=== PATIENT | male | born 1960 | race Caucasian/White ===

== ENCOUNTER 2021-06-29 12:52 | Inpatient (IN) | payer MEDICARE, OTHER ==
[2021-06-29] MEDS ORDERED: MELATONIN 3 MG TABLET PO PRN (16:15)
[2021-06-29] MEDS ORDERED: NALOXONE 0.4 MG/ML 1 ML VIAL IV PRN (16:15)
[2021-06-29] MEDS ORDERED: ACETAMINOPHEN TAB 325 MG TAB PO PRN (16:15)
[2021-06-29] MEDS ORDERED: ONDANSETRON 4 MG/2 ML VIAL IVP PRN (16:15)
[2021-06-29] MEDS ORDERED: ALBUTEROL NEBULIZED 2.5 MG/3 ML INHALATION PRN ×2 (19:41)
[2021-06-29] MEDS ORDERED: BUTORPHANOL TARTRATE 10 MG/ML MISCELLANE PRN (19:41)
[2021-06-29] MEDS ORDERED: VANCOMYCIN IV PER PHARMACY 1 EACH MISC MISCELLANE PRN (19:42)
[2021-06-29] MEDS ORDERED: VANCOMYCIN 1,500 MG in SODIUM CHLORIDE 0.9% 250 ML IVPB ONE (20:00)
[2021-06-29] MEDS: LORazepam 1 MG TAB PO SCH (20:51)
[2021-06-29] MEDS: HYDROcodone/APAP 5-325MG 1 EACH TAB PO PRN (21:29)
[2021-06-29] MEDS: SYMBICORT 160-4.5 MCG INHALER INHALATION SCH (21:51)
--- NOTE | 2021-06-29 22:20 | XR ---
EXAMINATION TYPE: XR chest 1V DATE OF EXAM: 06/29/2021 COMPARISON: NONE HISTORY: Chest tube placement TECHNIQUE: Single view FINDINGS: There is large right pleural effusion. Left lung is fairly clear. There is no obvious heart failure. There is a chest tube over the left lower lung field. I see no definite pneumothorax. IMPRESSION: Left side chest tube noted. Mild pleural reaction and atelectasis left lung base. Large r ight pleural effusion.
[2021-06-29 22:44] LABS: African American GFR (CKD) >90 (>60 ml/min/1.73 sqM); Non-African American GFR(CKD) >90 (>60 ml/min/1.73 sqM)
[2021-06-29] MEDS: CEFEPIME 2 GM in SODIUM CHLORIDE 0.9% 100 ML IVPB SCH (23:05)
[2021-06-29] MEDS: [UNRECOGNIZED DRUG - OTHER] PO SCH (23:09)
[2021-06-29] MEDS: CODEINE PO SCH (23:09)
--- NOTE | 2021-06-30 00:14 | XR ---
EXAMINATION TYPE: XR chest 1V confirm line [facility] DATE OF EXAM: 06/29/2021 COMPARISON: Today HISTORY: Chest tube placement TECHNIQUE: Single view FINDINGS: There is large right pleural effusion. No significant pleural fluid on the left side. No pn eumothorax. There is a chest tube at the left lung base on the exam 2 hours ago that is not identifie d on this exam. The trachea is midline. There is no sign of a pneumothorax. There is a pigtail drainage catheter over the subcutaneous tissues on the right lateral chest wall an d is not within the chest. IMPRESSION: Large right pleural effusion and right pulmonary consolidation without change. The right side chest tube appears to be in the subcutaneous fat and malpositioned over the lower lateral right chest wall..
[2021-06-30] MEDS: CEFEPIME 2 GM in SODIUM CHLORIDE 0.9% 100 ML IVPB SCH (03:31)
[2021-06-30] MEDS: HYDROcodone/APAP 5-325MG 1 EACH TAB PO PRN ×4 (03:41→19:41)
[2021-06-30 07:33] LABS: Basophils % (A) 0 %; Eosinophils % (A) 1 %; HCT 30.6 % (39.0-53.0); HGB 9.9 gm/dL (13.0-17.5); Lymphocytes # (A) 1.1 k/uL (1.0-4.8); Lymphocytes % (A) 14 %; MCH 33.9 pg (25.0-35.0); MCHC 32.3 g/dL (31.0-37.0); MCV 104.9 fL (80.0-100.0); Macrocytosis Moderate; Mean Platelet Volume 9.3; Monocytes # (A) 0.4 k/uL (0-1.0); Monocytes % (A) 6 %; Neutrophils # (A) 6.1 k/uL (1.3-7.7); Neutrophils % (A) 78 %; Platelet Count 244 k/uL (150-450); RBC 2.92 m/uL (4.30-5.90); RDW 15.2 % (11.5-15.5); WBC 7.8 k/uL (3.8-10.6)
[2021-06-30 07:35] LABS: ALT 43 U/L (4-49); AST 49 U/L (17-59); African American GFR (CKD) >90 (>60 ml/min/1.73 sqM); Albumin 2.3 g/dL (3.5-5.0); Albumin/Globulin Ratio 0.6; Alkaline Phosphatase 88 U/L (38-126); Anion Gap 4 mmol/L; Blood Urea Nitrogen 10 mg/dL (9-20); Calcium 8.2 mg/dL (8.4-10.2); Carbon Dioxide 28 mmol/L (22-30); Chloride 99 mmol/L (98-107); Globulin 3.8 g/dL; Glucose 99 mg/dL (74-99); Magnesium 1.8 mg/dL (1.6-2.3); Non-African American GFR(CKD) >90 (>60 ml/min/1.73 sqM); Potassium 3.8 mmol/L (3.5-5.1); Sodium 131 mmol/L (137-145); Total Bilirubin 0.3 mg/dL (0.2-1.3); Total Protein 6.1 g/dL (6.3-8.2)
--- NOTE | 2021-06-30 07:59 | XR ---
EXAMINATION TYPE: XR chest 1V portable DATE OF EXAM: 06/30/2021 Comparison: 06/29/2021 Clinical History: 60-year-old male empyema Findings: Right heart margin remains obscured by adjacent pleural parenchymal opacity. Continued moderate to la rge right effusion. Some patchy density at the left base is unchanged. Hyperinflation. Impression: Continued moderate to large right pleural effusion. Continued bibasilar patchy atelectasis and/or inf iltrates.
[2021-06-30] MEDS: SYMBICORT 160-4.5 MCG INHALER INHALATION SCH ×2 (08:03→20:50)
--- NOTE | 2021-06-30 08:10 | P.HPIM ---
History of Present Illness H&P Date: 06/29/21 This is a 60-year-old male who was recently hospitalized at [facility] for pneumonia and empyema and had a chest tube placed on the right for continued drainage and ultimately sent here to [facility] for further evaluation by cardiothoracic surgery for complicated empyema that appears to be loculated. Infectious disease following over there and patient was maintained on cefepime and Vancomycin and will reorder here and consult infectious disease. Consult also placed to pulmonary along with cardiothoracic surgery. Upon arrival to the unit on 4 S. per nursing staff patient's chest tube atrium was lying flat on the patient on arrival and when hooking up to wall suction b ubbling was noted in the atrium and was replaced. Bubbling persisted and chest x-ray was done which shows large right pleural effusion and right pulmonary consolidation without change the right side chest tube appears to be in the subcutaneous fat and malposition over the lower lateral right chest wall. No sign of pneumothorax. Cardiothoracic surgery contacted and will be replaced upon their evaluation. Patient does have a past medical history of COPD, hypertension, former smoker recently quit, EtOH use and reports to quitting a month or so ago, anemia, and most recently per family patient has been falling more often with unsteady gait. Patient states he follows with Dr. Rafita Lewis out of [place]. Daughter states patient lives by himself and is concerned and would like possible placement. Review of Systems Constitutional: Reports weakness Ears, nose, mouth and throat: Denies headache, Denies sore throat Cardiovascular: Reports decreased exercise tolerance, Reports dyspnea on exertion, Reports shortness of breath Respiratory: Reports dyspnea, Reports home oxygen, Reports pain on inspiration Gastrointestinal: Denies abdominal pain, Denies diarrhea, Denies nausea, Denies vomiting Musculoskeletal: Denies myalgias Integumentary: Denies pruritus, Denies rash Neurological: Denies numbness, Denies weakness Psychiatric: Denies anxiety, Denies depression Endocrine: Denies fatigue, Denies weight change Past Medical History Past Medical History: COPD, Hypertension History of Any Multi-Drug Resistant Organisms: None Reported Past Surgical History: Hernia Repair, Orthopedic Surgery Past Anesthesia/Blood Transfusion Reactions: No Reported Reaction Past Psychological History: No Psychological Hx Reported Smoking Status: Former smoker Past Alcohol Use History: None Reported Additional Past Alcohol Use History / Comment(s): Quit drinking alcohol 7-8 weeks ago Past Drug Use History: None Reported Medications and Allergies Home Medications Medication Instructions Recorded Confirmed Type Albuterol Inhaler [Ventolin Hfa 1 puff INHALATION RT-Q4H PRN 06/29/21 06/29/21 History Inhaler] Albuterol Nebulized [Ventolin 2.5 mg INHALATION RT-QID PRN 06/29/21 06/29/21 History Nebulized] Ascomp W/Codeine 1 cap PO TID 06/29/21 06/29/21 History Butorphanol Tartrate [Stadol Nasal 1 spray NASAL DAILY PRN 06/29/21 06/29/21 History [employer]] LORazepam [Ativan] 2 mg PO HS 06/29/21 06/29/21 History Metoprolol Succinate [Toprol XL] 100 mg PO DAILY 06/29/21 06/29/21 History Mometasone/Formoterol [Dulera 200 2 puff PO RT-BID 06/29/21 06/29/21 History Mcg-5 Mcg Inhaler] Umeclidinium [place] [Incruse 1 mcg INHALATION RT-DAILY 06/29/21 06/29/21 History Ellipta] Allergies Allergy/AdvReac Type Severity Reaction Status Date / Time No Known Allergies Allergy Verified 06/29/21 17:05 Physical Exam Vitals: Intake and Output 06/29/21 06/29/21 06/29/21 06:59 14:59 22:59 Other: # Voids 1 Weight 83 kg Gen: This is a 60-year-old male awake, alert and oriented 3, thin built, appears older than stated age, no acute distress HEENT: Head is atraumatic, normocephalic. Pupils equal, round. Sclerae is anicteric. NECK: Supple. No JVD. No lymphadenopathy. No thyromegaly. LUNGS: Diminished breath sounds on the right more so than the left with some scattered rhonchi noted. Mild crackles noted at the bases. No intercostal retractions. Right chest wall pigtail catheter noted that appears stretched but no surrounding redness or swelling noted at the chest wall site, tender on palpation. HEART: Regular rate and rhythm. No murmur. ABDOMEN: Soft. Thin built. Bowel sounds are present. No masses. No tenderness. EXTREMITIES: No pedal edema. No calf tenderness. NEUROLOGICAL: Patient is awake, alert and oriented x3. Cranial nerves 2 through 12 are grossly intact. Results CBC & Chem 7: 06/30/21 06:46 06/30/21 07:12 Thrombosis Risk Factor Assmnt - DVT/VTE Prophylaxis DVT/VTE Prophylaxis: Pharmacologic Prophylaxis ordered - Choose All That Apply Any of the Below Risk Factors Present?: Yes Each Factor Represents 1 point: Abnormal pulmonary function (COPD) Each Risk Factor Represents 2 Points: Age 61-74 years Thrombosis Risk Factor Assessment Total Risk Factor Score: 3 Thrombosis Risk Factor Assessment Level: Moderate Risk Assessment and Plan Assessment: Pneumonia with Pseudomonas Chronic obstructive pulmonary disease, acute exacerbation Right pleural effusion Hypertension Remote history of alcohol abuse Remote history of nicotine dependence, recently quit Moderate protein malnutrition with BMI of 22.3 History of anemia, macrocytic Interstitial lung disease History of chronic right pleural effusion that was recently tapped at [facility] Gait dysfunction Weakness Frequent falls Full code Plan: In this pleasant 60-year-old male that was recently transferred from [facility] here to [facility] will consult cardiothoracic surgery for evaluation of pigtail catheter and possible intervention of loculated empyema. Patient was being followed by Dr. Giordano at [facility] and will consult Dr. Prabhakar pulmonary as he is rounding here today. Infectious disease consulted as well and will resume patient on IV cefepime along with IV Vanco and repeat a.m. labs. Resume appropriate home medications and have ordered nicotine patch as patient states he did quit smoking but is known to be a poor historian. Will also consult PT/OT therapy for evaluation as patient has been having more frequent falls with weakness and gait dysfunction and family is concerned for h is overall health and well-being as he lives alone. Will consult social work as well to discuss possible placement options once patient is stabilized. Will repeat chest x-ray and repeat a.m. labs. Due to multiple complex medical issues, prognosis is guarded. Further recommendations to follow based on the clinical course the patient. Continue GI and DVT prophylaxis. Time with Patient: Greater than 30
--- NOTE | 2021-06-30 08:53 | P.CNPUL ---
History of Present Illness Consult date: 06/30/21 Chief complaint: empyema History of present illness: This is a 60-year-old male patient transferred from [facility] for a right lung empyema. The patient presented there for shortness of breath and the patient was found to have a large right-sided loculated pleural effusion. The patient also was an acute COPD exacerbation. The patient underwent a pigtail catheter insertion by interventional radiology and the fluid was plus. The cultures from the pleural fluid showed numerous gram-positive cocci, gram- negative bacilli and gram-positive bacilli and the final cultures are still pending. Meanwhile, the patient was covered with a combination of Zosyn and vancomycin. The patient got transferred to our hospital for further care. I reviewed the chest x-ray upon arrival. The pigtail catheter was already out in the subcutaneous tissue and there was a large right-sided pleural effusion. Based on that, I removed the pigtail catheter the bedside and I consulted interventional radiology for another pigtail catheter insertion. I reviewed the CAT scan of the chest and it showed a large somewhat loculated right-sided pleu ral effusion which is very much M and able for percutaneous drainage. For that reason, IV consulted interventional radiology. The patient is known to have COPD. He is a chronic alcohol user and he has quit drinking approximately 7 weeks ago. He has history of alcoholism. He has history of prostate cancer treated by radiation therapy and he has also history of hypertension. He is a chronic smoker smokes one pack of cigarettes a day. He is COVID-19 negative. White cell count at [facility] was 10.6 with a hemoglobin of 9.7. No reported aspiration. There is a sputum sample that was collected at [facility] growing pseudomonas aeruginosa on 06/28/2021. Review of Systems Constitutional: Reports fatigue, Reports fever, Reports weakness Eyes: denies as per HPI, denies blurred vision, denies bulging eye, denies d ecreased vision, denies diplopia, denies discharge, denies dry eye, denies irritation, denies itching, denies pain, denies photophobia, denies loss of peripheral vision, denies loss of vision, denies tunnel vision/blind spots Ears: deny: decreased hearing, ear discharge, earache, tinnitus Ears, nose, mouth and throat: Reports as per HPI Breasts: absent: as per HPI, gynecomastia Cardiovascular: Reports decreased exercise tolerance, Reports dyspnea on exertion Respiratory: Reports cough, Reports cough with sputum, Reports dyspnea Gastrointestinal: Reports as per HPI Genitourinary: Reports as per HPI Musculoskeletal: Reports as per HPI Musculoskeletal: absent: ankle pain, ankle stiffness, ankle swelling, as per HPI, elbow pain, elbow stiffness, elbow swelling, foot pain, foot stiffness, foot swelling, hand pain, hand stiffness, hand swelling, hip pain, hip stiffness , hip swelling, knee pain, knee stiffness, knee swelling, shoulder pain, shoulder stiffness, shoulder swelling, wrist pain, wrist stiffness, wrist swelling Integumentary: Reports as per HPI Neurological: Reports as per HPI Psychiatric: Reports as per HPI Endocrine: Reports as per HPI Hematologic/Lymphatic: Reports as per HPI Allergic/Immunologic: Reports as per HPI Past Medical History Past Medical History: Cancer (Prostate cancer), COPD, Hypertension History of Any Multi-Drug Resistant Organisms: None Reported Past Surgical History: Hernia Repair, Orthopedic Surgery Past Anesthesia/Blood Transfusion Reactions: No Reported Reaction Past Psychological History: No Psychological Hx Reported Smoking Status: Former smoker Past Alcohol Use History: None Reported Additional Past Alcohol Use History / Comment(s): Quit drinking alcohol 7-8 weeks ago Past Drug Use History: None Reported Medications and Allergies Home Medications Medication Instructions Recorded Confirmed Type Albuterol Inhaler [Ventolin Hfa 1 puff INHALATION RT-Q4H PRN 06/29/21 06/29/21 History Inhaler] Albuterol Nebulized [Ventolin 2.5 mg INHALATION RT-QID PRN 06/29/21 06/29/21 History Nebulized] Ascomp W/Codeine 1 cap PO TID 06/29/21 06/29/21 History Butorphanol Tartrate [Stadol Nasal 1 spray NASAL DAILY PRN 06/29/21 06/29/21 History [place]] LORazepam [Ativan] 2 mg PO HS 06/29/21 06/29/21 History Metoprolol Succinate [Toprol XL] 100 mg PO DAILY 06/29/21 06/29/21 History Mometasone/Formoterol [Dulera 200 2 puff PO RT-BID 06/29/21 06/29/21 History Mcg-5 Mcg Inhaler] Umeclidinium [place] [Incruse 1 mcg INHALATION RT-DAILY 06/29/21 06/29/21 His tory Ellipta] Allergies Allergy/AdvReac Type Severity Reaction Status Date / Time No Known Allergies Allergy Verified 06/29/21 17:05 Physical Exam Vitals: Vital Signs Temp Pulse Resp BP Pulse Ox 06/30/21 07:28 97.5 F L 67 16 112/79 98 06/30/21 01:10 97.6 F 80 15 125/88 96 Intake and Output 06/29/21 06/30/21 06/30/21 22:59 06:59 14:59 Output Total 200 Balance -200 Output: Urine 200 Other: # Voids 1 Weight 83 kg Gen. appearance the patient is calm comfortable likely distress. No signs of any respiratory distress Head exam was generally normal. There was no scleral icterus or corneal arcus. Mucous membranes were moist. Neck was supple and without jugular venous distension, thyromegaly, or carotid bruits. Carotids were easily palpable bilaterally. There was no adenopathy. Lungs: Diminished on the right compared to left specially in the right lung base. The pigtail catheter was removed. Cardiac exam revealed the PMI to be normally situated and sized. The rhythm was regular and no extrasystoles were noted during several minutes of auscultation. The first and second heart sounds were normal and physiologic splitting of the second heart sound was noted. There were no murmurs, rubs, clicks, or gallops. Abdominal exam revealed normal bowel sounds. The abdomen was soft, non-tender, and without masses, organomegaly, or appreciable enlargement of the abdominal aorta. Examination of the extremities revealed easily palpable radial, femoral and pedal pulses. There was no cyanosis, clubbing or edema. Examination of the skin revealed no evidence of significant rashes, suspicious appearing nevi or other concerning lesions. Neurologically, the patient is awake and alert and the patient does not have any focal neurological deficit. Cranial nerves are essentially intact. Results - Laboratory Findings CBC and BMP: 06/30/21 06:46 06/30/21 07:12 Abnormal lab findings: Abnormal Labs 06/29/21 06/30/21 06/30/21 21:39 06:46 07:12 RBC 2.92 L Hgb 9.9 L Hct 30.6 L MCV 104.9 H Sodium 131 L Creatinine 0.61 L 0.59 L Calcium 8.2 L Total Protein 6.1 L Albumin 2.3 L Assessment and Plan Plan: 1 right lung empyema post percutaneous pigtail catheter insertion with subsequent dislodgment of the cath. Pleural fluid is purulent and its polymicrobial, awaiting final cultures. Currently on a combination of Zosyn and vancomycin. Awaiting another catheter insertion.. This could be a gram- negative pneumonia with secondary empyema and alcoholic patient. Patient has grown also pseudomonas aeruginosa and the sputum on 06/28/2021. Anaerobic infection cannot be completely excluded within the pleural space. 2 COPD 3 shortness of breath secondary to above 4 history of alcoholism 5 history of prostate cancer 6 history of smoking 7 chronic anemia 8 protein calorie malnutrition, moderate Plan Consult interventional radiology for another pigtail catheter insertion. The earlier catheter was dislodged and I took it out at the bedside. We'll order a catheter insertion. We'll monitor the output. We'll likely need TPA to improve or enhance the pleural fluid drainage. No need for any thoracic intervention or surgical intervention at this point in time. The pleural fluid should be drained percutaneously based on the CAT scan findings. Continue Zosyn and vancomycin Awaiting final cultures from the samples collected at [facility] Incentive spirometer Pain control with [place] and use Dilaudid for breakthrough pain DuoNeb the regimens [id number] COVID-19 testing by PCR Lovenox subcu for DVT prophylaxis Watch for any signs of delirium tremens We'll continue to follow.
[2021-06-30] MEDS: VANCOMYCIN 1,500 MG in SODIUM CHLORIDE 0.9% 250 ML IVPB SCH ×2 (09:05→23:36)
[2021-06-30] MEDS: PANTOPRAZOLE 40 MG TABLET PO SCH (09:05)
[2021-06-30] MEDS: FOLIC ACID 1 MG TAB PO SCH (09:05)
[2021-06-30] MEDS: METOPROLOL SUCCINATE (ER) 100 MG TAB.ER.24H PO SCH (09:05)
[2021-06-30] MEDS: NICOTINE 14MG/24HR PATCH TRANSDERM SCH (09:05)
[2021-06-30] MEDS: THIAMINE 100 MG TAB PO SCH (09:05)
[2021-06-30 10:12] LABS: Prothrombin Time 10.4 sec (9.0-12.0)
--- NOTE | 2021-06-30 11:04 | P.GSCN ---
History of Present Illness Consult date: 06/30/21 Reason for Consult: Loculated right empyema Requesting physician: Elyse Marquez History of present illness: This is 60-year-old gentleman who follows on an outpatient basis with Dr. Gaetano Lewis for his primary care service. He is a past medical history significant for COPD with home oxygen use 3 L nasal cannula, right pleural effusion with previous right thoracentesis at [facility] around the year ago, anemia, hypertension, prostate cancers status post 48 radiation treatments, recent fall from standing, medical debility, remote history of paroxysmal atrial fibrillation, chronic nicotine dependence and EtOH abuse which he reports he quit about 7-8 weeks ago. The patient was transferred from [facility] yesterday for evaluation for right lung empyema. The patient has had complaints of progressive shortness of breath, cough, generalized weakness, weight loss and right sided rib pain. The patient underwent a right-sided pigtail catheter placement yesterday by interventional radiology with pleural fluid Gram stain showing MRSA gram-positive cocci, few gram-negative bacilli, and few gram-positive bacilli. He also had a sputum culture on 06/26/2021 which showed moderate usual respiratory guilherme, and pseudomonas aeruginosa. Currently is on IV antibiotics and combination of vancomycin and Zosyn. The patient denies any recent fever, chills, nausea, vomiting, hemoptysis, hematemesis, headache, constipation, diarrhea or headache. A chest x-ray was also completed as well as a computed tomography scan of his chest at [facility] showing a large right-sided pleural effusion. Subsequently, he underwent a right-sided pigtail catheter placement which was completed by interventional radiology with 400 mL of pus drained. A chest x-ray completed this morning shows a continued moderate to large right-sided pleural effusion and it appears that his right-sided pigtail catheter is dislodged. Due to the findings of a large right sided pleural effusion a consult was placed to Dr. London Abrams from cardiothoracic surgery for further evaluation and treat ment recommendations. Review of Systems A 14 point review of systems was completed was negative except as mentioned in the HPI. Past Medical History Past Medical History: Atrial Fibrillation (Remote history of paroxysmal atrial fibrillation), Cancer (Prostate cancer, status post 48 radiation treatments), COPD, Hypertension, Prostate Disorder, Respiratory Disorder (COPD with home oxygen use) History of Any Multi-Drug Resistant Organisms: None Reported Past Surgical History: Appendectomy, Hernia Repair (Bilateral inguinal hernia repair), Orthopedic Surgery (Right heel), Tonsillectomy Additional Past Surgical History / Comment(s): History of esophageal dilation Past Anesthesia/Blood Transfusion Reactions: No Reported Reaction Past Psychological History: No Psychological Hx Reported Smoking Status: Former smoker (Quit smoking 7 weeks ago) Past Alcohol Use History: Daily (Quit drinking 7 weeks ago) Additional Past Alcohol Use History / Comment(s): Quit drinking alcohol 7-8 weeks ago Past Drug Use History: None Reported Medications and Allergies Home Medications Medication Instructions Recorded Confirmed Type Albuterol Inhaler [Ventolin Hfa 1 puff INHALATION RT-Q4H PRN 06/29/21 06/29/21 History Inhaler] Albuterol Nebulized [Ventolin 2.5 mg INHALATION RT-QID PRN 06/29/21 06/29/21 History Nebulized] Ascomp W/Codeine 1 cap PO TID 06/29/21 06/29/21 History Butorphanol Tartrate [Stadol Nasal 1 spray NASAL DAILY PRN 06/29/21 06/29/[address] [place]] LORazepam [Ativan] 2 mg PO HS 06/29/21 06/29/21 History Metoprolol Succinate [Toprol XL] 100 mg PO DAILY 06/29/21 06/29/21 History Mometasone/Formoterol [Dulera 200 2 puff PO RT-BID 06/29/21 06/29/21 History Mcg-5 Mcg Inhaler] Umeclidinium [place] [Incruse 1 mcg INHALATION RT-DAILY 06/29/21 06/29/21 History Ellipta] Allergies Allergy/AdvReac Type Severity Reaction Status Date / Time No Known Allergies Allergy Verified 06/29/21 17:05 Surgical - Exam Vital Signs Temp Pulse Resp BP Pulse Ox 97.6 F 80 15 125/88 96 06/30/21 01:10 06/30/21 01:10 06/30/21 01:10 06/30/21 01:10 06/30/21 01:10 CONSTITUTIONAL: Sitting up to the bedside chair on the cardiac stepdown unit, appears comfortable, cooperative, no apparent acute distress. HEENT: Neck is supple, no JVD, no lymphadenopathy. No scleral icterus. Mucous membranes are moist. No JVD. No bruit. RESPIRATORY: Lungs sounds diminished throughout, right greater than left. Respirations are symmetrical and nonlabored. Currently on 4 L nasal cannula with oxygen saturations 98%. Able to achieve 1000 mL on his incentive spirometry. Strong cough. CARDIOVASCULAR: Regular rhythm and rate. S1 and S2 present, negative for S3, gallop or murmur. Palpable peripheral pulses bilaterally, no edema present. No calf pain or tenderness noted. GASTROINTESTINAL: Abdomen soft, nontender, nondistended. Active bowel sounds present 4 quadrants. No guarding or rigidity. No organomegaly appreciated. INTEGUMENTARY: Skin is warm and dry with no evidence of clubbing or cyanosis. No rash or abnormal pigmentation. Dressing clean and dry to his right chest pigtail catheter insertion site. NEUROLOGIC: Cranial nerves II through XII intact. No focal deficits. MUSKULOSKELETAL: Able to move all extremities, strength equal bilaterally, generalized weakness. PSYCHIATRIC: Alert and oriented to person place and time, appropriate affect, intact judgment and insight. Results - Labs 06/30/21 06:46 06/30/21 07:12 Abnormal Lab Results - Last 24 Hours (Table) 06/29/21 06/30/21 06/30/21 Range/Units 21:39 06:46 07:12 RBC 2.92 L (4.30-5.90) m/uL Hgb 9.9 L (13.0-17.5) gm/dL Hct 30.6 L (39.0-53.0) % MCV 104.9 H (80.0-100.0) fL Sodium 131 L (137-145) mmol/L Creatinine 0.61 L 0.59 L (0.66-1.25) mg/dL Calcium 8.2 L (8.4-10.2) mg/dL Total Protein 6.1 L (6.3-8.2) g/dL Albumin 2.3 L (3.5-5.0) g/dL Diabetes panel 06/29/21 06/30/21 Range/Units 21:39 07:12 Sodium 131 L (137-145) mmol/L Potassium 3.8 (3.5-5.1) mmol/L Chloride 99 (98-107) mmol/L Carbon Dioxide 28 (22-30) mmol/L BUN 10 (9-20) mg/dL Creatinine 0.61 L 0.59 L (0.66-1.25) mg/dL Glucose 99 (74-99) mg/dL Calcium 8.2 L (8.4-10.2) mg/dL AST 49 (17-59) U/L ALT 43 (4-49) U/L Alkaline Phosphatase 88 (38-126) U/L Total Protein 6.1 L (6.3-8.2) g/dL Albumin 2.3 L (3.5-5.0) g/dL Calcium panel 06/30/21 Range/Units 07:12 Calcium 8.2 L (8.4-10.2) mg/dL Albumin 2.3 L (3.5-5.0) g/dL Pituitary panel 06/29/21 06/30/21 Range/Units 21:39 07:12 Sodium 131 L (137-145) mmol/L Potassium 3.8 (3.5-5.1) mmol/L Chloride 99 (98-107) mmol/L Carbon Dioxide 28 (22-30) mmol/L BUN 10 (9-20) mg/dL Creatinine 0.61 L 0.59 L (0.66-1.25) mg/dL Glucose 99 (74-99) mg/dL Calcium 8.2 L (8.4-10.2) mg/dL Adrenal panel 06/29/21 06/30/21 Range/Units 21:39 07:12 Sodium 131 L (137-145) mmol/L Potassium 3.8 (3.5-5.1) mmol/L Chloride 99 (98-107) mmol/L Carbon Dioxide 28 (22-30) mmol/L BUN 10 (9-20) mg/dL Creatinine 0.61 L 0.59 L (0.66-1.25) mg/dL Glucose 99 (74-99) mg/dL Calcium 8.2 L (8.4-10.2) mg/dL Total Bilirubin 0.3 (0.2-1.3) mg/dL AST 49 (17-59) U/L ALT 43 (4-49) U/L Alkaline Phosphatase 88 (38-126) U/L Total Protein 6.1 L (6.3-8.2) g/dL Albumin 2.3 L (3.5-5.0) g/dL - Imaging Chest x-ray: report reviewed, image reviewed Assessment and Plan Assessment: 1. Right lung empyema status post right-sided percutaneous pigtail catheter insertion by interventional radiology and subsequent dislodgment of the pigtail catheter. Sputum culture from 06/26/2021 showing pseudomonas aeruginosa 2. Shortness of breath secondary to above 3. Chronic obstructive pulmonary disease 4. History of prostate cancer status post 48 treatments of radiation 5. Hypertension 6. Medical debility 7. Chronic anemia 8. History of EtOH abuse 9. History of nicotine dependence 10. History of recent weight loss, protein calorie malnutrition Plan: The patient was seen and examined at his bedside on the fourth floor [facility] unit. His chart and diagnostics were reviewed. He was seen and examined by Dr. London Abrams from cardiothoracic surgery. Dr. Abrams discussed the findings on the patient's computed tomography scan of his chest and chest x- rays. Cardiothoracic surgery service agree with placement of a right sided pigtail catheter replaced by interventional radiology with subsequent pleural instillation of alteplase/dornase combination. Dr. Abrams did discuss with the patient, the possible need for surgery if the alteplase and dornase combination does not clear his empyema. Continue with IV antibiotics managed by infectious disease. Encourage use of his incentive spirometry 10 times every hour while awake. Risk modification including continued smoking cessation was discussed with the patient, and continue to monitor the patient for signs of delirium tremors. Medical management and other comorbidities per primary care service. Recommendations to follow based on patient's clinical course. Thank you for this consult and we look forward to working with you in the care of this patient. Time with Patient: Greater than 30
--- NOTE | 2021-06-30 11:30 | US ---
EXAMINATION TYPE: US guided chest tube insertion DATE OF EXAM: 06/30/2021 COMPARISON: Chest x-ray dated 06/30/2021 HISTORY: Right Pleural effusion, empyema. FINDINGS: Maximal barrier technique was utilized. The skin overlying a suitable pocket of fluid in t he posterior right chest was localized and the overlying skin prepped and draped. Lidocaine was used for local anesthesia. Ultrasound was used with sterile technique. A 21-gauge needle was advanced in to the pleural fluid collection using ultrasound guidance , purulent material returned in the hub of the needle. A 0.018 inch wire was advanced and the access site was upsized with a transitional dilato r, wire was upsized and the tract was dilated, 6 Finnish tube was advanced over the wire and fixed in place.. 20 cc purulent material obtained for laboratory analysis. Catheter attached to water seal. Po st procedure chest x-ray pending. There is no immediate complication. The patient discharged in stab le condition without complication. IMPRESSION: STATUS POST ULTRASOUND GUIDED PLEURAL DRAINAGE TUBE CATHETER PLACEMENT, POST PROCEDURE EST X-RAY PENDING. THIS PROCEDURE WAS PERFORMED BY THE UNDERSIGNED.
--- NOTE | 2021-06-30 11:53 | XR ---
EXAMINATION TYPE: XR chest 1V DATE OF EXAM: 06/30/2021 COMPARISON: Earlier today HISTORY: 60-year-old male post right chest tube insertion TECHNIQUE: Single frontal view of the chest is obtained. FINDINGS: Continued moderate to large right pleural effusion. Patchy bibasilar opacities persist. In terval placement of the pigtail right basilar lateral catheter. Right heart margin remains obscured b y adjacent pleural parenchymal opacity. IMPRESSION: 1. Interval placement of a pigtail right basilar pleural catheter. 2. Continued moderate to large right pleural effusion with patchy bibasilar opacities.
[2021-06-30] MEDS: [UNRECOGNIZED DRUG - OTHER] PO SCH ×2 (12:36→12:45)
[2021-06-30] MEDS: CODEINE PO SCH ×2 (12:36→12:45)
[2021-06-30] MEDS: ENOXAPARIN 40 MG/0.4 ML SYRINGE SQ SCH (12:37)
[2021-06-30] MEDS: PIPERACILLIN-TAZOBACTAM 3.375 GM in SODIUM CHLORIDE 0.9% 100 ML IVPB SCH ×3 (12:37→19:41)
--- NOTE | 2021-06-30 12:57 | P.PN ---
Subjective Progress Note Date: 06/30/21 This is a 60-year-old male who was recently hospitalized at [facility] for pneumonia and empyema and had a chest tube placed on the right for continued drainage and ultimately sent here to [facility] for further evaluation by cardiothoracic surgery for complicated empyema that appears to be loculated. Infectious disease following over there and patient was maintained on cefepime and Vancomycin and will reorder here and consult infectious disease. Consult also placed to pulmonary along with cardiothoracic surgery. Upon arrival to the unit on 4 S. per nursing staff patient's chest tube atrium was lying flat on the patient on arrival and when hooking up to wall suction bubbli ng was noted in the atrium and was replaced. Bubbling persisted and chest x-ray was done which shows large right pleural effusion and right pulmonary consolidation without change the right side chest tube appears to be in the subcutaneous fat and malposition over the lower lateral right chest wall. No sign of pneumothorax. Cardiothoracic surgery contacted and will be replaced upon their evaluation. Patient does have a past medical history of COPD, hypertension, former smoker recently quit, EtOH use and reports to quitting a month or so ago, anemia, and most recently per family patient has been falling more often with unsteady gait. Patient states he follows with Dr. Rafita Lewis out of [place]. Daughter states patient lives by himself and is concerned and would like possible placement. 06/30/2021 patient is seen and evaluated in follow-up this morning with cardiothoracic surgery along with pulmonary following closely and evaluated the patient. Pigtail catheter on the right was dislodged and removed at the bedside by pulmonary and interventional radiology consulted to replace catheter on the right with possible drainage or evacuation of the loculated area with cultures b eing sent. patient is continued on 4 L of oxygen via nasal cannula and reports no worsening shortness of breath. Patient had some pain with inspiration and during the removal of the catheter and will order pain medications. Labs: White blood count is 7.8, hemoglobin is 9.9, platelets are 244, INR is 1.0, sodium is 131 with a potassium of 3.8 and current creatinine is 0.59, magnesium is 1.8. Review of systems: Constitutional: No reports of fatigue, fever, or chills Cardiovascular: No reports of chest pain or palpitations Respiratory: No reports of shortness of breath or cough GI: No reports of nausea, vomiting, or diarrhea : No reports of dysuria or retention Neurovascular: No reports of weakness or numbness All medications have been reviewed Active Medications Acetaminophen (Acetaminophen Tab 325 Mg Tab) 650 mg PO Q6HR PRN PRN Reason: Mild Pain or Fever > 100.5 Hydrocodone Bitart/Acetaminophen (Hydrocodone/Apap 5-325mg 1 Each Tab) 1 each PO Q6HR PRN PRN Reason: Pain Last Admin: 06/30/21 09:05 Dose: 1 each Documented by: Albuterol Sulfate (Albuterol Nebulized 2.5 Mg/3 Ml) 2.5 mg INHALATION RT-Q4H PRN PRN Reason: Shortness Of Breath Last Admin: 06/30/21 12:05 Dose: 2.5 mg Documented by: Budesonide/Formoterol Fumarate (Symbicort 160-4.5 Mcg Inhaler) 2 puff INHALATION RT-BID [facility] Last Admin: 06/30/21 08:03 Dose: 2 puff Documented by: Enoxaparin Sodium (Enoxaparin 40 Mg/0.4 Ml Syringe) 40 mg SQ DAILY [facility] Last Admin: 06/30/21 12:37 Dose: 40 mg Documented by: Folic Acid (Folic Acid 1 Mg Tab) 1 mg PO DAILY [facility] Last Admin: 06/30/21 09:05 Dose: 1 mg Documented by: Hydromorphone HCl (Hydromorphone 1 Mg/Ml 1 Ml Syringe) 1 mg IVP Q3HR PRN PRN Reason: Pain Vancomycin HCl 1,500 mg/ (Sodium Chloride) 250 mls @ 125 mls/hr IVPB Q12H [facility] Last Admin: 06/30/21 09:05 Dose: 125 mls/hr Documented by: Piperacillin Sod/Tazobactam (Sod 3.375 gm/ Sodium Chloride) 100 mls @ 25 mls/hr IVPB Q8HR [facility] Last Admin: 06/30/21 12:37 Dose: 25 mls/hr Documented by: Alteplase, Recombinant 10 mg/ (Sodium Chloride) 50 mls @ 500 mls/hr IRRIGATION ONCE ONE Stop: 06/30/21 12:49 Dornase Darrion 5 mg/ Sodium (Chloride) 55 mls @ 550 mls/hr IRRIGATION ONCE ONE Stop: 06/30/21 12:49 Lorazepam (Lorazepam 1 Mg Tab) 2 mg PO HS [facility] Last Admin: 06/29/21 20:51 Dose: 2 mg Documented by: Melatonin (Melatonin 3 Mg Tablet) 3 mg PO HS PRN PRN Reason: Insomnia Metoprolol Succinate (Metoprolol Succinate (Er) 100 Mg Tab.Er.24h) 100 mg PO DAILY [facility] Last Admin: 06/30/21 09:05 Dose: 100 mg Documented by: Miscellaneous Information (Vancomycin Trough Due 1 Each Misc) 0 each MISCELLANE DIRECTED ONE Stop: 07/01/21 08:01 Naloxone HCl (Naloxone 0.4 Mg/Ml 1 Ml Vial) 0.2 mg IV Q2M PRN PRN Reason: Opioid Reversal Nicotine (Nicotine 14mg/24hr Patch) 1 patch TRANSDERM DAILY [facility] Last Admin: 06/30/21 09:05 Dose: 1 patch Documented by: Patient's Own ( Ascomp W/Codeine 1 Cap) 1 cap PO TID [facility] Last Admin: 06/30/21 12:45 Dose: Not Given Documented by: Patient's Own ( Butorphanol Tartrate [Stadol Nasal Paron ] 10 Mg/Ml Ml) 1 spray MISCELLANE DAILY PRN PRN Reason: Migraine Headache Ondansetron HCl (Ondansetron 4 Mg/2 Ml Vial) 4 mg IVP Q8HR PRN PRN Reason: Nausea And Vomiting Pantoprazole Sodium (Pantoprazole 40 Mg Tablet) 40 mg PO AC-BRKFST [facility] Last Admin: 06/30/21 09:05 Dose: 40 mg Documented by: Thiamine HCl (Thiamine 100 Mg Tab) 100 mg PO DAILY [facility] Last Admin: 06/30/21 09:05 Dose: 100 mg Documented by: Physical exam: Gen: This is a 60-year-old male awake, alert and oriented 3, thin built, appears older than stated age, no acute distress HEENT: Head is atraumatic, normocephalic. Pupils equal, round. Sclerae is anicteric. NECK: Supple. No JVD. No lymphadenopathy. No thyromegaly. LUNGS: Diminished breath sounds on the right more so than the left with some scattered rhonchi noted. Mild crackles noted at the bases. No intercostal retractions. Right chest wall pigtail catheter has been removed HEART: Regular rate and rhythm. No murmur. ABDOMEN: Soft. Thin built. Bowel sounds are present. No masses. No tenderness. EXTREMITIES: No pedal edema. No calf tenderness. NEUROLOGICAL: Patient is awake, alert and oriented x3. Cranial nerves 2 through 12 are grossly intact. Assessment: Pneumonia with Pseudomonas growing in the sputum Bacterial pneumonia with Pseudomonas Empyema with right side percutaneous pigtail catheter placement at [facility] and subsequent dislodgment of the catheter Chronic obstructive pulmonary disease, acute exacerbation Chronic hypoxic respiratory failure on 3 L via nasal cannula in the outpatient setting Right pleural effusion mild hyponatremia Hypertension Remote history of alcohol abuse Remote history of nicotine dependence, recently quit Moderate protein malnutrition with BMI of 22.3 History of anemia, macrocytic Interstitial lung disease History of chronic right pleural effusion that was recently tapped at [facility] Gait dysfunction Weakness Frequent falls Full code Plan: In this pleasant 60-year-old male that was recently transferred from [facility] here to [facility] have consulted cardiothoracic surgery for evaluation of pigtail catheter and possible intervention of loculated empyema. chest x-ray yesterday evening shows dislodgment of the pigtail catheter an IR consulted for replacement of this catheter. Patient was being followed by Dr. Giordano at [facility] and also have placed a consult for Dr. Prabhakar pulmonary. Infectious disease consulted as well and will resume patient on IV Zosyn along with IV Vanco and repeat a.m. labs. Resume appropriate home medications and have ordered nicotine patch as patient states he did quit smoking but is known to be a poor historian. Will also consult PT/OT therapy for evaluation as patient has been having more frequent falls with weakness and gait dysfunction and family is concerned for his overall health and well-being as he lives alone. Will consult social work as well to discuss possible placement options once patient is stabilized. repeat chest x-ray today after pigtail catheter placement shows interval placement of a pigtail right basilar pleural catheter with continued moderate to large right pleural effusion with patchy bibasilar opacities. cytology specimen has been obtained and will be sent for analysis and await cultures. Due to multiple complex medical issues, prognosis is guarded. Further recommendations to follow based on the clinical course the patient. Continue GI and DVT prophylaxis. Objective - Vital Signs Vital signs: Vital Signs Temp 97.5 F L 06/30/21 07:28 Pulse 67 06/30/21 07:28 Resp 16 06/30/21 07:28 BP 112/79 06/30/21 07:28 Pulse Ox 98 06/30/21 07:28 Intake & Output 06/29/21 06/30/21 06/30/21 18:59 06:59 18:59 Output Total 200 Balance -200 Weight 83 kg Output: Urine 200 Other: # Voids 1 - Labs CBC & Chem 7: 06/30/21 06:46 06/30/21 07:12 Labs: Abnormal Lab Results - Last 24 Hours (Table) 06/29/21 06/30/21 06/30/21 Range/Units 21:39 06:46 07:12 RBC 2.92 L (4.30-5.90) m/uL Hgb 9.9 L (13.0-17.5) gm/dL Hct 30.6 L (39.0-53.0) % MCV 104.9 H (80.0-100.0) fL Sodium 131 L (137-145) mmol/L Creatinine 0.61 L 0.59 L (0.66-1.25) mg/dL Calcium 8.2 L (8.4-10.2) mg/dL Total Protein 6.1 L (6.3-8.2) g/dL Albumin 2.3 L (3.5-5.0) g/dL
[2021-06-30] MEDS ORDERED: DORNASE ALFA 5 MG in SODIUM CHLORIDE 0.9% 50 ML IRRIGATION ONE (13:00)
[2021-06-30] MEDS ORDERED: ALTEPLASE 10 MG in SODIUM CHLORIDE 0.9% 50 ML IRRIGATION ONE (13:00)
[2021-06-30 13:24] VITALS: BMI 22.2
[2021-06-30 15:41] LABS: Appearance,BF Cloudy
[2021-06-30 15:42] LABS: Nucleated Cells, Body Fluid 265000 /uL; RBC, Body Fluid 7000 /uL
[2021-06-30 16:07] LABS: Total Cells Counted,Body Fluid 100
[2021-06-30] MEDS: HYDROmorphone 1 MG/ML 1 ML SYRINGE IVP PRN (22:19)
[2021-06-30 23:32] LABS: Total Protein, Body Fluid 3840 mg/dL
[2021-06-30] MEDS: LORazepam 1 MG TAB PO SCH (23:35)
[2021-06-30 23:52] LABS: Glucose, BF Source Pleural Fluid; Glucose, Body Fluid <2 mg/dL; LDH, Body Fluid Source Pleural Fluid
[2021-07-01] MEDS: HYDROmorphone 1 MG/ML 1 ML SYRINGE IVP PRN ×3 (02:29→17:10)
[2021-07-01] MEDS: [UNRECOGNIZED DRUG - OTHER] PO SCH ×3 (03:53→15:24)
[2021-07-01] MEDS: CODEINE PO SCH ×3 (03:53→15:24)
[2021-07-01] MEDS: PIPERACILLIN-TAZOBACTAM 3.375 GM in SODIUM CHLORIDE 0.9% 100 ML IVPB SCH ×3 (04:58→19:37)
--- NOTE | 2021-07-01 05:47 | CDI ---
Documentation Clarification Form Date: 06/30/2021 11:50:00 AM From: Roselyn Quintero RN< CCDS Admit Date: 06/29/2021 04:01:00 PM Patient Name: Efren Saavedra Visit Number: [id number] ATTENTION: The Clinical Documentation Specialists (CDI) and [facility] Coding Staff appreciate your assistance in clarifying documentation. Please respond to the clarification below the line at the bottom and electronically sign. The CDI & [facility] Coding staff will review the response and follow-up if needed. Please note: Queries are made part of the Legal Health Record. If you have any questions, please contact the author of this message via ITS. Dr. Prabhakar, Your patient has a medical history of being on home O2 OTC. Based on this information and the findings below, is there an additional diagnosis that is clinically appropriate for this patient? History/Risk Factors: Tobacco use: Former smoker Quit 8 weeks ago Home oxygen: 3L [place] Hx of thoracentesis at , COPD, S/P prostate CA with Radiation, Paroxysmal Atrial Fib, Chronic Nicotine and ETOH Dependence Clinical Indicators: 06/30 110 Vital signs: Temp 97.6, HR 80, RR 15, B/P 125/88, spo2 96% 4L NC 06/30 Pulmonary Lung/Breathing assessment: "Lungs: Diminished on the right compared to left especially in the right lung base. The pigtail catheter was removed." Treatment: Breathing TX: Ventolin INH Q 4 hrs. PRN SOB, Symbicort INH BID Pulse ox per unit protocol O2: 4L [place] Is there an additional diagnosis that is clinically appropriate for this patient? [x ]acute Hypoxic Respiratory Failure (pO2 <60 mm Hg or SpO2 <91% on room air) [ ] Chronic Hypercapnic Respiratory Failure (pCO2 >50 and pH <7.35) [ ] Other Diagnosis, please specify [ ] Unable to determine (Template Last Revised: November 2020) MTDD
--- NOTE | 2021-07-01 07:06 | XR ---
EXAMINATION TYPE: XR chest 1V portable DATE OF EXAM: 07/01/2021 HISTORY: Shortness of breath. COMPARISON: 06/30/2021 TECHNIQUE: Single view of the chest is submitted. FINDINGS: Demonstrated are scattered senescent parenchymal change. Stable right lower lobe infiltrate, atelectasis and effusion. Strandy atelectasis and tiny effusion l eft lung base. The heart is stable. Hilar and mediastinal structures are within normal limits. Degenerative changes are seen of the dorsal spine. IMPRESSION: 1. Stable chest
[2021-07-01] MEDS ORDERED: DORNASE ALFA 5 MG in SODIUM CHLORIDE 0.9% 50 ML IRRIGATION ONE (07:30)
[2021-07-01] MEDS ORDERED: ALTEPLASE 10 MG in SODIUM CHLORIDE 0.9% 50 ML IRRIGATION ONE (07:30)
[2021-07-01] MEDS: SYMBICORT 160-4.5 MCG INHALER INHALATION SCH ×2 (07:44→20:36)
[2021-07-01] MEDS ORDERED: VANCOMYCIN TROUGH DUE 1 EACH MISC MISCELLANE ONE (08:00)
[2021-07-01] MEDS: THIAMINE 100 MG TAB PO SCH (08:58)
[2021-07-01] MEDS: PANTOPRAZOLE 40 MG TABLET PO SCH (08:58)
[2021-07-01] MEDS: VANCOMYCIN 1,500 MG in SODIUM CHLORIDE 0.9% 250 ML IVPB SCH ×2 (08:58→23:52)
[2021-07-01] MEDS: NICOTINE 14MG/24HR PATCH TRANSDERM SCH (08:58)
[2021-07-01] MEDS: FOLIC ACID 1 MG TAB PO SCH (08:58)
[2021-07-01] MEDS: ENOXAPARIN 40 MG/0.4 ML SYRINGE SQ SCH (08:58)
[2021-07-01] MEDS: METOPROLOL SUCCINATE (ER) 100 MG TAB.ER.24H PO SCH (08:58)
--- NOTE | 2021-07-01 10:43 | P.PN ---
Subjective Progress Note Date: 07/01/21 Principal diagnosis: Loculated right empyema. Past medical history significant for COPD with home oxygen use 3 L nasal cannula, right pleural effusion with previous right thoracentesis at [facility] around the year ago, anemia, hypertension, prostate cancers status post 48 radiation treatments, recent fall from standing, medical debility, remote history of paroxysmal atrial fibrillation, chronic nicotine dependence and EtOH abuse which he reports he quit about 7-8 weeks ago. Status post day #1 placement of right chest pigtail catheter performed by interventional radiology. The patient is seen in follow-up today 07/01/2021 at his bedside on the fourth floor medical surgical unit. Currently the patient is laying in bed, is awake, alert and oriented 3 and is in no acute distress. He denies any complaints of shortness of breath although he is complaining of some pain to his right chest pigtail catheter insertion site. Oxygen saturations are 97% on 4 L nasal cannula and he is achieving 1500 mL on his incentive spirometry. Right chest pigtail catheter remains in placed and connected to low continuous wall suction -20 cm H2O. No air leak is present. Draining purulent colored drainage with 700 mL output in the last 8 hours and 1450 mL output in the last 24 hours. He had alteplase 10 mg in 50 mL of 0.9% normal saline and an Dornase 5 mg in 50 mL of 0.9% normal saline pleural insulation instilled through his pigtail catheter yesterday. He remains afebrile the last 24 hours. Preliminary pleural fluid cultures remain pending showing no growth. He remains on Zosyn and vancomycin for antibiotic coverage managed by infectious disease. Objective - Vital Signs Vital signs: Vital Signs Temp 98 F 07/01/21 07:31 Pulse 89 07/01/21 07:31 Resp 16 07/01/21 07:31 BP 108/74 07/01/21 07:31 Pulse Ox 95 07/01/21 07:31 Intake & Output 06/30/21 07/01/21 07/01/21 18:59 06:59 18:59 Intake Total 800 236 Output Total 1150 700 Balance -350 -700 236 Weight 83 kg Intake: Intake, IV Titration 350 Amount Piperacillin-Tazobactam 3 100 .375 gm In Sodium Chloride 0.9% 100 ml @ 25 mls/hr IVPB Q8HR [facility] Rx# :[id number] Vancomycin 1,500 mg In 250 Sodium Chloride 0.9% 250 ml @ 125 mls/hr IVPB Q12H [facility] Rx#:[id number] Oral 450 236 Output: Chest Tube Drainage 650 700 Chest Tube Right Right 650 700 Pleural/Mediastinal Urine 500 Other: # Voids 1 - Exam CONSTITUTIONAL: Lying in bed on the fourth floor medical surgical unit, appears comfortable, cooperative, no apparent acute distress. HEENT: Neck is supple, no JVD, no lymphadenopathy. No scleral icterus. Mucous membranes are moist. No JVD. No bruit. RESPIRATORY: Lungs sounds essentially clear throughout, diminished to his bilateral bases right greater than left. Respirations are symmetrical and nonlabored. Currently on 4 L nasal cannula with oxygen saturations 98%. Able to achieve 1500 mL on his incentive spirometry. Strong cough. Right chest pigtail catheter remains in place to water seal. No air leak is present. Draining purulent colored drainage. CARDIOVASCULAR: Regular rhythm and rate. S1 and S2 present, negative for S3, gallop or murmur. Palpable peripheral pulses bilaterally, no edema present. No calf pain or tenderness noted. GASTROINTESTINAL: Abdomen soft, nontender, nondistended. Active bowel sounds present 4 quadrants. No guarding or rigidity. No organomegaly appreciated. INTEGUMENTARY: Skin is warm and dry with no evidence of clubbing or cyanosis. No rash or abnormal pigmentation. Dressing clean and dry to his right chest pigtail catheter insertion site. NEUROLOGIC: Cranial nerves II through XII intact. No focal deficits. MUSKULOSKELETAL: Able to move all extremities, strength equal bilaterally, generalized weakness. PSYCHIATRIC: Alert and oriented to person place and time, appropriate affect, intact judgment and insight. - Allied health notes Allied health notes reviewed: nursing - Labs CBC & Chem 7: 06/30/21 06:46 06/30/21 07:12 Labs: Microbiology - Last 24 Hours (Table) 06/30/21 11:12 Anaerobic Culture - Preliminary Pleural Fluid 06/30/21 11:11 Body Fluid Culture - Preliminary Pleural Fluid 06/30/21 11:11 Acid Fast Bacilli Culture - Preliminary Pleural Fluid 06/30/21 11:11 Fungal Culture - Preliminary Pleural Fluid - Imaging and Cardiology Chest x-ray: report reviewed, image reviewed Assessment and Plan Assessment: 1. Right lung empyema status post right-sided percutaneous pigtail catheter insertion by interventional radiology and subsequent dislodgment of the pigtail catheter. Sputum culture from 06/26/2021 showing pseudomonas aeruginosa 2. Shortness of breath secondary to above 3. Chronic obstructive pulmonary disease 4. History of prostate cancer status post 48 treatments of radiation 5. Hypertension 6. Medical debility 7. Chronic anemia 8. History of EtOH abuse 9. History of nicotine dependence 10. History of recent weight loss, protein calorie malnutrition Plan: 1. Keep right chest pigtail catheter in place and connected to low continuous wall suction -20 cm H2O. Continue to record accurate I's and O's. 2. We will instill a second dose of alteplase 10 mg in 0.9% normal saline 50 mL as well as dornase 5 mg in 0.9% normal saline at 50 mL and clamped chest tube for 1 hour post pleural insulation. After 1 hour of pleural insulation we will unclamp the chest tube and place back to low continuous wall suction. 3. Continue to monitor daily chest x-rays. 4. Encourage use of incentive spirometry 10 times every hour while awake. 5. Continue antibiotics management by infectious disease. Continue to follow pleural fluid culture results. 6. Bronchodilator management per pulmonary/critical care medicine. 7. Continue GI and DVT prophylaxis. 8. Pain management per current when necessary orders. 9. Increase activity as tolerated. Out of bed for all meals. 10. More recommendations to follow based on patient's clinical course. Time with Patient: Greater than 30
--- NOTE | 2021-07-01 11:49 | P.PN ---
Subjective Progress Note Date: 07/01/21 On today's evaluation of 07/01/2021, crit patient continues to have excessive drainage from his PICC catheter was inserted today of admission. The patient is using incentive spirometer. His bowling approximately 1500 mL on his incentive spirometer and currently is on 40s about 2 by nasal cannula. The pigtail catheter is been connected to wall suction at 20 cm of suction. No evidence of any air leak. There is cloudy milky purulent material draining in the order of 700 mL over the past 8 hours and 1450s over the past 24 hours. The chest x-ray was still showing a loculated right-sided pleural effusion from this morning and based on that, we'll made recommendations to give alteplase 10 mg and 50 mL and 5 mg of dornase and 50 and mouth and this was instilled successfully. Currently the patient is still draining. The patient remains on a combination of Zosyn and vancomycin. He is afebrile for now. His cultures are still pending for now. Objective - Vital Signs Vital signs: Vital Signs Temp 98 F 07/01/21 07:31 Pulse 89 07/01/21 07:31 Resp 16 07/01/21 07:31 BP 108/74 07/01/21 07:31 Pulse Ox 95 07/01/21 07:31 Intake & Output 06/30/21 07/01/21 07/01/21 18:59 06:59 18:59 Intake Total 800 236 Output Total 1150 700 Balance -350 -700 236 Weight 83 kg Intake: Intake, IV Titration 350 Amount Piperacillin-Tazobactam 3 100 .375 gm In Sodium Chloride 0.9% 100 ml @ 25 mls/hr IVPB Q8HR [facility] Rx# :[id number] Vancomycin 1,500 mg In 250 Sodium Chloride 0.9% 250 ml @ 125 mls/hr IVPB Q12H [facility] Rx#:[id number] Oral 450 236 Output: Chest Tube Drainage 650 700 Chest Tube Right Right 650 700 Pleural/Mediastinal Urine 500 Other: # Voids 1 - Exam Gen. appearance the patient is calm comfortable likely distress. No signs of any respiratory distress Head exam was generally normal. There was no scleral icterus or corneal arcus. Mucous membranes were moist. Neck was supple and without jugular venous distension, thyromegaly, or carotid bruits. Carotids were easily palpable bilaterally. There was no adenopathy. Lungs: Diminished on the right compared to left specially in the right lung base. The pigtail catheter was removed.dictated in the right chest and there is a milky cloudy possible draining into the Pleur-evac. No evidence of any air leak. Cardiac exam revealed the PMI to be normally situated and sized. The rhythm was regular and no extrasystoles were noted during several minutes of auscultation. The first and second heart sounds were normal and physiologic splitting of the second heart sound was noted. There were no murmurs, rubs, clicks, or gallops. Abdominal exam revealed normal bowel sounds. The abdomen was soft, non-tender, and without masses, organomegaly, or appreciable enlargement of the abdominal aorta. Examination of the extremities revealed easily palpable radial, femoral and pedal pulses. There was no cyanosis, clubbing or edema. Examination of the skin revealed no evidence of significant rashes, suspicious appearing nevi or other concerning lesions. Neurologically, the patient is awake and alert and the patient does not have any focal neurological deficit. Cranial nerves are essentially intact. - Labs CBC & Chem 7: 06/30/21 06:46 06/30/21 07:12 Labs: Microbiology - Last 24 Hours (Table) 06/30/21 11:11 Gram Stain - Preliminary Pleural Fluid Body Fluid Culture - Preliminary 06/30/21 11:12 Anaerobic Culture - Preliminary Pleural Fluid 06/30/21 11:11 Acid Fast Bacilli Culture - Preliminary Pleural Fluid 06/30/21 11:11 Fungal Culture - Preliminary Pleural Fluid Assessment and Plan Plan: 1 right lung empyema post percutaneous pigtail catheter insertion with subsequent dislodgment of the cath. Pleural fluid is purulent and its polym icrobial, awaiting final cultures. Currently on a combination of Zosyn and vancomycin. Awaiting another catheter insertion.. This could be a gram- negative pneumonia with secondary empyema and alcoholic patient. Patient has grown also pseudomonas aeruginosa and the sputum on 06/28/2021. Anaerobic infection cannot be completely excluded within the pleural space.was given a pigtail catheter and has adequate drainage of purulent material in the order of 1.4 L over the past 24 hours. The patient was given alteplase and dornase infusion and the right pleural space and has drainage. Awaiting final cultures from the pleural fluid. 2 COPD 3 shortness of breath secondary to above 4 history of alcoholism 5 history of prostate cancer 6 history of smoking 7 chronic anemia 8 protein calorie malnutrition, moderate Plan continue monitoring the output for now, awaiting cultures Continue Zosyn and vancomycin Awaiting final cultures from the samples collected at [facility] spirometer Pain control with [place] and use Dilaudid for breakthrough pain DuoNeb the regimens [id number] lovenox subcu for DVT prophylaxis Watch for any signs of delirium tremens We'll continue to follow.
[2021-07-01 12:04] LABS: African American GFR (CKD) 117.2 (60.0-200.0); Albumin 2.4 g/dL (3.8-4.9); Albumin/Globulin Ratio 0.63 (1.60-3.17); Anion Gap 10.1 mmol/L (4.00-12.00); BUN/Creat Ratio 10.86 Ratio (12.00-20.00); Blood Urea Nitrogen 7.6 mg/dL (9.0-27.0); Calcium 8.3 mg/dL (8.7-10.3); Carbon Dioxide 26.9 mmol/L (21.6-31.8); Globulin 3.8 g/dL (1.6-3.3); Non-African American GFR(CKD) 101.1 (60.0-200.0); Total Bilirubin 0.4 mg/dL (0.30-1.20); Total Protein 6.2 g/dL (6.2-8.2)
[2021-07-01 12:09] LABS: HCT 34.9 % (39.6-50.0); HGB 10.7 g/dL (13.0-17.0); MCH 32.3 pg (27.0-32.0); MCHC 30.7 g/dL (32.0-37.0); MCV 105.4 fL (80.0-97.0); Mean Platelet Volume 11.5 fL (9.5-12.2); Platelet Count 284 X 10*3/uL (140-440); RBC 3.31 X 10*6/uL (4.40-5.60); RDW 14.9 % (11.5-14.5); WBC 9.69 X 10*3/uL (4.50-10.00)
[2021-07-01 13:34] LABS: Basophils # (A) 0.02 X 10*3/uL (0.00-0.10); Basophils % (A) 0.2 %; Eosinophils # (A) 0.03 X 10*3/uL (0.04-0.35); Eosinophils % (A) 0.3 %; Lymphocytes # (A) 0.74 X 10*3/uL (0.90-5.00); Lymphocytes % (A) 7.6 %; Monocytes # (A) 0.75 X 10*3/uL (0.20-1.00); Monocytes % (A) 7.7 %; Neutrophils # (A) 8.11 X 10*3/uL (1.80-7.70); Neutrophils % (A) 83.8 %
--- NOTE | 2021-07-01 16:35 | P.PN ---
Subjective Progress Note Date: 07/01/21 This is a 60-year-old male who was recently hospitalized at [facility] for pneumonia and empyema and had a chest tube placed on the right for continued drainage and ultimately sent here to [facility] for further evaluation by cardiothoracic surgery for complicated empyema that appears to be loculated. Infectious disease following over there and patient was maintained on cefepime and Vancomycin and will reorder here and consult infectious disease. Consult also placed to pulmonary along with cardiothoracic surgery. Upon arrival to the unit on 4 S. per nursing staff patient's chest tube atrium was lying flat on the patient on arrival and when hooking up to wall suction bubbli ng was noted in the atrium and was replaced. Bubbling persisted and chest x-ray was done which shows large right pleural effusion and right pulmonary consolidation without change the right side chest tube appears to be in the subcutaneous fat and malposition over the lower lateral right chest wall. No sign of pneumothorax. Cardiothoracic surgery contacted and will be replaced upon their evaluation. Patient does have a past medical history of COPD, hypertension, former smoker recently quit, EtOH use and reports to quitting a month or so ago, anemia, and most recently per family patient has been falling more often with unsteady gait. Patient states he follows with Dr. Rafita Lewis out of [place]. Daughter states patient lives by himself and is concerned and would like possible placement. 06/30/2021 patient is seen and evaluated in follow-up this morning with cardiothoracic surgery along with pulmonary following closely and evaluated the patient. Pigtail catheter on the right was dislodged and removed at the bedside by pulmonary and interventional radiology consulted to replace catheter on the right with possible drainage or evacuation of the loculated area with cultures b eing sent. patient is continued on 4 L of oxygen via nasal cannula and reports no worsening shortness of breath. Patient had some pain with inspiration and during the removal of the catheter and will order pain medications. 07/01/2021 She is seen and evaluated this morning and chest tube catheter was replaced and draining continuous amounts approval and drainage approximately 1.6 L since last night. Cardio thoracic along with pulmonary following closely along with infectious disease and patient is maintained on IV Zosyn along with vancomycin. Patient states he is having some chest wall discomfort with cough but no worsening. patient is continued on 4 L via nasal cannula. Patient is afebrile. repeat fluid analysis culture is pending. Labs: White blood count is 9.69, hemoglobin is 10.7, platelets are 244, sodium is 133 with a potassium of 4.0 and current creatinine is 0.7, Vanco trough is 18.6 Review of systems: Constitutional: No reports of fatigue, fever, or chills Cardiovascular: No reports of chest pain or palpitations Respiratory: No reports of worsening shortness of breath or cough GI: No reports of nausea, vomiting, or diarrhea : No reports of dysuria or retention Neurovascular: No reports of weakness or numbness All medications have been reviewed Active Medications Acetaminophen (Acetaminophen Tab 325 Mg Tab) 650 mg PO Q6HR PRN PRN Reason: Mild Pain or Fever > 100.5 Hydrocodone Bitart/Acetaminophen (Hydrocodone/Apap 5-325mg 1 Each Tab) 1 each PO Q6HR PRN PRN Reason: Pain Last Admin: 06/30/21 19:41 Dose: 1 each Documented by: Albuterol Sulfate (Albuterol Nebulized 2.5 Mg/3 Ml) 2.5 mg INHALATION RT-Q4H PRN PRN Reason: Shortness Of Breath Last Admin: 06/30/21 12:05 Dose: 2.5 mg Documented by: Budesonide/Formoterol Fumarate (Symbicort 160-4.5 Mcg Inhaler) 2 puff INHALATION RT-BID [facility] Last Admin: 07/01/21 07:44 Dose: 2 puff Documented by: Enoxaparin Sodium (Enoxaparin 40 Mg/0.4 Ml Syringe) 40 mg SQ DAILY [facility] Last Admin: 07/01/21 08:58 Dose: 40 mg Documented by: Folic Acid (Folic Acid 1 Mg Tab) 1 mg PO DAILY [facility] Last Admin: 07/01/21 08:58 Dose: 1 mg Documented by: Hydromorphone HCl (Hydromorphone 1 Mg/Ml 1 Ml Syringe) 1 mg IVP Q3HR PRN PRN Reason: Pain Last Admin: 07/01/21 09:12 Dose: 1 mg Documented by: Vancomycin HCl 1,500 mg/ (Sodium Chloride) 250 mls @ 125 mls/hr IVPB Q12H [facility] Last Admin: 07/01/21 08:58 Dose: 125 mls/hr Documented by: Piperacillin Sod/Tazobactam (Sod 3.375 gm/ Sodium Chloride) 100 mls @ 25 mls/hr IVPB Q8H [facility] Last Admin: 07/01/21 13:10 Dose: 25 mls/hr Documented by: Lorazepam (Lorazepam 1 Mg Tab) 2 mg PO HS [facility] Last Admin: 06/30/21 23:35 Dose: 2 mg Documented by: Melatonin (Melatonin 3 Mg Tablet) 3 mg PO HS PRN PRN Reason: Insomnia Metoprolol Succinate (Metoprolol Succinate (Er) 100 Mg Tab.Er.24h) 100 mg PO DAILY [facility] Last Admin: 07/01/21 08:58 Dose: 100 mg Documented by: Naloxone HCl (Naloxone 0.4 Mg/Ml 1 Ml Vial) 0.2 mg IV Q2M PRN PRN Reason: Opioid Reversal Nicotine (Nicotine 14mg/24hr Patch) 1 patch TRANSDERM DAILY [facility] Last Admin: 07/01/21 08:58 Dose: 1 patch Documented by: Patient's Own ( Ascomp W/Codeine 1 Cap) 1 cap PO TID [facility] Last Admin: 07/01/21 15:24 Dose: Not Given Documented by: Patient's Own ( Butorphanol Tartrate [Stadol Nasal [place] ] 10 Mg/Ml Ml) 1 spray MISCELLANE DAILY PRN PRN Reason: Migraine Headache Ondansetron HCl (Ondansetron 4 Mg/2 Ml Vial) 4 mg IVP Q8HR PRN PRN Reason: Nausea And Vomiting Pantoprazole Sodium (Pantoprazole 40 Mg Tablet) 40 mg PO AC-BRKFST [facility] Last Admin: 07/01/21 08:58 Dose: 40 mg Documented by: Thiamine HCl (Thiamine 100 Mg Tab) 100 mg PO DAILY [facility] Last Admin: 07/01/21 08:58 Dose: 100 mg Documented by: Physical exam: Gen: This is a 60-year-old male awake, alert and oriented 3, thin built, appears older than stated age, no acute distress HEENT: Head is atraumatic, normocephalic. Pupils equal, round. Sclerae is anicteric. NECK: Supple. No JVD. No lymphadenopathy. No thyromegaly. LUNGS: Diminished breath sounds on the right more so than the left with some scattered rhonchi noted. Mild crackles noted at the bases. No intercostal retractions. Right chest wall pigtail catheter was replaced with continued purulent drainage noted in the atrium HEART: Regular rate and rhythm. No murmur. ABDOMEN: Soft. Thin built. Bowel sounds are present. No masses. No tenderness. EXTREMITIES: No pedal edema. No calf tenderness. NEUROLOGICAL: Patient is awake, alert and oriented x3. Cranial nerves 2 through 12 are grossly intact. Assessment: Pneumonia with Pseudomonas growing in the sputum Bacterial pneumonia with Pseudomonas Empyema with right side percutaneous pigtail catheter placement at [facility] and subsequent dislodgment of the catheter, chest tube catheter replaced Chronic obstructive pulmonary disease, acute exacerbation Chronic hypoxic respiratory failure on 3 L via nasal cannula in the outpatient setting Right pleural effusion mild hyponatremia Hypertension Remote history of alcohol abuse Remote history of nicotine dependence, recently quit Moderate protein malnutrition with BMI of 22.3 History of anemia, macrocytic Interstitial lung disease History of chronic right pleural effusion that was recently tapped at [facility] Gait dysfunction Weakness Frequent falls Full code Plan: In this pleasant 60-year-old male that was recently transferred from [facility] here to [facility] have consulted cardiothoracic surgery for evaluation of pigtail catheter and possible intervention of loculated empyema. pulmonary and cardiothoracic surgery following closely in patient with continued drainage noted in the atrium approximately 1.6 L since yesterday purulent drainage with repeat analysis cultures pending. Infectious disease following as well and patient on IV Zosyn along with IV Vanco and rep eat a.m. labs. will have PT/OT evaluate the patient once more stable. chest x- ray today shows a stable right lower lobe infiltrate and atelectasis with effusion, stable chest. Due to multiple complex medical issues, prognosis is guarded. Further recommendations to follow based on the clinical course the patient. Continue GI and DVT prophylaxis. Objective - Vital Signs Vital signs: Vital Signs Temp 98 F 07/01/21 07:31 Pulse 89 07/01/21 07:31 Resp 16 07/01/21 07:31 BP 108/74 07/01/21 07:31 Pulse Ox 95 07/01/21 07:31 Intake & Output 06/30/21 07/01/21 07/01/21 18:59 06:59 18:59 Intake Total 800 236 Output Total 1150 700 Balance -350 -700 236 Weight 83 kg Intake: Intake, IV Titration 350 Amount Piperacillin-Tazobactam 3 100 .375 gm In Sodium Chloride 0.9% 100 ml @ 25 mls/hr IVPB Q8HR [facility] Rx# :[id number] Vancomycin 1,500 mg In 250 Sodium Chloride 0.9% 250 ml @ 125 mls/hr IVPB Q12H [facility] Rx#:[id number] Oral 450 236 Output: Chest Tube Drainage 650 700 Chest Tube Right Right 650 700 Pleural/Mediastinal Urine 500 Other: # Voids 1 - Labs CBC & Chem 7: 07/01/21 07:41 07/01/21 07:41 Labs: Microbiology - Last 24 Hours (Table) 06/30/21 11:12 Anaerobic Culture - Preliminary Pleural Fluid 06/30/21 11:11 Body Fluid Culture - Preliminary Pleural Fluid 06/30/21 11:11 Acid Fast Bacilli Culture - Preliminary Pleural Fluid 06/30/21 11:11 Fungal Culture - Preliminary Pleural Fluid
[2021-07-01] MEDS: HYDROcodone/APAP 5-325MG 1 EACH TAB PO PRN (19:36)
[2021-07-01] MEDS: LORazepam 1 MG TAB PO SCH (21:29)
--- NOTE | 2021-07-01 22:28 | PN ---
PROGRESS NOTE DATE OF SERVICE: 07/01/2021 REASON FOR FOLLOWUP: Right-sided empyema. INTERVAL HISTORY: The patient is afebrile, has been complaining of pain to the right-sided chest area. The patient denies having any worsening shortness of breath. Continues to have a cough; no worsening cough, though. No vomiting. No abdominal pain or diarrhea. PHYSICAL EXAMINATION: Blood pressure is a 110/72 with a pulse of 80, temperature 98. He is 96% on 4 L nasal cannula. General description is a middle-aged male up in the bed in no distress. RESPIRATORY SYSTEM: Unlabored breathing. Decreased intensity of breath sounds. No wheeze. HEART: S1, S2. Regular rate and rhythm. ABDOMEN: Soft. No tenderness. LABS: Hemoglobin is 10.6, white count 9.69, creatinine 0.7. DIAGNOSTIC IMPRESSION AND PLAN: Patient with right-sided empyema in this patient who is status post chest tube placement. Cultures are currently pending. Antibiotic in the form of vancomycin and cefepime while waiting for the culture to finalize and monitor his clinical course closely. MMODL / IJN: [id number] /
[2021-07-02] MEDS: CEFEPIME 2 GM in SODIUM CHLORIDE 0.9% 100 ML IVPB SCH ×3 (02:14→15:18)
[2021-07-02] MEDS: [UNRECOGNIZED DRUG - OTHER] PO SCH ×4 (03:57→20:16)
[2021-07-02] MEDS: CODEINE PO SCH ×4 (03:57→20:16)
[2021-07-02] MEDS: HYDROmorphone 1 MG/ML 1 ML SYRINGE IVP PRN ×5 (05:56→22:00)
[2021-07-02 07:04] LABS: African American GFR (CKD) >90 (>60 ml/min/1.73 sqM); Anion Gap 4 mmol/L; Blood Urea Nitrogen 8 mg/dL (9-20); Carbon Dioxide 25 mmol/L (22-30); Chloride 100 mmol/L (98-107); Glucose 92 mg/dL (74-99); Non-African American GFR(CKD) >90 (>60 ml/min/1.73 sqM); Potassium 3.6 mmol/L (3.5-5.1); Sodium 129 mmol/L (137-145)
--- NOTE | 2021-07-02 07:23 | XR ---
EXAMINATION TYPE: XR chest 1V portable DATE OF EXAM: 07/02/2021 HISTORY: Shortness of breath. COMPARISON: 07/01/2021 TECHNIQUE: Single view of the chest is submitted. FINDINGS: Demonstrated are scattered senescent parenchymal change. Improved aeration right lower lobe with persistent patchy density noted and pleural effusions seen. N o evidence for pneumothorax. Left lower lobe atelectasis or infiltrate noted as well. The heart is stable. Hilar and mediastinal structures are within normal limits. Degenerative changes are seen of the dorsal spine. IMPRESSION: 1. Improved aeration right lower lobe with persistent patchy density noted and pleural effusions see n. No evidence for pneumothorax. Left lower lobe atelectasis or infiltrate noted as well.
[2021-07-02] MEDS ORDERED: DORNASE ALFA 5 MG in SODIUM CHLORIDE 0.9% 50 ML IRRIGATION ONE (08:00)
[2021-07-02] MEDS ORDERED: ALTEPLASE 10 MG in SODIUM CHLORIDE 0.9% 50 ML IRRIGATION ONE (08:00)
[2021-07-02] MEDS: SYMBICORT 160-4.5 MCG INHALER INHALATION SCH ×2 (08:11→19:39)
[2021-07-02] MEDS: ENOXAPARIN 40 MG/0.4 ML SYRINGE SQ SCH (09:30)
[2021-07-02] MEDS: THIAMINE 100 MG TAB PO SCH (09:30)
[2021-07-02] MEDS: NICOTINE 14MG/24HR PATCH TRANSDERM SCH (09:30)
[2021-07-02] MEDS: PANTOPRAZOLE 40 MG TABLET PO SCH (09:31)
[2021-07-02] MEDS: FOLIC ACID 1 MG TAB PO SCH (09:31)
[2021-07-02] MEDS: METOPROLOL SUCCINATE (ER) 100 MG TAB.ER.24H PO SCH (09:31)
--- NOTE | 2021-07-02 09:42 | CT ---
EXAMINATION TYPE: CT chest wo con DATE OF EXAM: 07/02/2021 COMPARISON: None HISTORY: empyema CT DLP: 656.[address] of the chest was performed with lung and mediastinal window settings submitted. The la ck of contrast limits evaluation of the vascular, mediastinal and parenchymal structures including th e upper abdomen. LUNGS: There is a sliver pneumothorax right lung estimated at less than 5%. There is right lower lobe infiltrate with air bronchograms seen as well as pleural effusion. Infected collection is not exclud ed. Right basilar small left-sided pleural effusion as well as a infiltrate or atelectasis at the lef t lower lobe. The remainder of the lungs are clear. Pleural drain is noted to be in place. MEDIASTINUM/NEMESIO: Thoracic aorta is of normal caliber with limited evaluation given lack of contrast . The heart is not enlarged. No evidence for mediastinal mass. No lymph nodes greater than 1cm. UPPER ABDOMEN: No significant abnormality is seen. OTHER: No significant other abnormality. IMPRESSION: 1. Right basilar pleural catheter with small collection noted. Infected collection is not excluded. 2. Basilar infiltrates may reflect pneumonia or aspiration. 3. Sliver pneumothorax on the right.
--- NOTE | 2021-07-02 09:55 | P.PN ---
Subjective Progress Note Date: 07/02/21 Principal diagnosis: Loculated right empyema. Past medical history significant for COPD with home oxygen use 3 L nasal cannula, right pleural effusion with previous right thoracentesis at [facility] around the year ago, anemia, hypertension, prostate cancers status post 48 radiation treatments, recent fall from standing, medical debility, remote history of paroxysmal atrial fibrillation, chronic nicotine dependence and EtOH abuse which he reports he quit about 7-8 weeks ago. Status post day #2 placement of right chest pigtail catheter performed by interventional radiology. The patient is seen in follow-up today 07/02/2021 at his bedside on the fourth floor medical surgical unit. Currently the patient is laying in bed, is awake, alert and oriented 3 and is in no acute distress. He denies any complaints of shortness of breath although he is complaining of some pain to his right chest pigtail catheter insertion site. The patient does have some swelling to the right chest pigtail catheter insertion site and some erythema to his right flank area which is tender to palpation. Patient remains afebrile the last 24 hours, oxygen saturation are currently 96% on 4 L nasal cannula and he is achieving 1500 mL on his incentive spirometry. Chest x-ray from this a.m. shows improved aeration of the right lower lobe with persistent patchy density and pleural effusions. No new lab results this morning. He remains on cefepime and vancomycin for antibiotic coverage managed by infectious disease. Pleural fluid culture results remained pending. Objective - Vital Signs Vital signs: Vital Signs Temp 98 F 07/01/21 14:00 Pulse 88 07/01/21 14:00 Resp 16 07/01/21 14:00 BP 110/72 07/01/21 14:00 Pulse Ox 96 07/01/21 16:00 Intake & Output 07/01/21 07/02/21 07/02/21 18:59 06:59 18:59 Intake Total 1322 Output Total 210 450 Balance 1112 -450 Intake: Intake, IV Titration 350 Amount Piperacillin-Tazobactam 3 100 .375 gm In Sodium Chloride 0.9% 100 ml @ 25 mls/hr IVPB Q8HR [facility] Rx# :[id number] Vancomycin 1,500 mg In 250 Sodium Chloride 0.9% 250 ml @ 125 mls/hr IVPB Q12H [facility] Rx#:[id number] Oral 972 Output: Chest Tube Drainage 210 Chest Tube Right Right 210 Pleural/Mediastinal Urine 450 Other: Voiding Method Urinal # Voids 3 - Exam CONSTITUTIONAL: Lying in bed on the fourth floor medical surgical unit, appears comfortable, cooperative, no apparent acute distress. Complaining of some pain to his right chest pigtail insertion site. HEENT: Neck is supple, no JVD, no lymphadenopathy. No scleral icterus. Mucous membranes are moist. No JVD. No bruit. RESPIRATORY: Lungs sounds essentially clear throughout, diminished to his bilateral bases right greater than left. Respirations are symmetrical and nonlabored. Currently on 4 L nasal cannula with oxygen saturations 96%. Able to achieve 1500 mL on his incentive spirometry. Strong cough. Right chest pig tail catheter remains in place to water seal. No air leak is present. Draining purulent colored drainage with 450 mL output in the last 8 hours and 1.5 L output in the last 24 hours. CARDIOVASCULAR: Regular rhythm and rate. S1 and S2 present, negative for S3, gallop or murmur. Palpable peripheral pulses bilaterally, no edema present. No calf pain or tenderness noted. GASTROINTESTINAL: Abdomen soft, nontender, nondistended. Active bowel sounds present 4 quadrants. No guarding or rigidity. No organomegaly appreciated. INTEGUMENTARY: Skin is warm and dry with no evidence of clubbing or cyanosis. No rash or abnormal pigmentation. Dressing clean and dry to his right chest pigtail catheter insertion site. Swelling to his right chest pigtail insertion site with some erythema from his pigtail insertion site to his right flank area. NEUROLOGIC: Cranial nerves II through XII intact. No focal deficits. MUSKULOSKELETAL: Able to move all extremities, strength equal bilaterally, g eneralized weakness. PSYCHIATRIC: Alert and oriented to person place and time, appropriate affect, intact judgment and insight. - Allied health notes Allied health notes reviewed: nursing - Labs CBC & Chem 7: 07/01/21 07:41 07/02/21 05:49 Labs: Abnormal Lab Results - Last 24 Hours (Table) 07/01/21 07/01/21 07/02/21 Range/Units 07:41 07:41 05:49 RBC 3.31 L (4.40-5.60) X 10*6/uL Hgb 10.7 L (13.0-17.0) g/dL Hct 34.9 L (39.6-50.0) % MCV 105.4 H (80.0-97.0) fL MCH 32.3 H (27.0-32.0) pg MCHC 30.7 L (32.0-37.0) g/dL RDW 14.9 H (11.5-14.5) % Neutrophils # 8.11 H (1.80-7.70) X 10*3/uL Lymphocytes # 0.74 L (0.90-5.00) X 10*3/uL Eosinophils # 0.03 L (0.04-0.35) X 10*3/uL Sodium 133 L 129 L (135-145) mmol/L BUN 7.6 L 8 L (9.0-27.0) mg/dL Creatinine 0.64 L (0.66-1.25) mg/dL BUN/Creatinine Ratio 10.86 L (12.00-20.00) Ratio Calcium 8.3 L 8.0 L (8.7-10.3) mg/dL Albumin 2.4 L (3.8-4.9) g/dL Globulin 3.8 H (1.6-3.3) g/dL Albumin/Globulin Ratio 0.63 L (1.60-3.17) g/dL Microbiology - Last 24 Hours (Table) 06/30/21 11:11 Acid Fast Bacilli Smear - Final Pleural Fluid Acid Fast Bacilli Culture - Preliminary 06/30/21 11:11 Gram Stain - Preliminary Pleural Fluid Body Fluid Culture - Preliminary - Imaging and Cardiology Chest x-ray: report reviewed, image reviewed Assessment and Plan Assessment: 1. Right lung empyema status post right-sided percutaneous pigtail catheter insertion by interventional radiology and subsequent dislodgment of the pigtail catheter. Sputum culture from 06/26/2021 showing pseudomonas aeruginosa 2. Shortness of breath secondary to above 3. Chronic obstructive pulmonary disease 4. History of prostate cancer status post 48 treatments of radiation 5. Hypertension 6. Medical debility 7. Chronic anemia 8. History of EtOH abuse 9. History of nicotine dependence 10. History of recent weight loss, protein calorie malnutrition Plan: 1. Keep right chest pigtail catheter in place and connected to low continuous wall suction -20 cm H2O. Continue to record accurate I's and O's. 2. We will hold off on instillation of his alteplase/dornase at this time due to the increased swelling at his right chest pigtail insertion site. 3. Continue to monitor daily chest x-rays. 4. Encourage use of incentive spirometry 10 times every hour while awake. 5. Continue antibiotics management by infectious disease. Continue to follow pleural fluid culture results. 6. Bronchodilator management per pulmonary/critical care medicine. 7. Continue GI and DVT prophylaxis. 8. Pain management per current when necessary orders. 9. Increase activity as tolerated. Out of bed for all meals. 10. A computed tomography scan of his chest without contrast will be obtained due to the swelling at his right chest pigtail insertion site. 11. More recommendations to follow based on patient's clinical course. Time with Patient: Greater than 30
[2021-07-02] MEDS: VANCOMYCIN 1,500 MG in SODIUM CHLORIDE 0.9% 250 ML IVPB SCH ×2 (10:14→20:18)
--- NOTE | 2021-07-02 11:29 | P.PN ---
Subjective Progress Note Date: 07/02/212020, the patient is being seen for a follow-up. He remains on the same antibiotic coverage with cefepime and vancomycin. Pigtail catheter still in place. The patient received alteplase yesterday and subsequently developed a collection over the right posterior chest area the size of the pigtail catheter insertion. This is likely an area of hematoma. We'll concerned of an underlying infection knowing that there was some erythema along with that. A follow-up CAT scan of the chest was done and showed significant improvement in the size of the empyema. The catheter is in a good location. There is some soft tissue swelling and collection in the right posterior chest area. Meanwhile, there is also consolidation and atelectasis in the right lower lobe. The fluid culture are still pending. The fluid drainage is still excessive in order of 7 50 mL of purulent material of the past 12 hours. White cell count is at 9.8. He was attempted 0.7. The patient is sitting up on a chair getting is calm and comfortable. He is on oxygen at 4 L. Sodium is dropped probably component of SIADH due to infection/pneumonia. Objective - Vital Signs Vital signs: Vital Signs Temp 98 F 07/01/21 14:00 Pulse 100 07/02/21 07:46 Resp 17 07/02/21 07:46 BP 104/72 07/02/21 07:46 Pulse Ox 98 07/02/21 07:46 Intake & Output 07/01/21 07/02/21 07/02/21 18:59 06:59 18:59 Intake Total 1322 Output Total 210 450 Balance 1112 -450 Intake: Intake, IV Titration 350 Amount Piperacillin-Tazobactam 3 100 .375 gm In Sodium Chloride 0.9% 100 ml @ 25 mls/hr IVPB Q8HR [facility] Rx# :[id number] Vancomycin 1,500 mg In 250 Sodium Chloride 0.9% 250 ml @ 125 mls/hr IVPB Q12H [facility] Rx#:[id number] Oral 972 Output: Chest Tube Drainage 210 Chest Tube Right Right 210 Pleural/Mediastinal Urine 450 Other: Voiding Method Urinal # Voids 3 - Exam Gen. appearance the patient is calm comfortable likely distress. No signs of any respiratory distress Head exam was generally normal. There was no scleral icterus or corneal arcus. Mucous membranes were moist. Neck was supple and without jugular venous distension, thyromegaly, or carotid bruits. Carotids were easily palpable bilaterally. There was no adenopathy. Lungs: Diminished on the right compared to left specially in the right lung base. The pigtail catheter was removed.dictated in the right chest and there is a milky cloudy possible draining into the Pleur-evac. No evidence of any air leak. There is a soft tissue swelling and collection along the pigtail insertion site extending inferiorly and laterally along with some skin erythema. Cardiac exam revealed the PMI to be normally situated and sized. The rhythm was regular and no extrasystoles were noted during several minutes of auscultation. The first and second heart sounds were normal and physiologic splitting of the second heart sound was noted. There were no murmurs, rubs, clicks, or gallops. Abdominal exam revealed normal bowel sounds. The abdomen was soft, non-tender, and without masses, organomegaly, or appreciable enlargement of the abdominal aorta. Examination of the extremities revealed easily palpable radial, femoral and pedal pulses. There was no cyanosis, clubbing or edema. Examination of the skin revealed no evidence of significant rashes, suspicious appearing nevi or other concerning lesions. Neurologically, the patient is awake and alert and the patient does not have any focal neurological deficit. Cranial nerves are essentially intact. - Labs CBC & Chem 7: 07/01/21 07:41 07/02/21 05:49 Labs: Abnormal Lab Results - Last 24 Hours (Table) 07/01/21 07/01/21 07/02/21 Range/Units 07:41 07:41 05:49 RBC 3.31 L (4.40-5.60) X 10*6/uL Hgb 10.7 L (13.0-17.0) g/dL Hct 34.9 L (39.6-50.0) % MCV 105.4 H (80.0-97.0) fL MCH 32.3 H (27.0-32.0) pg MCHC 30.7 L (32.0-37.0) g/dL RDW 14.9 H (11.5-14.5) % Neutrophils # 8.11 H (1.80-7.70) X 10*3/uL Lymphocytes # 0.74 L (0.90-5.00) X 10*3/uL Eosinophils # 0.03 L (0.04-0.35) X 10*3/uL Sodium 133 L 129 L (135-145) mmol/L BUN 7.6 L 8 L (9.0-27.0) mg/dL Creatinine 0.64 L (0.66-1.25) mg/dL BUN/Creatinine Ratio 10.86 L (12.00-20.00) Ratio Calcium 8.3 L 8.0 L (8.7-10.3) mg/dL Albumin 2.4 L (3.8-4.9) g/dL Globulin 3.8 H (1.6-3.3) g/dL Albumin/Globulin Ratio 0.63 L (1.60-3.17) g/dL Microbiology - Last 24 Hours (Table) 06/30/21 11:11 Acid Fast Bacilli Smear - Final Pleural Fluid Acid Fast Bacilli Culture - Preliminary 06/30/21 11:11 Gram Stain - Preliminary Pleural Fluid Body Fluid Culture - Preliminary Assessment and Plan Plan: 1 right lung empyema post percutaneous pigtail catheter insertion with subsequent dislodgment of the cath. Pleural fluid is purulent and its polymicrobial, awaiting final cultures. Currently on a combination of Zosyn and vancomycin. Awaiting another catheter insertion.. This could be a gram- negative pneumonia with secondary empyema and alcoholic patient. Patient has grown also pseudomonas aeruginosa and the sputum on 06/28/2021. Anaerobic infection cannot be completely excluded within the pleural space.was given a pigtail catheter and has adequate drainage of purulent material in the order 76 50 mL over the past 12 hours. Fluid culture are still pending for now. The patient clinically improved. The patient's follow-up CAT scan showed improvement in the size of the empyema. There is still right lower lobe consolidation/infiltration. The patient remains on a combination of cefepime and vancomycin. Meanwhile, the patient developed a hematoma/fluid collection along the patient states insertion site. This could be a hematoma related to the use of TPA. 2 COPD 3 shortness of breath secondary to above 4 history of alcoholism 5 history of prostate cancer 6 history of smoking 7 chronic anemia 8 protein calorie malnutrition, moderate 9 right posterior chest wall hematoma 10 hyponatremia Plan Monitor the size of the hematoma No TPA administration for today Compresses to his right chest wall Monitor the output from the chest tube Review the CAT scan findings and the findings and essentially favorable and improving continue monitoring the output for now, awaiting cultures Continue cefepime and vancomycin Awaiting final cultures from the samples collected at [facility] Incentive spirometer Pain control with [place] and use Dilaudid for breakthrough pain DuoNeb the regimens [id number] Hold Lovenox for 24 hours and apply compression devices to his lower extremities Watch for any signs of delirium tremens We'll continue to follow.
--- NOTE | 2021-07-02 14:56 | P.PN ---
Subjective This is a 60-year-old male who was recently hospitalized at [facility] for pneumonia and empyema and had a chest tube placed on the right for continued drainage and ultimately sent here to [facility] for further evaluation by cardiothoracic surgery for complicated empyema that appears to be loculated. Infectious disease following over there and patient was maintained on cefepime and Vancomycin and will reorder here and consult infectious disease. Consult also placed to pulmonary along with cardiothoracic surgery. Upon arrival to the unit on 4 S. per nursing staff patient's chest tube atrium was lying flat on the patient on arrival and when hooking up to wall suction bubbling was noted in the atrium and was replaced. Bubbling persisted and chest x-ray was done which shows large right pleural effusion and right pulmonary consolidation without change the right side chest tube appears to be in the subcutaneous fat and malposition over the lower lateral right chest wall. No sign of pneumothorax. Cardiothoracic surgery contacted and will be replaced upon their evaluation. Patient does have a past medical history of COPD, hypertension, former smoker recently quit, EtOH use and reports to quitting a month or so ago, anemia, and most recently per family patient has been falling more often with unsteady gait. Patient states he follows with Dr. Rafita Lewis out of [place]. Daughter states patient lives by himself and is concerned and would like possible placement. 06/30/2021 patient is seen and evaluated in follow-up this morning with cardiothoracic surgery along with pulmonary following closely and evaluated the patient. Pigtail catheter on the right was dislodged and removed at the bedside by pulmonary and interventional radiology consulted to replace catheter on the right with possible drainage or evacuation of the loculated area with cultures being sent. patient is continued on 4 L of oxygen via nasal cannula and reports no worsening shortness of breath. Patient had some pain with inspiration and during the removal of the catheter and will order pain medications. 07/01/2021 She is seen and evaluated this morning and chest tube catheter was replaced and draining continuous amounts approval and drainage approximately 1.6 L since last night. Cardio thoracic along with pulmonary following closely along with infectious disease and patient is maintained on IV Zosyn along with vancomycin. Patient states he is having some chest wall discomfort with cough but no worsening. patient is continued on 4 L via nasal cannula. Patient is afebrile. repeat fluid analysis culture is pending. 07/02/2021 Patient is awake and alert, breathing comfortably at rest. Staying in chair or bed most of the time. Pain is controlled. Vital signs stable, he is saturating 98% on 4 L oxygen. Slightly dropped to 133 down to 129. We'll keep monitoring. Patient has pigtail tube on his right chest posteriorly with surrounding area of fluctuating swelling, possible hematoma therefore alteplase is not going to be given today. Per pulmonary team recommendation. Remains on cefepime and IV vancomycin pending final culture results with infectious disease team on the case CT of the chest showing right basilar pleural catheter with a small collection noted. Infected collection is not excluded. Basilar infiltrate may reflect pneumonia or aspiration. Hpneumothorax on the right Objective - Vital Signs Vital signs: Vital Signs Temp 98 F 07/01/21 14:00 Pulse 100 07/02/21 07:46 Resp 17 07/02/21 07:46 BP 104/72 07/02/21 07:46 Pulse Ox 98 07/02/21 07:46 Intake & Output 07/01/21 07/02/21 07/02/21 18:59 06:59 18:59 Intake Total 1322 Output Total 210 450 Balance 1112 -450 Intake: Intake, IV Titration 350 Amount Piperacillin-Tazobactam 3 100 .375 gm In Sodium Chloride 0.9% 100 ml @ 25 mls/hr IVPB Q8HR [facility] Rx# :[id number] Vancomycin 1,500 mg In 250 Sodium Chloride 0.9% 250 ml @ 125 mls/hr IVPB Q12H [facility] Rx#:[id number] Oral 972 Output: Chest Tube Drainage 210 Chest Tube Right Right 210 Pleural/Mediastinal Urine 450 Other: Voiding Method Urinal # Voids 3 - Exam GENERAL: The patient is alert and oriented x3, not in any acute distress. Well developed, well nourished. HEENT: Pupils are round and equally reacting to light. EOMI. No scleral icterus. No conjunctival pallor. Normocephalic, atraumatic. No pharyngeal erythema. No thyromegaly. CARDIOVASCULAR: S1 and S2 present. No murmurs, rubs, or gallops. -PULMONARY: Chest is clear to auscultation, no wheezing or crackles. Right pigtail on the right lung posteriorly with surrounding area of fluctuating swelling ABDOMEN: Soft, nontender, nondistended, normoactive bowel sounds. No palpable organomegaly. MUSCULOSKELETAL: No joint swelling or deformity. EXTREMITIES: No cyanosis, clubbing, or pedal edema. NEUROLOGICAL: Gross neurological examination did not reveal any focal deficits. SKIN: No rashes. no petechiae. - Labs CBC & Chem 7: 07/01/21 07:41 07/02/21 05:49 Labs: Abnormal Lab Results - Last 24 Hours (Table) 07/02/21 Range/Units 05:49 Sodium 129 L (137-145) mmol/L BUN 8 L (9-20) mg/dL Creatinine 0.64 L (0.66-1.25) mg/dL Calcium 8.0 L (8.4-10.2) mg/dL Microbiology - Last 24 Hours (Table) 06/30/21 11:11 Acid Fast Bacilli Smear - Final Pleural Fluid Acid Fast Bacilli Culture - Preliminary Assessment and Plan Assessment: Pneumonia with Pseudomonas growing in the sputum Bacterial pneumonia with Pseudomonas Empyema with right side percutaneous pigtail catheter placement at [facility] and subsequent dislodgment of the catheter, chest tube catheter r eplaced possible hematoma around pigtail catheter Chronic obstructive pulmonary disease, acute exacerbation Chronic hypoxic respiratory failure on 3 L via nasal cannula in the outpatient setting Right pleural effusion mild hyponatremia Hypertension Remote history of alcohol abuse Remote history of nicotine dependence, recently quit Moderate protein malnutrition with BMI of 22.3 History of anemia, macrocytic Interstitial lung disease History of chronic right pleural effusion that was recently tapped at [facility] Gait dysfunction Weakness Frequent falls Full code Plan: In this pleasant 60-year-old male who presents with right empyema and pneumonia with secondary to Pseudomonas recess other microorganisms. Status post pigtail. With cefepime and IV vancomycin, follow-up sputum culture Continue with the pigtail as per recommendation of pulmonary and cardiothoracic surgery. Monitor sodium. Labs and medication were reviewed.. Continue same treatment. Continue with symptomatic treatment. Resume home medication. Monitor lytes and vitals. DVT and GI prophylaxis. Further recommendationsas per clinical course of the patient DVT prophylaxis: Subcutaneous Lovenox GI Prophylaxis: PPIed
[2021-07-02] MEDS: LORazepam 1 MG TAB PO SCH (20:18)
--- NOTE | 2021-07-02 22:11 | PN ---
PROGRESS NOTE DATE OF SERVICE: 07/02/2021. REASON FOR FOLLOWUP: Right-sided empyema. INTERVAL HISTORY: The patient is afebrile. Still complaining of pain to the right side of the chest area. The patient denies having any worse shortness of breath. No nausea, no vomiting. No abdominal pain, no diarrhea. PHYSICAL EXAMINATION: Blood pressure 106/64 with a pulse of 89, temperature 98.2. He is 94% on 4 L nasal cannula. General description is a middle-aged male lying in bed in no distress. Respiratory system: Unlabored breathing, decreased breath sounds in the base. No wheeze. Heart S1, S2. Regular rate and rhythm. Abdomen soft, no tenderness. LABS: Creatinine 0.6. Lung culture currently pending. DIAGNOSTIC IMPRESSION AND PLAN: Patient with right-sided empyema status post chest tube placement. Culture ( ). The patient ( ). Continue supportive care. MMODL / IJN: [id number] /
[2021-07-03] MEDS: CEFEPIME 2 GM in SODIUM CHLORIDE 0.9% 100 ML IVPB SCH ×2 (00:34→08:17)
[2021-07-03] MEDS: HYDROmorphone 1 MG/ML 1 ML SYRINGE IVP PRN ×3 (04:11→19:55)
[2021-07-03] MEDS: HYDROcodone/APAP 5-325MG 1 EACH TAB PO PRN (06:25)
--- NOTE | 2021-07-03 07:36 | XR ---
EXAMINATION TYPE: XR chest 1V portable DATE OF EXAM: 07/03/2021 HISTORY: Shortness of breath. COMPARISON: 07/02/2021 TECHNIQUE: Single view of the chest is submitted. FINDINGS: Demonstrated are scattered senescent parenchymal change. Patchy infiltrate right medial lung base. No significant change appreciated. The heart is stable. Hilar and mediastinal structures are within normal limits. Degenerative changes are seen of the dorsal spine. IMPRESSION: 1. Patchy infiltrate right medial lung base. No significant change appreciated.
[2021-07-03] MEDS: FOLIC ACID 1 MG TAB PO SCH (08:16)
[2021-07-03] MEDS: PANTOPRAZOLE 40 MG TABLET PO SCH (08:16)
[2021-07-03] MEDS: NICOTINE 14MG/24HR PATCH TRANSDERM SCH (08:16)
[2021-07-03] MEDS: THIAMINE 100 MG TAB PO SCH (08:16)
[2021-07-03] MEDS: METOPROLOL SUCCINATE (ER) 100 MG TAB.ER.24H PO SCH (08:16)
[2021-07-03] MEDS: [UNRECOGNIZED DRUG - OTHER] PO SCH ×3 (08:17→20:53)
[2021-07-03] MEDS: CODEINE PO SCH ×3 (08:17→20:53)
[2021-07-03] MEDS: VANCOMYCIN 1,500 MG in SODIUM CHLORIDE 0.9% 250 ML IVPB SCH (08:17)
--- NOTE | 2021-07-03 09:32 | P.PN ---
Subjective Progress Note Date: 07/03/21 Principal diagnosis: Loculated right empyema. Past medical history significant for COPD with home oxygen use 3 L nasal cannula, right pleural effusion with previous right thoracentesis at [facility] around the year ago, anemia, hypertension, prostate cancers status post 48 radiation treatments, recent fall from standing, medical debility, remote history of paroxysmal atrial fibrillation, chronic nicotine dependence and EtOH abuse which he reports he quit about 7-8 weeks ago. Status post day #3 placement of right chest pigtail catheter performed by interventional radiology. The patient is seen in follow-up today 07/03/2021 at his bedside on the fourth floor medical surgical unit. Currently the patient is laying in bed, is awake, alert and oriented 3 and is in no acute distress. He denies any complaints of shortness of breath although he continues complaining of some pain to his right chest pigtail catheter insertion site. The swelling to his right chest pigtail insertion site seems slightly increased today from yesterday. The area of the erythema along his right flank seems to have subsided, although station tender to touch. A computed tomography scan of his chest without contrast was completed yesterday which demonstrated a trace right-sided pneumothorax of less than 5%, right lower lobe infiltrate with air bronchograms as well as pleural effusion and his pleural drain remains in place. Right pigtail catheter remains in place to low continuous wall suction -20 cm H2O. No air leak is present. 50 mL of output in the last 8 hours and 210 mL of blood looking drainage in the last 24 hours. The patient did ambulate up to the chair yesterday, although is unmotivated this morning to get up out of bed to the chair. Pleural fluid culture shows alpha hemolytic streptococcus and he remains on vancomycin and cefepime for antibiotic coverage which is being managed by infectious disease. Oxygen saturation are 99% on 4 L nasal cannula and he is achieving 1500 mL on his incentive spirometry with encouragement. He remains afebrile the last 24 hours. We did not instill any alteplase or dornase yesterday 07/02/2021 due to the swelling at his right chest pigtail insertion site. Objective - Vital Signs Vital signs: Vital Signs Temp 98.3 F 07/03/21 02:00 Pulse 87 07/03/21 02:00 Resp 17 07/03/21 02:00 BP 119/82 07/03/21 02:00 Pulse Ox 100 07/03/21 02:00 Intake & Output 07/02/21 07/03/21 07/03/21 18:59 06:59 18:59 Output Total 260 50 Balance -260 -50 Output: Chest Tube Drainage 260 50 Chest Tube Right Right 260 50 Pleural/Mediastinal Other: Voiding Method Urinal - Exam CONSTITUTIONAL: Laying in bed on the fourth floor medical surgical unit, appears comfortable, cooperative, no apparent acute distress. Complaining of some pain to his right chest pigtail insertion site and to his right flank with palpation. HEENT: Neck is supple, no JVD, no lymphadenopathy. No scleral icterus. Mucous membranes are moist. No JVD. No bruit. RESPIRATORY: Lungs sounds essentially clear throughout, diminished to his bilateral bases right greater than left. Respirations are symmetrical and nonlabored. Currently on 4 L nasal cannula with oxygen saturations 99%. Able to achieve 1500 mL on his incentive spirometry. Strong cough. Right chest pigtail catheter remains in place to water seal. No air leak is present. Draining purulent colored drainage with 210 mL output in the last 24 hours. CARDIOVASCULAR: Regular rhythm and rate. S1 and S2 present, negative for S3, gallop or murmur. Palpable peripheral pulses bilaterally, no edema present. No calf pain or tenderness noted. GASTROINTESTINAL: Abdomen soft, nontender, nondistended. Active bowel sounds present 4 quadrants. No guarding or rigidity. No organomegaly appreciated. INTEGUMENTARY: Skin is warm and dry with no evidence of clubbing or cyanosis. No rash or abnormal pigmentation. Dressing clean and dry to his right chest pigtail catheter insertion site. Swelling to his right chest pigtail insertion site with some erythema from his pigtail insertion site to his right flank area. NEUROLOGIC: Cranial nerves II through XII intact. No focal deficits. MUSKULOSKELETAL: Able to move all extremities, strength equal bilaterally, generalized weakness. PSYCHIATRIC: Alert and oriented to person place and time, appropriate affect, intact judgment and insight. - Allied health notes Allied health notes reviewed: nursing - Labs CBC & Chem 7: 07/01/21 07:41 07/02/21 05:49 Labs: Microbiology - Last 24 Hours (Table) 06/30/21 11:11 Gram Stain - Preliminary Pleural Fluid Body Fluid Culture - Preliminary Alpha Hemolytic Streptococcus - Imaging and Cardiology Chest x-ray: report reviewed, image reviewed CT scan - chest: report reviewed, image reviewed Assessment and Plan Assessment: 1. Right lung empyema status post right-sided percutaneous pigtail catheter insertion by interventional radiology and subsequent dislodgment of the pigtail catheter. Sputum culture from 06/26/2021 showing pseudomonas aeruginosa 2. Shortness of breath secondary to above 3. Chronic obstructive pulmonary disease 4. History of prostate cancer status post 48 treatments of radiation 5. Hypertension 6. Medical debility 7. Chronic anemia 8. History of EtOH abuse 9. History of nicotine dependence 10. History of recent weight loss, protein calorie malnutrition 11. Right posterior chest wall hematoma Plan: 1. Keep right chest pigtail catheter in place and connected to low continuous wall suction -20 cm H2O. Continue to record accurate I's and O's. 2. We will continue to hold off on instillation of his alteplase/dornase at this time due to the swelling at his right chest pigtail insertion site. 3. Continue to monitor daily chest x-rays. 4. Encourage use of incentive spirometry 10 times every hour while awake. 5. Continue antibiotics management by infectious disease. Pleural fluid culture shows alphahemolytic streptococcus. 6. Bronchodilator management per pulmonary/critical care medicine. 7. Continue GI and DVT prophylaxis. 8. Pain management per current when necessary orders. 9. Increase activity as tolerated. Out of bed for all meals. The patient needs much encouragement to ambulate. 10. Warm compresses to his right chest pigtail insertion site. 11. More recommendations to follow based on patient's clinical course. Time with Patient: Greater than 30
[2021-07-03 10:23] LABS: African American GFR (CKD) 123.2 (60.0-200.0); Anion Gap 8.7 mmol/L (4.00-12.00); BUN/Creat Ratio 12.05 Ratio (12.00-20.00); Blood Urea Nitrogen 7.5 mg/dL (9.0-27.0); Carbon Dioxide 26.3 mmol/L (21.6-31.8); Non-African American GFR(CKD) 106.3 (60.0-200.0); Potassium 3.1 mmol/L (3.5-5.5)
--- NOTE | 2021-07-03 10:45 | P.PN ---
Subjective Progress Note Date: 07/03/21 07/03/2021, the patient is being seen for a follow-up. The pleural fluid grew out her hemolytic strep. Remains on a combination of cefepime and vancomycin and then antibiotics can be simplified and this will be discussed further with infectious disease. Meanwhile, he has a pigtail catheter in his right lung. CAT scan from yesterday was noted. He was given alteplase and he developed a hematoma and a fluid collection in the posterior aspect of the right chest. The collection slightly larger compared to yesterday. No erythema. There is minimal amount of leakage around the tube. For the most part, most of the drainage goes to the Pleur-evac and the total amount of output over the past 24 hours has been in the order of 210 mL. The patient has purulent material draining. No evidence of any air leak. He is using incentive spirometer. Currently is on oxygen at 4 L per minute nasal cannula. The labs from today are still pending. He did have a component of hyponatremia sedated which improved and the sodium level is up to 132. He is afebrile. He is hemodynamically stable. Vancomycin trough is at 18.6. The follow-up chest x-ray from today was noted. The right-sided pleural effusion hasn't diminished in size. There is no evidence of any pneumothorax. I was unable to visualize the pigtail catheter. Nevertheless, there was some patchy infiltrate in the right lower and right midlung area still present on the follow-up chest x-ray. We have noted a drop in the amount of pleural fluid drainage in this patient. Objective - Vital Signs Vital signs: Vital Signs Temp 98.4 F 07/03/21 08:45 Pulse 86 07/03/21 08:45 Resp 14 07/03/21 08:45 BP 104/75 07/03/21 08:45 Pulse Ox 99 07/03/21 08:45 Intake & Output 07/02/21 07/03/21 07/03/21 18:59 06:59 18:59 Output Total 260 50 Balance -260 -50 Output: Chest Tube Drainage 260 50 Chest Tube Right Right 260 50 Pleural/Mediastinal Other: Voiding Method Urinal Urinal - Exam CONSTITUTIONAL: Laying in bed on the fourth floor medical surgical unit, appears comfortable, cooperative, no apparent acute distress. Complaining of some pain to his right chest pigtail insertion site and to his right flank with palpation. HEENT: Neck is supple, no JVD, no lymphadenopathy. No scleral icterus. Mucous membranes are moist. No JVD. No bruit. RESPIRATORY: Lungs sounds essentially clear throughout, diminished to his bilateral bases right greater than left. Respirations are symmetrical and nonlabored. Currently on 4 L nasal cannula with oxygen saturations 99%. Able to achieve 1500 mL on his incentive spirometry. Strong cough. Right chest pigtail catheter remains in place to water seal. No air leak is present. Draining purulent colored drainage with 210 mL output in the last 24 hours. CARDIOVASCULAR: Regular rhythm and rate. S1 and S2 present, negative for S3, gallop or murmur. Palpable peripheral pulses bilaterally, no edema present. No calf pain or tenderness noted. GASTROINTESTINAL: Abdomen soft, nontender, nondistended. Active bowel sounds present 4 quadrants. No guarding or rigidity. No organomegaly appreciated. INTEGUMENTARY: Skin is warm and dry with no evidence of clubbing or cyanosis. No rash or abnormal pigmentation. Dressing clean and dry to his right chest pigtail catheter insertion site. Swelling to his right chest pigtail insertion site with some erythema from his pigtail insertion site to his right flank area. NEUROLOGIC: Cranial nerves II through XII intact. No focal deficits. MUSKULOSKELETAL: Able to move all extremities, strength equal bilaterally, generalized weakness. PSYCHIATRIC: Alert and oriented to person place and time, appropriate affect, intact judgment and insight. - Labs CBC & Chem 7: 07/01/21 07:41 07/03/21 07:07 Labs: Abnormal Lab Results - Last 24 Hours (Table) 07/03/21 Range/Units 07:07 Sodium 132 L (135-145) mmol/L Potassium 3.1 L (3.5-5.5) mmol/L BUN 7.5 L (9.0-27.0) mg/dL Calcium 8.0 L (8.7-10.3) mg/dL Microbiology - Last 24 Hours (Table) 06/30/21 11:11 Gram Stain - Preliminary Pleural Fluid Body Fluid Culture - Preliminary Alpha Hemolytic Streptococcus Assessment and Plan Plan: 1 right lung empyema post percutaneous pigtail catheter insertion with subsequent dislodgment of the cath. Pleural fluid is purulent and its polymicrobial, awaiting final cultures. Currently on a combination of Zosyn and vancomycin. Awaiting another catheter insertion.. This could be a gram- negative pneumonia with secondary empyema and alcoholic patient. Patient has grown also pseudomonas aeruginosa and the sputum on 06/28/2021. Anaerobic infection cannot be completely excluded within the pleural space.was given a pigtail catheter and has adequate drainage of purulent material The patient cl inically improved. The patient's follow-up CAT scan showed improvement in the size of the empyema. There is still right lower lobe consolidation/infiltration. The patient remains on a combination of cefepime and vancomycin. Meanwhile, the patient developed a hematoma/fluid collection along the patient states insertion site. This could be a hematoma related to the use of TPA. The fluid collection along the right posterior chest area is slightly bigger. I suspect is a hematoma. The pleural fluid culture came back positive for alphahemolytic strep. The patient is on IV cefepime and vanco mycin. I think the vancomycin can be discontinued. There is further the my notion and drop in the size of the right-sided pleural effusion on today's chest x-ray. 2 COPD 3 shortness of breath secondary to above 4 history of alcoholism 5 history of prostate cancer 6 history of smoking 7 chronic anemia 8 protein calorie malnutrition, moderate 9 right posterior chest wall hematoma 10 hyponatremia Plan Monitor the size of the hematoma No TPA administration Compresses to his right chest wall Monitor the output from the chest tube Review the CAT scan findings and the findings and essentially favorable and improving Review the chest x-ray from today continue monitoring the output for now, awaiting cultures Continue cefepime and vancomycin may be discontinued The patient is growing alpha hemolytic strep in his pleural fluid Incentive spirometer Pain control with [place] and use Dilaudid for breakthrough pain DuoNeb the regimens [id number] Hold Lovenox for 24 hours and apply compression devices to his lower extremities Watch for any signs of delirium tremens We'll continue to follow.
[2021-07-03] MEDS: SYMBICORT 160-4.5 MCG INHALER INHALATION SCH ×2 (10:51→20:30)
[2021-07-03] MEDS ORDERED: Potassium Replacement Protocol 1 EACH MISC MISCELLANE PRN (10:51)
[2021-07-03] MEDS: POTASSIUM CHLORIDE ER 20 MEQ TAB.ER PO SCH ×2 (11:59→13:13)
--- NOTE | 2021-07-03 16:39 | P.PN ---
Subjective This is a 60-year-old male who was recently hospitalized at [facility] for pneumonia and empyema and had a chest tube placed on the right for continued drainage and ultimately sent here to [facility] for further evaluation by cardiothoracic surgery for complicated empyema that appears to be loculated. Infectious disease following over there and patient was maintained on cefepime and Vancomycin and will reorder here and consult infectious disease. Consult also placed to pulmonary along with cardiothoracic surgery. Upon arrival to the unit on 4 S. per nursing staff patient's chest tube atrium was lying flat on the patient on arrival and when hooking up to wall suction bubbling was noted in the atrium and was replaced. Bubbling persisted and chest x-ray was done which shows large right pleural effusion and right pulmonary consolidation without change the right side chest tube appears to be in the subcutaneous fat and malposition over the lower lateral right chest wall. No sign of pneumothorax. Cardiothoracic surgery contacted and will be replaced upon their evaluation. Patient does have a past medical history of COPD, hypertension, former smoker recently quit, EtOH use and reports to quitting a month or so ago, anemia, and most recently per family patient has been falling more often with unsteady gait. Patient states he follows with Dr. Rafita Lewis out of [place]. Daughter states patient lives by himself and is concerned and would like possible placement. 06/30/2021 patient is seen and evaluated in follow-up this morning with cardiothoracic surgery along with pulmonary following closely and evaluated the patient. Pigtail catheter on the right was dislodged and removed at the bedside by pulmonary and interventional radiology consulted to replace catheter on the right with possible drainage or evacuation of the loculated area with cultures being sent. patient is continued on 4 L of oxygen via nasal cannula and reports no worsening shortness of breath. Patient had some pain with inspiration and during the removal of the catheter and will order pain medications. 07/01/2021 She is seen and evaluated this morning and chest tube catheter was replaced and draining continuous amounts approval and drainage approximately 1.6 L since last night. Cardio thoracic along with pulmonary following closely along with infectious disease and patient is maintained on IV Zosyn along with vancomycin. Patient states he is having some chest wall discomfort with cough but no worsening. patient is continued on 4 L via nasal cannula. Patient is afebrile. repeat fluid analysis culture is pending. 07/02/2021 Patient is awake and alert, breathing comfortably at rest. Staying in chair or bed most of the time. Pain is controlled. Vital signs stable, he is saturating 98% on 4 L oxygen. Slightly dropped to 133 down to 129. We'll keep monitoring. Patient has pigtail tube on his right chest posteriorly with surrounding area of fluctuating swelling, possible hematoma therefore alteplase is not going to be given today. Per pulmonary team recommendation. Remains on cefepime and IV vancomycin pending final culture results with infectious disease team on the case CT of the chest showing right basilar pleural catheter with a small collection noted. Infected collection is not excluded. Basilar infiltrate may reflect pneumonia or aspiration. Hpneumothorax on the right 07/03/2021 Patient breathing is not worsening. He still has right-sided pigtail tube with surrounding swelling most likely hematoma which looks his stable. No more alteplase yesterday. Hemodynamically stable and he is saturating 98% on 4 L. Fluid culture, and positive for alpha hemolytic streptococcus and chest x-ray showing patchy infiltrate in the right medial base, stable. His were adjusted today to IV vancomycin and ceftriaxone instead of cefepime. Objective - Vital Signs Vital signs: Vital Signs Temp 98.5 F 07/03/21 15:00 Pulse 81 07/03/21 15:00 Resp 18 07/03/21 15:00 BP 110/75 07/03/21 15:00 Pulse Ox 99 07/03/21 15:00 Intake & Output 07/02/21 07/03/21 07/03/21 18:59 06:59 18:59 Output Total 260 50 250 Balance -260 -50 -250 Output: Chest Tube Drainage 260 50 Chest Tube Right Right 260 50 Pleural/Mediastinal Urine 250 Other: Voiding Method Urinal Urinal - Exam GENERAL: The patient is alert and oriented x3, not in any acute distress. Well developed, well nourished. HEENT: Pupils are round and equally reacting to light. EOMI. No scleral icterus. No conjunctival pallor. Normocephalic, atraumatic. No pharyngeal erythema. No thyromegaly. CARDIOVASCULAR: S1 and S2 present. No murmurs, rubs, or gallops. -PULMONARY: Chest is clear to auscultation, no wheezing or crackles. Right pigtail on the right lung posteriorly with surrounding area of fluctuating swelling ABDOMEN: Soft, nontender, nondistended, normoactive bowel sounds. No palpable organomegaly. MUSCULOSKELETAL: No joint swelling or deformity. EXTREMITIES: No cyanosis, clubbing, or pedal edema. NEUROLOGICAL: Gross neurological examination did not reveal any focal deficits. SKIN: No rashes. no petechiae. - Labs CBC & Chem 7: 07/01/21 07:41 07/03/21 07:07 Labs: Abnormal Lab Results - Last 24 Hours (Table) 07/03/21 Range/Units 07:07 Sodium 132 L (135-145) mmol/L Potassium 3.1 L (3.5-5.5) mmol/L BUN 7.5 L (9.0-27.0) mg/dL Calcium 8.0 L (8.7-10.3) mg/dL Microbiology - Last 24 Hours (Table) 06/30/21 11:11 Gram Stain - Final Pleural Fluid Body Fluid Culture - Final Alpha Hemolytic Streptococcus Assessment and Plan Assessment: Pneumonia with Pseudomonas growing in the sputum Bacterial pneumonia with Pseudomonas Empyema with right side percutaneous pigtail catheter placement at [facility] and subsequent dislodgment of the catheter, chest tube catheter r eplaced possible hematoma around pigtail catheter Chronic obstructive pulmonary disease, acute exacerbation Chronic hypoxic respiratory failure on 3 L via nasal cannula in the outpatient setting Right pleural effusion mild hyponatremia Hypertension Remote history of alcohol abuse Remote history of nicotine dependence, recently quit Moderate protein malnutrition with BMI of 22.3 History of anemia, macrocytic Interstitial lung disease History of chronic right pleural effusion that was recently tapped at [facility] Gait dysfunction Weakness Frequent falls Full code Plan: In this pleasant 60-year-old male who presents with right empyema and pneumonia with secondary to Pseudomonas recess other microorganisms. Status post pigtail. Antibiotics with ceftriaxone and IV vancomycin, as per ID team Continue with the pigtail as per recommendation of pulmonary and cardiothoracic surgery. Monitor sodium. Labs and medication were reviewed.. Continue same treatment. Continue with symptomatic treatment. Resume home medication. Monitor lytes and vitals. DVT and GI prophylaxis. Further recommendationsas per clinical course of the patient DVT prophylaxis: Subcutaneous Lovenox GI Prophylaxis: PPIed
[2021-07-03] MEDS: LORazepam 1 MG TAB PO SCH (20:53)
--- NOTE | 2021-07-03 22:20 | PN ---
PROGRESS NOTE DATE OF SERVICE: 07/03/2021 REASON FOR FOLLOWUP: Right-sided empyema. INTERVAL HISTORY: The patient is afebrile. The patient is breathing slightly comfortably. The patient denies having any nausea. No vomiting. No abdominal pain or diarrhea. PHYSICAL EXAMINATION: blood pressure is 110/75, pulse of 81, temperature 98.5. He is 99% on 4 L nasal cannula. General description is a middle-aged male up in the bed in no distress. RESPIRATORY SYSTEM: Unlabored breathing. Decreased breath sounds at the bases. No wheeze. HEART: S1, S2. Regular rate and rhythm. ABDOMEN: Soft. No tenderness. LABS: Creatinine 0.6, white count 9.69. Culture with alpha-hemolytic Streptococcus. DIAGNOSTIC IMPRESSION AND PLAN: Patient with right-sided empyema, status post chest tube placement. Culture with alpha- hemolytic Streptococcus. Antibiotic will be adjusted to Rocephin 2 grams daily. Monitor clinical course closely. Continue supportive care. MMODL / IJN: [id number] /
[2021-07-04] MEDS: HYDROcodone/APAP 5-325MG 1 EACH TAB PO PRN ×3 (04:32→19:59)
--- NOTE | 2021-07-04 07:20 | XR ---
EXAMINATION TYPE: XR chest 1V DATE OF EXAM: 07/04/2021 HISTORY: Right-sided empyema. COMPARISON: 07/03/2021 TECHNIQUE: Single view of the chest is submitted. FINDINGS: Demonstrated are scattered senescent parenchymal change. Right lower lobe infiltrate with small effusion. Mild strandy density left medial lung base. Overall the appearance is stable. The heart is stable. Hilar and mediastinal structures are within normal limits. Degenerative changes are seen of the dorsal spine. IMPRESSION: 1. Right lower lobe infiltrate with small effusion. Mild strandy density left medial lung base. Over all the appearance is stable.
[2021-07-04] MEDS: HYDROmorphone 1 MG/ML 1 ML SYRINGE IVP PRN ×4 (07:44→21:21)
[2021-07-04] MEDS: PANTOPRAZOLE 40 MG TABLET PO SCH (07:45)
[2021-07-04] MEDS: NICOTINE 14MG/24HR PATCH TRANSDERM SCH (07:45)
[2021-07-04] MEDS: THIAMINE 100 MG TAB PO SCH (07:45)
[2021-07-04] MEDS: METOPROLOL SUCCINATE (ER) 100 MG TAB.ER.24H PO SCH (07:45)
[2021-07-04] MEDS: [UNRECOGNIZED DRUG - OTHER] PO SCH ×3 (07:46→22:36)
[2021-07-04] MEDS: CODEINE PO SCH ×3 (07:46→22:36)
[2021-07-04] MEDS: FOLIC ACID 1 MG TAB PO SCH (07:46)
[2021-07-04] MEDS ORDERED: VANCOMYCIN TROUGH DUE 1 EACH MISC MISCELLANE ONE (08:00)
[2021-07-04] MEDS: SYMBICORT 160-4.5 MCG INHALER INHALATION SCH ×2 (08:09→20:28)
[2021-07-04 09:50] LABS: Basophils % (A) 0 %; Eosinophils # (A) 0.2 k/uL (0-0.7); Eosinophils % (A) 2 %; HCT 31.3 % (39.0-53.0); Hypochromasia Slight; Lymphocytes % (A) 10 %; MCH 34.1 pg (25.0-35.0); MCV 106.5 fL (80.0-100.0); Macrocytosis Moderate; Mean Platelet Volume 9.1; Monocytes # (A) 0.4 k/uL (0-1.0); Monocytes % (A) 4 %; Neutrophils # (A) 7.6 k/uL (1.3-7.7); Neutrophils % (A) 82 %; Platelet Count 303 k/uL (150-450); RBC 2.94 m/uL (4.30-5.90); RDW 13.9 % (11.5-15.5); WBC 9.3 k/uL (3.8-10.6)
[2021-07-04 10:04] LABS: African American GFR (CKD) >90 (>60 ml/min/1.73 sqM); Anion Gap 5 mmol/L; Blood Urea Nitrogen 6 mg/dL (9-20); Calcium 8.2 mg/dL (8.4-10.2); Carbon Dioxide 27 mmol/L (22-30); Chloride 99 mmol/L (98-107); Glucose 167 mg/dL (74-99); Non-African American GFR(CKD) >90 (>60 ml/min/1.73 sqM); Potassium 3.8 mmol/L (3.5-5.1); Sodium 131 mmol/L (137-145)
--- NOTE | 2021-07-04 12:09 | P.PN ---
Subjective Progress Note Date: 07/04/21 Principal diagnosis: Loculated right empyema. Past medical history significant for COPD with home oxygen use 3 L nasal cannula, right pleural effusion with previous right thoracentesis at [facility] around the year ago, anemia, hypertension, prostate cancers status post 48 radiation treatments, recent fall from standing, medical debility, remote history of paroxysmal atrial fibrillation, chronic nicotine dependence and EtOH abuse which he reports he quit about 7-8 weeks ago. Status post day #4 placement of right chest pigtail catheter performed by interventional radiology. The patient is seen in follow-up today 07/04/2021 at his bedside on the fourth floor medical surgical unit. Currently the patient is laying in bed, is awake, alert and oriented 3 and is in no acute distress. He denies any complaints of shortness of breath although he continues complaining of some pain to his right chest pigtail catheter insertion site. The swelling to his right chest pigtail insertion site seems about the same size as yesterday, with some erythema down his right flank. There is no drainage around the pigtail catheter. His right chest pigtail catheter remains in place to low continuous wall suction -20 cm H2O. No airleak is present. Continues to drain purulent colored drainage with 30 mL output last 8 hours and 150 mL output in the last 24 hours. Oxygen saturations are 99% on 4 L nasal cannula and he is achieving 2000 mL on his incentive spirometry which is improved over the last few days. He's been afebrile the last 24 hours. Laboratory results show a WBC count 9.3, hemoglobin 10.0, platelets 303, sodium 131, potassium 3.8, BUN 6, and creatinine 0.59. Pleural fluid results final culture shows alpha hemolytic streptococcus, and he is currently on Rocephin and vancomycin for antibiotic coverage. The patient has been encouraged to get up and ambulate in his room and sit in the chair for all meals, although the patient has been resistant and non-motivated to do this. Objective - Vital Signs Vital signs: Vital Signs Temp 98.9 F 07/04/21 07:11 Pulse 77 07/04/21 07:46 Resp 18 07/04/21 07:46 BP 119/85 07/04/21 07:11 Pulse Ox 98 07/04/21 07:11 Intake & Output 07/03/21 07/04/21 07/04/21 18:59 06:59 18:59 Output Total 340 830 400 Balance -340 -830 -400 Output: Chest Tube Drainage 90 30 Chest Tube Right Right 90 30 Pleural/Mediastinal Urine 250 800 400 Other: Voiding Method Urinal Urinal Urinal - Exam CONSTITUTIONAL: Laying in bed on the fourth floor medical surgical unit, appears comfortable, cooperative, no apparent acute distress. Complaining of some pain to his right chest pigtail insertion site and to his right flank with palpation. HEENT: Neck is supple, no JVD, no lymphadenopathy. No scleral icterus. Mucous membranes are moist. No JVD. No bruit. RESPIRATORY: Lungs sounds essentially clear throughout, diminished to his bilateral bases right greater than left. Respirations are symmetrical and nonlabored. Currently on 4 L nasal cannula with oxygen saturations 99%. Able to achieve 2000 mL on his incentive spirometry. Strong cough. Right chest pigtail catheter remains in place to water seal. No air leak is present. Draining purulent colored drainage with 150 mL output in the last 24 hours. CARDIOVASCULAR: Regular rhythm and rate. S1 and S2 present, negative for S3, gallop or murmur. Palpable peripheral pulses bilaterally, no edema present. No calf pain or tenderness noted. GASTROINTESTINAL: Abdomen soft, nontender, nondistended. Active bowel sounds present 4 quadrants. No guarding or rigidity. No organomegaly appreciated. INTEGUMENTARY: Skin is warm and dry with no evidence of clubbing or cyanosis. No rash or abnormal pigmentation. Dressing clean and dry to his right chest pigtail catheter insertion site. Swelling to his right chest pigtail insertion site with some erythema from his pigtail insertion site to his right flank area. NEUROLOGIC: Cranial nerves II through XII intact. No focal deficits. MUSKULOSKELETAL: Able to move all extremities, strength equal bilaterally, generalized weakness. PSYCHIATRIC: Alert and oriented to person place and time, appropriate affect, intact judgment and insight. - Allied health notes Allied health notes reviewed: nursing - Labs CBC & Chem 7: 07/04/21 09:33 07/04/21 09:33 Labs: Abnormal Lab Results - Last 24 Hours (Table) 07/04/21 07/04/21 Range/Units 09:33 09:33 RBC 2.94 L (4.30-5.90) m/uL Hgb 10.0 L (13.0-17.5) gm/dL Hct 31.3 L (39.0-53.0) % MCV 106.5 H (80.0-100.0) fL Sodium 131 L (137-145) mmol/L BUN 6 L (9-20) mg/dL Creatinine 0.59 L (0.66-1.25) mg/dL Glucose 167 H (74-99) mg/dL Calcium 8.2 L (8.4-10.2) mg/dL Microbiology - Last 24 Hours (Table) 06/30/21 11:11 Gram Stain - Final Pleural Fluid Body Fluid Culture - Final Alpha Hemolytic Streptococcus - Imaging and Cardiology Chest x-ray: report reviewed, image reviewed Assessment and Plan Assessment: 1. Right lung empyema status post right-sided percutaneous pigtail catheter insertion by interventional radiology and subsequent dislodgment of the pigtail catheter. Sputum culture from 06/26/2021 showing pseudomonas aeruginosa 2. Shortness of breath secondary to above 3. Chronic obstructive pulmonary disease 4. History of prostate cancer status post 48 treatments of radiation 5. Hypertension 6. Medical debility 7. Chronic anemia 8. History of EtOH abuse 9. History of nicotine dependence 10. History of recent weight loss, protein calorie malnutrition 11. Right posterior chest wall hematoma 12. Hyponatremia Plan: 1. Keep right chest pigtail catheter in place and connected to low continuous wall suction -20 cm H2O. Continue to record accurate I's and O's. 2. We will continue to hold off on instillation of his alteplase/dornase at this time due to the swelling at his right chest pigtail insertion site. 3. Continue to monitor daily chest x-rays. 4. Encourage use of incentive spirometry 10 times every hour while awake. 5. Continue antibiotics management by infectious disease. Pleural fluid culture shows alphahemolytic streptococcus. Currently on Rocephin and vancomycin for antibiotic coverage. 6. Bronchodilator management per pulmonary/critical care medicine. 7. Continue GI and DVT prophylaxis. 8. Pain management per current when necessary orders. 9. Increase activity as tolerated. Out of bed for all meals. The patient needs much encouragement to ambulate. 10. Warm compresses to his right chest pigtail insertion site. Abdominal binder placed. 11. More recommendations to follow based on patient's clinical course. Time with Patient: Greater than 30
--- NOTE | 2021-07-04 15:46 | P.PN ---
Subjective Progress Note Date: 07/04/21 Principal diagnosis: Right lung empyema On 07/04/2021 patient seen in follow-up on medical surgical floor. He is awake and alert, he is breathing comfortably, on 4 L of oxygen his pulse ox is 98%, his been afebrile, today's chest x-ray shows right lower lobe infiltrate with sm all effusion, right-sided pigtail chest tube catheter remains in place, and there is been approximately 170 mL of whitish colored pleural fluid drainage, empyema in the last 24 hours. Pleural fluid cultures showed alphahemolytic streptococcus, and anaerobic gram-positive cocci patient is currently on Rocephin, and vancomycin. Patient has received intermittent doses of dornase, with the last dose on 07/02/2021. His pain is fairly well controlled with oral [place] as, patient also has IV Dilaudid for breakthrough pain. No agitation, no confusion, he is pleasant and cooperative. No fever or chills, no chest pain. Pleural fluid cytology showed no cytologically malignant cells. Objective - Vital Signs Vital signs: Vital Signs Temp 98.9 F 07/04/21 07:11 Pulse 77 07/04/21 07:46 Resp 18 07/04/21 07:46 BP 119/85 07/04/21 07:11 Pulse Ox 98 07/04/21 07:11 Intake & Output 07/03/21 07/04/21 07/04/21 18:59 06:59 18:59 Output Total 340 830 400 Balance -340 -830 -400 Output: Chest Tube Drainage 90 30 Chest Tube Right Right 90 30 Pleural/Mediastinal Urine 250 800 400 Other: Voiding Method Urinal Urinal Urinal - Exam GENERAL EXAM: Alert, very pleasant, 60-year-old white male, on 4 L of oxygen, pulse ox of 98%comfortable in no apparent distress. HEAD: Normocephalic/atraumatic. EYES: Normal reaction of pupils, equal size. Conjunctiva pink, sclera white. NOSE: Clear with pink turbinates. THROAT: No erythema or exudates. NECK: No masses, no JVD, no thyroid enlargement, no adenopathy. CHEST: No chest wall deformity. Symmetrical expansion. Right-sided pigtail chest tube is in place, connected to Pleur-evac, with whitish yellowish colored pleural fluid output in the Pleur-evac LUNGS: Equal air entry with no crackles, wheeze, rhonchi or dullness. Patient has CVS: Regular rate and rhythm, normal S1 and S2, no gallops, no murmurs, no rubs ABDOMEN: Soft, nontender. No hepatosplenomegaly, normal bowel sounds, no guarding or rigidity. EXTREMITIES: No clubbing, no edema, no cyanosis, 2+ pulses and upper and lower extremities. MUSCULOSKELETAL: Muscle strength and tone normal. SPINE: No scoliosis or deformity SKIN: No rashes CENTRAL NERVOUS SYSTEM: Alert and oriented -3. No focal deficits, tone is normal in all 4 extremities. PSYCHIATRIC: Alert and oriented -3. Appropriate affect. Intact judgment and insight. - Labs CBC & Chem 7: 07/04/21 09:33 07/04/21 09:33 Labs: Abnormal Lab Results - Last 24 Hours (Table) 07/04/21 07/04/21 Range/Units 09:33 09:33 RBC 2.94 L (4.30-5.90) m/uL Hgb 10.0 L (13.0-17.5) gm/dL Hct 31.3 L (39.0-53.0) % MCV 106.5 H (80.0-100.0) fL Sodium 131 L (137-145) mmol/L BUN 6 L (9-20) mg/dL Creatinine 0.59 L (0.66-1.25) mg/dL Glucose 167 H (74-99) mg/dL Calcium 8.2 L (8.4-10.2) mg/dL Microbiology - Last 24 Hours (Table) 06/30/21 11:12 Anaerobic Culture - Preliminary Pleural Fluid Anaerobic Gram Positive Cocci 06/30/21 11:11 Gram Stain - Final Pleural Fluid Body Fluid Culture - Final Alpha Hemolytic Streptococcus Assessment and Plan Plan: Assessment: #1. Right lung empyema post percutaneous pigtail catheter insertion with subsequent dislodgment of the cath. Pleural fluid is purulent and its polymicrobial, awaiting final cultures. Currently on a combination of Zosyn and vancomycin. Awaiting another catheter insertion.. This could be a gram- negative pneumonia with secondary empyema and alcoholic patient. Patient has grown also pseudomonas aeruginosa and the sputum on 06/28/2021. Anaerobic infection cannot be completely excluded within the pleural space.was given a pigtail catheter and has adequate drainage of purulent material The patient clinically improved. The patient's follow-up CAT scan showed improvement in the size of the empyema. There is still right lower lobe consolidation/infiltration. The patient remains on a combination of cefepime and vancomycin. Meanwhile, the patient developed a hematoma/fluid collection along the patient states insertion site. This could be a hematoma related to the use of TPA. The fluid collection along the right posterior chest area is slightly bigger. I suspect is a hematoma. The pleural fluid culture came back positive for alphahemolytic strep. Current coverage is with Rocephin and vancomycin #2. COPD #3. shortness of breath secondary to above #4. history of alcoholism #5. history of prostate cancer #6. history of smoking #7. chronic anemia #8. protein calorie malnutrition, moderate #9. right posterior chest wall hematoma #10. Hyponatremia Plan: Continue current antibiotic coverage, ID service is following Clinically he is improving, Encourage deep breathing and coughing, increase activity as tolerated DT surgery is following, will defer to CT surgery to make a decision on TPA Continue to follow I performed a history & physical examination of the patient and discussed their management with my nurse practitioner, Tiffany Snyder. I reviewed the nurse practitioner's note and agree with the documented findings and plan of care. Lung sounds are positive for dim breath sounds throughout the lung thakur. The findings and the impression was discussed with the patient. I attest to the documentation by the nurse practitioner. Time with Patient: Less than 30
[2021-07-04] MEDS: LORazepam 1 MG TAB PO SCH ×2 (21:18→22:35)
[2021-07-04] MEDS: metroNIDAZOLE 500 MG TAB PO SCH (22:36)
--- NOTE | 2021-07-05 01:05 | P.PN ---
Subjective Progress Note Date: 07/04/21 This is a 60-year-old male who was recently hospitalized at [facility] for pneumonia and empyema and had a chest tube placed on the right for continued drainage and ultimately sent here to [facility] for further evaluation by cardiothoracic surgery for complicated empyema that appears to be loculated. Infectious disease following over there and patient was maintained on cefepime and Vancomycin and will reorder here and consult infectious disease. Consult also placed to pulmonary along with cardiothoracic surgery. Upon arrival to the unit on 4 S. per nursing staff patient's chest tube atrium was lying flat on the patient on arrival and when hooking up to wall suction bubbli ng was noted in the atrium and was replaced. Bubbling persisted and chest x-ray was done which shows large right pleural effusion and right pulmonary consolidation without change the right side chest tube appears to be in the subcutaneous fat and malposition over the lower lateral right chest wall. No sign of pneumothorax. Cardiothoracic surgery contacted and will be replaced upon their evaluation. Patient does have a past medical history of COPD, hypertension, former smoker recently quit, EtOH use and reports to quitting a month or so ago, anemia, and most recently per family patient has been falling more often with unsteady gait. Patient states he follows with Dr. Rafita Lewis out of [place]. Daughter states patient lives by himself and is concerned and would like possible placement. 06/30/2021 patient is seen and evaluated in follow-up this morning with cardiothoracic surgery along with pulmonary following closely and evaluated the patient. Pigtail catheter on the right was dislodged and removed at the bedside by pulmonary and interventional radiology consulted to replace catheter on the right with possible drainage or evacuation of the loculated area with cultures b eing sent. patient is continued on 4 L of oxygen via nasal cannula and reports no worsening shortness of breath. Patient had some pain with inspiration and during the removal of the catheter and will order pain medications. 07/01/2021 She is seen and evaluated this morning and chest tube catheter was replaced and draining continuous amounts approval and drainage approximately 1.6 L since last night. Cardio thoracic along with pulmonary following closely along with infectious disease and patient is maintained on IV Zosyn along with vancomycin. Patient states he is having some chest wall discomfort with cough but no worsening. patient is continued on 4 L via nasal cannula. Patient is afebrile. repeat fluid analysis culture is pending. 07/02/2021 Patient is awake and alert, breathing comfortably at rest. Staying in chair or bed most of the time. Pain is controlled. Vital signs stable, he is saturating 98% on 4 L oxygen. Slightly dropped to 133 down to 129. We'll keep monitoring. Patient has pigtail tube on his right chest posteriorly with surrounding area of fluctuating swelling, possible hematoma therefore alteplase is not going to be given today. Per pulmonary team recommendation. Remains on cefepime and IV vancomycin pending final culture results with infectious disease team on the case CT of the chest showing right basilar pleural catheter with a small collection noted. Infected collection is not excluded. Basilar infiltrate may reflect pneumonia or aspiration. Hpneumothorax on the right 07/03/2021 Patient breathing is not worsening. He still has right-sided pigtail tube with surrounding swelling most likely hematoma which looks his stable. No more alt eplase yesterday. Hemodynamically stable and he is saturating 98% on 4 L. Fluid culture, and positive for alpha hemolytic streptococcus and chest x-ray showing patchy infiltrate in the right medial base, stable. His were adjusted today to IV vancomycin and ceftriaxone instead of cefepime. 07/04/2021 Patient is seen and evaluated in follow up this morning and continues on 4L via NC. Patient with continued right chest wall pigtail catheter with approx 150cc of output over the last [address] surgery and pulmonary following closely. Abdominal binder in place and alteplace on hold as concerned for possible hematoma at the catheter site. Anticoagulant on hold as well and chest xray today shows right lower lobe infiltrate with small effusion and overall stable. Patient also being followed closely by ID and maintained on IV ceftriaxone while waiting for cultures to finalize. Patient continues to be weak and will have PT/OT evaluate the patient and consult social work for possible placement. REpeat chest xray and labs in the am. Encouraged incentive spirometer at least 10 times every hour while awake. Encouraged increased activity as tolerated. Abdominal binder noted on exam for compression of the right chest tube sight. Labs: White blood count is 9.3, hemoglobin is 10.0, platelets are 303, sodium is 131 with a potassium of 3.8 and current creatinine is 0.59 Review of systems: Constitutional: No reports of fatigue, fever, or chills Cardiovascular: No reports of chest pain or palpitations, reports continued right chest wall pain with inspiration and movement Respiratory: No reports of worsening shortness of breath or cough GI: No reports of nausea, vomiting, or diarrhea : No reports of dysuria or retention Neurovascular: reports generalized weakness All medications have been reviewed Active Medications Acetaminophen (Acetaminophen Tab 325 Mg Tab) 650 mg PO Q6HR PRN PRN Reason: Mild Pain or Fever > 100.5 Hydrocodone Bitart/Acetaminophen (Hydrocodone/Apap 5-325mg 1 Each Tab) 1 each PO Q6HR PRN PRN Reason: Pain Last Admin: 07/04/21 14:04 Dose: 1 each Documented by: Albuterol Sulfate (Albuterol Nebulized 2.5 Mg/3 Ml) 2.5 mg INHALATION RT-Q4H PRN PRN Reason: Shortness Of Breath Last Admin: 06/30/21 12:05 Dose: 2.5 mg Documented by: Budesonide/Formoterol Fumarate (Symbicort 160-4.5 Mcg Inhaler) 2 puff INHALATION RT-BID [facility] Last Admin: 07/04/21 08:09 Dose: 2 puff Documented by: Folic Acid (Folic Acid 1 Mg Tab) 1 mg PO DAILY [facility] Last Admin: 07/04/21 07:46 Dose: 1 mg Documented by: Hydromorphone HCl (Hydromorphone 1 Mg/Ml 1 Ml Syringe) 1 mg IVP Q3HR PRN PRN Reason: Pain Last Admin: 07/04/21 11:44 Dose: 1 mg Documented by: Ceftriaxone Sodium 2 gm/ (Sodium Chloride) 50 mls @ 100 mls/hr IVPB Q24H [facility] Last Admin: 07/03/21 15:51 Dose: 100 mls/hr Documented by: Lorazepam (Lorazepam 1 Mg Tab) 2 mg PO HS [facility] Last Admin: 07/03/21 20:53 Dose: 2 mg Documented by: Melatonin (Melatonin 3 Mg Tablet) 3 mg PO HS PRN PRN Reason: Insomnia Metoprolol Succinate (Metoprolol Succinate (Er) 100 Mg Tab.Er.24h) 100 mg PO DAILY [facility] Last Admin: 07/04/21 07:45 Dose: 100 mg Documented by: Miscellaneous Information (Potassium Replacement Protocol 1 Each Misc) 1 each MISCELLANE DAILY PRN; Protocol PRN Reason: Per Protocol Naloxone HCl (Naloxone 0.4 Mg/Ml 1 Ml Vial) 0.2 mg IV Q2M PRN PRN Reason: Opioid Reversal Nicotine (Nicotine 14mg/24hr Patch) 1 patch TRANSDERM DAILY [facility] Last Admin: 07/04/21 07:45 Dose: 1 patch Documented by: Patient's Own ( Ascomp W/Codeine 1 Cap) 1 cap PO TID [facility] Last Admin: 07/04/21 07:46 Dose: Not Given Documented by: Patient's Own ( Butorphanol Tartrate [Stadol Nasal [place] ] 10 Mg/Ml Ml) 1 spray MISCELLANE DAILY PRN PRN Reason: Migraine Headache Ondansetron HCl (Ondansetron 4 Mg/2 Ml Vial) 4 mg IVP Q8HR PRN PRN Reason: Nausea And Vomiting Pantoprazole Sodium (Pantoprazole 40 Mg Tablet) 40 mg PO AC-BRKFST [facility] Last Admin: 07/04/21 07:45 Dose: 40 mg Documented by: Thiamine HCl (Thiamine 100 Mg Tab) 100 mg PO DAILY [facility] Last Admin: 07/04/21 07:45 Dose: 100 mg Documented by: Physical exam: Gen: This is a 60-year-old male awake, alert and oriented 3, thin built, appears older than stated age, no acute distress HEENT: Head is atraumatic, normocephalic. Pupils equal, round. Sclerae is anicteric. NECK: Supple. No JVD. No lymphadenopathy. No thyromegaly. LUNGS: Diminished breath sounds on the right more so than the left with some scattered rhonchi noted. Mild crackles noted at the bases. No intercostal retractions. Right chest wall pigtail catheter was replaced with continued purulent drainage noted in the atrium HEART: Regular rate and rhythm. No murmur. ABDOMEN: Soft. Thin built. Bowel sounds are present. No masses. No tenderness. EXTREMITIES: No pedal edema. No calf tenderness. NEUROLOGICAL: Patient is awake, alert and oriented x3. Cranial nerves 2 through 12 are grossly intact. Assessment: Pneumonia with Pseudomonas growing in the sputum Bacterial pneumonia with Pseudomonas Empyema with right side percutaneous pigtail catheter placement at [facility] and subsequent dislodgment of the catheter, chest tube catheter replaced Chronic obstructive pulmonary disease, acute exacerbation Chronic hypoxic respiratory failure on 3 L via nasal cannula in the outpatient setting Right pleural effusion mild hyponatremia Hypertension Remote history of alcohol abuse Remote history of nicotine dependence, recently quit Moderate protein malnutrition with BMI of 22.3 History of anemia, macrocytic Interstitial lung disease History of chronic right pleural effusion that was recently tapped at [facility] Gait dysfunction Weakness Frequent falls GI prophylaxis DVT prophylaxis: anticoagulant on hold for possible hematoma development of the right side chest wall site of pigtail catheter Full code Plan: In this pleasant 60-year-old male who presents with right empyema and pneumonia with secondary to Pseudomonas. Status post pigtail replacement. Patient is maintained on IV ceftriaxone with ID following closely. CT surgery and pulmonary following as well. Sodium is 131 today and encouraged oral intake and especially protein. Currently holding anticoagulation in the form of lovenox for concern of developing hematoma at the chest wall catheter site of the right. Abdominal binder applied for compression of the right side. Encouraged incentive spirometer use at least 10 times every hour while awake. Will have PT/OT evaluate the patient with consult to social work for possible placement. Awaiting culture finalization to determine continued antibiotics. Repeat chest xray and am labs. Objective - Vital Signs Vital signs: Vital Signs Temp 98.9 F 07/04/21 07:11 Pulse 77 07/04/21 07:46 Resp 18 07/04/21 07:46 BP 119/85 07/04/21 07:11 Pulse Ox 98 07/04/21 07:11 Intake & Output 07/03/21 07/04/21 07/04/21 18:59 06:59 18:59 Output Total 340 830 Balance -340 -830 Output: Chest Tube Drainage 90 30 Chest Tube Right Right 90 30 Pleural/Mediastinal Urine 250 800 Other: Voiding Method Urinal Urinal Urinal - Labs CBC & Chem 7: 07/04/21 09:33 07/04/21 09:33 Labs: Abnormal Lab Results - Last 24 Hours (Table) 07/03/21 07/04/21 07/04/21 Range/Units 07:07 09:33 09:33 RBC 2.94 L (4.30-5.90) m/uL Hgb 10.0 L (13.0-17.5) gm/dL Hct 31.3 L (39.0-53.0) % MCV 106.5 H (80.0-100.0) fL Sodium 132 L 131 L (135-145) mmol/L Potassium 3.1 L (3.5-5.5) mmol/L BUN 7.5 L 6 L (9.0-27.0) mg/dL Creatinine 0.59 L (0.66-1.25) mg/dL Glucose 167 H (74-99) mg/dL Calcium 8.0 L 8.2 L (8.7-10.3) mg/dL Microbiology - Last 24 Hours (Table) 06/30/21 11:11 Gram Stain - Final Pleural Fluid Body Fluid Culture - Final Alpha Hemolytic Streptococcus
--- NOTE | 2021-07-05 01:06 | PN ---
PROGRESS NOTE DATE OF SERVICE: 07/04/2021 REASON FOR FOLLOWUP: Right-sided empyema. INTERVAL HISTORY: The patient is afebrile. The patient is breathing slightly comfortably. Still complaining of pain to the right side of the chest; no worsening, though. Still has output in his chest tube site. No nausea, no vomiting. No abdominal pain or diarrhea. PHYSICAL EXAMINATION: Blood pressure 110/68 with a pulse of 77, temperature 97.8. He is 96% on 4 L nasal cannula. General description is a middle-aged male lying in bed in no distress. RESPIRATORY SYSTEM: Unlabored breathing. Decreased breath sounds at the bases. No wheeze. HEART: S1, S2. Regular rate and rhythm. ABDOMEN: Soft. No tenderness. LABS: Hemoglobin is 10 with white count of 9.3, creatinine 0.59. DIAGNOSTIC IMPRESSION AND PLAN: Patient with right-sided pain in this patient who is status post chest tube placement. Culture has been positive for strep and anaerobes. Patient is covered with Rocephin. Flagyl has been added. Continue with supportive care. MMODL / IJN: [id number] /
[2021-07-05] MEDS: HYDROmorphone 1 MG/ML 1 ML SYRINGE IVP PRN ×5 (01:43→17:53)
[2021-07-05] MEDS: SYMBICORT 160-4.5 MCG INHALER INHALATION SCH ×2 (07:32→20:58)
--- NOTE | 2021-07-05 08:07 | XR ---
EXAMINATION TYPE: XR chest 1V portable DATE OF EXAM: 07/05/2021 CLINICAL HISTORY: Right-sided empyema progress study. TECHNIQUE: Single AP portable upright view of the chest is obtained. COMPARISON: Chest x-ray from one day earlier and older studies. FINDINGS: Persistent lateral right basilar pigtail pleural drainage catheter. Persistent small right greater than left pleural fluid collections. Persistent right greater than left bibasilar opacities. Upper lungs remain clear. Cardiac silhouette size stable and within normal limits. Old fracture defo rmity right proximal humerus redemonstrated. IMPRESSION: Persistent small right greater than left pleural fluid collections despite peripheral bas ilar right pigtail pleural drainage catheter. Persistent right greater than left bibasilar acute infi ltrate and/or atelectasis. No significant change from one day earlier.
[2021-07-05] MEDS: CODEINE PO SCH ×3 (08:13→23:05)
[2021-07-05] MEDS: [UNRECOGNIZED DRUG - OTHER] PO SCH ×3 (08:13→23:05)
[2021-07-05] MEDS: HYDROcodone/APAP 5-325MG 1 EACH TAB PO PRN ×3 (08:23→23:04)
[2021-07-05] MEDS: NICOTINE 14MG/24HR PATCH TRANSDERM SCH (08:23)
[2021-07-05] MEDS: THIAMINE 100 MG TAB PO SCH (08:24)
[2021-07-05] MEDS: METOPROLOL SUCCINATE (ER) 100 MG TAB.ER.24H PO SCH (08:24)
[2021-07-05] MEDS: metroNIDAZOLE 500 MG TAB PO SCH ×3 (08:24→23:04)
[2021-07-05] MEDS: PANTOPRAZOLE 40 MG TABLET PO SCH (08:24)
[2021-07-05] MEDS: FOLIC ACID 1 MG TAB PO SCH (08:24)
--- NOTE | 2021-07-05 12:54 | US ---
EXAMINATION TYPE: US mass soft tissue chest/back DATE OF EXAM: 07/05/2021 COMPARISON: Chest CT 3 days ago CLINICAL HISTORY: right chest wall possible abscess . Pt has large area of swelling/palpable mass rig ht posterior back at chest tube insertion site Difficult to scan- pt has large bandage covering chest tube insertion site Complex collection right posterior/lateral back near edematous skin line and chest tube insertion s ite= 6.5 x 1.1 x 5.5 cm/ Another possible complex collection posterior-deep= 5.2 x 0.9 x 5.4 cm IMPRESSION: Moderate subcutaneous edema in the soft tissue just below the dermal surface with 2 oval -shaped nonsimple fluid collections just below this and within the deep subcutaneous tissue. Differen tial would include hematomas versus developing abscesses. Correlate clinically. Latter is favored giv en surrounding fat stranding on the recent CT.
[2021-07-05] MEDS ORDERED: DORNASE ALFA 5 MG in SODIUM CHLORIDE 0.9% 50 ML IRRIGATION ONE (14:16)
[2021-07-05] MEDS ORDERED: ALTEPLASE 10 MG in SODIUM CHLORIDE 0.9% 50 ML IRRIGATION ONE (14:16)
--- NOTE | 2021-07-05 15:09 | P.GSCN ---
History of Present Illness Consult date: 07/05/21 History of present illness: CHIEF COMPLAINT: Empyema HISTORY OF PRESENT ILLNESS: Patient was a transfer from [facility] on 06/29/2021 for right lung empyema. Patient has undergone placement of right pigtail chest tube catheter by interventional radiology on 06/30/2021 for drainage of the empyema. Patient followed closely by cardiothoracic and pulmonary service. Patient has had increased swelling and redness at the pigtail catheter site. Surgical service consulted in regards to the fluid collection at the pigtail catheter chest tube site. Patient reports pain in that area. He had a soft tissue ultrasound completed showing moderate subcutaneous edema in the soft tissue just below the dermal service with 2 oval- shaped non-simple fluid collections just below this and within the deep subcutaneous tissue. Differential would include hematomas versus developing abscess. Patient remains on antibiotics and is followed by infectious disease. Vitals are stable. He remains afebrile. White count normal 9.3. PAST MEDICAL HISTORY: COPD and hypertension PAST SURGICAL HISTORY: Hernia repair MEDICATIONS: See list. ALLERGIES: See list. SOCIAL HISTORY: No illicit drug use. REVIEW OF SYSTEMS: CONSTITUTIONAL: Denies fever or chills. HEENT: Denies blurred vision, vision changes, or eye pain. Denies hemoptysis CARDIOVASCULAR: Denies chest pain or pressure. RESPIRATORY: No shortness of breath. GASTROINTESTINAL: No nausea or vomiting. Denies any bowel changes HEMATOLOGIC: Denies bleeding disorders. GENITOURINARY: Denies any blood in urine or increased urinary frequency. SKIN: Denies pruitis. Denies rash. PHYSICAL EXAM: VITAL SIGNS: Reviewed GENERAL: Well-developed in no acute distress. HEENT: No sclera icterus. Extraocular movements grossly intact. Moist buccal mucosa. Head is atraumatic, normocephalic. No nasal drainage. ABDOMEN: Soft. Nondistended. Nontender NEUROLOGIC: Alert and oriented. Cranial nerves II through XII grossly intact. Chest: Patient has large fluctuant fluid collection at pigtail catheter chest tube site on right posterior chest wall. Measuring about 5 x 4 cm. There is also evidence of erythema that is marked. Area is tender with palpation. LABORATORY DATA: WBC 9.3 hemoglobin 10 platelets 303 Sodium 131 potassium 3.8 BUN 6 creatinine 0.59 IMAGING: soft tissue ultrasound completed showing moderate subcutaneous edema in the soft tissue just below the dermal service with 2 oval-shaped non-simple fluid collections just below this and within the deep subcutaneous tissue. Diff erential would include hematomas versus developing abscess. ASSESSMENT: 1. Infected chest tube site with surrounding Fluid collection 2. Right lung empyema PLAN: -Dr. Medellin did discuss case with Dr. Kirby. -Recommend cardiothoracic to manage chest tube -Continue antibiotics per ID -No surgical intervention planned from general surgery standpoint Thank you for this consultation Physician Accelerator Technician note has been reviewed by physician. Signing provider agrees with the documented findings, assessment, and plan of care. Past Medical History Past Medical History: Atrial Fibrillation (Remote history of paroxysmal atrial fibrillation), Cancer (Prostate cancer, status post 48 radiation treatments), COPD, Hypertension, Prostate Disorder, Respiratory Disorder (COPD with home oxygen use) History of Any Multi-Drug Resistant Organisms: None Reported Past Surgical History: Appendectomy, Hernia Repair (Bilateral inguinal hernia repair), Orthopedic Surgery (Right heel), Tonsillectomy Additional Past Surgical History / Comment(s): History of esophageal dilation Past Anesthesia/Blood Transfusion Reactions: No Reported Reaction Past Psychological History: No Psychological Hx Reported Smoking Status: Former smoker (Quit smoking 7 weeks ago) Past Alcohol Use History: Daily (Quit drinking 7 weeks ago) Additional Past Alcohol Use History / Comment(s): Quit drinking alcohol 7-8 weeks ago Past Drug Use History: None Reported Medications and Allergies Home Medications Medication Instructions Recorded Confirmed Type Albuterol Inhaler [Ventolin Hfa 1 puff INHALATION RT-Q4H PRN 06/29/21 06/29/21 History Inhaler] Albuterol Nebulized [Ventolin 2.5 mg INHALATION RT-QID PRN 06/29/21 06/29/21 History Nebulized] Ascomp W/Codeine 1 cap PO TID 06/29/21 06/29/21 History Butorphanol Tartrate [Stadol Nasal 1 spray NASAL DAILY PRN 06/29/21 06/29/21 History [place]] LORazepam [Ativan] 2 mg PO HS 06/29/21 06/29/21 History Metoprolol Succinate [Toprol XL] 100 mg PO DAILY 06/29/21 06/29/21 History Mometasone/Formoterol [Dulera 200 2 puff PO RT-BID 06/29/21 06/29/21 History Mcg-5 Mcg Inhaler] Umeclidinium [place] [Incruse 1 mcg INHALATION RT-DAILY 06/29/21 06/29/21 History Ellipta] Allergies Allergy/AdvReac Type Severity Reaction Status Date / Time No Known Allergies Allergy Verified 06/29/21 17:05 Surgical - Exam Vital Signs Temp Pulse Resp BP Pulse Ox 97.6 F 80 15 125/88 96 06/30/21 01:10 06/30/21 01:10 06/30/21 01:10 06/30/21 01:10 06/30/21 01:10 Results - Labs 07/04/21 09:33 07/04/21 09:33 Microbiology - Last 24 Hours (Table) 06/30/21 11:12 Anaerobic Culture - Preliminary Pleural Fluid Anaerobic Gram Positive Cocci
--- NOTE | 2021-07-05 15:09 | P.PN ---
Subjective Progress Note Date: 07/05/21 Principal diagnosis: Right lung empyema On 07/04/2021 patient seen in follow-up on medical surgical floor. He is awake and alert, he is breathing comfortably, on 4 L of oxygen his pulse ox is 98%, his been afebrile, today's chest x-ray shows right lower lobe infiltrate with sm all effusion, right-sided pigtail chest tube catheter remains in place, and there is been approximately 170 mL of whitish colored pleural fluid drainage, empyema in the last 24 hours. Pleural fluid cultures showed alphahemolytic streptococcus, and anaerobic gram-positive cocci patient is currently on Rocephin, and vancomycin. Patient has received intermittent doses of dornase, with the last dose on 07/02/2021. His pain is fairly well controlled with oral Engadine as, patient also has IV Dilaudid for breakthrough pain. No agitation, no confusion, he is pleasant and cooperative. No fever or chills, no chest pain. Pleural fluid cytology showed no cytologically malignant cells. On 07/05/2021 she seen on medical surgical floor. He is awake, in no acute distress, he is currently on 4 L of oxygen pulse ox is 90%, no fever or chills, breathing is nonlabored, he still has right-sided pigtail chest tube in place connected to Pleur-evac, and there has been very minimal drainage out of it in the last 24 hours, at the same time there is swelling and possible empyema, fluid collection or abscess at the site of the old pigtail catheter on patient's back. Ultrasound of the chest has been ordered and pending, general surgery has been consulted. Soft tissue ultrasound was completed showing moderate subcutaneous edema in the soft tissue just below the dermal surface without to oval-shaped non-simple fluid collections and within the deep subcutaneous tissue. Differential would include hematomas versus developing abscesses. This morning's chest x-ray showed persistent small right greater than left pleural fluid collections despite peripheral basilar right pigtail pleural drainage cat heter. Patient remains on a combination of Rocephin and Flagyl has been added yesterday, ID service is following. Pleural fluid cultures showed alphahemolytic streptococcus and anaerobic Positive cocci. Today's labs are still pending. Objective - Vital Signs Vital signs: Vital Signs Temp 98.2 F 07/05/21 14:06 Pulse 75 07/05/21 14:06 Resp 18 07/05/21 14:06 BP 123/83 07/05/21 14:06 Pulse Ox 98 07/05/21 14:06 Intake & Output 07/04/21 07/05/21 07/05/21 18:59 06:59 18:59 Intake Total 50 Output Total 400 1085 550 Balance -350 -5641 -827 Intake: Intake, IV Titration 50 Amount cefTRIAXone 2 gm In 50 Sodium Chloride 0.9% 50 ml @ 100 mls/hr IVPB Q24H COUNT INCLUDES THE [facility] Rx#:[id number] Output: Chest Tube Drainage 10 Chest Tube Right Right 10 Pleural/Mediastinal Urine 400 1075 550 Other: Voiding Method Urinal # Voids 4 - Exam GENERAL EXAM: Alert, very pleasant, 60-year-old white male, on 4 L of oxygen, pulse ox of 98%comfortable in no apparent distress. HEAD: Normocephalic/atraumatic. EYES: Normal reaction of pupils, equal size. Conjunctiva pink, sclera white. NOSE: Clear with pink turbinates. THROAT: No erythema or exudates. NECK: No masses, no JVD, no thyroid enlargement, no adenopathy. CHEST: No chest wall deformity. Symmetrical expansion. Right-sided pigtail chest tube is in place, connected to Pleur-evac, with whitish yellowish colored pleural fluid output in the Pleur-evac. Patient has subcutaneous right posterior chest fluid collection, or possible hematoma at the site of old right pigtail chest tube insertion site LUNGS: Equal air entry with no crackles, wheeze, rhonchi or dullness. Patient has CVS: Regular rate and rhythm, normal S1 and S2, no gallops, no murmurs, no rubs ABDOMEN: Soft, nontender. No hepatosplenomegaly, normal bowel sounds, no guarding or rigidity. EXTREMITIES: No clubbing, no edema, no cyanosis, 2+ pulses and upper and lower extremities. MUSCULOSKELETAL: Muscle strength and tone normal. SPINE: No scoliosis or deformity SKIN: No rashes CENTRAL NERVOUS SYSTEM: Alert and oriented -3. No focal deficits, tone is normal in all 4 extremities. PSYCHIATRIC: Alert and oriented -3. Appropriate affect. Intact judgment and insight. - Labs CBC & Chem 7: 07/04/21 09:33 07/04/21 09:33 Labs: Microbiology - Last 24 Hours (Table) 10/21/21 11:12 Anaerobic Culture - Preliminary Pleural Fluid Anaerobic Gram Positive Cocci Assessment and Plan Plan: Assessment: #1. Right lung empyema post percutaneous pigtail catheter insertion with subsequent dislodgment of the cath. Pleural fluid is purulent and its polymicrobial, awaiting final cultures. Currently on a combination of Zosyn and vancomycin. Awaiting another catheter insertion.. This could be a gram- negative pneumonia with secondary empyema and alcoholic patient. Patient has grown also pseudomonas aeruginosa and the sputum on 06/28/2021. Anaerobic infection cannot be completely excluded within the pleural space.was given a pigtail catheter and has adequate drainage of purulent material The patient clinically improved. The patient's follow-up CAT scan showed improvement in the size of the empyema. There is still right lower lobe consolidation/infiltration. The patient remains on a combination of cefepime and vancomycin. Meanwhile, the patient developed a hematoma/fluid collection along the patient states insertion site. This could be a hematoma related to the use of TPA. The fluid collection along the right posterior chest area is slightly bigger. I suspect is a hematoma. The pleural fluid culture came back positive for alphahemolytic strep. Current coverage is with Rocephin and Flagyl. #2. COPD #3. shortness of breath secondary to above #4. history of alcoholism #5. history of prostate cancer #6. history of smoking #7. chronic anemia #8. protein calorie malnutrition, moderate #9. right posterior chest wall hematoma, or possible abscess #10. Hyponatremia Plan: Continue antibiotic coverage per ID service recommendations, currently on Rocephin and Flagyl Ultrasound of the subcu tissues in the right posterior chest reviewed, case discussed with CT surgery, we will consult general surgery for possible aspiration of the hematoma or pus collection in the subcutaneous tissue in the right posterior back Possible repeat TPA Clinical patient has remained stable, no worsening dyspnea, no fever or chills, medicines have been stable Encourage deep breathing and coughing, increase activity as tolerated Gen. surgery has been consulted We'll await their input Will await final cultures Follow-up chest x-ray tomorrow Follow-up labs Continue to follow I performed a history & physical examination of the patient and discussed their management with my nurse practitioner, Tiffany Snyder. I reviewed the nurse practitioner's note and agree with the documented findings and plan of care. Lung sounds are positive for dim breath sounds throughout the lung thakur. The findings and the impression was discussed with the patient. I attest to the documentation by the nurse practitioner. Time with Patient: Less than 30
--- NOTE | 2021-07-05 15:54 | P.PN ---
Subjective Progress Note Date: 07/05/21 This is a 60-year-old male who was recently hospitalized at [facility] for pneumonia and empyema and had a chest tube placed on the right for continued drainage and ultimately sent here to [facility] for further evaluation by cardiothoracic surgery for complicated empyema that appears to be loculated. Infectious disease following over there and patient was maintained on cefepime and Vancomycin and will reorder here and consult infectious disease. Consult also placed to pulmonary along with cardiothoracic surgery. Upon arrival to the unit on 4 S. per nursing staff patient's chest tube atrium was lying flat on the patient on arrival and when hooking up to wall suction bubbli ng was noted in the atrium and was replaced. Bubbling persisted and chest x-ray was done which shows large right pleural effusion and right pulmonary consolidation without change the right side chest tube appears to be in the subcutaneous fat and malposition over the lower lateral right chest wall. No sign of pneumothorax. Cardiothoracic surgery contacted and will be replaced upon their evaluation. Patient does have a past medical history of COPD, hypertension, former smoker recently quit, EtOH use and reports to quitting a month or so ago, anemia, and most recently per family patient has been falling more often with unsteady gait. Patient states he follows with Dr. Rafita Lewis out of [place]. Daughter states patient lives by himself and is concerned and would like possible placement. 06/30/2021 patient is seen and evaluated in follow-up this morning with cardiothoracic surgery along with pulmonary following closely and evaluated the patient. Pigtail catheter on the right was dislodged and removed at the bedside by pulmonary and interventional radiology consulted to replace catheter on the right with possible drainage or evacuation of the loculated area with cultures b eing sent. patient is continued on 4 L of oxygen via nasal cannula and reports no worsening shortness of breath. Patient had some pain with inspiration and during the removal of the catheter and will order pain medications. 07/01/2021 She is seen and evaluated this morning and chest tube catheter was replaced and draining continuous amounts approval and drainage approximately 1.6 L since last night. Cardio thoracic along with pulmonary following closely along with infectious disease and patient is maintained on IV Zosyn along with vancomycin. Patient states he is having some chest wall discomfort with cough but no worsening. patient is continued on 4 L via nasal cannula. Patient is afebrile. repeat fluid analysis culture is pending. 07/02/2021 Patient is awake and alert, breathing comfortably at rest. Staying in chair or bed most of the time. Pain is controlled. Vital signs stable, he is saturating 98% on 4 L oxygen. Slightly dropped to 133 down to 129. We'll keep monitoring. Patient has pigtail tube on his right chest posteriorly with surrounding area of fluctuating swelling, possible hematoma therefore alteplase is not going to be given today. Per pulmonary team recommendation. Remains on cefepime and IV vancomycin pending final culture results with infectious disease team on the case CT of the chest showing right basilar pleural catheter with a small collection noted. Infected collection is not excluded. Basilar infiltrate may reflect pneumonia or aspiration. Hpneumothorax on the right 07/03/2021 Patient breathing is not worsening. He still has right-sided pigtail tube with surrounding swelling most likely hematoma which looks his stable. No more alt eplase yesterday. Hemodynamically stable and he is saturating 98% on 4 L. Fluid culture, and positive for alpha hemolytic streptococcus and chest x-ray showing patchy infiltrate in the right medial base, stable. His were adjusted today to IV vancomycin and ceftriaxone instead of cefepime. 07/04/2021 Patient is seen and evaluated in follow up this morning and continues on 4L via NC. Patient with continued right chest wall pigtail catheter with approx 150cc of output over the last [address] surgery and pulmonary following closely. Abdominal binder in place and alteplace on hold as concerned for possible hematoma at the catheter site. Anticoagulant on hold as well and chest xray today shows right lower lobe infiltrate with small effusion and overall stable. Patient also being followed closely by ID and maintained on IV ceftriaxone while waiting for cultures to finalize. Patient continues to be weak and will have PT/OT evaluate the patient and consult social work for possible placement. REpeat chest xray and labs in the am. Encouraged incentive spirometer at least 10 times every hour while awake. Encouraged increased activity as tolerated. Abdominal binder noted on exam for compression of the right chest tube sight. 07/05/2021 Patient is seen in follow-up this morning being followed by pulmonary and CT surgery. Patient underwent soft tissue ultrasound as patient has continued fluid collection at the chest tube site and ultrasound shows moderate subcutaneous edema in the soft tissue just below the dermal surface with 2 oval- shaped non-simple fluid collections just below this and within the deep subcutaneous tissue possibility is of hematoma versus developing abscess. Gen. surgery consulted recommending continuing with IV antibiotic therapy and conservative management with no surgical intervention at this time. Infectious disease is following and patient is maintained on IV antibiotics in the form of ceftriaxone. Patient sodium is low at 131 and will add IV fluids and repeat labs. Patient continues to be weak and needs encouragement to increase activity as tolerated. Also encouraged incentive spirometer. Review of systems: Constitutional: No reports of fatigue, fever, or chills Cardiovascular: No reports of chest pain or palpitations, reports continued right chest wall pain with inspiration and movement Respiratory: No reports of worsening shortness of breath or cough GI: No reports of nausea, vomiting, or diarrhea : No reports of dysuria or retention Neurovascular: reports generalized weakness All medications have been reviewed Active Medications Acetaminophen (Acetaminophen Tab 325 Mg Tab) 650 mg PO Q6HR PRN PRN Reason: Mild Pain or Fever > 100.5 Hydrocodone Bitart/Acetaminophen (Hydrocodone/Apap 5-325mg 1 Each Tab) 1 each PO Q6HR PRN PRN Reason: Pain Last Admin: 07/05/21 08:23 Dose: 1 each Documented by: Albuterol Sulfate (Albuterol Nebulized 2.5 Mg/3 Ml) 2.5 mg INHALATION RT-Q4H PRN PRN Reason: Shortness Of Breath Last Admin: 06/30/21 12:05 Dose: 2.5 mg Documented by: Budesonide/Formoterol Fumarate (Symbicort 160-4.5 Mcg Inhaler) 2 puff INHALATION RT-BID [facility] Last Admin: 07/05/21 07:32 Dose: 2 puff Documented by: Folic Acid (Folic Acid 1 Mg Tab) 1 mg PO DAILY [facility] Last Admin: 07/05/21 08:24 Dose: 1 mg Documented by: Hydromorphone HCl (Hydromorphone 1 Mg/Ml 1 Ml Syringe) 1 mg IVP Q3HR PRN PRN Reason: Pain Last Admin: 07/05/21 14:18 Dose: 1 mg Documented by: Ceftriaxone Sodium 2 gm/ (Sodium Chloride) 50 mls @ 100 mls/hr IVPB Q24H [facility] Last Admin: 07/04/21 16:27 Dose: 100 mls/hr Documented by: Sodium Chloride (Saline 0.9%) 1,000 mls @ 100 mls/hr IV .Q10H [facility] Lorazepam (Lorazepam 1 Mg Tab) 2 mg PO HS [facility] Last Admin: 07/04/21 22:35 Dose: 2 mg Documented by: Melatonin (Melatonin 3 Mg Tablet) 3 mg PO HS PRN PRN Reason: Insomnia Metoprolol Succinate (Metoprolol Succinate (Er) 100 Mg Tab.Er.24h) 100 mg PO DAILY [facility] Last Admin: 07/05/21 08:24 Dose: 100 mg Documented by: Metronidazole (Metronidazole 500 Mg Tab) 500 mg PO TID [facility] Last Admin: 07/05/21 08:24 Dose: 500 mg Documented by: Miscellaneous Information (Potassium Replacement Protocol 1 Each Misc) 1 each MISCELLANE DAILY PRN; Protocol PRN Reason: Per Protocol Naloxone HCl (Naloxone 0.4 Mg/Ml 1 Ml Vial) 0.2 mg IV Q2M PRN PRN Reason: Opioid Reversal Nicotine (Nicotine 14mg/24hr Patch) 1 patch TRANSDERM DAILY [facility] Last Admin: 07/05/21 08:23 Dose: 1 patch Documented by: Patient's Own ( Ascomp W/Codeine 1 Cap) 1 cap PO TID [facility] Last Admin: 07/05/21 13:06 Dose: Not Given Documented by: Patient's Own ( Butorphanol Tartrate [Stadol Nasal [place] ] 10 Mg/Ml Ml) 1 spray MISCELLANE DAILY PRN PRN Reason: Migraine Headache Ondansetron HCl (Ondansetron 4 Mg/2 Ml Vial) 4 mg IVP Q8HR PRN PRN Reason: Nausea And Vomiting Pantoprazole Sodium (Pantoprazole 40 Mg Tablet) 40 mg PO AC-BRKFST [facility] Last Admin: 07/05/21 08:24 Dose: 40 mg Documented by: Thiamine HCl (Thiamine 100 Mg Tab) 100 mg PO DAILY [facility] Last Admin: 07/05/21 08:24 Dose: 100 mg Documented by: Physical exam: Gen: This is a 60-year-old male awake, alert and oriented 3, thin built, appears older than stated age, no acute distress HEENT: Head is atraumatic, normocephalic. Pupils equal, round. Sclerae is anicteric. NECK: Supple. No JVD. No lymphadenopathy. No thyromegaly. LUNGS: Diminished breath sounds on the right more so than the left with some scattered rhonchi noted. Mild crackles noted at the bases. No intercostal retractions. Right chest wall pigtail catheter with continued fluid collection near the chest wall site and tenderness on palpation. HEART: Regular rate and rhythm. No murmur. ABDOMEN: Soft. Thin built. Bowel sounds are present. No masses. No tenderness. EXTREMITIES: No pedal edema. No calf tenderness. NEUROLOGICAL: Patient is awake, alert and oriented x3. Cranial nerves 2 through 12 are grossly intact. Assessment: Pneumonia with Pseudomonas growing in the sputum Right chest wall hematoma or possible abscess at the site of the chest tube Bacterial pneumonia with Pseudomonas Empyema with right side percutaneous pigtail catheter placement at [facility] and subsequent dislodgment of the catheter, chest tube catheter replaced Chronic obstructive pulmonary disease, acute exacerbation Chronic hypoxic respiratory failure on 3 L via nasal cannula in the outpatient setting Right pleural effusion mild hyponatremia Hypertension Remote history of alcohol abuse Remote history of nicotine dependence, recently quit Moderate protein malnutrition with BMI of 22.3 History of anemia, macrocytic Interstitial lung disease History of chronic right pleural effusion that was recently tapped at [facility] Gait dysfunction Weakness Frequent falls GI prophylaxis DVT prophylaxis: anticoagulant on hold for possible hematoma development of the right side chest wall site of pigtail catheter Full code Plan: In this pleasant 60-year-old male who presents with right empyema and pneumonia with secondary to Pseudomonas. Status post pigtail replacement. Patient is maintained on IV ceftriaxone and Flagyl with ID following closely. CT surgery and pulmonary following as well. Sodium was 131 today and encouraged oral intake and especially protein. We'll add gentle IV hydration and repeat labs. Currently holding anticoagulation in the form of lovenox for concern of developing hematoma at the chest wall catheter site of the right. Abdominal binder applied for compression of the right side. General surgery consulted recommending no surgical intervention and continued IV antibiotic therapy for the right chest wall hematoma versus possible abscess. Encouraged incentive spirometer use at least 10 times every hour while awake. Will have PT/OT evaluate the patient with consult to social work for possible placement. Awaiting culture finalization to determine continued antibiotics. Repeat chest xray and am labs. Objective - Vital Signs Vital signs: Vital Signs Temp 98.1 F 07/05/21 07:05 Pulse 64 07/05/21 07:05 Resp 18 07/05/21 07:05 BP 145/92 07/05/21 07:05 Pulse Ox 98 07/05/21 07:32 Intake & Output 07/04/21 07/05/21 07/05/21 18:59 06:59 18:59 Intake Total 50 Output Total 400 1085 Balance -350 -1085 Intake: Intake, IV Titration 50 Amount cefTRIAXone 2 gm In 50 Sodium Chloride 0.9% 50 ml @ 100 mls/hr IVPB Q24H [facility] Rx#:[id number] Output: Chest Tube Drainage 10 Chest Tube Right Right 10 Pleural/Mediastinal Urine 400 1075 Other: Voiding Method Urinal # Voids 4 - Labs CBC & Chem 7: 07/04/21 09:33 07/04/21 09:33 Labs: Abnormal Lab Results - Last 24 Hours (Table) 07/04/21 07/04/21 Range/Units 09:33 09:33 RBC 2.94 L (4.30-5.90) m/uL Hgb 10.0 L (13.0-17.5) gm/dL Hct 31.3 L (39.0-53.0) % MCV 106.5 H (80.0-100.0) fL Sodium 131 L (137-145) mmol/L BUN 6 L (9-20) mg/dL Creatinine 0.59 L (0.66-1.25) mg/dL Glucose 167 H (74-99) mg/dL Calcium 8.2 L (8.4-10.2) mg/dL Microbiology - Last 24 Hours (Table) 06/30/21 11:12 Anaerobic Culture - Preliminary Pleural Fluid Anaerobic Gram Positive Cocci
[2021-07-05] MEDS: SODIUM CHLORIDE 0.9% 1,000 ML IV SCH ×2 (22:57→23:07)
--- NOTE | 2021-07-05 23:00 | PN ---
PROGRESS NOTE DATE OF SERVICE: 07/05/2021 REASON FOR FOLLOWUP: Right-sided empyema. INTERVAL HISTORY: The patient is afebrile. He is breathing slightly comfortably. Has been complaining of pain at the surgery site. Denies any worsening cough or sputum production. No abdominal pain or diarrhea. PHYSICAL EXAMINATION: Blood pressure is 131/88 with a pulse of 84, temperature 97.9. He is 97% on 4 L nasal cannula. General description is a middle-aged male up in the bed in no distress. RESPIRATORY SYSTEM: Unlabored breathing. Decreased breath sounds at the bases. No wheeze. HEART: S1, S2. Regular rate and rhythm. ABDOMEN: Soft. No tenderness. EXTREMITIES: No edema of the feet. LABS: Hemoglobin is 10, white count 9.3, creatinine 0.59. Pleural fluid culture with alpha- hemolytic strep and anaerobic Gram-positive cocci. DIAGNOSTIC IMPRESSION AND PLAN: Patient with right-sided empyema in this patient who is status post chest tube placement. Patient is covered with Rocephin and Flagyl; to continue. Waiting for surgical debridement. Continue supportive care. MMODL / IJN: [id number] /
[2021-07-05] MEDS: LORazepam 1 MG TAB PO SCH (23:03)
[2021-07-06] MEDS: HYDROmorphone 1 MG/ML 1 ML SYRINGE IVP PRN ×3 (04:47→15:09)
--- NOTE | 2021-07-06 06:56 | P.PN ---
Subjective Progress Note Date: 07/05/21 Principal diagnosis: Loculated right empyema. Past medical history significant for COPD with home oxygen use 3 L nasal cannula, right pleural effusion with previous right thoracentesis at [facility] around the year ago, anemia, hypertension, prostate cancers status post 48 radiation treatments, recent fall from standing, medical debility, remote history of paroxysmal atrial fibrillation, chronic nicotine dependence and EtOH abuse which he reports he quit about 7-8 weeks ago. Status post day #5 placement of right chest pigtail catheter performed by interventional radiology. The patient is seen in follow-up today 07/05/2021 at his bedside on the fourth floor medical surgical unit. Currently the patient is laying in bed, is awake, alert and oriented 3 and is in no acute distress. He denies any complaints of pain or shortness of breath at this time. He does although complaining of some tenderness to his right chest wall with palpitation. The patient does still have some swelling to his right chest pigtail insertion site, although the swelling seems to be slightly improved today from yesterday. He remains on Rocephin and Flagyl for antibiotic coverage as his pleural fluid was positive for alpha hemolytic streptococcus and his pulmonary anaerobic culture showing positive for anaerobic gram-positive cocci. The antibiotics are being managed by infectious disease. Right chest pleural pigtail catheter remains in place to low continuous wall suction -20 cm H2O with no air leak present. Whitish colored drainage with 100 mL output in the last 24 hours. He remains afebrile the last 24 hours. Oxygen saturations are 98% on 3 L nasal cannula and he is achieving 2500 mL on his incentive spirometry with encouragement. Objective - Vital Signs Vital signs: Vital Signs Temp 98.1 F 07/05/21 07:05 Pulse 64 07/05/21 08:24 Resp 18 07/05/21 08:24 BP 145/92 07/05/21 07:05 Pulse Ox 98 07/05/21 07:32 Intake & Output 07/04/21 07/05/21 07/05/21 18:59 06:59 18:59 Intake Total 50 Output Total 400 1085 Balance -350 -1085 Intake: Intake, IV Titration 50 Amount cefTRIAXone 2 gm In 50 Sodium Chloride 0.9% 50 ml @ 100 mls/hr IVPB Q24H [facility] Rx#:[id number] Output: Chest Tube Drainage 10 Chest Tube Right Right 10 Pleural/Mediastinal Urine 400 1075 Other: Voiding Method Urinal # Voids 4 - Exam CONSTITUTIONAL: Laying in bed on the fourth floor medical surgical unit, appears comfortable, cooperative, no apparent acute distress. Complaining of some pain to his right chest pigtail insertion site and to his right flank with palpation. HEENT: Neck is supple, no JVD, no lymphadenopathy. No scleral icterus. Mucous membranes are moist. No JVD. No bruit. RESPIRATORY: Lungs sounds essentially clear throughout, diminished to his bilateral bases right greater than left. Respirations are symmetrical and non labored. Currently on 3 L nasal cannula with oxygen saturations 98%. Able to achieve 2500 mL on his incentive spirometry. Strong cough. Right chest pigtail catheter remains in place to water seal. No air leak is present. Draining whitish colored drainage with 100 mL output in the last 24 hours. CARDIOVASCULAR: Regular rhythm and rate. S1 and S2 present, negative for S3, gallop or murmur. Palpable peripheral pulses bilaterally, no edema present. No calf pain or tenderness noted. GASTROINTESTINAL: Abdomen soft, nontender, nondistended. Active bowel sounds present 4 quadrants. No guarding or rigidity. No organomegaly appreciated. INTEGUMENTARY: Skin is warm and dry with no evidence of clubbing or cyanosis. No rash or abnormal pigmentation. Dressing clean and dry to his right chest pigtail catheter insertion site. Swelling to his right chest pigtail insertion site with some erythema from his pigtail insertion site to his right flank area, improving. NEUROLOGIC: Cranial nerves II through XII intact. No focal deficits. MUSKULOSKELETAL: Able to move all extremities, strength equal bilaterally, generalized weakness. PSYCHIATRIC: Alert and oriented to person place and time, appropriate affect, intact judgment and insight. - Allied health notes Allied health notes reviewed: nursing - Labs CBC & Chem 7: 07/04/21 09:33 07/04/21 09:33 Labs: Microbiology - Last 24 Hours (Table) 06/30/21 11:12 Anaerobic Culture - Preliminary Pleural Fluid Anaerobic Gram Positive Cocci - Imaging and Cardiology Chest x-ray: report reviewed, image reviewed Assessment and Plan Assessment: 1. Right lung empyema status post right-sided percutaneous pigtail catheter insertion by interventional radiology and subsequent dislodgment of the pigtail catheter. Sputum culture from 06/26/2021 showing pseudomonas aeruginosa, pleural fluid showing alphahemolytic streptococcus and anaerobic culture showing gram-positive cocci 2. Shortness of breath secondary to above 3. Chronic obstructive pulmonary disease 4. History of prostate cancer status post 48 treatments of radiation 5. Hypertension 6. Medical debility 7. Chronic anemia 8. History of EtOH abuse 9. History of nicotine dependence 10. History of recent weight loss, protein calorie malnutrition 11. Right posterior chest wall hematoma 12. Hyponatremia Plan: 1. Keep right chest pigtail catheter in place and connected to low continuous wall suction -20 cm H2O. Continue to record accurate I's and O's. 2. We will instill alteplase/dornase today which will be a third dose in total. 3. Continue to monitor daily chest x-rays. 4. Encourage use of incentive spirometry 10 times every hour while awake. 5. Continue antibiotics management by infectious disease. Pleural fluid culture shows alphahemolytic streptococcus. Currently on Rocephin and Flagyl for antibiotic coverage. 6. Bronchodilator management per pulmonary/critical care medicine. 7. Continue GI and DVT prophylaxis. 8. Pain management per current when necessary orders. 9. Increase activity as tolerated. Out of bed for all meals. The patient needs much encouragement to ambulate. 10. Warm compresses to his right chest pigtail insertion site. Abdominal binder placed. 11. More recommendations to follow based on patient's clinical course. Time with Patient: Greater than 30
--- NOTE | 2021-07-06 07:51 | XR ---
EXAMINATION TYPE: XR chest 1V portable DATE OF EXAM: 07/06/2021 COMPARISON: 07/05/2021 INDICATION: Short of breath TECHNIQUE: Single frontal view of the chest is obtained. FINDINGS: The heart size is normal. The pulmonary vasculature is normal. Right lower lobe infiltrate and small right pleural effusion. Small left pleural effusion is present. IMPRESSION: 1. Right lower lobe infiltrate. 2. Bilateral small pleural effusions larger on the right.
[2021-07-06] MEDS: METOPROLOL SUCCINATE (ER) 100 MG TAB.ER.24H PO SCH (08:16)
[2021-07-06] MEDS: PANTOPRAZOLE 40 MG TABLET PO SCH (08:16)
[2021-07-06] MEDS: THIAMINE 100 MG TAB PO SCH (08:17)
[2021-07-06] MEDS: HYDROcodone/APAP 5-325MG 1 EACH TAB PO PRN ×2 (08:17→20:02)
[2021-07-06] MEDS: NICOTINE 14MG/24HR PATCH TRANSDERM SCH (08:17)
[2021-07-06] MEDS: FOLIC ACID 1 MG TAB PO SCH (08:17)
[2021-07-06] MEDS: metroNIDAZOLE 500 MG TAB PO SCH ×3 (08:17→22:19)
[2021-07-06] MEDS: SODIUM CHLORIDE 0.9% 1,000 ML IV SCH ×2 (08:22→17:18)
[2021-07-06] MEDS: CODEINE PO SCH ×3 (08:23→22:24)
[2021-07-06] MEDS: [UNRECOGNIZED DRUG - OTHER] PO SCH ×3 (08:23→22:24)
[2021-07-06] MEDS: SYMBICORT 160-4.5 MCG INHALER INHALATION SCH ×2 (09:00→21:42)
[2021-07-06 09:23] LABS: Basophils # (A) 0.03 X 10*3/uL (0.00-0.10); Basophils % (A) 0.3 %; Eosinophils % (A) 1.7 %; HCT 28.8 % (39.6-50.0); HGB 9.1 g/dL (13.0-17.0); Lymphocytes # (A) 0.97 X 10*3/uL (0.90-5.00); Lymphocytes % (A) 8.2 %; MCH 33.2 pg (27.0-32.0); MCHC 31.6 g/dL (32.0-37.0); MCV 105.1 fL (80.0-97.0); Mean Platelet Volume 11.3 fL (9.5-12.2); Monocytes # (A) 1.05 X 10*3/uL (0.20-1.00); Monocytes % (A) 8.9 %; Neutrophils # (A) 9.45 X 10*3/uL (1.80-7.70); Neutrophils % (A) 80.2 %; Platelet Count 303 X 10*3/uL (140-440); RBC 2.74 X 10*6/uL (4.40-5.60); RDW 14.3 % (11.5-14.5); WBC 11.78 X 10*3/uL (4.50-10.00)
[2021-07-06 09:44] LABS: African American GFR (CKD) 124.9 (60.0-200.0); Anion Gap 8.1 mmol/L (4.00-12.00); BUN/Creat Ratio 8.67 Ratio (12.00-20.00); Blood Urea Nitrogen 5.2 mg/dL (9.0-27.0); Calcium 8.2 mg/dL (8.7-10.3); Carbon Dioxide 25.9 mmol/L (21.6-31.8); Non-African American GFR(CKD) 107.8 (60.0-200.0); Potassium 4.1 mmol/L (3.5-5.5)
--- NOTE | 2021-07-06 10:26 | P.PN ---
Subjective Progress Note Date: 07/06/21 Principal diagnosis: Loculated right empyema. Previous medical history of COPD with home oxygen use 3 L nasal cannula, right pleural effusion with previous right thoracentesis at [facility], anemia, hypertension, prostate cancers status post 48 radiation treatments, recent fall from standing, medical debility, remote history of paroxysmal atrial fibrillation, chronic nicotine dependence and previous EtOH abuse Status post day #6 placement of right chest pigtail catheter performed by interventional radiology. The patient was seen and examined this morning at the bedside with Dr. Abrams. He is sitting up in bed in no acute distress. Right pigtail catheter remains to continuous wall suction, approximate 500 mL pink tinge thick drainage in the last 24 hours. Remains on 4 L nasal cannula, able to achieve 2500 mL on incentive spirometry. Remains on IV antibiotics per infectious disease. Objective - Vital Signs Vital signs: Vital Signs Temp 98.2 F 07/06/21 07:06 Pulse 76 07/06/21 07:06 Resp 18 07/06/21 07:06 BP 120/83 07/06/21 07:06 Pulse Ox 98 07/06/21 07:06 Intake & Output 07/05/21 07/06/21 07/06/21 18:59 06:59 18:59 Intake Total 450 Output Total 850 Balance -400 Intake: Intake, IV Titration 450 Amount Sodium Chloride 0.9% 1, 400 000 ml @ 100 mls/hr IV . Q10H [facility]ADA Rx#:[id number] cefTRIAXone 2 gm In 50 Sodium Chloride 0.9% 50 ml @ 100 mls/hr IVPB Q24H [facility]ADA Rx#:[id number] Output: Urine 850 Other: Voiding Method Urinal # Voids 0 # Bowel Movements 0 - Exam CONSTITUTIONAL: Appears comfortable, cooperative, no acute distress RESPIRATORY: Lungs sounds diminished bilaterally. Respirations even, nonlabored. Currently on 4 L nasal cannula with oxygen saturation 99%. Able to achieve 2500 mL on incentive spirometry. Strong cough. CARDIOVASCULAR: S1, S2 present. Regular rate and rhythm, sinus rhythm on telemetry. Palpable peripheral pulses bilaterally. No edema present. No calf pain or tenderness noted. SCDs present. GASTROINTESTINAL: Abdomen soft, nontender, nondistended. Active bowel sounds present 4 quadrants. Tolerating diet. GENITOURINARY: Continues to void INTEGUMENTARY: Skin is warm and dry with evidence of good perfusion. Swelling present to right posterior chest wall at pigtail insertion site NEUROLOGIC: Cranial nerves II through XII intact MUSKULOSKELETAL: Able to move all extremities, strength equal bilaterally, gait normal PSYCHIATRIC: Alert and oriented to person place and time, appropriate affect, intact judgment and insight INVASIVE LINES AND TUBES: Right pigtail catheter present and connected to wall suction, no air leaks present, 500 mL in the last 24 hours - Allied health notes Allied health notes reviewed: nursing - Labs CBC & Chem 7: 07/06/21 06:48 07/06/21 06:48 Labs: Abnormal Lab Results - Last 24 Hours (Table) 07/06/21 07/06/21 Range/Units 06:48 06:48 WBC 11.78 H (4.50-10.00) X 10*3/uL RBC 2.74 L (4.40-5.60) X 10*6/uL Hgb 9.1 L (13.0-17.0) g/dL Hct 28.8 L (39.6-50.0) % MCV 105.1 H (80.0-97.0) fL MCH 33.2 H (27.0-32.0) pg MCHC 31.6 L (32.0-37.0) g/dL Immature Gran # 0.08 H (0.00-0.04) X 10*3/uL Neutrophils # 9.45 H (1.80-7.70) X 10*3/uL Monocytes # 1.05 H (0.20-1.00) X 10*3/uL Sodium 133 L (135-145) mmol/L BUN 5.2 L (9.0-27.0) mg/dL BUN/Creatinine Ratio 8.67 L (12.00-20.00) Ratio Calcium 8.2 L (8.7-10.3) mg/dL - Imaging and Cardiology Chest x-ray: image reviewed Assessment and Plan Assessment: 1. Right lung empyema status post right-sided percutaneous pigtail catheter insertion by interventional radiology. Sputum culture from 06/26/2021 growing pseudomonas aeruginosa, pleural fluid growing alphahemolytic streptococcus and anaerobic culture growing gram-positive cocci 2. Shortness of breath secondary to above 3. Chronic obstructive pulmonary disease 4. History of prostate cancer status post 48 treatments of radiation 5. Hypertension 6. Medical debility 7. Chronic anemia 8. History of EtOH abuse 9. History of nicotine dependence 10. History of recent weight loss, protein calorie malnutrition 11. Right posterior chest wall hematoma Plan: 1. Keep right chest pigtail catheter in place and connected to low continuous wall suction -20 cm H2O. 2. Will take placement to the operating room today for incision and drainage of right posterior chest wall swelling. Currently nothing by mouth 3. Continue to monitor daily chest x-rays. 4. Encourage use of incentive spirometry 10 times every hour while awake. 5. Continue antibiotics management by infectious disease. 6. Bronchodilator management per pulmonary/critical care medicine. 7. Continue GI and DVT prophylaxis. 8. Pain management per current when necessary orders. 9. Increase activity as tolerated. Out of bed for all meals. The patient needs much encouragement to ambulate. 10. More recommendations to follow Time with Patient: Greater than 30
--- NOTE | 2021-07-06 11:39 | P.PN ---
Subjective Progress Note Date: 07/06/21 CHIEF COMPLAINT: Empyema HISTORY OF PRESENT ILLNESS: Surgical service following in regards to patient's s welling at the pigtail catheter site. Patient is scheduled for drainage of right posterior chest abscess with Dr. Abrams today. Patient still has pain at swelling site. His abdominal binder in place. Afebrile WBC is up at 11.78 hemoglobin 10 down to 9.1 PHYSICAL EXAM: VITAL SIGNS: Reviewed. GENERAL: Well-developed in no acute distress. HEENT: No sclera icterus. Extraocular movements grossly intact. Moist buccal mucosa. Head is atraumatic, normocephalic. ABDOMEN: Soft. Nondistended. Nontender. NEUROLOGIC: Alert and oriented. Cranial nerves II through XII grossly intact. ASSESSMENT: 1. Infected chest tube site with surrounding Fluid collection 2. Right lung empyema PLAN: -Cardiothoracic team is draining right posterior chest wall fluid today in OR -Continue supportive care -Continue antibiotics per ID -No surgical intervention planned from general surgery standpoint Physician Buggy Man note has been reviewed by physician. Signing provider agrees with the documented findings, assessment, and plan of care. Objective - Vital Signs Vital signs: Vital Signs Temp 98.2 F 07/06/21 07:06 Pulse 76 07/06/21 07:06 Resp 18 07/06/21 07:06 BP 120/83 07/06/21 07:06 Pulse Ox 98 07/06/21 07:06 Intake & Output 07/05/21 07/06/21 07/06/21 18:59 06:59 18:59 Intake Total 450 Output Total 850 Balance -400 Intake: Intake, IV Titration 450 Amount Sodium Chloride 0.9% 1, 400 000 ml @ 100 mls/hr IV . Q10H [facility]ADA Rx#:[id number] cefTRIAXone 2 gm In 50 Sodium Chloride 0.9% 50 ml @ 100 mls/hr IVPB Q24H [facility]ADA Rx#:[id number] Output: Urine 850 Other: Voiding Method Urinal # Voids 0 # Bowel Movements 0 - Labs CBC & Chem 7: 07/06/21 06:48 07/06/21 06:48 Labs: Abnormal Lab Results - Last 24 Hours (Table) 07/06/21 07/06/21 Range/Units 06:48 06:48 WBC 11.78 H (4.50-10.00) X 10*3/uL RBC 2.74 L (4.40-5.60) X 10*6/uL Hgb 9.1 L (13.0-17.0) g/dL Hct 28.8 L (39.6-50.0) % MCV 105.1 H (80.0-97.0) fL MCH 33.2 H (27.0-32.0) pg MCHC 31.6 L (32.0-37.0) g/dL Immature Gran # 0.08 H (0.00-0.04) X 10*3/uL Neutrophils # 9.45 H (1.80-7.70) X 10*3/uL Monocytes # 1.05 H (0.20-1.00) X 10*3/uL Sodium 133 L (135-145) mmol/L BUN 5.2 L (9.0-27.0) mg/dL BUN/Creatinine Ratio 8.67 L (12.00-20.00) Ratio Calcium 8.2 L (8.7-10.3) mg/dL
--- NOTE | 2021-07-06 14:01 | P.PN ---
Subjective Progress Note Date: 07/06/21 Principal diagnosis: Right lung empyema On 07/04/2021 patient seen in follow-up on medical surgical floor. He is awake and alert, he is breathing comfortably, on 4 L of oxygen his pulse ox is 98%, his been afebrile, today's chest x-ray shows right lower lobe infiltrate with sm all effusion, right-sided pigtail chest tube catheter remains in place, and there is been approximately 170 mL of whitish colored pleural fluid drainage, empyema in the last 24 hours. Pleural fluid cultures showed alphahemolytic streptococcus, and anaerobic gram-positive cocci patient is currently on Rocephin, and vancomycin. Patient has received intermittent doses of dornase, with the last dose on 07/02/2021. His pain is fairly well controlled with oral [place] as, patient also has IV Dilaudid for breakthrough pain. No agitation, no confusion, he is pleasant and cooperative. No fever or chills, no chest pain. Pleural fluid cytology showed no cytologically malignant cells. On 07/05/2021 she seen on medical surgical floor. He is awake, in no acute distress, he is currently on 4 L of oxygen pulse ox is 90%, no fever or chills, breathing is nonlabored, he still has right-sided pigtail chest tube in place connected to Pleur-evac, and there has been very minimal drainage out of it in the last 24 hours, at the same time there is swelling and possible empyema, fluid collection or abscess at the site of the old pigtail catheter on patient's back. Ultrasound of the chest has been ordered and pending, general surgery has been consulted. Soft tissue ultrasound was completed showing moderate subcutaneous edema in the soft tissue just below the dermal surface without to oval-shaped non-simple fluid collections and within the deep subcutaneous tissue. Differential would include hematomas versus developing abscesses. This morning's chest x-ray showed persistent small right greater than left pleural fluid collections despite peripheral basilar right pigtail pleural drainage cat heter. Patient remains on a combination of Rocephin and Flagyl has been added yesterday, ID service is following. Pleural fluid cultures showed alphahemolytic streptococcus and anaerobic Positive cocci. Today's labs are still pending. On 07/06/2021 patient is seen in follow-up on medical surgical floor, his breathing comfortably, he is resting in bed, he is currently on 3 L of oxygen pulse ox is 98%, afebrile, hemodynamically stable, yesterday he received a dose of dornase instilled into his right-sided pigtail chest tube, and there is an additional 50 mL of cloudy pleural fluid in the Pleur-evac. Patient had a ultrasound of the chest that showed moderate subcutaneous edema in the soft tissue just below the dermal surface to oval-shaped non-simple fluid collection and within the deep subcutaneous tissue with possibility of hematoma versus developing abscess. Gen. surgery and CT surgery are on the case, general surgery recommended no surgical intervention, CT surgery has scheduled the patient for drainage of the fluid collection in the OR today. Otherwise vital signs have been stable, patient denies any acute distress. He remains on antibiotics with Rocephin and Flagyl, ID service is following Objective - Vital Signs Vital signs: Vital Signs Temp 98.2 F 07/06/21 11:55 Pulse 76 07/06/21 11:55 Resp 18 07/06/21 11:55 BP 120/83 07/06/21 11:55 Pulse Ox 98 07/06/21 11:55 Intake & Output 07/05/21 07/06/21 07/06/21 18:59 06:59 18:59 Intake Total 450 800 Output Total 850 Balance -400 800 Intake: Intake, IV Titration 450 800 Amount Sodium Chloride 0.9% 1, 400 800 000 ml @ 100 mls/hr IV . Q10H [facility] Rx#:[id number] cefTRIAXone 2 gm In 50 Sodium Chloride 0.9% 50 ml @ 100 mls/hr IVPB Q24H [facility]ADA Rx#:[id number] Output: Urine 850 Other: Voiding Method Urinal # Voids 0 # Bowel Movements 0 - Exam GENERAL EXAM: Alert, very pleasant, 60-year-old white male, on 4 L of oxygen, pulse ox of 98%comfortable in no apparent distress. HEAD: Normocephalic/atraumatic. EYES: Normal reaction of pupils, equal size. Conjunctiva pink, sclera white. NOSE: Clear with pink turbinates. THROAT: No erythema or exudates. NECK: No masses, no JVD, no thyroid enlargement, no adenopathy. CHEST: No chest wall deformity. Symmetrical expansion. Right-sided pigtail chest tube is in place, connected to Pleur-evac, with whitish yellowish colored pleural fluid output in the Pleur-evac. Patient has subcutaneous right posterior chest fluid collection, or possible hematoma at the site of old right pigtail chest tube insertion site LUNGS: Equal air entry with no crackles, wheeze, rhonchi or dullness. Patient has CVS: Regular rate and rhythm, normal S1 and S2, no gallops, no murmurs, no rubs ABDOMEN: Soft, nontender. No hepatosplenomegaly, normal bowel sounds, no guarding or rigidity. EXTREMITIES: No clubbing, no edema, no cyanosis, 2+ pulses and upper and lower extremities. MUSCULOSKELETAL: Muscle strength and tone normal. SPINE: No scoliosis or deformity SKIN: No rashes CENTRAL NERVOUS SYSTEM: Alert and oriented -3. No focal deficits, tone is normal in all 4 extremities. PSYCHIATRIC: Alert and oriented -3. Appropriate affect. Intact judgment and insight. - Labs CBC & Chem 7: 07/06/21 06:48 07/06/21 06:48 Labs: Abnormal Lab Results - Last 24 Hours (Table) 07/06/21 07/06/21 Range/Units 06:48 06:48 WBC 11.78 H (4.50-10.00) X 10*3/uL RBC 2.74 L (4.40-5.60) X 10*6/uL Hgb 9.1 L (13.0-17.0) g/dL Hct 28.8 L (39.6-50.0) % MCV 105.1 H (80.0-97.0) fL MCH 33.2 H (27.0-32.0) pg MCHC 31.6 L (32.0-37.0) g/dL Immature Gran # 0.08 H (0.00-0.04) X 10*3/uL Neutrophils # 9.45 H (1.80-7.70) X 10*3/uL Monocytes # 1.05 H (0.20-1.00) X 10*3/uL Sodium 133 L (135-145) mmol/L BUN 5.2 L (9.0-27.0) mg/dL BUN/Creatinine Ratio 8.67 L (12.00-20.00) Ratio Calcium 8.2 L (8.7-10.3) mg/dL Assessment and Plan Plan: Assessment: #1. Right lung empyema post percutaneous pigtail catheter insertion with subsequent dislodgment of the cath. Pleural fluid is purulent and its polymicrobial, awaiting final cultures. Currently on a combination of Zosyn and vancomycin. Awaiting another catheter insertion.. This could be a gram- negative pneumonia with secondary empyema and alcoholic patient. Patient has grown also pseudomonas aeruginosa and the sputum on 06/28/2021. Anaerobic infection cannot be completely excluded within the pleural space.was given a pigtail catheter and has adequate drainage of purulent material The patient clinically improved. The patient's follow-up CAT scan showed improvement in the size of the empyema. There is still right lower lobe consolidation/infiltration. The patient remains on a combination of cefepime and vancomycin. Meanwhile, the patient developed a hematoma/fluid collection along the patient states insertion site. This could be a hematoma related to the use of TPA. The fluid collection along the right posterior chest area is slightly bigger. I suspect is a hematoma. The pleural fluid culture came back positive for alphahemolytic strep. Current coverage is with Rocephin and Flagyl. #2. COPD #3. shortness of breath secondary to above #4. history of alcoholism #5. history of prostate cancer #6. history of smoking #7. chronic anemia #8. protein calorie malnutrition, moderate #9. right posterior chest wall hematoma, or possible abscess, going to OR today on 07/06/2021 for I&D #10. Hyponatremia Plan: Continue antibiotics per ID service recommendations Today's chest x-ray has been noted somewhat improved There has been no additional empyema drainage after last dose of Dornase yesterday Vital signs have been stable Weaning FiO2 Encouraged patient to sit up in the chair Patient is scheduled for drainage of the right posterior back chest wall hematoma or possible abscess by CT surgery today We'll continue to follow his clinical course I performed a history & physical examination of the patient and discussed their management with my nurse practitioner, Tiffany Snyder. I reviewed the nurse practitioner's note and agree with the documented findings and plan of care. L concepcion sounds are positive for dim breath sounds throughout the lung thakur. The findings and the impression was discussed with the patient. I attest to the documentation by the nurse practitioner. Time with Patient: Less than 30
--- NOTE | 2021-07-06 14:25 | P.PN ---
Subjective Progress Note Date: 07/06/21 This is a 60-year-old male who was recently hospitalized at [facility] for pneumonia and empyema and had a chest tube placed on the right for continued drainage and ultimately sent here to [facility] for further evaluation by cardiothoracic surgery for complicated empyema that appears to be loculated. Infectious disease following over there and patient was maintained on cefepime and Vancomycin and will reorder here and consult infectious disease. Consult also placed to pulmonary along with cardiothoracic surgery. Upon arrival to the unit on 4 S. per nursing staff patient's chest tube atrium was lying flat on the patient on arrival and when hooking up to wall suction bubbli ng was noted in the atrium and was replaced. Bubbling persisted and chest x-ray was done which shows large right pleural effusion and right pulmonary consolidation without change the right side chest tube appears to be in the subcutaneous fat and malposition over the lower lateral right chest wall. No sign of pneumothorax. Cardiothoracic surgery contacted and will be replaced upon their evaluation. Patient does have a past medical history of COPD, hypertension, former smoker recently quit, EtOH use and reports to quitting a month or so ago, anemia, and most recently per family patient has been falling more often with unsteady gait. Patient states he follows with Dr. Rafita Lewis out of [place]. Daughter states patient lives by himself and is concerned and would like possible placement. 06/30/2021 patient is seen and evaluated in follow-up this morning with cardiothoracic surgery along with pulmonary following closely and evaluated the patient. Pigtail catheter on the right was dislodged and removed at the bedside by pulmonary and interventional radiology consulted to replace catheter on the right with possible drainage or evacuation of the loculated area with cultures b eing sent. patient is continued on 4 L of oxygen via nasal cannula and reports no worsening shortness of breath. Patient had some pain with inspiration and during the removal of the catheter and will order pain medications. 07/01/2021 She is seen and evaluated this morning and chest tube catheter was replaced and draining continuous amounts approval and drainage approximately 1.6 L since last night. Cardio thoracic along with pulmonary following closely along with infectious disease and patient is maintained on IV Zosyn along with vancomycin. Patient states he is having some chest wall discomfort with cough but no worsening. patient is continued on 4 L via nasal cannula. Patient is afebrile. repeat fluid analysis culture is pending. 07/02/2021 Patient is awake and alert, breathing comfortably at rest. Staying in chair or bed most of the time. Pain is controlled. Vital signs stable, he is saturating 98% on 4 L oxygen. Slightly dropped to 133 down to 129. We'll keep monitoring. Patient has pigtail tube on his right chest posteriorly with surrounding area of fluctuating swelling, possible hematoma therefore alteplase is not going to be given today. Per pulmonary team recommendation. Remains on cefepime and IV vancomycin pending final culture results with infectious disease team on the case CT of the chest showing right basilar pleural catheter with a small collection noted. Infected collection is not excluded. Basilar infiltrate may reflect pneumonia or aspiration. Hpneumothorax on the right 07/03/2021 Patient breathing is not worsening. He still has right-sided pigtail tube with surrounding swelling most likely hematoma which looks his stable. No more alt eplase yesterday. Hemodynamically stable and he is saturating 98% on 4 L. Fluid culture, and positive for alpha hemolytic streptococcus and chest x-ray showing patchy infiltrate in the right medial base, stable. His were adjusted today to IV vancomycin and ceftriaxone instead of cefepime. 07/04/2021 Patient is seen and evaluated in follow up this morning and continues on 4L via NC. Patient with continued right chest wall pigtail catheter with approx 150cc of output over the last [address] surgery and pulmonary following closely. Abdominal binder in place and alteplace on hold as concerned for possible hematoma at the catheter site. Anticoagulant on hold as well and chest xray today shows right lower lobe infiltrate with small effusion and overall stable. Patient also being followed closely by ID and maintained on IV ceftriaxone while waiting for cultures to finalize. Patient continues to be weak and will have PT/OT evaluate the patient and consult social work for possible placement. REpeat chest xray and labs in the am. Encouraged incentive spirometer at least 10 times every hour while awake. Encouraged increased activity as tolerated. Abdominal binder noted on exam for compression of the right chest tube sight. 07/05/2021 Patient is seen in follow-up this morning being followed by pulmonary and CT surgery. Patient underwent soft tissue ultrasound as patient has continued fluid collection at the chest tube site and ultrasound shows moderate subcutaneous edema in the soft tissue just below the dermal surface with 2 oval- shaped non-simple fluid collections just below this and within the deep subcutaneous tissue possibility is of hematoma versus developing abscess. Gen. surgery consulted recommending continuing with IV antibiotic therapy and conservative management with no surgical intervention at this time. Infectious disease is following and patient is maintained on IV antibiotics in the form of ceftriaxone. Patient sodium is low at 131 and will add IV fluids and repeat labs. Patient continues to be weak and needs encouragement to increase activity as tolerated. Also encouraged incentive spirometer. 07/06/2021 Patient is seen and evaluated in follow-up this morning and appears agitated. Patient states he is tired and also tired of multiple people coming in and out of his room. Patient has cardiothoracic surgery along with pulmonary following closely. Infectious disease following as well and patient is maintained on IV ceftriaxone along with Flagyl and will continue. Chest x-ray today shows a right lower lobe infiltrate and bilateral small pleural effusions larger on the right. Cardiothoracic surgery plans to take the patient to the OR for incision and drainage of the right posterior chest wall hematoma versus abscess this afternoon. Will await surgical report. Patient is on gentle IV hydration of normal saline and will continue his sodium is improved at 133. Patient is currently nothing by mouth for the procedure this afternoon. Review of systems: Constitutional: No reports of fatigue, fever, or chills Cardiovascular: No reports of chest pain or palpitations, reports continued right chest wall pain with inspiration and movement Respiratory: No reports of worsening shortness of breath or cough GI: No reports of nausea, vomiting, or diarrhea : No reports of dysuria or retention Neurovascular: reports generalized weakness All medications have been reviewed Active Medications Acetaminophen (Acetaminophen Tab 325 Mg Tab) 650 mg PO Q6HR PRN PRN Reason: Mild Pain or Fever > 100.5 Hydrocodone Bitart/Acetaminophen (Hydrocodone/Apap 5-325mg 1 Each Tab) 1 each PO Q6HR PRN PRN Reason: Pain Last Admin: 07/06/21 08:17 Dose: 1 each Documented by: Albuterol Sulfate (Albuterol Nebulized 2.5 Mg/3 Ml) 2.5 mg INHALATION RT-Q4H PRN PRN Reason: Shortness Of Breath Last Admin: 06/30/21 12:05 Dose: 2.5 mg Documented by: Budesonide/Formoterol Fumarate (Symbicort 160-4.5 Mcg Inhaler) 2 puff INHALATION RT-BID [facility] Last Admin: 07/06/21 09:00 Dose: 2 puff Documented by: Folic Acid (Folic Acid 1 Mg Tab) 1 mg PO DAILY [facility] Last Admin: 07/06/21 08:17 Dose: 1 mg Documented by: Hydromorphone HCl (Hydromorphone 1 Mg/Ml 1 Ml Syringe) 1 mg IVP Q3HR PRN PRN Reason: Pain Last Admin: 07/06/21 12:09 Dose: 1 mg Documented by: Ceftriaxone Sodium 2 gm/ (Sodium Chloride) 50 mls @ 100 mls/hr IVPB Q24H [facility] Last Admin: 07/05/21 15:49 Dose: 100 mls/hr Documented by: Sodium Chloride (Saline 0.9%) 1,000 mls @ 100 mls/hr IV .Q10H [facility] Last Admin: 07/06/21 08:22 Dose: 100 mls/hr Documented by: Lorazepam (Lorazepam 1 Mg Tab) 2 mg PO HS [facility] Last Admin: 07/05/21 23:03 Dose: 2 mg Documented by: Melatonin (Melatonin 3 Mg Tablet) 3 mg PO HS PRN PRN Reason: Insomnia Metoprolol Succinate (Metoprolol Succinate (Er) 100 Mg Tab.Er.24h) 100 mg PO DAILY [facility] Last Admin: 07/06/21 08:16 Dose: 100 mg Documented by: Metronidazole (Metronidazole 500 Mg Tab) 500 mg PO TID [facility] Last Admin: 07/06/21 08:17 Dose: 500 mg Documented by: Miscellaneous Information (Potassium Replacement Protocol 1 Each Misc) 1 each MISCELLANE DAILY PRN; Protocol PRN Reason: Per Protocol Naloxone HCl (Naloxone 0.4 Mg/Ml 1 Ml Vial) 0.2 mg IV Q2M PRN PRN Reason: Opioid Reversal Nicotine (Nicotine 14mg/24hr Patch) 1 patch TRANSDERM DAILY [facility] Last Admin: 07/06/21 08:17 Dose: 1 patch Documented by: Patient's Own ( Ascomp W/Codeine 1 Cap) 1 cap PO TID [facility] Last Admin: 07/06/21 13:10 Dose: Not Given Documented by: Patient's Own ( Butorphanol Tartrate [Stadol Nasal Etta ] 10 Mg/Ml Ml) 1 spray MISCELLANE DAILY PRN PRN Reason: Migraine Headache Ondansetron HCl (Ondansetron 4 Mg/2 Ml Vial) 4 mg IVP Q8HR PRN PRN Reason: Nausea And Vomiting Pantoprazole Sodium (Pantoprazole 40 Mg Tablet) 40 mg PO AC-BRKFST [facility] Last Admin: 07/06/21 08:16 Dose: 40 mg Documented by: Thiamine HCl (Thiamine 100 Mg Tab) 100 mg PO DAILY [facility] Last Admin: 07/06/21 08:17 Dose: 100 mg Documented by: Physical exam: Gen: This is a 60-year-old male awake, alert and oriented 3, thin built, appears older than stated age, agitated today HEENT: Head is atraumatic, normocephalic. Pupils equal, round. Sclerae is anicteric. NECK: Supple. No JVD. No lymphadenopathy. No thyromegaly. LUNGS: Diminished breath sounds on the right more so than the left with some scattered rhonchi noted. No intercostal retractions. Right chest wall pigtail catheter with continued fluid collection near the chest wall site and tenderness on palpation. HEART: Regular rate and rhythm. No murmur. ABDOMEN: Soft. Thin built. Bowel sounds are present. No masses. No tenderness. EXTREMITIES: No pedal edema. No calf tenderness. NEUROLOGICAL: Patient is awake, alert and oriented x3. Cranial nerves 2 through 12 are grossly intact. Diffusely weak Assessment: Pneumonia with Pseudomonas growing in the sputum Right chest wall hematoma or possible abscess at the site of the chest tube Bacterial pneumonia with Pseudomonas Empyema with right side percutaneous pigtail catheter placement at [facility] and subsequent dislodgment of the catheter, chest tube catheter replaced Chronic obstructive pulmonary disease, acute exacerbation Chronic hypoxic respiratory failure on 3 L via nasal cannula in the outpatient setting Right pleural effusion mild hyponatremia Hypertension Remote history of alcohol abuse Remote history of nicotine dependence, recently quit Moderate protein malnutrition with BMI of 22.3 History of anemia, macrocytic Interstitial lung disease History of chronic right pleural effusion that was recently tapped at [facility] Gait dysfunction Weakness Frequent falls GI prophylaxis DVT prophylaxis: anticoagulant on hold for possible hematoma development of the right side chest wall site of pigtail catheter Full code Plan: Recommend to continue with current medications and management. Multiple medical consultations following including cardiothoracic surgery, pulmonary, and infectious disease. Plan is for the patient to go to the OR today with cardiothoracic surgery for I&D of the possible hematoma versus abscess near the right chest tube site. Patient is currently nothing by mouth and will resume diet once back from the OR. Recommend continue with gentle IV hydration sodium is improved at 133 and will repeat labs and monitor closely. Patient is continued on IV ceftriaxone along with Flagyl and infectious disease following. Will have physical therapy evaluate the patient for possible ECF as patient continues to be weak and needs encouragement with activity. Recommend and encourage the patient to continue using incentive spirometer at least 10 times every hour while awake. Will continue with chest x-rays. Objective - Vital Signs Vital signs: Vital Signs Temp 98.2 F 07/06/21 07:06 Pulse 76 07/06/21 07:06 Resp 18 07/06/21 07:06 BP 120/83 07/06/21 07:06 Pulse Ox 98 07/06/21 07:06 Intake & Output 07/05/21 07/06/21 07/06/21 18:59 06:59 18:59 Intake Total 450 Output Total 850 Balance -400 Intake: Intake, IV Titration 450 Amount Sodium Chloride 0.9% 1, 400 000 ml @ 100 mls/hr IV . Q10H [facility] Rx#:[id number] cefTRIAXone 2 gm In 50 Sodium Chloride 0.9% 50 ml @ 100 mls/hr IVPB Q24H [facility] Rx#:[id number] Output: Urine 850 Other: Voiding Method Urinal # Voids 0 # Bowel Movements 0 - Labs CBC & Chem 7: 07/06/21 06:48 07/06/21 06:48
[2021-07-06] MEDS ORDERED: SODIUM CHLORIDE 0.9% 300 ML IV ONE (15:23)
[2021-07-06] MEDS ORDERED: DEXAMETHASONE SOD PHOSPHATE 4 MG/ML 1 ML VIAL IVP ONE (15:32)
[2021-07-06] MEDS ORDERED: ONDANSETRON 4 MG/2 ML VIAL IVP ONE (15:32)
[2021-07-06] MEDS ORDERED: PHENYLEPHRINE-0.9% NACL SYG 1,000 MCG/10 ML SYRINGE ONE (15:38)
[2021-07-06] MEDS ORDERED: PROPOFOL 10 MG/ML 20 ML VIAL IV ONE (15:38)
[2021-07-06] MEDS ORDERED: LIDOCAINE 1% INJ 10MG/ML (20 ML MDV) ONE (15:38)
[2021-07-06] MEDS ORDERED: MIDAZOLAM 2 MG/2 ML VIAL ONE (15:38)
[2021-07-06] MEDS ORDERED: fentaNYL (PF) 50 MCG/ML 2 ML AMP ONE (15:38)
[2021-07-06] MEDS ORDERED: KETAMINE 10 MG/ML 20 ML VIAL ONE (15:38)
[2021-07-06] MEDS ORDERED: LIDOCAINE 1% INJ 10MG/ML (20 ML MDV) SQ ONE (16:04)
--- NOTE | 2021-07-06 16:17 | P.OP ---
Date of Procedure: 07/06/21 Preoperative Diagnosis: Abscess right chest wall Postoperative Diagnosis: Same Procedure(s) Performed: I&D abscess right chest wall Anesthesia: MAC Surgeon: London Abrams Estimated Blood Loss (ml): 10 IV fluids (ml): 200 Urine output (ml): 0 Pathology: other (C&S) Condition: stable Disposition: PACU Indications for Procedure: 60-year-old male who presented with right-sided empyema. He underwent placement of a drain at [facility]. Drainage decreased markedly. The patient was transferred to [facility] where was recognized that the drain was in the subcutaneous tissues. The drain was discontinued and a new drain was placed. This is draining successfully and being treated with lytic therapy. Patient developed swelling at the site of the old drain. Computed tomography scan revealed a collection in the subcutaneous tissues. It was not clear whether this was purulence or blood. We held the lytic therapy for 48 hours. The site continued to enlarge and became indurated and it became obvious that it probably was purulence. Operative Findings: Creamy pus was found in a relatively limited collection in the subcutaneous tissues. There did not appear to be any collection deep to the muscle. There was no evidence of communication into the chest cavity. Description of Procedure: Patient was brought to the operating room and IV sedation was given. His right shoulder was turned somewhat to the left and a bump was placed behind his back just to the right of his spine. This gave us good exposure of the area in question. The dressing around the percutaneous drain was removed and this was secured with some tape. Anteriorly to this was where the pointing abscess was. This was prepped with Betadine. 1% lidocaine anesthesia was used. A one-inch incision was made over the abscess and dissection carried down into the abscess using electrocautery. Once we reach the abscess cultures were obtained. The tract was enlarged with a hemostat. We explored carefully and opened up any pockets. We then irrigated it copiously with hydrogen peroxide. It was packed with a Susan gauze. A new dressing was applied at the site of the percutaneous drain after securing it with a 2-0 silk suture ligature. 1% lidocaine was used for this. We then placed a bulky dressing over the site of the abscess packed. Was transferred to recovery in stable condition.
--- NOTE | 2021-07-06 17:14 | XR ---
EXAMINATION TYPE: XR chest 1V portable DATE OF EXAM: 07/06/2021 COMPARISON: Today HISTORY: Chest pain. Effusion. TECHNIQUE: FINDINGS: There is some infiltrate and atelectasis right lung base. There is bilateral blunting of th e costophrenic angles. There is no heart failure. There are chest leads. Mediastinum is normal. IMPRESSION: There is some consolidation at the right lung base without change. This could be bronchop neumonia. No heart failure seen. Small pleural effusions without change.
--- NOTE | 2021-07-06 19:26 | PN ---
PROGRESS NOTE DATE OF SERVICE: 07/06/2021 REASON FOR FOLLOWUP: Right-sided empyema. INTERVAL HISTORY: The patient is afebrile. The patient is breathing comfortably. The patient is scheduled for I and D of the right chest wall abscess. The patient denies any nausea. No vomiting, no abdominal pain, no diarrhea. PHYSICAL EXAMINATION: Blood pressure 119/81, pulse 85, temperature is 97.7. He is 98% on 3 L nasal cannula. General description is a middle-aged male lying in bed in no distress. Respiratory system: Unlabored breathing, decreased breath sounds at the base. Heart S1, S2. Regular rate and rhythm. Abdomen soft, no tenderness. LABS: Hemoglobin 9.1, white count 11.78, creatinine 0.6. DIAGNOSTIC IMPRESSION AND PLAN: Patient with right-sided empyema, now with chest wall abscess status post I and D. Cultures will be followed. Initial cultures did shows anaerobes ( ) Streptococcus for which the patient is covered with Rocephin and Flagyl that will be continued, adjusting it further based on cultures. Continue supportive care. MMODL / IJN: [id number] /
[2021-07-06] MEDS: LORazepam 1 MG TAB PO SCH (22:19)
[2021-07-07] MEDS: HYDROcodone/APAP 5-325MG 1 EACH TAB PO PRN ×3 (02:08→20:26)
[2021-07-07] MEDS: SODIUM CHLORIDE 0.9% 1,000 ML IV SCH ×3 (02:09→20:26)
--- NOTE | 2021-07-07 07:26 | XR ---
EXAMINATION TYPE: XR chest 1V portable DATE OF EXAM: 07/07/2021 HISTORY: Shortness of breath. COMPARISON: 07/06/2021 TECHNIQUE: Single view of the chest is submitted. FINDINGS: Demonstrated are scattered senescent parenchymal change. Patchy right lower lobe infiltrate and right-sided pleural effusion thickening and/or effusion persis t unchanged. The heart is stable. Hilar and mediastinal structures are within normal limits. Degenerative changes are seen of the dorsal spine. IMPRESSION: 1. Patchy right lower lobe infiltrate and right-sided pleural effusion thickening and/or effusion pe rsist unchanged.
[2021-07-07] MEDS: HYDROmorphone 1 MG/ML 1 ML SYRINGE IVP PRN ×5 (08:27→23:45)
[2021-07-07] MEDS: PANTOPRAZOLE 40 MG TABLET PO SCH (08:27)
[2021-07-07] MEDS: metroNIDAZOLE 500 MG TAB PO SCH ×3 (08:27→21:30)
[2021-07-07] MEDS: THIAMINE 100 MG TAB PO SCH (08:27)
[2021-07-07] MEDS: FOLIC ACID 1 MG TAB PO SCH (08:27)
[2021-07-07] MEDS: NICOTINE 14MG/24HR PATCH TRANSDERM SCH (08:27)
[2021-07-07] MEDS: SYMBICORT 160-4.5 MCG INHALER INHALATION SCH ×2 (08:40→21:29)
[2021-07-07] MEDS: [UNRECOGNIZED DRUG - OTHER] PO SCH ×3 (09:38→21:34)
[2021-07-07] MEDS: CODEINE PO SCH ×3 (09:38→21:34)
--- NOTE | 2021-07-07 09:42 | P.PN ---
Subjective Progress Note Date: 07/07/21 Principal diagnosis: Loculated right empyema. Previous medical history of COPD with home oxygen use 3 L nasal cannula, right pleural effusion with previous right thoracentesis at [facility], anemia, hypertension, prostate cancers status post 48 radiation treatments, recent fall from standing, medical debility, remote history of paroxysmal atrial fibrillation, chronic nicotine dependence and previous EtOH abuse Status post day #7 placement of right chest pigtail catheter performed by interventional radiology POD #1 I&D abscess right chest wall The patient was seen and examined this morning at the bedside. He is sitting up in bed in no acute distress. Right pigtail catheter remains to continuous wall suction, approximate 130 mL pink tinge thick drainage in the last 24 hours. Remains on 3 L nasal cannula, able to achieve 2500 mL on incentive spirometry. Remains on IV antibiotics per infectious disease. Objective - Vital Signs Vital signs: Vital Signs Temp 98.2 F 07/07/21 08:02 Pulse 73 07/07/21 08:02 Resp 17 07/07/21 08:02 BP 134/90 07/07/21 08:02 Pulse Ox 95 07/07/21 08:02 Intake & Output 07/06/21 07/07/21 07/07/21 18:59 06:59 18:59 Intake Total 1050 Output Total 40 95 Balance 1010 -95 Intake: IV 250 Intake, IV Titration 800 Amount Sodium Chloride 0.9% 1, 800 000 ml @ 100 mls/hr IV . Q10H [facility] Rx#:[id number] Output: Chest Tube Drainage 35 95 Chest Tube Right Right 35 95 Pleural/Mediastinal Estimated Blood Loss 5 Other: Voiding Method Urinal - Exam CONSTITUTIONAL: Appears comfortable, cooperative, no acute distress RESPIRATORY: Lungs sounds diminished bilaterally. Respirations even, nonlabored. Currently on 3 L nasal cannula with oxygen saturation 95%. Able to achieve 2500 mL on incentive spirometry. Strong cough. CARDIOVASCULAR: S1, S2 present. Regular rate and rhythm, sinus rhythm on telemetry. Palpable peripheral pulses bilaterally. No edema present. No calf pain or tenderness noted. SCDs present. GASTROINTESTINAL: Abdomen soft, nontender, nondistended. Active bowel sounds present 4 quadrants. Tolerating diet. GENITOURINARY: Continues to void INTEGUMENTARY: Skin is warm and dry with evidence of good perfusion. Swelling present to right posterior chest wall at pigtail insertion site, covered with dressing NEUROLOGIC: Cranial nerves II through XII intact MUSKULOSKELETAL: Able to move all extremities, strength equal bilaterally, gait normal PSYCHIATRIC: Alert and oriented to person place and time, appropriate affect, intact judgment and insight INVASIVE LINES AND TUBES: Right pigtail catheter present and connected to wall suction, no air leaks present, 130 mL in the last 24 hours - Allied health notes Allied health notes reviewed: nursing - Labs CBC & Chem 7: 07/06/21 06:48 07/06/21 06:48 Labs: Abnormal Lab Results - Last 24 Hours (Table) 07/06/21 Range/Units 06:48 Sodium 133 L (135-145) mmol/L BUN 5.2 L (9.0-27.0) mg/dL BUN/Creatinine Ratio 8.67 L (12.00-20.00) Ratio Calcium 8.2 L (8.7-10.3) mg/dL Microbiology - Last 24 Hours (Table) 07/06/21 15:58 Anaerobic Culture - Preliminary Chest 07/06/21 02:25 Anaerobic Culture - Preliminary Chest 07/06/21 15:58 Wound Culture - Preliminary Chest 07/06/21 02:25 Wound Culture - Preliminary Chest 06/30/21 11:12 Anaerobic Culture - Final Pleural Fluid Anaerobic Gram Positive Cocci Anaerobic Gm Negative Bacilli - Imaging and Cardiology Chest x-ray: report reviewed, image reviewed Assessment and Plan Assessment: 1. Right lung empyema status post right-sided percutaneous pigtail catheter insertion by interventional radiology. Sputum culture from 06/26/2021 growing pseudomonas aeruginosa, pleural fluid growing alphahemolytic streptococcus and anaerobic culture growing gram-positive cocci 2. Shortness of breath secondary to above 3. Chronic obstructive pulmonary disease 4. History of prostate cancer status post 48 treatments of radiation 5. Hypertension 6. Medical debility 7. Chronic anemia 8. History of EtOH abuse 9. History of nicotine dependence 10. History of recent weight loss, protein calorie malnutrition 11. Right posterior chest wall hematoma, status post I&D Plan: 1. Keep right chest pigtail catheter in place and connected to low continuous wall suction -20 cm H2O. Will instill multiply/dornase again today for fourth dose 2. Will change dressing on right posterior chest wall incision site, to be changed daily by cardiothoracic surgery 3. Continue to monitor daily chest x-rays. 4. Encourage use of incentive spirometry 10 times every hour while awake. 5. Continue antibiotics management by infectious disease. 6. Bronchodilator management per pulmonary/critical care medicine. 7. Continue GI and DVT prophylaxis. 8. Pain management per current when necessary orders. 9. Increase activity as tolerated. Out of bed for all meals. The patient needs much encouragement to ambulate. 10. More recommendations to follow Time with Patient: Greater than 30
[2021-07-07] MEDS: METOPROLOL SUCCINATE (ER) 100 MG TAB.ER.24H PO SCH (10:06)
[2021-07-07 10:46] LABS: Basophils % (A) 0 %; Eosinophils % (A) 0 %; HCT 31.6 % (39.0-53.0); HGB 9.8 gm/dL (13.0-17.5); Hypochromasia Moderate; Lymphocytes # (A) 0.8 k/uL (1.0-4.8); Lymphocytes % (A) 10 %; MCH 33.2 pg (25.0-35.0); MCV 107.4 fL (80.0-100.0); Macrocytosis Moderate; Mean Platelet Volume 8.8; Monocytes # (A) 0.3 k/uL (0-1.0); Monocytes % (A) 4 %; Neutrophils # (A) 7.3 k/uL (1.3-7.7); Neutrophils % (A) 85 %; Platelet Count 311 k/uL (150-450); RBC 2.95 m/uL (4.30-5.90); RDW 14.1 % (11.5-15.5); WBC 8.6 k/uL (3.8-10.6)
[2021-07-07 10:58] LABS: African American GFR (CKD) >90 (>60 ml/min/1.73 sqM); Anion Gap 6 mmol/L; Blood Urea Nitrogen 7 mg/dL (9-20); Calcium 8.2 mg/dL (8.4-10.2); Carbon Dioxide 24 mmol/L (22-30); Chloride 103 mmol/L (98-107); Glucose 148 mg/dL (74-99); Non-African American GFR(CKD) >90 (>60 ml/min/1.73 sqM); Potassium 4.2 mmol/L (3.5-5.1); Sodium 133 mmol/L (137-145)
[2021-07-07] MEDS ORDERED: DORNASE ALFA 5 MG in SODIUM CHLORIDE 0.9% 50 ML IRRIGATION ONE (11:00)
[2021-07-07] MEDS ORDERED: ALTEPLASE 10 MG in SODIUM CHLORIDE 0.9% 50 ML IRRIGATION ONE (11:00)
--- NOTE | 2021-07-07 12:32 | P.PN ---
Subjective Progress Note Date: 07/07/21 CHIEF COMPLAINT: Empyema HISTORY OF PRESENT ILLNESS: Surgical service following in regards to patient's s welling at the pigtail catheter site. Patient is status post I&D of abscess of right chest wall by Dr. Abrams. Patient sitting up in bed comfortably. He did report pain when they changed the packing of the wound. Patient denies any nausea or vomiting. Afebrile. WBC 8.6 PHYSICAL EXAM: VITAL SIGNS: Reviewed. GENERAL: Well-developed in no acute distress. HEENT: No sclera icterus. Extraocular movements grossly intact. Moist buccal mucosa. Head is atraumatic, normocephalic. ABDOMEN: Soft. Nondistended. Nontender. NEUROLOGIC: Alert and oriented. Cranial nerves II through XII grossly intact. ASSESSMENT: 1. Right chest wall abscess status post I&D by Dr. Abrams 2. Right lung empyema PLAN: -Continue supportive care -Continue antibiotics per ID -No surgical intervention planned from general surgery standpoint Physician Energy Risk Management Analyst note has been reviewed by physician. Signing provider agrees with the documented findings, assessment, and plan of care. Objective - Vital Signs Vital signs: Vital Signs Temp 98.2 F 07/07/21 08:02 Pulse 73 07/07/21 08:02 Resp 17 07/07/21 08:02 BP 134/90 07/07/21 08:02 Pulse Ox 95 07/07/21 08:02 Intake & Output 07/06/21 07/07/21 07/07/21 18:59 06:59 18:59 Intake Total 1050 Output Total 40 95 Balance 1010 -95 Intake: IV 250 Intake, IV Titration 800 Amount Sodium Chloride 0.9% 1, 800 000 ml @ 100 mls/hr IV . Q10H [facility] Rx#:[id number] Output: Chest Tube Drainage 35 95 Chest Tube Right Right 35 95 Pleural/Mediastinal Estimated Blood Loss 5 Other: Voiding Method Urinal - Labs CBC & Chem 7: 07/07/21 09:18 07/07/21 09:18 Labs: Abnormal Lab Results - Last 24 Hours (Table) 07/07/21 07/07/21 Range/Units 09:18 09:18 RBC 2.95 L (4.30-5.90) m/uL Hgb 9.8 L (13.0-17.5) gm/dL Hct 31.6 L (39.0-53.0) % MCV 107.4 H (80.0-100.0) fL Lymphocytes # 0.8 L (1.0-4.8) k/uL Sodium 133 L (137-145) mmol/L BUN 7 L (9-20) mg/dL Creatinine 0.52 L (0.66-1.25) mg/dL Glucose 148 H (74-99) mg/dL Calcium 8.2 L (8.4-10.2) mg/dL Microbiology - Last 24 Hours (Table) 07/06/21 15:58 Anaerobic Culture - Preliminary Chest 07/06/21 02:25 Anaerobic Culture - Preliminary Chest 07/06/21 15:58 Wound Culture - Preliminary Chest 07/06/21 02:25 Wound Culture - Preliminary Chest 06/30/21 11:12 Anaerobic Culture - Final Pleural Fluid Anaerobic Gram Positive Cocci Anaerobic Gm Negative Bacilli
--- NOTE | 2021-07-07 13:52 | P.PN ---
Subjective Progress Note Date: 07/07/21 Principal diagnosis: Right lung empyema On 07/04/2021 patient seen in follow-up on medical surgical floor. He is awake and alert, he is breathing comfortably, on 4 L of oxygen his pulse ox is 98%, his been afebrile, today's chest x-ray shows right lower lobe infiltrate with sm all effusion, right-sided pigtail chest tube catheter remains in place, and there is been approximately 170 mL of whitish colored pleural fluid drainage, empyema in the last 24 hours. Pleural fluid cultures showed alphahemolytic streptococcus, and anaerobic gram-positive cocci patient is currently on Rocephin, and vancomycin. Patient has received intermittent doses of dornase, with the last dose on 07/02/2021. His pain is fairly well controlled with oral [place] as, patient also has IV Dilaudid for breakthrough pain. No agitation, no confusion, he is pleasant and cooperative. No fever or chills, no chest pain. Pleural fluid cytology showed no cytologically malignant cells. On 07/05/2021 she seen on medical surgical floor. He is awake, in no acute distress, he is currently on 4 L of oxygen pulse ox is 90%, no fever or chills, breathing is nonlabored, he still has right-sided pigtail chest tube in place connected to Pleur-evac, and there has been very minimal drainage out of it in the last 24 hours, at the same time there is swelling and possible empyema, fluid collection or abscess at the site of the old pigtail catheter on patient's back. Ultrasound of the chest has been ordered and pending, general surgery has been consulted. Soft tissue ultrasound was completed showing moderate subcutaneous edema in the soft tissue just below the dermal surface without to oval-shaped non-simple fluid collections and within the deep subcutaneous tissue. Differential would include hematomas versus developing abscesses. This morning's chest x-ray showed persistent small right greater than left pleural fluid collections despite peripheral basilar right pigtail pleural drainage cat heter. Patient remains on a combination of Rocephin and Flagyl has been added yesterday, ID service is following. Pleural fluid cultures showed alphahemolytic streptococcus and anaerobic Positive cocci. Today's labs are still pending. On 07/06/2021 patient is seen in follow-up on medical surgical floor, his breathing comfortably, he is resting in bed, he is currently on 3 L of oxygen pulse ox is 98%, afebrile, hemodynamically stable, yesterday he received a dose of dornase instilled into his right-sided pigtail chest tube, and there is an additional 50 mL of cloudy pleural fluid in the Pleur-evac. Patient had a ultrasound of the chest that showed moderate subcutaneous edema in the soft tissue just below the dermal surface to oval-shaped non-simple fluid collection and within the deep subcutaneous tissue with possibility of hematoma versus developing abscess. Gen. surgery and CT surgery are on the case, general surgery recommended no surgical intervention, CT surgery has scheduled the patient for drainage of the fluid collection in the OR today. Otherwise vital signs have been stable, patient denies any acute distress. He remains on antibiotics with Rocephin and Flagyl, ID service is following On 07/07/2021 patient seen in follow-up on medical surgical floor, he is awake and alert, in no acute distress, he is currently on 3 L of oxygen pulse ox is 95%, afebrile, hemodynamically stable, right-sided pigtail chest tube catheter remains in place, draining small amount of cloudy pleural fluid. The patient received a dose of dornase per CT surgery today. Patient underwent incision and drainage of the abscess of the right chest wall yesterday with evacuation of the abscess. Today's chest x-ray showed patchy right lower lobe infiltrate and right-sided pleural effusion. Today's labs have been reviewed, white blood cell count is improving and is down to 8.6, hemoglobin is 9.8, sodium is 133, the rest of electrolytes are within normal limits, BUN is 7 creatinine 0.52. Objective - Vital Signs Vital signs: Vital Signs Temp 98.2 F 07/07/21 08:02 Pulse 73 07/07/21 08:02 Resp 17 07/07/21 08:02 BP 134/90 07/07/21 08:02 Pulse Ox 95 07/07/21 08:02 Intake & Output 07/06/21 07/07/21 07/07/21 18:59 06:59 18:59 Intake Total 1050 Output Total 40 95 Balance 1010 -95 Intake: IV 250 Intake, IV Titration 800 Amount Sodium Chloride 0.9% 1, 800 000 ml @ 100 mls/hr IV . Q10H [facility] Rx#:[id number] Output: Chest Tube Drainage 35 95 Chest Tube Right Right 35 95 Pleural/Mediastinal Estimated Blood Loss 5 Other: Voiding Method Urinal - Exam GENERAL EXAM: Alert, very pleasant, 60-year-old white male, on 3 L of oxygen, pulse ox of 98%comfortable in no apparent distress. HEAD: Normocephalic/atraumatic. EYES: Normal reaction of pupils, equal size. Conjunctiva pink, sclera white. NOSE: Clear with pink turbinates. THROAT: No erythema or exudates. NECK: No masses, no JVD, no thyroid enlargement, no adenopathy. CHEST: No chest wall deformity. Symmetrical expansion. Right-sided pigtail chest tube is in place, connected to Pleur-evac, with whitish yellowish colored pleural fluid output in the Pleur-evac. Patient has subcutaneous right poste rior chest fluid collection, or possible hematoma at the site of old right pigtail chest tube insertion site. The swelling has improved since I&D on 07/06/2021 LUNGS: Equal air entry with no crackles, wheeze, rhonchi or dullness. Patient has CVS: Regular rate and rhythm, normal S1 and S2, no gallops, no murmurs, no rubs ABDOMEN: Soft, nontender. No hepatosplenomegaly, normal bowel sounds, no gu arding or rigidity. EXTREMITIES: No clubbing, no edema, no cyanosis, 2+ pulses and upper and lower e xtremities. MUSCULOSKELETAL: Muscle strength and tone normal. SPINE: No scoliosis or deformity SKIN: No rashes CENTRAL NERVOUS SYSTEM: Alert and oriented -3. No focal deficits, tone is normal in all 4 extremities. PSYCHIATRIC: Alert and oriented -3. Appropriate affect. Intact judgment and insight. - Labs CBC & Chem 7: 07/07/21 09:18 07/07/21 09:18 Labs: Abnormal Lab Results - Last 24 Hours (Table) 07/07/21 07/07/21 Range/Units 09:18 09:18 RBC 2.95 L (4.30-5.90) m/uL Hgb 9.8 L (13.0-17.5) gm/dL Hct 31.6 L (39.0-53.0) % MCV 107.4 H (80.0-100.0) fL Lymphocytes # 0.8 L (1.0-4.8) k/uL Sodium 133 L (137-145) mmol/L BUN 7 L (9-20) mg/dL Creatinine 0.52 L (0.66-1.25) mg/dL Glucose 148 H (74-99) mg/dL Calcium 8.2 L (8.4-10.2) mg/dL Microbiology - Last 24 Hours (Table) 07/06/21 15:58 Anaerobic Culture - Preliminary Chest 07/06/21 02:25 Anaerobic Culture - Preliminary Chest 07/06/21 15:58 Wound Culture - Preliminary Chest 07/06/21 02:25 Wound Culture - Preliminary Chest 06/30/21 11:12 Anaerobic Culture - Final Pleural Fluid Anaerobic Gram Positive Cocci Anaerobic Gm Negative Bacilli Assessment and Plan Plan: Assessment: #1. Right lung empyema post percutaneous pigtail catheter insertion with subsequent dislodgment of the cath. Pleural fluid is purulent and its polymicrobial, awaiting final cultures. Currently on a combination of Zosyn and vancomycin. Awaiting another catheter insertion.. This could be a gram- negative pneumonia with secondary empyema and alcoholic patient. Patient has grown also pseudomonas aeruginosa and the sputum on 06/28/2021. Anaerobic infection cannot be completely excluded within the pleural space.was given a pigtail catheter and has adequate drainage of purulent material The patient clinically improved. The patient's follow-up CAT scan showed improvement in the size of the empyema. There is still right lower lobe consolidation/infiltration. The patient remains on a combination of cefepime and vancomycin. Meanwhile, the patient developed a hematoma/fluid collection along the patient states insertion site. This could be a hematoma related to the use of TPA. The fluid collection along the right posterior chest area is slightly bigger. I suspect is a hematoma. The pleural fluid culture came back positive for alphahemolytic strep. Current coverage is with Rocephin and Flagyl. #2. COPD #3. shortness of breath secondary to above #4. history of alcoholism #5. history of prostate cancer #6. history of smoking #7. chronic anemia #8. protein calorie malnutrition, moderate #9. right posterior chest wall hematoma, or possible abscess, status post incision and drainage on 07/06/2021, wound cultures are pending #10. Hyponatremia, improved Plan: Encourage deep breathing and coughing Encourage the patient to sit up in the chair Today's chest x-ray has been noted, showing relatively stable findings with patchy right lower lobe infiltrate and the right-sided pleural effusion Additional dose of DOrnase per CT surgery Continue current antibiotics Vital signs are stable Increase activity as tolerated We'll continue to follow I performed a history & physical examination of the patient and discussed their management with my nurse practitioner, Tiffany Snyder. I reviewed the nurse practitioner's note and agree with the documented findings and plan of care. Lung sounds are positive for dim breath sounds throughout the lung thakur. The findings and the impression was discussed with the patient. I attest to the documentation by the nurse practitioner. Time with Patient: Less than 30
--- NOTE | 2021-07-07 13:58 | P.PN ---
Subjective Progress Note Date: 07/07/21 This is a 60-year-old male who was recently hospitalized at [facility] for pneumonia and empyema and had a chest tube placed on the right for continued drainage and ultimately sent here to [facility] for further evaluation by cardiothoracic surgery for complicated empyema that appears to be loculated. Infectious disease following over there and patient was maintained on cefepime and Vancomycin and will reorder here and consult infectious disease. Consult also placed to pulmonary along with cardiothoracic surgery. Upon arrival to the unit on 4 S. per nursing staff patient's chest tube atrium was lying flat on the patient on arrival and when hooking up to wall suction bubbli ng was noted in the atrium and was replaced. Bubbling persisted and chest x-ray was done which shows large right pleural effusion and right pulmonary consolidation without change the right side chest tube appears to be in the subcutaneous fat and malposition over the lower lateral right chest wall. No sign of pneumothorax. Cardiothoracic surgery contacted and will be replaced upon their evaluation. Patient does have a past medical history of COPD, hypertension, former smoker recently quit, EtOH use and reports to quitting a month or so ago, anemia, and most recently per family patient has been falling more often with unsteady gait. Patient states he follows with Dr. Rafiat Lewis out of [place]. Daughter states patient lives by himself and is concerned and would like possible placement. 06/30/2021 patient is seen and evaluated in follow-up this morning with cardiothoracic surgery along with pulmonary following closely and evaluated the patient. Pigtail catheter on the right was dislodged and removed at the bedside by pulmonary and interventional radiology consulted to replace catheter on the right with possible drainage or evacuation of the loculated area with cultures b eing sent. patient is continued on 4 L of oxygen via nasal cannula and reports no worsening shortness of breath. Patient had some pain with inspiration and during the removal of the catheter and will order pain medications. 07/01/2021 She is seen and evaluated this morning and chest tube catheter was replaced and draining continuous amounts approval and drainage approximately 1.6 L since last night. Cardio thoracic along with pulmonary following closely along with infectious disease and patient is maintained on IV Zosyn along with vancomycin. Patient states he is having some chest wall discomfort with cough but no worsening. patient is continued on 4 L via nasal cannula. Patient is afebrile. repeat fluid analysis culture is pending. 07/02/2021 Patient is awake and alert, breathing comfortably at rest. Staying in chair or bed most of the time. Pain is controlled. Vital signs stable, he is saturating 98% on 4 L oxygen. Slightly dropped to 133 down to 129. We'll keep monitoring. Patient has pigtail tube on his right chest posteriorly with surrounding area of fluctuating swelling, possible hematoma therefore alteplase is not going to be given today. Per pulmonary team recommendation. Remains on cefepime and IV vancomycin pending final culture results with infectious disease team on the case CT of the chest showing right basilar pleural catheter with a small collection noted. Infected collection is not excluded. Basilar infiltrate may reflect pneumonia or aspiration. Hpneumothorax on the right 07/03/2021 Patient breathing is not worsening. He still has right-sided pigtail tube with surrounding swelling most likely hematoma which looks his stable. No more alt eplase yesterday. Hemodynamically stable and he is saturating 98% on 4 L. Fluid culture, and positive for alpha hemolytic streptococcus and chest x-ray showing patchy infiltrate in the right medial base, stable. His were adjusted today to IV vancomycin and ceftriaxone instead of cefepime. 07/04/2021 Patient is seen and evaluated in follow up this morning and continues on 4L via NC. Patient with continued right chest wall pigtail catheter with approx 150cc of output over the last [address] surgery and pulmonary following closely. Abdominal binder in place and alteplace on hold as concerned for possible hematoma at the catheter site. Anticoagulant on hold as well and chest xray today shows right lower lobe infiltrate with small effusion and overall stable. Patient also being followed closely by ID and maintained on IV ceftriaxone while waiting for cultures to finalize. Patient continues to be weak and will have PT/OT evaluate the patient and consult social work for possible placement. REpeat chest xray and labs in the am. Encouraged incentive spirometer at least 10 times every hour while awake. Encouraged increased activity as tolerated. Abdominal binder noted on exam for compression of the right chest tube sight. 07/05/2021 Patient is seen in follow-up this morning being followed by pulmonary and CT surgery. Patient underwent soft tissue ultrasound as patient has continued fluid collection at the chest tube site and ultrasound shows moderate subcutaneous edema in the soft tissue just below the dermal surface with 2 oval- shaped non-simple fluid collections just below this and within the deep subcutaneous tissue possibility is of hematoma versus developing abscess. Gen. surgery consulted recommending continuing with IV antibiotic therapy and conservative management with no surgical intervention at this time. Infectious disease is following and patient is maintained on IV antibiotics in the form of ceftriaxone. Patient sodium is low at 131 and will add IV fluids and repeat labs. Patient continues to be weak and needs encouragement to increase activity as tolerated. Also encouraged incentive spirometer. 07/06/2021 Patient is seen and evaluated in follow-up this morning and appears agitated. Patient states he is tired and also tired of multiple people coming in and out of his room. Patient has cardiothoracic surgery along with pulmonary following closely. Infectious disease following as well and patient is maintained on IV ceftriaxone along with Flagyl and will continue. Chest x-ray today shows a right lower lobe infiltrate and bilateral small pleural effusions larger on the right. Cardiothoracic surgery plans to take the patient to the OR for incision and drainage of the right posterior chest wall hematoma versus abscess this afternoon. Will await surgical report. Patient is on gentle IV hydration of normal saline and will continue his sodium is improved at 133. Patient is currently nothing by mouth for the procedure this afternoon. 07/07/2021 Patient is seen and evaluated in follow-up this morning status post incision and drainage of the fluid collection within the subcutaneous tissue underneath the chest tube along with drainage of the abscess and deep cultures were obtained. Patient is being followed closely by cardiothoracic surgery along with pulmonary and infectious disease. Patient continues on IV ceftriaxone and Flagyl until cultures are finalized. Patient is having some right chest wall tenderness and pain although states no worsening and continues on 3 L of oxygen via nasal cannula. Chest x-ray today shows a patchy right lower lobe infiltrate and right-sided pleural effusion thickening and/or effusion persists and are unchanged. Labs: White blood count is 8.6, hemoglobin is 9.8, platelets are 311, sodium is 133 with a potassium of 4.2 and current creatinine is 0.52. Review of systems: Constitutional: No reports of fatigue, fever, or chills Cardiovascular: No reports of chest pain or palpitations, reports continued right chest wall pain with inspiration and movement Respiratory: No reports of worsening shortness of breath or cough GI: No reports of nausea, vomiting, or diarrhea : No reports of dysuria or retention Neurovascular: reports generalized weakness All medications have been reviewed Active Medications Acetaminophen (Acetaminophen Tab 325 Mg Tab) 650 mg PO Q6HR PRN PRN Reason: Mild Pain or Fever > 100.5 Hydrocodone Bitart/Acetaminophen (Hydrocodone/Apap 5-325mg 1 Each Tab) 1 each PO Q6HR PRN PRN Reason: Pain Last Admin: 07/07/21 02:08 Dose: 1 each Documented by: Albuterol Sulfate (Albuterol Nebulized 2.5 Mg/3 Ml) 2.5 mg INHALATION RT-Q4H PRN PRN Reason: Shortness Of Breath Last Admin: 06/30/21 12:05 Dose: 2.5 mg Documented by: Budesonide/Formoterol Fumarate (Symbicort 160-4.5 Mcg Inhaler) 2 puff INHALATION RT-BID [facility] Last Admin: 07/07/21 08:40 Dose: 2 puff Documented by: Folic Acid (Folic Acid 1 Mg Tab) 1 mg PO DAILY [facility] Last Admin: 07/07/21 08:27 Dose: 1 mg Documented by: Hydromorphone HCl (Hydromorphone 1 Mg/Ml 1 Ml Syringe) 1 mg IVP Q3HR PRN PRN Reason: Pain Last Admin: 07/07/21 11:45 Dose: 1 mg Documented by: Ceftriaxone Sodium 2 gm/ (Sodium Chloride) 50 mls @ 100 mls/hr IVPB Q24H [facility] Last Admin: 07/06/21 15:08 Dose: 100 mls/hr Documented by: Sodium Chloride (Saline 0.9%) 1,000 mls @ 100 mls/hr IV .Q10H [facility] Last Admin: 07/07/21 02:09 Dose: 100 mls/hr Documented by: Lorazepam (Lorazepam 1 Mg Tab) 2 mg PO HS [facility] Last Admin: 07/06/21 22:19 Dose: 2 mg Documented by: Melatonin (Melatonin 3 Mg Tablet) 3 mg PO HS PRN PRN Reason: Insomnia Metoprolol Succinate (Metoprolol Succinate (Er) 100 Mg Tab.Er.24h) 100 mg PO DAILY [facility] Last Admin: 07/07/21 10:06 Dose: 100 mg Documented by: Metronidazole (Metronidazole 500 Mg Tab) 500 mg PO TID [facility] Last Admin: 07/07/21 08:27 Dose: 500 mg Documented by: Miscellaneous Information (Potassium Replacement Protocol 1 Each Misc) 1 each MISCELLANE DAILY PRN; Protocol PRN Reason: Per Protocol Naloxone HCl (Naloxone 0.4 Mg/Ml 1 Ml Vial) 0.2 mg IV Q2M PRN PRN Reason: Opioid Reversal Nicotine (Nicotine 14mg/24hr Patch) 1 patch TRANSDERM DAILY [facility] Last Admin: 07/07/21 08:27 Dose: 1 patch Documented by: Patient's Own ( Ascomp W/Codeine 1 Cap) 1 cap PO TID [facility] Last Admin: 07/07/21 09:38 Dose: Not Given Documented by: Patient's Own ( Butorphanol Tartrate [Stadol Nasal [place] ] 10 Mg/Ml Ml) 1 spray MISCELLANE DAILY PRN PRN Reason: Migraine Headache Ondansetron HCl (Ondansetron 4 Mg/2 Ml Vial) 4 mg IVP Q8HR PRN PRN Reason: Nausea And Vomiting Pantoprazole Sodium (Pantoprazole 40 Mg Tablet) 40 mg PO AC-BRKFST [facility] Last Admin: 07/07/21 08:27 Dose: 40 mg Documented by: Thiamine HCl (Thiamine 100 Mg Tab) 100 mg PO DAILY [facility] Last Admin: 07/07/21 08:27 Dose: 100 mg Documented by: Physical exam: Gen: This is a 60-year-old male awake, alert and oriented 3, thin built, appears older than stated age HEENT: Head is atraumatic, normocephalic. Pupils equal, round. Sclerae is anicteric. NECK: Supple. No JVD. No lymphadenopathy. No thyromegaly. LUNGS: Diminished breath sounds bilaterally and on the right more so than the left with some scattered rhonchi noted. No intercostal retractions. Right chest wall pigtail catheter and drain status post incision and drainage of the fluid collection and abscess located underneath the chest tube HEART: Regular rate and rhythm. No murmur. ABDOMEN: Soft. Thin built. Bowel sounds are present. No masses. No tenderness. EXTREMITIES: No pedal edema. No calf tenderness. NEUROLOGICAL: Patient is awake, alert and oriented x3. Cranial nerves 2 through 12 are grossly intact. Diffusely weak Assessment: Pneumonia with Pseudomonas growing in the sputum Right chest wall abscess and fluid collection at the site of the chest tube status post incision and drainage with cardiothoracic surgery Bacterial pneumonia with Pseudomonas Empyema with right side percutaneous pigtail catheter placement at [facility] and subsequent dislodgment of the catheter, chest tube catheter replaced Chronic obstructive pulmonary disease, acute exacerbation Chronic hypoxic respiratory failure on 3 L via nasal cannula in the outpatient setting Right pleural effusion mild hyponatremia Hypertension Remote history of alcohol abuse Remote history of nicotine dependence, recently quit Moderate protein malnutrition with BMI of 22.3 History of anemia, macrocytic Interstitial lung disease History of chronic right pleural effusion that was recently tapped at [facility] Gait dysfunction Weakness Frequent falls GI prophylaxis DVT prophylaxis: anticoagulant on hold for possible hematoma development of the right side chest wall site of pigtail catheter Full code Plan: Recommend to continue with current medications and management. Multiple medical consultations following including cardiothoracic surgery, pulmonary, and infectious disease. Patient underwent incision and drainage of the abscess and fluid collection noted underneath the chest tube with cardiothoracic surgery and cultures were sent and currently pending at this time. Patient to continue on IV ceftriaxone and Flagyl with infectious disease following closely while awaiting for the cultures to finalize. Recommend continue with gentle IV hydration sodium is improved at 133 and will repeat labs and monitor closely. Recommend and encourage the patient to continue using incentive spirometer at least 10 times every hour while awake. Encouraged increased activity as tolerated. Objective - Vital Signs Vital signs: Vital Signs Temp 98.2 F 07/07/21 08:02 Pulse 73 07/07/21 08:02 Resp 17 07/07/21 08:02 BP 134/90 07/07/21 08:02 Pulse Ox 95 07/07/21 08:02 Intake & Output 07/06/21 07/07/21 07/07/21 18:59 06:59 18:59 Intake Total 1050 Output Total 40 95 Balance 1010 -95 Intake: IV 250 Intake, IV Titration 800 Amount Sodium Chloride 0.9% 1, 800 000 ml @ 100 mls/hr IV . Q10H [facility] Rx#:[id number] Output: Chest Tube Drainage 35 95 Chest Tube Right Right 35 95 Pleural/Mediastinal Estimated Blood Loss 5 Other: Voiding Method Urinal - Labs CBC & Chem 7: 07/07/21 09:18 07/07/21 09:18 Labs: Abnormal Lab Results - Last 24 Hours (Table) 07/06/21 07/06/21 Range/Units 06:48 06:48 WBC 11.78 H (4.50-10.00) X 10*3/uL RBC 2.74 L (4.40-5.60) X 10*6/uL Hgb 9.1 L (13.0-17.0) g/dL Hct 28.8 L (39.6-50.0) % MCV 105.1 H (80.0-97.0) fL MCH 33.2 H (27.0-32.0) pg MCHC 31.6 L (32.0-37.0) g/dL Immature Gran # 0.08 H (0.00-0.04) X 10*3/uL Neutrophils # 9.45 H (1.80-7.70) X 10*3/uL Monocytes # 1.05 H (0.20-1.00) X 10*3/uL Sodium 133 L (135-145) mmol/L BUN 5.2 L (9.0-27.0) mg/dL BUN/Creatinine Ratio 8.67 L (12.00-20.00) Ratio Calcium 8.2 L (8.7-10.3) mg/dL Microbiology - Last 24 Hours (Table) 07/06/21 15:58 Anaerobic Culture - Preliminary Chest 07/06/21 02:25 Anaerobic Culture - Preliminary Chest 07/06/21 15:58 Wound Culture - Preliminary Chest 07/06/21 02:25 Wound Culture - Preliminary Chest 06/30/21 11:12 Anaerobic Culture - Final Pleural Fluid Anaerobic Gram Positive Cocci Anaerobic Gm Negative Bacilli
--- NOTE | 2021-07-07 19:43 | PN ---
PROGRESS NOTE DATE OF SERVICE: 07/07/2021 REASON FOR FOLLOWUP: Right-sided empyema. INTERVAL HISTORY: The patient is afebrile. The patient is currently breathing comfortably. The patient denies having any worsening chest pain. No nausea or vomiting. No abdominal pain, no diarrhea. PHYSICAL EXAMINATION: Blood pressure 141/92 with a pulse of 82, temperature 98.4. He is 98% on 2 L nasal cannula. General description is a middle-aged male up in the bed in no distress. Respiratory system: Unlabored breathing. Decreased breath sounds at bases, no wheeze. Heart S1, S2. Regular rate and rhythm. Abdomen soft, no tenderness. LABS: Hemoglobin 9.1, white count 8.6, creatinine 0.52. DIAGNOSTIC IMPRESSION AND PLAN: Patient with right-sided empyema status post ( ). Initial culture with strep and anaerobes. Repeat cultures are currently pending. The patient is covered with Rocephin and Flagyl to continue while monitoring clinical course closely. Continue supportive care. MMODL / IJN: [id number] /
[2021-07-07] MEDS: LORazepam 1 MG TAB PO SCH (21:31)
[2021-07-08] MEDS: HYDROcodone/APAP 5-325MG 1 EACH TAB PO PRN (04:33)
[2021-07-08] MEDS: SODIUM CHLORIDE 0.9% 1,000 ML IV SCH ×2 (06:00→23:15)
--- NOTE | 2021-07-08 07:10 | XR ---
EXAMINATION TYPE: XR chest 1V portable DATE OF EXAM: 07/08/2021 COMPARISON: 07/07/2021, 07/05/2021 INDICATION: Empyema TECHNIQUE: Single frontal view of the chest is obtained. FINDINGS: The heart size is normal. The pulmonary vasculature is normal. Mild infiltrates at the right base. Some fluid may be at the right base. There appears to be a locula aggie pneumothorax at the right costophrenic angle present previously and stable. Some mild sutures at the left lung base. There is a small catheter at the right costophrenic angle. IMPRESSION: 1. Small bilateral pleural effusions. 2. Mild infiltrate right lung base. 3. Suspected loculated right pneumothorax, stable. 4. Drainage catheter remains present at the right. A Red level critical message alert has been initiated for Nickie Pearson via the [employer] Results System on 07/08/2021 7:07 AM. This message alert has been sent to Nickie Pearson via the pref erences provided by the clinician for the receipt of Radiology Critical Findings. Message ID [id number].
[2021-07-08] MEDS: HYDROmorphone 1 MG/ML 1 ML SYRINGE IVP PRN ×4 (07:37→22:52)
[2021-07-08] MEDS: PANTOPRAZOLE 40 MG TABLET PO SCH (07:38)
[2021-07-08] MEDS: METOPROLOL SUCCINATE (ER) 100 MG TAB.ER.24H PO SCH (07:38)
[2021-07-08] MEDS: NICOTINE 14MG/24HR PATCH TRANSDERM SCH (07:38)
[2021-07-08] MEDS: THIAMINE 100 MG TAB PO SCH (07:38)
[2021-07-08] MEDS: FOLIC ACID 1 MG TAB PO SCH (07:38)
[2021-07-08] MEDS: metroNIDAZOLE 500 MG TAB PO SCH ×3 (07:38→21:42)
[2021-07-08] MEDS: CODEINE PO SCH ×3 (07:39→22:23)
[2021-07-08] MEDS: [UNRECOGNIZED DRUG - OTHER] PO SCH ×3 (07:39→22:23)
[2021-07-08] MEDS: SYMBICORT 160-4.5 MCG INHALER INHALATION SCH ×2 (07:49→20:33)
--- NOTE | 2021-07-08 10:10 | P.PN ---
Subjective Progress Note Date: 07/08/21 Principal diagnosis: Loculated right empyema. Previous medical history of COPD with home oxygen use 3 L nasal cannula, right pleural effusion with previous right thoracentesis at [facility], anemia, hypertension, prostate cancers status post 48 radiation treatments, recent fall from standing, medical debility, remote history of paroxysmal atrial fibrillation, chronic nicotine dependence and previous EtOH abuse Status post day #8 placement of right chest pigtail catheter performed by interventional radiology POD #2 I&D abscess right chest wall The patient was seen and examined this morning at the bedside. He is sitting up in bed in no acute distress. Does complain pain which he states is not completely controlled on current medication regimen. Right pigtail catheter remains to continuous wall suction, 450 mL pink tinged thick drainage in the last 24 hours. Dressing changed to right posterior chest wall fluid pocket, minimal serous drainage present, Gram stain from cultures drawn during I&D are preliminarily negative at this point. Remains on 3 L nasal cannula with oxygen saturation 100%, able to achieve 1500 mL on incentive spirometry. Remains on IV antibiotics per infectious disease. Objective - Vital Signs Vital signs: Vital Signs Temp 98.4 F 07/08/21 01:07 Pulse 72 07/08/21 01:07 Resp 15 07/08/21 01:07 BP 125/82 07/08/21 01:07 Pulse Ox 100 07/08/21 01:07 Intake & Output 07/07/21 07/08/21 07/08/21 18:59 06:59 18:59 Intake Total 800 444 Output Total 50 1300 220 Balance 750 -856 -220 Intake: Intake, IV Titration 800 Amount Sodium Chloride 0.9% 1, 800 000 ml @ 100 mls/hr IV . Q10H [facility] Rx#:[id number] Oral 444 Output: Chest Tube Drainage 50 220 Chest Tube Right Right 50 220 Pleural/Mediastinal Urine 1300 Other: Voiding Method Urinal - Exam CONSTITUTIONAL: Appears comfortable, cooperative, no acute distress RESPIRATORY: Lungs sounds diminished bilaterally. Respirations even, nonlabored. Currently on 3 L nasal cannula with oxygen saturation 95%. Able to achieve 2500 mL on incentive spirometry. Strong cough. CARDIOVASCULAR: S1, S2 present. Regular rate and rhythm, sinus rhythm on te lemetry. Palpable peripheral pulses bilaterally. No edema present. No calf pain or tenderness noted. SCDs present. GASTROINTESTINAL: Abdomen soft, nontender, nondistended. Active bowel sounds present 4 quadrants. Tolerating diet. GENITOURINARY: Continues to void INTEGUMENTARY: Skin is warm and dry with evidence of good perfusion. Swelling present to right posterior chest wall although decreasing, dressing changed, minimal serous drainage NEUROLOGIC: Cranial nerves II through XII intact MUSKULOSKELETAL: Able to move all extremities, strength equal bilaterally, gait normal PSYCHIATRIC: Alert and oriented to person place and time, appropriate affect, intact judgment and insight INVASIVE LINES AND TUBES: Right pigtail catheter present and connected to wall suction, no air leaks present, 450 mL in the last 24 hours - Allied health notes Allied health notes reviewed: nursing - Labs CBC & Chem 7: 07/07/21 09:18 07/07/21 09:18 Labs: Abnormal Lab Results - Last 24 Hours (Table) 07/07/21 07/07/21 Range/Units 09:18 09:18 RBC 2.95 L (4.30-5.90) m/uL Hgb 9.8 L (13.0-17.5) gm/dL Hct 31.6 L (39.0-53.0) % MCV 107.4 H (80.0-100.0) fL Lymphocytes # 0.8 L (1.0-4.8) k/uL Sodium 133 L (137-145) mmol/L BUN 7 L (9-20) mg/dL Creatinine 0.52 L (0.66-1.25) mg/dL Glucose 148 H (74-99) mg/dL Calcium 8.2 L (8.4-10.2) mg/dL Microbiology - Last 24 Hours (Table) 07/06/21 02:25 Gram Stain - Preliminary Chest Wound Culture - Preliminary 07/06/21 15:58 Gram Stain - Preliminary Chest Wound Culture - Preliminary - Imaging and Cardiology Chest x-ray: report reviewed, image reviewed Assessment and Plan Assessment: 1. Right lung empyema status post right-sided percutaneous pigtail catheter insertion by interventional radiology. Sputum culture from 06/26/2021 growing pseudomonas aeruginosa, pleural fluid growing alphahemolytic streptococcus and anaerobic culture growing gram-positive cocci and gram-negative bacilli. Chest wall I&D preliminary Gram stain with no growth to date 2. Shortness of breath, pain secondary to above 3. Chronic obstructive pulmonary disease 4. History of prostate cancer status post 48 treatments of radiation 5. Hypertension 6. Medical debility 7. Chronic anemia 8. History of EtOH abuse 9. History of nicotine dependence 10. History of recent weight loss, protein calorie malnutrition 11. Right posterior chest wall hematoma, status post I&D Plan: 1. Keep right chest pigtail catheter in place and connected to low continuous wall suction -20 cm H2O. Will instill alteplase/dornase today 2. Dressing on right posterior chest wall incision site changed this morning, to be changed daily by cardiothoracic surgery 3. Continue to monitor daily chest x-rays. 4. Encourage use of incentive spirometry 10 times every hour while awake. 5. Continue antibiotics management by infectious disease. 6. Bronchodilator management per pulmonary/critical care medicine. 7. Continue GI and DVT prophylaxis. 8. Pain management per primary care service 9. Increase activity as tolerated. Out of bed for all meals. The patient needs much encouragement to ambulate. 10. More recommendations to follow Time with Patient: Greater than 30
[2021-07-08] MEDS ORDERED: DORNASE ALFA 5 MG in SODIUM CHLORIDE 0.9% 50 ML IRRIGATION ONE (11:00)
[2021-07-08] MEDS ORDERED: ALTEPLASE 10 MG in SODIUM CHLORIDE 0.9% 50 ML IRRIGATION ONE (11:00)
[2021-07-08] MEDS ORDERED: HYDROcodone/APAP 5-325MG 1 EACH TAB PO PRN (11:13)
--- NOTE | 2021-07-08 13:42 | P.PN ---
Subjective Progress Note Date: 07/08/21 This is a 60-year-old male who was recently hospitalized at [facility] for pneumonia and empyema and had a chest tube placed on the right for continued drainage and ultimately sent here to [facility] for further evaluation by cardiothoracic surgery for complicated empyema that appears to be loculated. Infectious disease following over there and patient was maintained on cefepime and Vancomycin and will reorder here and consult infectious disease. Consult also placed to pulmonary along with cardiothoracic surgery. Upon arrival to the unit on 4 S. per nursing staff patient's chest tube atrium was lying flat on the patient on arrival and when hooking up to wall suction bubbli ng was noted in the atrium and was replaced. Bubbling persisted and chest x-ray was done which shows large right pleural effusion and right pulmonary consolidation without change the right side chest tube appears to be in the subcutaneous fat and malposition over the lower lateral right chest wall. No sign of pneumothorax. Cardiothoracic surgery contacted and will be replaced upon their evaluation. Patient does have a past medical history of COPD, hypertension, former smoker recently quit, EtOH use and reports to quitting a month or so ago, anemia, and most recently per family patient has been falling more often with unsteady gait. Patient states he follows with Dr. Rafita Lewis out of [place]. Daughter states patient lives by himself and is concerned and would like possible placement. 06/30/2021 patient is seen and evaluated in follow-up this morning with cardiothoracic surgery along with pulmonary following closely and evaluated the patient. Pigtail catheter on the right was dislodged and removed at the bedside by pulmonary and interventional radiology consulted to replace catheter on the right with possible drainage or evacuation of the loculated area with cultures b eing sent. patient is continued on 4 L of oxygen via nasal cannula and reports no worsening shortness of breath. Patient had some pain with inspiration and during the removal of the catheter and will order pain medications. 07/01/2021 She is seen and evaluated this morning and chest tube catheter was replaced and draining continuous amounts approval and drainage approximately 1.6 L since last night. Cardio thoracic along with pulmonary following closely along with infectious disease and patient is maintained on IV Zosyn along with vancomycin. Patient states he is having some chest wall discomfort with cough but no worsening. patient is continued on 4 L via nasal cannula. Patient is afebrile. repeat fluid analysis culture is pending. 07/02/2021 Patient is awake and alert, breathing comfortably at rest. Staying in chair or bed most of the time. Pain is controlled. Vital signs stable, he is saturating 98% on 4 L oxygen. Slightly dropped to 133 down to 129. We'll keep monitoring. Patient has pigtail tube on his right chest posteriorly with surrounding area of fluctuating swelling, possible hematoma therefore alteplase is not going to be given today. Per pulmonary team recommendation. Remains on cefepime and IV vancomycin pending final culture results with infectious disease team on the case CT of the chest showing right basilar pleural catheter with a small collection noted. Infected collection is not excluded. Basilar infiltrate may reflect pneumonia or aspiration. Hpneumothorax on the right 07/03/2021 Patient breathing is not worsening. He still has right-sided pigtail tube with surrounding swelling most likely hematoma which looks his stable. No more alt eplase yesterday. Hemodynamically stable and he is saturating 98% on 4 L. Fluid culture, and positive for alpha hemolytic streptococcus and chest x-ray showing patchy infiltrate in the right medial base, stable. His were adjusted today to IV vancomycin and ceftriaxone instead of cefepime. 07/04/2021 Patient is seen and evaluated in follow up this morning and continues on 4L via NC. Patient with continued right chest wall pigtail catheter with approx 150cc of output over the last [address] surgery and pulmonary following closely. Abdominal binder in place and alteplace on hold as concerned for possible hematoma at the catheter site. Anticoagulant on hold as well and chest xray today shows right lower lobe infiltrate with small effusion and overall stable. Patient also being followed closely by ID and maintained on IV ceftriaxone while waiting for cultures to finalize. Patient continues to be weak and will have PT/OT evaluate the patient and consult social work for possible placement. REpeat chest xray and labs in the am. Encouraged incentive spirometer at least 10 times every hour while awake. Encouraged increased activity as tolerated. Abdominal binder noted on exam for compression of the right chest tube sight. 07/05/2021 Patient is seen in follow-up this morning being followed by pulmonary and CT surgery. Patient underwent soft tissue ultrasound as patient has continued fluid collection at the chest tube site and ultrasound shows moderate subcutaneous edema in the soft tissue just below the dermal surface with 2 oval- shaped non-simple fluid collections just below this and within the deep subcutaneous tissue possibility is of hematoma versus developing abscess. Gen. surgery consulted recommending continuing with IV antibiotic therapy and conservative management with no surgical intervention at this time. Infectious disease is following and patient is maintained on IV antibiotics in the form of ceftriaxone. Patient sodium is low at 131 and will add IV fluids and repeat labs. Patient continues to be weak and needs encouragement to increase activity as tolerated. Also encouraged incentive spirometer. 07/06/2021 Patient is seen and evaluated in follow-up this morning and appears agitated. Patient states he is tired and also tired of multiple people coming in and out of his room. Patient has cardiothoracic surgery along with pulmonary following closely. Infectious disease following as well and patient is maintained on IV ceftriaxone along with Flagyl and will continue. Chest x-ray today shows a right lower lobe infiltrate and bilateral small pleural effusions larger on the right. Cardiothoracic surgery plans to take the patient to the OR for incision and drainage of the right posterior chest wall hematoma versus abscess this afternoon. Will await surgical report. Patient is on gentle IV hydration of normal saline and will continue his sodium is improved at 133. Patient is currently nothing by mouth for the procedure this afternoon. 07/07/2021 Patient is seen and evaluated in follow-up this morning status post incision and drainage of the fluid collection within the subcutaneous tissue underneath the chest tube along with drainage of the abscess and deep cultures were obtained. Patient is being followed closely by cardiothoracic surgery along with pulmonary and infectious disease. Patient continues on IV ceftriaxone and Flagyl until cultures are finalized. Patient is having some right chest wall tenderness and pain although states no worsening and continues on 3 L of oxygen via nasal cannula. Chest x-ray today shows a patchy right lower lobe infiltrate and right-sided pleural effusion thickening and/or effusion persists and are unchanged. 07/08/2021 Patient is seen this morning and follow-up sleeping but arousable continues to have pain of the right side and had been receiving IV pain medications and will add oral [place]. Encouraged activity as patient continues to need encouragement to get out of bed. CT surgery and pulmonary following along with infectious disease and patient is maintained on IV ceftriaxone along with oral Flagyl and will continue while awaiting for cultures to finalize. Patient did have repeat cultures during I&D on the . Patient has been working with physical therapy and will evaluate closer to discharge to consider possible home care versus subacute rehab. Review of systems: Constitutional: No reports of fatigue, fever, or chills Cardiovascular: No reports of chest pain or palpitations, reports continued right chest wall pain with inspiration and movement, requesting increase in pain medications Respiratory: No reports of worsening shortness of breath or cough GI: No reports of nausea, vomiting, or diarrhea : No reports of dysuria or retention Neurovascular: reports generalized weakness All medications have been reviewed Active Medications Acetaminophen (Acetaminophen Tab 325 Mg Tab) 650 mg PO Q6HR PRN PRN Reason: Mild Pain or Fever > 100.5 Hydrocodone Bitart/Acetaminophen (Hydrocodone/Apap 5-325mg 1 Each Tab) 1 each PO Q6HR PRN PRN Reason: Pain Last Admin: 07/08/21 04:33 Dose: 1 each Documented by: Hydrocodone Bitart/Acetaminophen (Hydrocodone/Apap 5-325mg 1 Each Tab) 1 each PO Q6HR PRN PRN Reason: Pain Albuterol Sulfate (Albuterol Nebulized 2.5 Mg/3 Ml) 2.5 mg INHALATION RT-Q4H PRN PRN Reason: Shortness Of Breath Last Admin: 06/30/21 12:05 Dose: 2.5 mg Documented by: Budesonide/Formoterol Fumarate (Symbicort 160-4.5 Mcg Inhaler) 2 puff INHALATION RT-BID [facility] Last Admin: 07/08/21 07:49 Dose: 2 puff Documented by: Folic Acid (Folic Acid 1 Mg Tab) 1 mg PO DAILY [facility] Last Admin: 07/08/21 07:38 Dose: 1 mg Documented by: Hydromorphone HCl (Hydromorphone 1 Mg/Ml 1 Ml Syringe) 1 mg IVP Q3HR PRN PRN Reason: Pain Last Admin: 07/08/21 11:18 Dose: 1 mg Documented by: Ceftriaxone Sodium 2 gm/ (Sodium Chloride) 50 mls @ 100 mls/hr IVPB Q24H [facility] Last Admin: 07/07/21 15:39 Dose: 100 mls/hr Documented by: Sodium Chloride (Saline 0.9%) 1,000 mls @ 100 mls/hr IV .Q10H [facility] Last Admin: 07/08/21 06:00 Dose: 100 mls/hr Documented by: Lorazepam (Lorazepam 1 Mg Tab) 2 mg PO HS [facility] Last Admin: 07/07/21 21:31 Dose: 2 mg Documented by: Melatonin (Melatonin 3 Mg Tablet) 3 mg PO HS PRN PRN Reason: Insomnia Metoprolol Succinate (Metoprolol Succinate (Er) 100 Mg Tab.Er.24h) 100 mg PO DAILY [facility] Last Admin: 07/08/21 07:38 Dose: 100 mg Documented by: Metronidazole (Metronidazole 500 Mg Tab) 500 mg PO TID [facility] Last Admin: 07/08/21 07:38 Dose: 500 mg Documented by: Miscellaneous Information (Potassium Replacement Protocol 1 Each Misc) 1 each MISCELLANE DAILY PRN; Protocol PRN Reason: Per Protocol Naloxone HCl (Naloxone 0.4 Mg/Ml 1 Ml Vial) 0.2 mg IV Q2M PRN PRN Reason: Opioid Reversal Nicotine (Nicotine 14mg/24hr Patch) 1 patch TRANSDERM DAILY [facility] Last Admin: 07/08/21 07:38 Dose: 1 patch Documented by: Patient's Own ( Ascomp W/Codeine 1 Cap) 1 cap PO TID [facility] Last Admin: 07/08/21 07:39 Dose: Not Given Documented by: Patient's Own ( Butorphanol Tartrate [Stadol Nasal [place] ] 10 Mg/Ml Ml) 1 spray MISCELLANE DAILY PRN PRN Reason: Migraine Headache Ondansetron HCl (Ondansetron 4 Mg/2 Ml Vial) 4 mg IVP Q8HR PRN PRN Reason: Nausea And Vomiting Pantoprazole Sodium (Pantoprazole 40 Mg Tablet) 40 mg PO AC-BRKFST [facility] Last Admin: 07/08/21 07:38 Dose: 40 mg Documented by: Thiamine HCl (Thiamine 100 Mg Tab) 100 mg PO DAILY [facility] Last Admin: 07/08/21 07:38 Dose: 100 mg Documented by: Physical exam: Gen: This is a 60-year-old male asleep but arousable, alert and oriented 3, thin built, appears older than stated age HEENT: Head is atraumatic, normocephalic. Pupils equal, round. Sclerae is anicteric. NECK: Supple. No JVD. No lymphadenopathy. No thyromegaly. LUNGS: Diminished breath sounds bilaterally and on the right more so than the left with some scattered rhonchi noted. No intercostal retractions. Right chest wall pigtail catheter and drain status post incision and drainage of the fluid collection and abscess located underneath the chest tube HEART: Regular rate and rhythm. No murmur. ABDOMEN: Soft. Thin built. Bowel sounds are present. No masses. No tenderness. EXTREMITIES: No pedal edema. No calf tenderness. NEUROLOGICAL: Patient is awake, alert and oriented x3. No focal deficits noted. Diffusely weak Assessment: Pneumonia with Pseudomonas growing in the sputum Right chest wall abscess and fluid collection at the site of the chest tube status post incision and drainage with cardiothoracic surgery Bacterial pneumonia with Pseudomonas Empyema with right side percutaneous pigtail catheter placement at [facility] and subsequent dislodgment of the catheter, chest tube catheter replaced Chronic obstructive pulmonary disease, acute exacerbation Chronic hypoxic respiratory failure on 3 L via nasal cannula in the outpatient setting Right pleural effusion mild hyponatremia, improving Hypertension Remote history of alcohol abuse Remote history of nicotine dependence, recently quit Moderate protein malnutrition with BMI of 22.3 History of anemia, macrocytic Interstitial lung disease History of chronic right pleural effusion that was recently tapped at [facility] Gait dysfunction Weakness Frequent falls GI prophylaxis DVT prophylaxis: anticoagulant on hold for possible hematoma development of the right side chest wall site of pigtail catheter Full code Plan: Recommend to continue with current medications and management. Multiple medical consultations following including cardiothoracic surgery, pulmonary, and infectious disease. Patient underwent incision and drainage of the abscess and fluid collection noted underneath the chest tube with cardiothoracic surgery and cultures were sent and currently pending at this time. Patient to continue on IV ceftriaxone and Flagyl with infectious disease following closely while awaiting for the cultures to finalize. Recommend continue with gentle IV hydration and will repeat labs and continue to monitor closely. Recommend and encourage the patient to continue using incentive spirometer at least 10 times every hour while awake. Encouraged increased activity as tolerated. PT/OT to follow and will discuss about possible ECF placement or home care when stabilized and discharged. Objective - Vital Signs Vital signs: Vital Signs Temp 98.4 F 07/08/21 01:07 Pulse 72 07/08/21 01:07 Resp 15 07/08/21 01:07 BP 125/82 07/08/21 01:07 Pulse Ox 100 07/08/21 01:07 Intake & Output 07/07/21 07/08/21 07/08/21 18:59 06:59 18:59 Intake Total 800 444 Output Total 50 1300 220 Balance 750 -856 -220 Intake: Intake, IV Titration 800 Amount Sodium Chloride 0.9% 1, 800 000 ml @ 100 mls/hr IV . Q10H [facility] Rx#:[id number] Oral 444 Output: Chest Tube Drainage 50 220 Chest Tube Right Right 50 220 Pleural/Mediastinal Urine 1300 Other: Voiding Method Urinal - Labs CBC & Chem 7: 07/07/21 09:18 07/07/21 09:18 Labs: Abnormal Lab Results - Last 24 Hours (Table) 07/07/21 07/07/21 Range/Units 09:18 09:18 RBC 2.95 L (4.30-5.90) m/uL Hgb 9.8 L (13.0-17.5) gm/dL Hct 31.6 L (39.0-53.0) % MCV 107.4 H (80.0-100.0) fL Lymphocytes # 0.8 L (1.0-4.8) k/uL Sodium 133 L (137-145) mmol/L BUN 7 L (9-20) mg/dL Creatinine 0.52 L (0.66-1.25) mg/dL Glucose 148 H (74-99) mg/dL Calcium 8.2 L (8.4-10.2) mg/dL Microbiology - Last 24 Hours (Table) 07/06/21 02:25 Gram Stain - Preliminary Chest Wound Culture - Preliminary 07/06/21 15:58 Gram Stain - Preliminary Chest Wound Culture - Preliminary
--- NOTE | 2021-07-08 13:44 | P.PN ---
Subjective Progress Note Date: 07/08/21 Principal diagnosis: Loculated right-sided empyema The patient is seen today 07/08/2021 in follow-up on the regular medical floor. He is currently sitting up in bed. Awake and alert in no acute distress. Maintaining O2 saturations in the 90s on 3 L/m per nasal cannula. He's been afebrile. Hemodynamically stable. Right-sided pigtail chest tube catheter remains in place to wall suction with a small amount of cloudy pleural fluid returning. He was to receive alteplase today per CT services. Dressing is dry and intact and change daily per CT services. Chest x-ray reveals suspected loculated right pneumothorax, stable. Small bilateral effusions. Mild infiltrate of the right lung base. Catheter remains in place. Chest wound cultures pending. Pleural fluid cultures revealed upper hemolytic streptococcus, anaerobic gram-positive cocci, anaerobic gram-negative bacilli. He remains on ceftriaxone and Flagyl. Continue on Symbicort and albuterol. Objective - Vital Signs Vital signs: Vital Signs Temp 98.5 F 07/08/21 10:00 Pulse 71 07/08/21 10:00 Resp 15 07/08/21 10:00 BP 134/84 07/08/21 10:00 Pulse Ox 99 07/08/21 10:00 Intake & Output 07/07/21 07/08/21 07/08/21 18:59 06:59 18:59 Intake Total 800 444 Output Total 50 1300 220 Balance 750 -856 -220 Intake: Intake, IV Titration 800 Amount Sodium Chloride 0.9% 1, 800 000 ml @ 100 mls/hr IV . Q10H [facility] Rx#:[id number] Oral 444 Output: Chest Tube Drainage 50 220 Chest Tube Right Right 50 220 Pleural/Mediastinal Urine 1300 Other: Voiding Method Urinal Urinal - Exam GENERAL EXAM: Alert, 60-year-old male patient, on 3 L of oxygen, pulse ox of 99% comfortable in no apparent distress. HEAD: Normocephalic/atraumatic. EYES: Normal reaction of pupils, equal size. Conjunctiva pink, sclera white. NOSE: Clear with pink turbinates. THROAT: No erythema or exudates. NECK: No masses, no JVD, no thyroid enlargement, no adenopathy. CHEST: No chest wall deformity. Symmetrical expansion. Right-sided pigtail chest tube replaced 06/30/2021, connected to Pleur-evac, with whitish yellowish colored pleural fluid output in the Pleur-evac. Patient had subcutaneous right posterior chest fluid collection, at the site of old right pigtail chest tube insertion site. The swelling has improved since I&D on 07/06/2021 LUNGS: Equal air entry with few scattered rhonchi, crackles in the right base CVS: Regular rate and rhythm, normal S1 and S2, no gallops, no murmurs, no rubs ABDOMEN: Soft, nontender. No hepatosplenomegaly, normal bowel sounds, no guarding or rigidity. EXTREMITIES: No clubbing, no edema, no cyanosis, 2+ pulses and upper and lower extremities. MUSCULOSKELETAL: Muscle strength and tone normal. SPINE: No scoliosis or deformity SKIN: No rashes CENTRAL NERVOUS SYSTEM: No focal deficits, tone is normal in all 4 extremities. PSYCHIATRIC: Alert and oriented -3. Appropriate affect. Intact judgment and insight. - Labs CBC & Chem 7: 07/07/21 09:18 07/07/21 09:18 Labs: Microbiology - Last 24 Hours (Table) 07/06/21 02:25 Gram Stain - Preliminary Chest Wound Culture - Preliminary 07/06/21 15:58 Gram Stain - Preliminary Chest Wound Culture - Preliminary Assessment and Plan Assessment: 1 Right lung empyema post percutaneous pigtail catheter insertion with subsequent dislodgment of the cath and subsequent replacement here on 06/30/2021. Patient has grown pseudomonas aeruginosa and the sputum on 06/28/2021. Anaerobic infection cannot be completely excluded within the pleural space. The patient clinically improved. The patient's follow-up CAT scan showed improvement in the size of the empyema. There is still right lower lobe consolidation/infiltration. Meanwhile, the patient developed a hematoma/fluid collection along the patient states insertion site status post I&D on 07/06/2021. The pleural fluid culture came back positive for alpha hemolytic strep. Current coverage is with Rocephin and Flagyl. 2 COPD 3 Shortness of breath secondary to above 4 History of alcoholism 5 History of prostate cancer 6 History of smoking 7 Chronic anemia 8 Protein calorie malnutrition, moderate 9 Right posterior chest wall hematoma, or possible abscess, status post incision and drainage on 07/06/2021, wound cultures are pending 10 Hyponatremia, improved Plan: The patient was seen and evaluated by Dr. Rae Chest tube remains to wall suction Chest x-ray and cultures reviewed Titrate down the FiO2 as tolerated Currently on Rocephin and Flagyl Received alteplase today per CT services We'll continue to follow I, the cosigning physician, performed a history & physical examination of the patient. Lungs sounds scattered rhonchi crackles in the right base. Maintaining good O2 saturations in the 90s on 3 L/m per nasal cannula. I discussed the assessment and plan of care with my nurse practitioner, Carolynn Schaffer. I attest to the above note as dictated by her.
--- NOTE | 2021-07-08 17:14 | PN ---
PROGRESS NOTE DATE OF SERVICE: 07/08/2021 REASON FOR FOLLOWUP: Right-sided empyema. INTERVAL HISTORY: The patient is afebrile. Still complaining of pain to the dorsal side of the chest. He wanted the pain medication to be adjusted up. Also, have a cough and bringing up some purulent sputum. No hemoptysis. No vomiting. No abdominal pain and no diarrhea. PHYSICAL EXAMINATION: Blood pressure 133/87, pulse of 75, temperature 98.2. He is 100% on 3 L nasal cannula. General description is a middle-aged male up in the bed in no distress. Respiratory system: Unlabored breathing, decreased breath intensity of the breath sounds, no wheeze. Heart S1, S2. Regular rate and rhythm. Abdomen soft, no tenderness. LABS: Hemoglobin is 9.8, white count 8.6, creatinine 0.52. Repeat cultures currently pending. DIAGNOSTIC IMPRESSION AND PLAN: Patient with right-sided empyema with initial chest tube placement, those culture positive for strep and anaerobes status post developing an abscess at the chest wall, has been drained. Those cultures pending. Patient to continue with Rocephin and Flagyl while waiting for the culture to finalize and monitor clinical course closely. MMODL / IJN: [id number] /
[2021-07-08] MEDS: HYDROcodone/APAP 10-325MG 1 EACH TAB PO PRN (17:43)
[2021-07-08] MEDS: LORazepam 1 MG TAB PO SCH (21:42)
[2021-07-09] MEDS: HYDROcodone/APAP 10-325MG 1 EACH TAB PO PRN ×4 (00:38→22:38)
[2021-07-09] MEDS: HYDROmorphone 1 MG/ML 1 ML SYRINGE IVP PRN ×6 (02:59→23:51)
[2021-07-09] MEDS: SODIUM CHLORIDE 0.9% 1,000 ML IV SCH ×3 (04:49→23:52)
[2021-07-09] MEDS: PANTOPRAZOLE 40 MG TABLET PO SCH (07:59)
[2021-07-09] MEDS: NICOTINE 14MG/24HR PATCH TRANSDERM SCH (07:59)
[2021-07-09] MEDS: metroNIDAZOLE 500 MG TAB PO SCH ×3 (07:59→22:38)
[2021-07-09] MEDS: METOPROLOL SUCCINATE (ER) 100 MG TAB.ER.24H PO SCH (07:59)
[2021-07-09] MEDS: THIAMINE 100 MG TAB PO SCH (07:59)
[2021-07-09] MEDS: FOLIC ACID 1 MG TAB PO SCH (07:59)
--- NOTE | 2021-07-09 08:08 | XR ---
EXAMINATION TYPE: XR chest 1V portable DATE OF EXAM: 07/09/2021 COMPARISON: Chest x-ray 07/08/2021 HISTORY: Right effusion TECHNIQUE: Single frontal view of the chest is obtained. FINDINGS: The right-sided pigtail catheter at the posterior lung base is again seen, there is blunti ng the right costophrenic angle. The right hemidiaphragm is obscured. No evident pneumothorax. Patchy basilar density again noted on the left. Cardiac mediastinal silhouette is stable. IMPRESSION: Basilar effusions, atelectasis versus pneumonia
--- NOTE | 2021-07-09 08:26 | P.PN ---
Subjective Progress Note Date: 07/09/21 Principal diagnosis: Loculated right empyema. Previous medical history of COPD with home oxygen use 3 L nasal cannula, right pleural effusion with previous right thoracentesis at [facility], anemia, hypertension, prostate cancers status post 48 radiation treatments, recent fall from standing, medical debility, remote history of paroxysmal atrial fibrillation, chronic nicotine dependence and previous EtOH abuse Status post day #9 placement of right chest pigtail catheter performed by interventional radiology POD #3 I&D abscess right chest wall The patient was seen and examined this morning at the bedside. He is sitting up in bed in no acute distress. Does complain pain which he states is better controlled. Right pigtail catheter remains to continuous wall suction, alteplase/dornase instilled for a 6th dose yesterday, 300 mL pink tinged thick drainage in the last 24 hours. Dressing changed to right posterior chest wall fluid pocket, minimal serous drainage present, cultures drawn during I&D are finalized as no growth. Remains on 3 L nasal cannula with oxygen saturation 97%, able to achieve 2500 mL on incentive spirometry. Remains on IV ceftriaxone and flagyl per infectious disease. Objective - Vital Signs Vital signs: Vital Signs Temp 97.9 F 07/09/21 02:00 Pulse 77 07/09/21 02:00 Resp 17 07/09/21 02:00 BP 135/93 07/09/21 02:00 Pulse Ox 97 07/09/21 02:00 Intake & Output 07/08/21 07/09/21 07/09/21 18:59 06:59 18:59 Output Total 1420 520 Balance -1420 -520 Output: Chest Tube Drainage 220 120 Chest Tube Right Right 220 120 Pleural/Mediastinal Urine 1200 400 Other: Voiding Method Urinal Urinal # Voids 4 # Bowel Movements 1 - Exam CONSTITUTIONAL: Appears comfortable, cooperative, no acute distress RESPIRATORY: Lungs sounds diminished bilaterally. Respirations even, nonlabored. Currently on 3 L nasal cannula with oxygen saturation 97%. Able to achieve 2500 mL on incentive spirometry. Strong cough. CARDIOVASCULAR: S1, S2 present. Regular rate and rhythm. Palpable peripheral pulses bilaterally. No edema present. No calf pain or tenderness noted. SCDs present. GASTROINTESTINAL: Abdomen soft, nontender, nondistended. Active bowel sounds present 4 quadrants. Tolerating diet. Positive bowel movement GENITOURINARY: Continues to void INTEGUMENTARY: Skin is warm and dry with evidence of good perfusion. Swelling to right posterior chest wall decreasing NEUROLOGIC: Cranial nerves II through XII intact MUSKULOSKELETAL: Able to move all extremities, strength equal bilaterally, gait normal PSYCHIATRIC: Alert and oriented to person place and time, appropriate affect, intact judgment and insight INVASIVE LINES AND TUBES: Right pigtail catheter present and connected to wall suction, no air leaks present, 300 mL in the last 24 hours - Allied health notes Allied health notes reviewed: nursing - Labs CBC & Chem 7: 07/07/21 09:18 07/07/21 09:18 Labs: Microbiology - Last 24 Hours (Table) 07/06/21 15:58 Anaerobic Culture - Preliminary Chest 07/06/21 02:25 Anaerobic Culture - Preliminary Chest 07/06/21 02:25 Gram Stain - Final Chest Wound Culture - Final 07/06/21 15:58 Gram Stain - Final Chest Wound Culture - Final 06/30/21 11:11 Fungal Culture - Preliminary Pleural Fluid - Imaging and Cardiology Chest x-ray: report reviewed, image reviewed Assessment and Plan Assessment: 1. Right lung empyema status post right-sided percutaneous pigtail catheter insertion by interventional radiology. Sputum culture from 06/26/2021 growing pseudomonas aeruginosa, pleural fluid growing alphahemolytic streptococcus and anaerobic culture growing gram-positive cocci and gram-negative bacilli. Chest wall I&D cultures with no growth 2. Shortness of breath, pain secondary to above 3. Chronic obstructive pulmonary disease 4. History of prostate cancer status post 48 treatments of radiation 5. Hypertension 6. Medical debility 7. Chronic anemia 8. History of EtOH abuse 9. History of nicotine dependence 10. History of recent weight loss, protein calorie malnutrition 11. Right posterior chest wall hematoma, status post I&D Plan: 1. Keep right chest pigtail catheter in place and connected to low continuous wall suction -20 cm H2O. Will instill 7th dose alteplase/dornase as patient continues to drain well from instillation 2. Dressing on right posterior chest wall incision site changed this morning, to be changed daily by cardiothoracic surgery 3. Continue to monitor daily chest x-rays. 4. Encourage use of incentive spirometry 10 times every hour while awake. 5. Continue antibiotics management by infectious disease. 6. Bronchodilator management per pulmonary/critical care medicine. 7. Continue GI and DVT prophylaxis. 8. Pain management per primary care service 9. Increase activity as tolerated. Out of bed for all meals. The patient needs much encouragement to ambulate. 10. More recommendations to follow Time with Patient: Greater than 30
[2021-07-09] MEDS ORDERED: ALTEPLASE 10 MG in SODIUM CHLORIDE 0.9% 50 ML IRRIGATION ONE (08:40)
[2021-07-09] MEDS ORDERED: DORNASE ALFA 5 MG in SODIUM CHLORIDE 0.9% 50 ML IRRIGATION ONE (08:40)
[2021-07-09] MEDS: SYMBICORT 160-4.5 MCG INHALER INHALATION SCH ×2 (08:59→21:01)
--- NOTE | 2021-07-09 12:28 | P.PN ---
Subjective This is a 60-year-old male who was recently hospitalized at [facility] for pneumonia and empyema and had a chest tube placed on the right for continued drainage and ultimately sent here to [facility] for further evaluation by cardiothoracic surgery for complicated empyema that appears to be loculated. Infectious disease following over there and patient was maintained on cefepime and Vancomycin and will reorder here and consult infectious disease. Consult also placed to pulmonary along with cardiothoracic surgery. Upon arrival to the unit on 4 S. per nursing staff patient's chest tube atrium was lying flat on the patient on arrival and when hooking up to wall suction bubbling was noted in the atrium and was replaced. Bubbling persisted and chest x-ray was done which shows large right pleural effusion and right pulmonary consolidation without change the right side chest tube appears to be in the subcutaneous fat and malposition over the lower lateral right chest wall. No sign of pneumothorax. Cardiothoracic surgery contacted and will be replaced upon their evaluation. Patient does have a past medical history of COPD, hypertension, former smoker recently quit, EtOH use and reports to quitting a month or so ago, anemia, and most recently per family patient has been falling more often with unsteady gait. Patient states he follows with Dr. Rafita Lewis out of [place]. Daughter states patient lives by himself and is concerned and would like possible placement. 06/30/2021 patient is seen and evaluated in follow-up this morning with cardiothoracic surgery along with pulmonary following closely and evaluated the patient. Pigtail catheter on the right was dislodged and removed at the bedside by pulmonary and interventional radiology consulted to replace catheter on the right with possible drainage or evacuation of the loculated area with cultures being sent. patient is continued on 4 L of oxygen via nasal cannula and reports no worsening shortness of breath. Patient had some pain with inspiration and during the removal of the catheter and will order pain medications. 07/01/2021 She is seen and evaluated this morning and chest tube catheter was replaced and draining continuous amounts approval and drainage approximately 1.6 L since last night. Cardio thoracic along with pulmonary following closely along with infectious disease and patient is maintained on IV Zosyn along with vancomycin. Patient states he is having some chest wall discomfort with cough but no worsening. patient is continued on 4 L via nasal cannula. Patient is afebrile. repeat fluid analysis culture is pending. 07/02/2021 Patient is awake and alert, breathing comfortably at rest. Staying in chair or bed most of the time. Pain is controlled. Vital signs stable, he is saturating 98% on 4 L oxygen. Slightly dropped to 133 down to 129. We'll keep monitoring. Patient has pigtail tube on his right chest posteriorly with surrounding area of fluctuating swelling, possible hematoma therefore alteplase is not going to be given today. Per pulmonary team recommendation. Remains on cefepime and IV vancomycin pending final culture results with infectious disease team on the case CT of the chest showing right basilar pleural catheter with a small collection noted. Infected collection is not excluded. Basilar infiltrate may reflect pneumonia or aspiration. Hpneumothorax on the right 07/03/2021 Patient breathing is not worsening. He still has right-sided pigtail tube with surrounding swelling most likely hematoma which looks his stable. No more alteplase yesterday. Hemodynamically stable and he is saturating 98% on 4 L. Fluid culture, and positive for alpha hemolytic streptococcus and chest x-ray showing patchy infiltrate in the right medial base, stable. His were adjusted today to IV vancomycin and ceftriaxone instead of cefepime. 07/04/2021 Patient is seen and evaluated in follow up this morning and continues on 4L via NC. Patient with continued right chest wall pigtail catheter with approx 150cc of output over the last [address] surgery and pulmonary following closely. Ab dominal binder in place and alteplace on hold as concerned for possible hematoma at the catheter site. Anticoagulant on hold as well and chest xray today shows right lower lobe infiltrate with small effusion and overall stable. Patient also being followed closely by ID and maintained on IV ceftriaxone while waiting for cultures to finalize. Patient continues to be weak and will have PT/OT evaluate the patient and consult social work for possible placement. REpeat chest xray and labs in the am. Encouraged incentive spirometer at least 10 times every hour while awake. Encouraged increased activity as tolerated. Abdominal binder noted on exam for compression of the right chest tube sight. 07/05/2021 Patient is seen in follow-up this morning being followed by pulmonary and CT surgery. Patient underwent soft tissue ultrasound as patient has continued fluid collection at the chest tube site and ultrasound shows moderate subcutaneous edema in the soft tissue just below the dermal surface with 2 oval- shaped non-simple fluid collections just below this and within the deep subcutaneous tissue possibility is of hematoma versus developing abscess. Gen. surgery consulted recommending continuing with IV antibiotic therapy and conservative management with no surgical intervention at this time. Infectious disease is following and patient is maintained on IV antibiotics in the form of ceftriaxone. Patient sodium is low at 131 and will add IV fluids and repeat labs. Patient continues to be weak and needs encouragement to increase activity as tolerated. Also encouraged incentive spirometer. 07/06/2021 Patient is seen and evaluated in follow-up this morning and appears agitated. Patient states he is tired and also tired of multiple people coming in and out of his room. Patient has cardiothoracic surgery along with pulmonary following closely. Infectious disease following as well and patient is maintained on IV ceftriaxone along with Flagyl and will continue. Chest x-ray today shows a right lower lobe infiltrate and bilateral small pleural effusions larger on the right. Cardiothoracic surgery plans to take the patient to the OR for incision and drainage of the right posterior chest wall hematoma versus abscess this afternoon. Will await surgical report. Patient is on gentle IV hydration of normal saline and will continue his sodium is improved at 133. Patient is currently nothing by mouth for the procedure this afternoon. 07/07/2021 Patient is seen and evaluated in follow-up this morning status post incision and drainage of the fluid collection within the subcutaneous tissue underneath the chest tube along with drainage of the abscess and deep cultures were obtained. Patient is being followed closely by cardiothoracic surgery along with pulmonary and infectious disease. Patient continues on IV ceftriaxone and Flagyl until cultures are finalized. Patient is having some right chest wall tenderness and pain although states no worsening and continues on 3 L of oxygen via nasal cannula. Chest x-ray today shows a patchy right lower lobe infiltrate and right-sided pleural effusion thickening and/or effusion persists and are unchanged. 07/08/2021 Patient is seen this morning and follow-up sleeping but arousable continues to have pain of the right side and had been receiving IV pain medications and will add oral Manvel. Encouraged activity as patient continues to need encouragement to get out of bed. CT surgery and pulmonary following along with infectious disease and patient is maintained on IV ceftriaxone along with oral Flagyl and will continue while awaiting for cultures to finalize. Patient did have repeat cultures during I&D on the . Patient has been working with physical therapy and will evaluate closer to discharge to consider possible home care versus subacute rehab. Review of systems: Constitutional: No reports of fatigue, fever, or chills Cardiovascular: No reports of chest pain or palpitations, reports continued right chest wall pain with inspiration and movement, requesting increase in pain medications Respiratory: No reports of worsening shortness of breath or cough GI: No reports of nausea, vomiting, or diarrhea : No reports of dysuria or retention Neurovascular: reports generalized weakness All medications have been reviewed Physical exam: Gen: This is a 60-year-old male asleep but arousable, alert and oriented 3, thin built, appears older than stated age HEENT: Head is atraumatic, normocephalic. Pupils equal, round. Sclerae is anicteric. NECK: Supple. No JVD. No lymphadenopathy. No thyromegaly. LUNGS: Diminished breath sounds bilaterally and on the right more so than the left with some scattered rhonchi noted. No intercostal retractions. Right chest wall pigtail catheter and drain status post incision and drainage of the fluid collection and abscess located underneath the chest tube HEART: Regular rate and rhythm. No murmur. ABDOMEN: Soft. Thin built. Bowel sounds are present. No masses. No tenderness. EXTREMITIES: No pedal edema. No calf tenderness. NEUROLOGICAL: Patient is awake, alert and oriented x3. No focal deficits noted. Diffusely weak pneumonia and empyema secondary to alpha hemolytic streptococci and possible anaerobic bacteria, patient is on Rocephin and metronidazole which will be continued Right chest wall abscess and fluid collection at the site of the chest tube status post incision and drainage with cardiothoracic surgery Bacterial pneumonia with the streptococci positive cultures with Pseudomonas is a colonization Empyema with right side percutaneous pigtail catheter placement at [facility] and subsequent dislodgment of the catheter, chest tube catheter replaced Chronic obstructive pulmonary disease, acute exacerbation Chronic hypoxic respiratory failure on 3 L via nasal cannula in the outpatient setting Hypertension History of anemia, macrocytic generalized weakness GI prophylaxis DVT prophylaxis: anticoagulant on hold for possible hematoma development of the right side chest wall site of pigtail catheter Full code Objective - Vital Signs Vital signs: Vital Signs Temp 97.8 F 07/09/21 08:00 Pulse 77 07/09/21 08:00 Resp 16 07/09/21 08:00 BP 119/87 07/09/21 08:00 Pulse Ox 90 L 07/09/21 08:00 Intake & Output 07/08/21 07/09/21 07/09/21 18:59 06:59 18:59 Output Total 1420 520 Balance -1420 -520 Output: Chest Tube Drainage 220 120 Chest Tube Right Right 220 120 Pleural/Mediastinal Urine 1200 400 Other: Voiding Method Urinal Urinal # Voids 4 # Bowel Movements 1 - Labs CBC & Chem 7: 07/07/21 09:18 07/07/21 09:18 Labs: Microbiology - Last 24 Hours (Table) 07/06/21 15:58 Anaerobic Culture - Preliminary Chest 07/06/21 02:25 Anaerobic Culture - Preliminary Chest 07/06/21 02:25 Gram Stain - Final Chest Wound Culture - Final 07/06/21 15:58 Gram Stain - Final Chest Wound Culture - Final 06/30/21 11:11 Fungal Culture - Preliminary Pleural Fluid
[2021-07-09] MEDS: [UNRECOGNIZED DRUG - OTHER] PO SCH ×3 (12:52→22:18)
[2021-07-09] MEDS: CODEINE PO SCH ×3 (12:52→22:18)
--- NOTE | 2021-07-09 15:35 | P.PN ---
Subjective Progress Note Date: 07/09/21 Principal diagnosis: Loculated right-sided empyema The patient is seen today 07/08/2021 in follow-up on the regular medical floor. He is currently sitting up in bed. Awake and alert in no acute distress. Maintaining O2 saturations in the 90s on 3 L/m per nasal cannula. He's been afebrile. Hemodynamically stable. Right-sided pigtail chest tube catheter remains in place to wall suction with a small amount of cloudy pleural fluid returning. He was to receive alteplase today per CT services. Dressing is dry and intact and change daily per CT services. Chest x-ray reveals suspected loculated right pneumothorax, stable. Small bilateral effusions. Mild infiltrate of the right lung base. Catheter remains in place. Chest wound cultures pending. Pleural fluid cultures revealed upper hemolytic streptococcus, anaerobic gram-positive cocci, anaerobic gram-negative bacilli. He remains on ceftriaxone and Flagyl. Continue on Symbicort and albuterol. The patient is seen today 07/09/2021 in follow-up on the regular medical floor. He is currently sitting up in bed. Awake and alert in no acute distress. Maya a bit stronger today compared to yesterday. Less short of breath. He is maintaining good O2 saturations in the mid 90s on 3 L/m per nasal cannula. He's been afebrile. Hemodynamically stable. His x-ray continues to reveal a right- sided pigtail catheter in place. No evidence of pneumothorax. Patchy basilar density seen again on the left as well. Basilar effusions. Atelectasis. Pleural fluid cultures positive for gram-positive cocci, gram-negative bacilli, alphahemolytic streptococcus. Chest wound cultures revealing no growth thus far. No new labs today. He is continued on ceftriaxone, Flagyl. 0.9 normal saline at 100 ML's per hour. He did receive his seventh dose of alteplase into the chest tube today. Objective - Vital Signs Vital signs: Vital Signs Temp 98.3 F 07/09/21 14:00 Pulse 77 07/09/21 14:00 Resp 16 07/09/21 14:00 BP 119/81 07/09/21 14:00 Pulse Ox 96 07/09/21 14:00 Intake & Output 07/08/21 07/09/21 07/09/21 18:59 06:59 18:59 Output Total 1750 951 2038 Balance -1420 -520 -1000 Output: Chest Tube Drainage 220 120 Chest Tube Right Right 220 120 Pleural/Mediastinal Urine 7561 092 8037 Other: Voiding Method Urinal Urinal Urinal # Voids 4 # Bowel Movements 1 - Exam GENERAL EXAM: Alert, 60-year-old male patient, on 3 L of oxygen, pulse ox of 96% comfortable in no apparent distress. HEAD: Normocephalic/atraumatic. EYES: Normal reaction of pupils, equal size. Conjunctiva pink, sclera white. NOSE: Clear with pink turbinates. THROAT: No erythema or exudates. NECK: No masses, no JVD, no thyroid enlargement, no adenopathy. CHEST: No chest wall deformity. Symmetrical expansion. Right-sided pigtail chest tube replaced 06/30/2021, to wall suction, with whitish yellowish colored pleural fluid output in the Pleur-evac. Patient had subcutaneous right posterior chest fluid collection, at the site of old right pigtail chest tube insertion site. The swelling has improved since I&D on 07/06/2021 LUNGS: Equal air entry with few scattered rhonchi, crackles in the right base CVS: Regular rate and rhythm, normal S1 and S2, no gallops, no murmurs, no rubs ABDOMEN: Soft, nontender. No hepatosplenomegaly, normal bowel sounds, no guarding or rigidity. EXTREMITIES: No clubbing, no edema, no cyanosis, 2+ pulses and upper and lower extremities. MUSCULOSKELETAL: Muscle strength and tone normal. SPINE: No scoliosis or deformity SKIN: No rashes CENTRAL NERVOUS SYSTEM: No focal deficits, tone is normal in all 4 extremities. PSYCHIATRIC: Alert and oriented -3. Appropriate affect. Intact judgment and insight. - Labs CBC & Chem 7: 07/07/21 09:18 07/07/21 09:18 Labs: Microbiology - Last 24 Hours (Table) 07/06/21 15:58 Anaerobic Culture - Preliminary Chest 07/06/21 02:25 Anaerobic Culture - Preliminary Chest 07/06/21 02:25 Gram Stain - Final Chest Wound Culture - Final 07/06/21 15:58 Gram Stain - Final Chest Wound Culture - Final 06/30/21 11:11 Fungal Culture - Preliminary Pleural Fluid Assessment and Plan Assessment: 1 Right lung empyema post percutaneous pigtail catheter insertion with subsequent dislodgment of the cath and subsequent replacement here on 06/30/2021. Patient has grown pseudomonas aeruginosa and the sputum on 06/28/2021. Anaerobic infection cannot be completely excluded within the pleural space. The patient clinically improved. The patient's follow-up CAT scan showed improvement in the size of the empyema. There is still right lower lobe consolidation/infiltration. Meanwhile, the patient developed a hematoma/fluid collection along the patient states insertion site status post I&D on 07/06/2021. Current coverage is with Rocephin and Flagyl. 2 COPD 3 Shortness of breath secondary to above 4 History of alcoholism 5 History of prostate cancer 6 History of smoking 7 Chronic anemia 8 Protein calorie malnutrition, moderate 9 Right posterior chest wall hematoma, or possible abscess, status post incision and drainage on 07/06/2021, wound cultures revealing no growth thus far 10 Hyponatremia, improved Plan: The patient was seen and evaluated by Dr. Rae Chest tube remains to wall suction Chest x-ray and cultures reviewed Titrate down the FiO2 as tolerated Currently on Rocephin and Flagyl Received #7 of alteplase today per CT services Plan is for possible subacute rehab post discharge We'll continue to follow I, the cosigning physician, performed a history & physical examination of the patient. Lungs sounds scattered rhonchi crackles in the right base. Maintaining good O2 saturations in the 90s on 3 L/m per nasal cannula. I discussed the assessment and plan of care with my nurse practitioner, Carolynn Schaffer. I attest to the above note as dictated by her.
--- NOTE | 2021-07-09 18:07 | PN ---
PROGRESS NOTE DATE OF SERVICE: 07/09/2021 REASON FOR FOLLOWUP: Right-sided empyema. INTERVAL HISTORY: The patient is afebrile. The patient is currently breathing comfortably. The patient's right-sided chest pain has decreased in intensity. No nausea, no vomiting. No abdominal pain, no diarrhea. PHYSICAL EXAMINATION: Blood pressure 119/81, pulse of 77, temperature 98.2. He is 96% on 3 L nasal cannula. General description is a middle-aged male lying in bed in no distress. Respiratory system: Unlabored breathing with decreased breath sounds at the base. No wheeze. Heart S1, S2. Regular rate and rhythm. Abdomen soft, no tenderness. LABS: Hemoglobin 11.8, white count 8.6, BUN of 7, creatinine 0.52. DIAGNOSTIC IMPRESSION AND PLAN: Patient with right-sided empyema status post chest tube placement, subsequently abscess and drainage of the abscess. Repeat culture pending. Patient is covered with Rocephin and Flagyl, to continue while monitoring his clinical course closely. Continue supportive care. MMODL / IJN: [id number] /
[2021-07-09] MEDS: LORazepam 1 MG TAB PO SCH (20:42)
[2021-07-10] MEDS: HYDROcodone/APAP 10-325MG 1 EACH TAB PO PRN ×3 (03:41→14:52)
[2021-07-10] MEDS: HYDROmorphone 1 MG/ML 1 ML SYRINGE IVP PRN ×6 (05:43→22:45)
[2021-07-10] MEDS: SYMBICORT 160-4.5 MCG INHALER INHALATION SCH ×2 (07:44→19:50)
[2021-07-10] MEDS: [UNRECOGNIZED DRUG - OTHER] PO SCH ×3 (08:07→22:45)
[2021-07-10] MEDS: CODEINE PO SCH ×3 (08:07→22:45)
[2021-07-10] MEDS: METOPROLOL SUCCINATE (ER) 100 MG TAB.ER.24H PO SCH (08:11)
[2021-07-10] MEDS: metroNIDAZOLE 500 MG TAB PO SCH ×3 (08:11→22:45)
[2021-07-10] MEDS: FOLIC ACID 1 MG TAB PO SCH (08:11)
[2021-07-10] MEDS: THIAMINE 100 MG TAB PO SCH (08:11)
[2021-07-10] MEDS: NICOTINE 14MG/24HR PATCH TRANSDERM SCH (08:11)
[2021-07-10] MEDS: PANTOPRAZOLE 40 MG TABLET PO SCH (08:13)
--- NOTE | 2021-07-10 08:25 | XR ---
EXAMINATION TYPE: XR chest 1V portable DATE OF EXAM: 07/10/2021 COMPARISON: Chest x-ray 07/09/2021 HISTORY: Effusion TECHNIQUE: Single frontal view of the chest is obtained. FINDINGS: Right-sided pleural drainage catheters are in place. There may be some local trapped lung, basilar density persists. No evident pneumothorax. Cardiac mediastinal silhouette is stable. IMPRESSION: Findings consistent with patient's history of empyema, drain catheter as described. Issac elate for pneumonia, possible basilar effusions versus atelectasis.
--- NOTE | 2021-07-10 08:51 | P.PN ---
Subjective Progress Note Date: 07/10/21 Principal diagnosis: Loculated right empyema. Previous medical history of COPD with home oxygen use 3 L nasal cannula, right pleural effusion with previous right thoracentesis at [facility], anemia, hypertension, prostate cancers status post 48 radiation treatments, recent fall from standing, medical debility, remote history of paroxysmal atrial fibrillation, chronic nicotine dependence and previous EtOH abuse Status post day #10 placement of right chest pigtail catheter performed by interventional radiology POD #4 I&D abscess right chest wall The patient was seen and examined this morning at the bedside. He is sitting up in bed in no acute distress. Still complains of pain anytime anyone is in the room. Right pigtail catheter remains to continuous wall suction, alteplase/dornase instilled for a 7th dose yesterday, 350 mL pink tinged thick drainage in the last 24 hours. Dressing changed daily to right posterior chest wall fluid pocket, minimal serous drainage present, cultures drawn during I&D are finalized as no growth. Currently with oxygen saturation 99%, able to achieve 2000 mL on incentive spirometry. Remains on IV ceftriaxone and flagyl per infectious disease. Objective - Vital Signs Vital signs: Vital Signs Temp 98.4 F 07/10/21 06:14 Pulse 89 07/10/21 06:14 Resp 16 07/09/21 20:00 BP 145/98 07/10/21 06:14 Pulse Ox 99 07/10/21 06:14 Intake & Output 07/09/21 07/10/21 07/10/21 18:59 06:59 18:59 Intake Total 1250 Output Total 1150 3875 600 Balance 100 -3875 -600 Intake: Intake, IV Titration 1250 Amount Sodium Chloride 0.9% 1, 1200 000 ml @ 100 mls/hr IV . Q10H [facility] Rx#:[id number] cefTRIAXone 2 gm In 50 Sodium Chloride 0.9% 50 ml @ 100 mls/hr IVPB Q24H [facility]ADA Rx#:[id number] Output: Chest Tube Drainage 240 Chest Tube Right Right 240 Pleural/Mediastinal Urine 1150 3635 600 Other: Voiding Method Urinal Urinal # Bowel Movements 0 - Exam CONSTITUTIONAL: Appears comfortable, cooperative, no acute distress RESPIRATORY: Lungs sounds diminished bilaterally. Respirations even, nonlabored. Currently on room air with oxygen saturation 99%. Able to achieve 2000 mL on incentive spirometry. Strong cough. CARDIOVASCULAR: S1, S2 present. Regular rate and rhythm. Palpable peripheral pulses bilaterally. No edema present. No calf pain or tenderness noted. SCDs present. GASTROINTESTINAL: Abdomen soft, nontender, nondistended. Active bowel sounds present 4 quadrants. Tolerating diet. Positive bowel movement GENITOURINARY: Continues to void INTEGUMENTARY: Skin is warm and dry with evidence of good perfusion. Swelling to right posterior chest wall decreasing NEUROLOGIC: Cranial nerves II through XII intact MUSKULOSKELETAL: Able to move all extremities, strength equal bilaterally, gait normal PSYCHIATRIC: Alert and oriented to person place and time, appropriate affect, intact judgment and insight INVASIVE LINES AND TUBES: Right pigtail catheter present and connected to wall suction, no air leaks present, 350 mL in the last 24 hours - Allied health notes Allied health notes reviewed: nursing - Labs CBC & Chem 7: 07/07/21 09:18 07/07/21 09:18 - Imaging and Cardiology Chest x-ray: report reviewed, image reviewed Assessment and Plan Assessment: 1. Right lung empyema status post right-sided percutaneous pigtail catheter insertion by interventional radiology. Sputum culture from 06/26/2021 growing pseudomonas aeruginosa, pleural fluid growing alphahemolytic streptococcus and anaerobic culture growing gram-positive cocci and gram-negative bacilli. Chest wall I&D cultures with no growth 2. Shortness of breath, pain secondary to above 3. Chronic obstructive pulmonary disease 4. History of prostate cancer status post 48 treatments of radiation 5. Hypertension 6. Medical debility 7. Chronic anemia 8. History of EtOH abuse 9. History of nicotine dependence 10. History of recent weight loss, protein calorie malnutrition 11. Right posterior chest wall hematoma, status post I&D Plan: 1. Keep right chest pigtail catheter in place and connected to low continuous wall suction -20 cm H2O. Will instill 8th dose alteplase/dornase as patient continues to drain well from instillation 2. Dressing on right posterior chest wall incision site to be changed daily by cardiothoracic surgery 3. Continue to monitor daily chest x-rays. Will obtain CT of chest tomorrow to eval empyema 4. Encourage use of incentive spirometry 10 times every hour while awake. 5. Continue antibiotics management by infectious disease. 6. Bronchodilator management per pulmonary/critical care medicine. 7. Continue GI and DVT prophylaxis. 8. Pain management per primary care service 9. Increase activity as tolerated. Out of bed for all meals. The patient needs much encouragement to ambulate. 10. More recommendations to follow Time with Patient: Greater than 30
--- NOTE | 2021-07-10 09:04 | P.PN ---
Subjective This is a 60-year-old male who was recently hospitalized at [facility] for pneumonia and empyema and had a chest tube placed on the right for continued drainage and ultimately sent here to [facility] for further evaluation by cardiothoracic surgery for complicated empyema that appears to be loculated. Infectious disease following over there and patient was maintained on cefepime and Vancomycin and will reorder here and consult infectious disease. Consult also placed to pulmonary along with cardiothoracic surgery. Upon arrival to the unit on 4 S. per nursing staff patient's chest tube atrium was lying flat on the patient on arrival and when hooking up to wall suction bubbling was noted in the atrium and was replaced. Bubbling persisted and chest x-ray was done which shows large right pleural effusion and right pulmonary consolidation without change the right side chest tube appears to be in the subcutaneous fat and malposition over the lower lateral right chest wall. No sign of pneumothorax. Cardiothoracic surgery contacted and will be replaced upon their evaluation. Patient does have a past medical history of COPD, hypertension, former smoker recently quit, EtOH use and reports to quitting a month or so ago, anemia, and most recently per family patient has been falling more often with unsteady gait. Patient states he follows with Dr. Rafita Lewis out of [place]. Daughter states patient lives by himself and is concerned and would like possible placement. 06/30/2021 patient is seen and evaluated in follow-up this morning with cardiothoracic surgery along with pulmonary following closely and evaluated the patient. Pigtail catheter on the right was dislodged and removed at the bedside by pulmonary and interventional radiology consulted to replace catheter on the right with possible drainage or evacuation of the loculated area with cultures being sent. patient is continued on 4 L of oxygen via nasal cannula and reports no worsening shortness of breath. Patient had some pain with inspiration and during the removal of the catheter and will order pain medications. 07/01/2021 She is seen and evaluated this morning and chest tube catheter was replaced and draining continuous amounts approval and drainage approximately 1.6 L since last night. Cardio thoracic along with pulmonary following closely along with infectious disease and patient is maintained on IV Zosyn along with vancomycin. Patient states he is having some chest wall discomfort with cough but no worsening. patient is continued on 4 L via nasal cannula. Patient is afebrile. repeat fluid analysis culture is pending. 07/02/2021 Patient is awake and alert, breathing comfortably at rest. Staying in chair or bed most of the time. Pain is controlled. Vital signs stable, he is saturating 98% on 4 L oxygen. Slightly dropped to 133 down to 129. We'll keep monitoring. Patient has pigtail tube on his right chest posteriorly with surrounding area of fluctuating swelling, possible hematoma therefore alteplase is not going to be given today. Per pulmonary team recommendation. Remains on cefepime and IV vancomycin pending final culture results with infectious disease team on the case CT of the chest showing right basilar pleural catheter with a small collection noted. Infected collection is not excluded. Basilar infiltrate may reflect pneumonia or aspiration. Hpneumothorax on the right 07/03/2021 Patient breathing is not worsening. He still has right-sided pigtail tube with surrounding swelling most likely hematoma which looks his stable. No more alteplase yesterday. Hemodynamically stable and he is saturating 98% on 4 L. Fluid culture, and positive for alpha hemolytic streptococcus and chest x-ray showing patchy infiltrate in the right medial base, stable. His were adjusted today to IV vancomycin and ceftriaxone instead of cefepime. 07/04/2021 Patient is seen and evaluated in follow up this morning and continues on 4L via NC. Patient with continued right chest wall pigtail catheter with approx 150cc of output over the last [address] surgery and pulmonary following closely. Ab dominal binder in place and alteplace on hold as concerned for possible hematoma at the catheter site. Anticoagulant on hold as well and chest xray today shows right lower lobe infiltrate with small effusion and overall stable. Patient also being followed closely by ID and maintained on IV ceftriaxone while waiting for cultures to finalize. Patient continues to be weak and will have PT/OT evaluate the patient and consult social work for possible placement. REpeat chest xray and labs in the am. Encouraged incentive spirometer at least 10 times every hour while awake. Encouraged increased activity as tolerated. Abdominal binder noted on exam for compression of the right chest tube sight. 07/05/2021 Patient is seen in follow-up this morning being followed by pulmonary and CT surgery. Patient underwent soft tissue ultrasound as patient has continued fluid collection at the chest tube site and ultrasound shows moderate subcutaneous edema in the soft tissue just below the dermal surface with 2 oval- shaped non-simple fluid collections just below this and within the deep subcutaneous tissue possibility is of hematoma versus developing abscess. Gen. surgery consulted recommending continuing with IV antibiotic therapy and conservative management with no surgical intervention at this time. Infectious disease is following and patient is maintained on IV antibiotics in the form of ceftriaxone. Patient sodium is low at 131 and will add IV fluids and repeat labs. Patient continues to be weak and needs encouragement to increase activity as tolerated. Also encouraged incentive spirometer. 07/06/2021 Patient is seen and evaluated in follow-up this morning and appears agitated. Patient states he is tired and also tired of multiple people coming in and out of his room. Patient has cardiothoracic surgery along with pulmonary following closely. Infectious disease following as well and patient is maintained on IV ceftriaxone along with Flagyl and will continue. Chest x-ray today shows a right lower lobe infiltrate and bilateral small pleural effusions larger on the right. Cardiothoracic surgery plans to take the patient to the OR for incision and drainage of the right posterior chest wall hematoma versus abscess this afternoon. Will await surgical report. Patient is on gentle IV hydration of normal saline and will continue his sodium is improved at 133. Patient is currently nothing by mouth for the procedure this afternoon. 07/07/2021 Patient is seen and evaluated in follow-up this morning status post incision and drainage of the fluid collection within the subcutaneous tissue underneath the chest tube along with drainage of the abscess and deep cultures were obtained. Patient is being followed closely by cardiothoracic surgery along with pulmonary and infectious disease. Patient continues on IV ceftriaxone and Flagyl until cultures are finalized. Patient is having some right chest wall tenderness and pain although states no worsening and continues on 3 L of oxygen via nasal cannula. Chest x-ray today shows a patchy right lower lobe infiltrate and right-sided pleural effusion thickening and/or effusion persists and are unchanged. 07/08/2021 Patient is seen this morning and follow-up sleeping but arousable continues to have pain of the right side and had been receiving IV pain medications and will add oral [place]. Encouraged activity as patient continues to need encouragement to get out of bed. CT surgery and pulmonary following along with infectious disease and patient is maintained on IV ceftriaxone along with oral Flagyl and will continue while awaiting for cultures to finalize. Patient did have repeat cultures during I&D on the . Patient has been working with physical therapy and will evaluate closer to discharge to consider possible home care versus subacute rehab. 07/10/2021 Patient is still has significant drainage from the chest to medically after alteplase infusion Review of systems: Constitutional: No reports of fatigue, fever, or chills Cardiovascular: No reports of chest pain or palpitations, reports continued right chest wall pain with inspiration and movement, requesting increase in pain medications Respiratory: No reports of worsening shortness of breath or cough GI: No reports of nausea, vomiting, or diarrhea : No reports of dysuria or retention Neurovascular: reports generalized weakness All medications have been reviewed Physical exam: Gen: This is a 60-year-old male asleep but arousable, alert and oriented 3, thin built, appears older than stated age HEENT: Head is atraumatic, normocephalic. Pupils equal, round. Sclerae is anicteric. NECK: Supple. No JVD. No lymphadenopathy. No thyromegaly. LUNGS: Diminished breath sounds bilaterally and on the right more so than the left with some scattered rhonchi noted. No intercostal retractions. Right chest wall pigtail catheter and drain status post incision and drainage of the fluid collection and abscess located underneath the chest tube HEART: Regular rate and rhythm. No murmur. ABDOMEN: Soft. Thin built. Bowel sounds are present. No masses. No tenderness. EXTREMITIES: No pedal edema. No calf tenderness. NEUROLOGICAL: Patient is awake, alert and oriented x3. No focal deficits noted. Diffusely weak pneumonia and empyema secondary to alpha hemolytic streptococci and possible anaerobic bacteria, patient is on Rocephin and metronidazole which will be continued Right chest wall abscess and fluid collection at the site of the chest tube status post incision and drainage with cardiothoracic surgery Bacterial pneumonia with the streptococci positive cultures with Pseudomonas is a colonization Empyema with right side percutaneous pigtail catheter placement at [facility] and subsequent dislodgment of the catheter, chest tube catheter replaced Chronic obstructive pulmonary disease, acute exacerbation Chronic hypoxic respiratory failure on 3 L via nasal cannula in the outpatient setting Hypertension History of anemia, macrocytic generalized weakness GI prophylaxis DVT prophylaxis: anticoagulant on hold for possible hematoma development of the right side chest wall site of pigtail catheter Full code Objective - Vital Signs Vital signs: Vital Signs Temp 98.4 F 07/10/21 06:14 Pulse 89 07/10/21 08:13 Resp 16 07/10/21 08:13 BP 145/98 10/31/21 06:14 Pulse Ox 99 07/10/21 06:14 Intake & Output 07/09/21 07/10/21 07/10/21 18:59 06:59 18:59 Intake Total 1250 Output Total 1150 3875 600 Balance 100 -3875 -600 Intake: Intake, IV Titration 1250 Amount Sodium Chloride 0.9% 1, 1200 000 ml @ 100 mls/hr IV . Q10H [facility] Rx#:[id number] cefTRIAXone 2 gm In 50 Sodium Chloride 0.9% 50 ml @ 100 mls/hr IVPB Q24H [facility] Rx#:[id number] Output: Chest Tube Drainage 240 Chest Tube Right Right 240 Pleural/Mediastinal Urine 1150 3635 600 Other: Voiding Method Urinal Urinal Urinal # Bowel Movements 0 - Labs CBC & Chem 7: 07/07/21 09:18 07/07/21 09:18
[2021-07-10] MEDS ORDERED: ALTEPLASE 10 MG in SODIUM CHLORIDE 0.9% 50 ML IRRIGATION ONE (09:47)
[2021-07-10] MEDS ORDERED: DORNASE ALFA 5 MG in SODIUM CHLORIDE 0.9% 50 ML IRRIGATION ONE (09:47)
--- NOTE | 2021-07-10 16:01 | P.PN ---
Subjective Progress Note Date: 07/10/21 Principal diagnosis: Loculated right-sided empyema The patient is seen today 07/08/2021 in follow-up on the regular medical floor. He is currently sitting up in bed. Awake and alert in no acute distress. Maintaining O2 saturations in the 90s on 3 L/m per nasal cannula. He's been afebrile. Hemodynamically stable. Right-sided pigtail chest tube catheter remains in place to wall suction with a small amount of cloudy pleural fluid returning. He was to receive alteplase today per CT services. Dressing is dry and intact and change daily per CT services. Chest x-ray reveals suspected loculated right pneumothorax, stable. Small bilateral effusions. Mild infiltrate of the right lung base. Catheter remains in place. Chest wound cultures pending. Pleural fluid cultures revealed upper hemolytic streptococcus, anaerobic gram-positive cocci, anaerobic gram-negative bacilli. He remains on ceftriaxone and Flagyl. Continue on Symbicort and albuterol. The patient is seen today 07/09/2021 in follow-up on the regular medical floor. He is currently sitting up in bed. Awake and alert in no acute distress. Maya a bit stronger today compared to yesterday. Less short of breath. He is maintaining good O2 saturations in the mid 90s on 3 L/m per nasal cannula. He's been afebrile. Hemodynamically stable. His x-ray continues to reveal a right- sided pigtail catheter in place. No evidence of pneumothorax. Patchy basilar density seen again on the left as well. Basilar effusions. Atelectasis. Pleural fluid cultures positive for gram-positive cocci, gram-negative bacilli, alphahemolytic streptococcus. Chest wound cultures revealing no growth thus far. No new labs today. He is continued on ceftriaxone, Flagyl. 0.9 normal saline at 100 ML's per hour. He did receive his seventh dose of alteplase into the chest tube today. The patient is seen today 07/10/2021 in follow-up on the regular medical medical floor. Currently sitting up in bed. Awake and alert in no acute distress. X- ray continues to show right-sided catheter in place with some local trapped lung, basilar densities persist. He received an 8th dose of alteplase today. Pigtail catheter connected to low continuous wall suction. Remains on ceftriaxone and Flagyl. Objective - Vital Signs Vital signs: Vital Signs Temp 98.2 F 07/10/21 14:00 Pulse 81 07/10/21 14:00 Resp 18 07/10/21 14:00 BP 129/92 07/10/21 14:00 Pulse Ox 100 07/10/21 14:00 Intake & Output 07/09/21 07/10/21 07/10/21 18:59 06:59 18:59 Intake Total 1250 Output Total 1150 3875 1000 Balance 100 -3875 -1000 Intake: Intake, IV Titration 1250 Amount Sodium Chloride 0.9% 1, 1200 000 ml @ 100 mls/hr IV . Q10H [facility] Rx#:[id number] cefTRIAXone 2 gm In 50 Sodium Chloride 0.9% 50 ml @ 100 mls/hr IVPB Q24H [facility] Rx#:[id number] Output: Chest Tube Drainage 240 Chest Tube Right Right 240 Pleural/Mediastinal Urine 1150 3635 1000 Other: Voiding Method Urinal Urinal Urinal # Bowel Movements 0 - Exam GENERAL EXAM: Alert, 60-year-old male patient, on room air, comfortable in no apparent distress. HEAD: Normocephalic/atraumatic. EYES: Normal reaction of pupils, equal size. Conjunctiva pink, sclera white. NOSE: Clear with pink turbinates. THROAT: No erythema or exudates. NECK: No masses, no JVD, no thyroid enlargement, no adenopathy. CHEST: No chest wall deformity. Symmetrical expansion. Right-sided pigtail chest tube replaced 06/30/2021, to wall suction, with whitish yellowish colored pleural fluid output in the Pleur-evac. Patient had subcutaneous right po sterior chest fluid collection, at the site of old right pigtail chest tube insertion site. The swelling has improved since I&D on 07/06/2021 LUNGS: Equal air entry with few scattered rhonchi, crackles in the right base CVS: Regular rate and rhythm, normal S1 and S2, no gallops, no murmurs, no rubs ABDOMEN: Soft, nontender. No hepatosplenomegaly, normal bowel sounds, no guarding or rigidity. EXTREMITIES: No clubbing, no edema, no cyanosis, 2+ pulses and upper and lower extremities. MUSCULOSKELETAL: Muscle strength and tone normal. SPINE: No scoliosis or deformity SKIN: No rashes CENTRAL NERVOUS SYSTEM: No focal deficits, tone is normal in all 4 extremities. PSYCHIATRIC: Alert and oriented -3. Appropriate affect. Intact judgment and insight. - Labs CBC & Chem 7: 07/07/21 09:18 07/07/21 09:18 Assessment and Plan Assessment: 1 Right lung empyema post percutaneous pigtail catheter insertion with subse quent dislodgment of the cath and subsequent replacement here on 06/30/2021. Patient has grown pseudomonas aeruginosa and the sputum on 06/28/2021. Anaerobic infection cannot be completely excluded within the pleural space. The patient clinically improved. The patient's follow-up CAT scan showed improvement in the size of the empyema. There is still right lower lobe consolidation/infiltration. Meanwhile, the patient developed a hematoma/fluid collection along the patient states insertion site status post I&D on 07/06/2021. Current coverage is with Rocephin and Flagyl. 2 COPD 3 Shortness of breath secondary to above 4 History of alcoholism 5 History of prostate cancer 6 History of smoking 7 Chronic anemia 8 Protein calorie malnutrition, moderate 9 Right posterior chest wall hematoma, or possible abscess, status post incision and drainage on 07/06/2021, wound cultures revealing no growth thus far 10 Hyponatremia, improved Plan: The patient was seen and evaluated by Dr. Rae Chest tube remains to wall suction Chest x-ray and cultures reviewed Stable and on room air Currently on Rocephin and Flagyl Received #8 of alteplase today per CT services We'll continue to follow I, the cosigning physician, performed a history & physical examination of the p atient. Lungs sounds scattered rhonchi crackles in the right base. Maintaining good O2 saturations in the 90s on room air. I discussed the assessment and plan of care with my nurse practitioner, Carolynn Schaffer. I attest to the above note as dictated by her.
[2021-07-10] MEDS: SODIUM CHLORIDE 0.9% 1,000 ML IV SCH ×2 (18:05→19:49)
[2021-07-10] MEDS: LORazepam 1 MG TAB PO SCH (19:47)
--- NOTE | 2021-07-11 00:55 | PN ---
PROGRESS NOTE DATE OF SERVICE: 07/10/2021 REASON FOR FOLLOWUP: Empyema. INTERVAL HISTORY: The patient is afebrile. The patient is breathing comfortably. The patient's chest pain on the right side has slightly decreased in intensity. No nausea, no vomiting. No abdominal pain. No diarrhea. PHYSICAL EXAMINATION: Blood pressure 116/70 with a pulse of 84, temperature 98.4. He is 97% on 3 L nasal cannula. General description is a middle-aged male lying in bed in no distress. RESPIRATORY SYSTEM: Unlabored breathing. Decreased breath sounds at the bases. No wheeze. HEART: S1, S2. Regular rate and rhythm. ABDOMEN: Soft. No tenderness. LABS: Hemoglobin is 11.9, white count 8.6, creatinine 0.52. DIAGNOSTIC IMPRESSION AND PLAN: Patient with right-sided empyema, status post chest tube placement and subsequent drainage of an abscess and a chest tube. Patient's repeat cultures have been negative so far. Initial culture with strep and covered with Rocephin 2 grams daily and Flagyl. Plan is for at least 2 more weeks of antibiotic and close outpatient followup. MMODL / IJN: [id number] /
[2021-07-11] MEDS: HYDROcodone/APAP 10-325MG 1 EACH TAB PO PRN ×3 (02:49→17:45)
[2021-07-11] MEDS: HYDROmorphone 1 MG/ML 1 ML SYRINGE IVP PRN ×4 (05:56→20:04)
--- NOTE | 2021-07-11 07:14 | XR ---
EXAMINATION TYPE: XR chest 1V portable DATE OF EXAM: 07/11/2021 COMPARISON: Chest x-ray 07/10/2021 HISTORY: Empyema TECHNIQUE: Single frontal view of the chest is obtained. FINDINGS: Posterior pleural drainage catheter remains in place, small area of trapped lung may be pr esent at the right lung base. Bibasilar increased attenuation persists. There is no evident pneumotho rax. Cardiac mediastinal silhouette is stable. IMPRESSION: Findings are similar to prior exam.
[2021-07-11] MEDS: [UNRECOGNIZED DRUG - OTHER] PO SCH ×3 (07:37→19:45)
[2021-07-11] MEDS: CODEINE PO SCH ×3 (07:37→19:45)
[2021-07-11] MEDS: metroNIDAZOLE 500 MG TAB PO SCH ×3 (08:13→20:04)
[2021-07-11] MEDS: THIAMINE 100 MG TAB PO SCH (08:13)
[2021-07-11] MEDS: FOLIC ACID 1 MG TAB PO SCH (08:13)
[2021-07-11] MEDS: PANTOPRAZOLE 40 MG TABLET PO SCH (08:13)
[2021-07-11] MEDS: METOPROLOL SUCCINATE (ER) 100 MG TAB.ER.24H PO SCH (08:14)
[2021-07-11] MEDS: NICOTINE 14MG/24HR PATCH TRANSDERM SCH (08:14)
[2021-07-11] MEDS: SYMBICORT 160-4.5 MCG INHALER INHALATION SCH ×2 (09:06→21:02)
--- NOTE | 2021-07-11 11:05 | CT ---
EXAMINATION TYPE: CT chest wo con DATE OF EXAM: 07/11/2021 COMPARISON: 07/02/2021 HISTORY: 60-year-old male Evaluate empyema TECHNIQUE: Contiguous axial scanning of the chest without IV contrast. Coronal and sagittal reconstru ctions performed. CT DLP: 417 mGycm Automated exposure control for dose reduction was used. FINDINGS: This appears to be some type of soft tissue wound just anterior to the patient's pleural catheter ins ertion site at the right base. The catheter appears looped within the lateral margin of the small bas ilar air and fluid collection, overall gland size but with the air being new. Pleural based thickenin g similar to slightly increased. Small right-sided pneumothorax slightly increased measuring 9 mm thick versus 4 mm, previously. Trace left pleural effusion with basilar left lower lobe consolidation is similar. Right perihilar an d right lower lobe consolidation is similar. Heart normal size. Continued trace pericardial effusion. Mild LAD and RCA coronary artery calcificati ons. Mild aneurysm aortic root at 4.2 cm and descending aorta at 4.3 cm. Bovine configuration to the aorti c arch. Scattered prominent mediastinal lymph nodes are unchanged measuring up the 9 mm. Subcarinal lymph nod e 1.3 cm. Large caliber to the main right and left pulmonary arteries measuring up to 3.2 cm suggesting underly ing pulmonary hypertension. There is moderate centrilobular emphysema. Bones: DISH throughout the thoracic spine. Superior endplate Schmorl's node L1 is unchanged. IMPRESSION: 1. RIGHT BASILAR PLEURAL CATHETER LOCATED WITHIN THE LATERAL MARGIN OF THE RIGHT BASILAR EMPYEMA. THE SMALL PLEURAL FLUID COLLECTION/EMPYEMA IS OVERALL SIMILAR IN SIZE BUT THE ASSOCIATED SMALL PNEUMOTHO RAX COMPONENT IS SLIGHTLY LARGER (9 MM VERSUS 4 MM, PREVIOUSLY). AN AIR-FLUID LEVEL IS ALSO PRESENT W ITHIN THE EMPYEMA NOW. 2. THERE APPEARS TO BE SOME TYPE OF SOFT TISSUE WOUND JUST ANTERIOR TO THE RIGHT BASILAR CATHETER ENT RY SITE. CLINICALLY CORRELATE. 3. TRACE LEFT PLEURAL EFFUSION PERSISTS. PROMINENT RIGHT PERIHILAR AND BILATERAL LOWER LOBE CONSOLIDA TION PERSISTS WITHOUT SIGNIFICANT CHANGE 4. COPD WITH MODERATE EMPHYSEMA. PULMONARY ARTERIAL HYPERTENSION.
--- NOTE | 2021-07-11 12:42 | P.PN ---
Subjective Progress Note Date: 07/11/21 Principal diagnosis: Loculated right empyema. Previous medical history of COPD with home oxygen use 3 L nasal cannula, right pleural effusion with previous right thoracentesis at [facility], anemia, hypertension, prostate cancers status post 48 radiation treatments, recent fall from standing, medical debility, remote history of paroxysmal atrial fibrillation, chronic nicotine dependence and previous EtOH abuse Status post day #11 placement of right chest pigtail catheter performed by interventional radiology POD #5 I&D abscess right chest wall The patient was seen and examined this morning at the bedside. He is sitting up in bed in no acute distress. Still complains of pain anytime anyone is in the room. Right pigtail catheter remains to continuous wall suction, alteplase/dornase instilled for an 8th dose yesterday, 320 mL pink tinged thick drainage in the last 24 hours. Dressing changed daily to right posterior chest wall fluid pocket, minimal serous drainage present, cultures drawn during I&D are finalized as no growth. Currently on 3 LPM NC with oxygen saturation 98%, able to achieve 2000 mL on incentive spirometry. Remains on IV ceftriaxone and flagyl per infectious disease. Objective - Vital Signs Vital signs: Vital Signs Temp 99 F 07/11/21 07:00 Pulse 90 07/11/21 07:00 Resp 16 07/11/21 07:00 BP 114/85 07/11/21 07:00 Pulse Ox 98 07/11/21 07:00 Intake & Output 07/10/21 07/11/21 07/11/21 18:59 06:59 18:59 Intake Total 236 Output Total 2675 170 Balance -2675 -170 236 Intake: Oral 236 Output: Chest Tube Drainage 50 170 Chest Tube Right Right 50 170 Pleural/Mediastinal Urine 2625 Other: Voiding Method Urinal # Voids 5 - Exam CONSTITUTIONAL: Appears comfortable, cooperative, no acute distress RESPIRATORY: Lungs sounds diminished bilaterally. Respirations even, nonlabored. Currently on 3 L nasal cannula with oxygen saturation 98%. Able to achieve 2000 mL on incentive spirometry. Strong cough. CARDIOVASCULAR: S1, S2 present. Regular rate and rhythm. Palpable peripheral pulses bilaterally. No edema present. No calf pain or tenderness noted. SCDs present. GASTROINTESTINAL: Abdomen soft, nontender, nondistended. Active bowel sounds present 4 quadrants. Tolerating diet. Positive bowel movement GENITOURINARY: Continues to void INTEGUMENTARY: Skin is warm and dry with evidence of good perfusion. Swelling to right posterior chest wall decreasing NEUROLOGIC: Cranial nerves II through XII intact MUSKULOSKELETAL: Able to move all extremities, strength equal bilaterally, gait normal PSYCHIATRIC: Alert and oriented to person place and time, appropriate affect, intact judgment and insight INVASIVE LINES AND TUBES: Right pigtail catheter present and connected to wall suction, no air leaks present, 320 mL in the last 24 hours - Allied health notes Allied health notes reviewed: nursing - Labs CBC & Chem 7: 07/07/21 09:18 07/07/21 09:18 Labs: Microbiology - Last 24 Hours (Table) 07/06/21 15:58 Anaerobic Culture - Final Chest 07/06/21 02:25 Anaerobic Culture - Final Chest - Imaging and Cardiology Chest x-ray: report reviewed, image reviewed Assessment and Plan Assessment: 1. Right lung empyema status post right-sided percutaneous pigtail catheter insertion by interventional radiology. Sputum culture from 06/26/2021 growing pseudomonas aeruginosa, pleural fluid growing alphahemolytic streptococcus and anaerobic culture growing gram-positive cocci and gram-negative bacilli. Chest wall I&D cultures with no growth 2. Shortness of breath, pain secondary to above 3. Chronic obstructive pulmonary disease 4. History of prostate cancer status post 48 treatments of radiation 5. Hypertension 6. Medical debility 7. Chronic anemia 8. History of EtOH abuse 9. History of nicotine dependence 10. History of recent weight loss, protein calorie malnutrition 11. Right posterior chest wall hematoma, status post I&D Plan: 1. Keep right chest pigtail catheter in place and connected to low continuous wall suction -20 cm H2O. Will instill 9th dose alteplase/dornase as patient continues to drain well from instillation 2. Dressing on right posterior chest wall incision site to be changed daily by cardiothoracic surgery 3. Continue to monitor daily chest x-rays. Will obtain CT of chest tomorrow to eval empyema 4. Encourage use of incentive spirometry 10 times every hour while awake. 5. Continue antibiotics management by infectious disease. 6. Bronchodilator management per pulmonary/critical care medicine. 7. Continue GI and DVT prophylaxis. 8. Pain management per primary care service 9. Increase activity as tolerated. Out of bed for all meals. The patient needs much encouragement to ambulate. 10. More recommendations to follow Time with Patient: Greater than 30
[2021-07-11] MEDS ORDERED: ALTEPLASE 10 MG in SODIUM CHLORIDE 0.9% 50 ML IRRIGATION ONE (12:45)
[2021-07-11] MEDS ORDERED: DORNASE ALFA 5 MG in SODIUM CHLORIDE 0.9% 50 ML IRRIGATION ONE (12:45)
--- NOTE | 2021-07-11 15:56 | P.PN ---
Subjective Progress Note Date: 07/11/21 Principal diagnosis: Empyema, right chest. Loculated right-sided empyema The patient is seen today 07/08/2021 in follow-up on the regular medical floor. He is currently sitting up in bed. Awake and alert in no acute distress. Maintaining O2 saturations in the 90s on 3 L/m per nasal cannula. He's been afebrile. Hemodynamically stable. Right-sided pigtail chest tube catheter remains in place to wall suction with a small amount of cloudy pleural fluid returning. He was to receive alteplase today per CT services. Dressing is dry and intact and change daily per CT services. Chest x-ray reveals suspected loculated right pneumothorax, stable. Small bilateral effusions. Mild infiltrate of the right lung base. Catheter remains in place. Chest wound cultures pending. Pleural fluid cultures revealed upper hemolytic streptococcus, anaerobic gram-positive cocci, anaerobic gram-negative bacilli. He remains on ceftriaxone and Flagyl. Continue on Symbicort and albuterol. The patient is seen today 07/09/2021 in follow-up on the regular medical floor. He is currently sitting up in bed. Awake and alert in no acute distress. Maya a bit stronger today compared to yesterday. Less short of breath. He is maintaining good O2 saturations in the mid 90s on 3 L/m per nasal cannula. He's been afebrile. Hemodynamically stable. His x-ray continues to reveal a right- sided pigtail catheter in place. No evidence of pneumothorax. Patchy basilar density seen again on the left as well. Basilar effusions. Atelectasis. Pleural fluid cultures positive for gram-positive cocci, gram-negative bacilli, alphahemolytic streptococcus. Chest wound cultures revealing no growth thus far. No new labs today. He is continued on ceftriaxone, Flagyl. 0.9 normal saline at 100 ML's per hour. He did receive his seventh dose of alteplase into the chest tube today. The patient is seen today 07/10/2021 in follow-up on the regular medical medical floor. Currently sitting up in bed. Awake and alert in no acute distress. X- ray continues to show right-sided catheter in place with some local trapped lung, basilar densities persist. He received an 8th dose of alteplase today. Pigtail catheter connected to low continuous wall suction. Remains on ceftriaxone and Flagyl. Progress note dated 07/11/2021. The patient is again seen today in room 473. Patient is going to receive another round of TPA, and output are, to his right-sided chest catheter. He still having quite a bit of drainage from the right side, in excess of 300 mL every 24 hours. No new labs on this patient today. Chest x-ray and CT of the chest are reviewed. We did speak to cardiothoracic surgery on this patient. The patient remains on Rocephin and Flagyl. Objective - Vital Signs Vital signs: Vital Signs Temp 98.6 F 07/11/21 13:50 Pulse 91 07/11/21 13:50 Resp 16 07/11/21 13:50 BP 124/86 07/11/21 13:50 Pulse Ox 98 07/11/21 13:50 Intake & Output 07/10/21 07/11/21 07/11/21 18:59 06:59 18:59 Intake Total 458 Output Total 2675 170 430 Balance -2675 -170 28 Intake: Oral 458 Output: Chest Tube Drainage 50 170 30 Chest Tube Right Right 50 170 30 Pleural/Mediastinal Urine 2625 400 Other: Voiding Method Urinal # Voids 5 - Exam No acute distress, oriented 3. HEENT examination is grossly unremarkable. Neck supple. Full range of motion. No adenopathy thyromegaly or neck vein distention. Cardiovascular examination reveals regular rhythm rate. S1-S2 normal. No S3 or S4. No discernible murmur noted. Heart rate 91 bpm. Lungs reveal diminished breath sounds on the right side. Left lung sounds are normal. No wheezes. Scattered rhonchi are noted saturations are 98% on 3 L. Abdomen soft bowel sounds are heard. No masses or tenderness. Extremities are intact. No cyanosis clubbing or edema. Skin is without rash or lesion. Neurologic examination is brief but nonfocal. - Labs CBC & Chem 7: 07/07/21 09:18 07/07/21 09:18 Labs: Microbiology - Last 24 Hours (Table) 06/30/21 11:11 Acid Fast Bacilli Smear - Final Pleural Fluid Acid Fast Bacilli Culture - Preliminary 07/06/21 15:58 Anaerobic Culture - Final Chest 07/06/21 02:25 Anaerobic Culture - Final Chest Assessment and Plan Assessment: Empyema, right lung, status post pigtail catheter insertion, with subsequent placement of TPA, and alpha dornase. History of COPD. History of chronic alcohol abuse. History of prostate cancer. History of tobacco use. History of chronic anemia. Protein/calorie malnutrition. Right posterior chest wall hematoma. Hyponatremic, improved. Plan: Plan dated 07/11/2021. Because of the ongoing drainage, of greater than 300 mL per 24 hours, we did recommend additional installation of TPA/dornase alpha. The patient's CAT scan was reviewed. There appears to be a loculated right-sided pneumothorax, and an air-fluid level on the right side. The patient remains on Rocephin and Flagyl. Additional recommendations and suggestions are forthcoming. Prognosis is guarded. We will continue to follow and make recommendations where appropriate. Time with Patient: Less than 30
[2021-07-11] MEDS: SODIUM CHLORIDE 0.9% 1,000 ML IV SCH ×3 (19:36→20:05)
[2021-07-11] MEDS: LORazepam 1 MG TAB PO SCH (20:04)
--- NOTE | 2021-07-11 22:06 | PN ---
PROGRESS NOTE DATE OF SERVICE: 07/11/2021 REASON FOR FOLLOWUP: Right-sided pneumonia and empyema. INTERVAL HISTORY: The patient is afebrile. The patient is breathing more comfortably. The patient denies having any worsening chest pain, shortness of breath or cough. No vomiting. No abdominal pain or diarrhea. PHYSICAL EXAMINATION: Blood pressure 124/86, pulse of 91, temperature 98.6. He is 98% on 3 L nasal cannula. General description is a middle-aged male up in the bed in no distress. RESPIRATORY SYSTEM: Unlabored breathing. Decreased intensity of breath sounds. No wheeze. HEART: S1, S2. Regular rate and rhythm. ABDOMEN: Soft. No tenderness. LABS: No new labs have been obtained today. DIAGNOSTIC IMPRESSION AND PLAN: Patient with right-sided pneumonia and empyema, status post chest tube placement. Initial culture with strep and anaerobes. Did have an abscess that was drained. Placement of a chest tube. Those cultures are pending. Patient is covered with Rocephin and Flagyl; to continue while monitoring her clinical course closely. Continue supportive care. MMODL / IJN: [id number] /
--- NOTE | 2021-07-11 23:27 | P.PN ---
Subjective Progress Note Date: 07/11/21 This is a 60-year-old male who was recently hospitalized at [facility] for pneumonia and empyema and had a chest tube placed on the right for continued drainage and ultimately sent here to [facility] for further evaluation by cardiothoracic surgery for complicated empyema that appears to be loculated. Infectious disease following over there and patient was maintained on cefepime and Vancomycin and will reorder here and consult infectious disease. Consult also placed to pulmonary along with cardiothoracic surgery. Upon arrival to the unit on 4 S. per nursing staff patient's chest tube atrium was lying flat on the patient on arrival and when hooking up to wall suction bubbli ng was noted in the atrium and was replaced. Bubbling persisted and chest x-ray was done which shows large right pleural effusion and right pulmonary consolidation without change the right side chest tube appears to be in the subcutaneous fat and malposition over the lower lateral right chest wall. No sign of pneumothorax. Cardiothoracic surgery contacted and will be replaced upon their evaluation. Patient does have a past medical history of COPD, hypertension, former smoker recently quit, EtOH use and reports to quitting a month or so ago, anemia, and most recently per family patient has been falling more often with unsteady gait. Patient states he follows with Dr. Rafita Lewis out of [place]. Daughter states patient lives by himself and is concerned and would like possible placement. 06/30/2021 patient is seen and evaluated in follow-up this morning with cardiothoracic surgery along with pulmonary following closely and evaluated the patient. Pigtail catheter on the right was dislodged and removed at the bedside by pulmonary and interventional radiology consulted to replace catheter on the right with possible drainage or evacuation of the loculated area with cultures b eing sent. patient is continued on 4 L of oxygen via nasal cannula and reports no worsening shortness of breath. Patient had some pain with inspiration and during the removal of the catheter and will order pain medications. 07/01/2021 She is seen and evaluated this morning and chest tube catheter was replaced and draining continuous amounts approval and drainage approximately 1.6 L since last night. Cardio thoracic along with pulmonary following closely along with infectious disease and patient is maintained on IV Zosyn along with vancomycin. Patient states he is having some chest wall discomfort with cough but no worsening. patient is continued on 4 L via nasal cannula. Patient is afebrile. repeat fluid analysis culture is pending. 07/02/2021 Patient is awake and alert, breathing comfortably at rest. Staying in chair or bed most of the time. Pain is controlled. Vital signs stable, he is saturating 98% on 4 L oxygen. Slightly dropped to 133 down to 129. We'll keep monitoring. Patient has pigtail tube on his right chest posteriorly with surrounding area of fluctuating swelling, possible hematoma therefore alteplase is not going to be given today. Per pulmonary team recommendation. Remains on cefepime and IV vancomycin pending final culture results with infectious disease team on the case CT of the chest showing right basilar pleural catheter with a small collection noted. Infected collection is not excluded. Basilar infiltrate may reflect pneumonia or aspiration. Hpneumothorax on the right 07/03/2021 Patient breathing is not worsening. He still has right-sided pigtail tube with surrounding swelling most likely hematoma which looks his stable. No more alt eplase yesterday. Hemodynamically stable and he is saturating 98% on 4 L. Fluid culture, and positive for alpha hemolytic streptococcus and chest x-ray showing patchy infiltrate in the right medial base, stable. His were adjusted today to IV vancomycin and ceftriaxone instead of cefepime. 07/04/2021 Patient is seen and evaluated in follow up this morning and continues on 4L via NC. Patient with continued right chest wall pigtail catheter with approx 150cc of output over the last [address] surgery and pulmonary following closely. Abdominal binder in place and alteplace on hold as concerned for possible hematoma at the catheter site. Anticoagulant on hold as well and chest xray today shows right lower lobe infiltrate with small effusion and overall stable. Patient also being followed closely by ID and maintained on IV ceftriaxone while waiting for cultures to finalize. Patient continues to be weak and will have PT/OT evaluate the patient and consult social work for possible placement. REpeat chest xray and labs in the am. Encouraged incentive spirometer at least 10 times every hour while awake. Encouraged increased activity as tolerated. Abdominal binder noted on exam for compression of the right chest tube sight. 07/05/2021 Patient is seen in follow-up this morning being followed by pulmonary and CT surgery. Patient underwent soft tissue ultrasound as patient has continued fluid collection at the chest tube site and ultrasound shows moderate subcutaneous edema in the soft tissue just below the dermal surface with 2 oval- shaped non-simple fluid collections just below this and within the deep subcutaneous tissue possibility is of hematoma versus developing abscess. Gen. surgery consulted recommending continuing with IV antibiotic therapy and conservative management with no surgical intervention at this time. Infectious disease is following and patient is maintained on IV antibiotics in the form of ceftriaxone. Patient sodium is low at 131 and will add IV fluids and repeat labs. Patient continues to be weak and needs encouragement to increase activity as tolerated. Also encouraged incentive spirometer. 07/06/2021 Patient is seen and evaluated in follow-up this morning and appears agitated. Patient states he is tired and also tired of multiple people coming in and out of his room. Patient has cardiothoracic surgery along with pulmonary following closely. Infectious disease following as well and patient is maintained on IV ceftriaxone along with Flagyl and will continue. Chest x-ray today shows a right lower lobe infiltrate and bilateral small pleural effusions larger on the right. Cardiothoracic surgery plans to take the patient to the OR for incision and drainage of the right posterior chest wall hematoma versus abscess this afternoon. Will await surgical report. Patient is on gentle IV hydration of normal saline and will continue his sodium is improved at 133. Patient is currently nothing by mouth for the procedure this afternoon. 07/07/2021 Patient is seen and evaluated in follow-up this morning status post incision and drainage of the fluid collection within the subcutaneous tissue underneath the chest tube along with drainage of the abscess and deep cultures were obtained. Patient is being followed closely by cardiothoracic surgery along with pulmonary and infectious disease. Patient continues on IV ceftriaxone and Flagyl until cultures are finalized. Patient is having some right chest wall tenderness and pain although states no worsening and continues on 3 L of oxygen via nasal cannula. Chest x-ray today shows a patchy right lower lobe infiltrate and right-sided pleural effusion thickening and/or effusion persists and are unchanged. 07/08/2021 Patient is seen this morning and follow-up sleeping but arousable continues to have pain of the right side and had been receiving IV pain medications and will add oral Celina. Encouraged activity as patient continues to need encouragement to get out of bed. CT surgery and pulmonary following along with infectious disease and patient is maintained on IV ceftriaxone along with oral Flagyl and will continue while awaiting for cultures to finalize. Patient did have repeat cultures during I&D on the . Patient has been working with physical therapy and will evaluate closer to discharge to consider possible home care versus subacute rehab. 07/10/2021 Patient is still has significant drainage from the chest to medically after alteplase infusion 07/11/2021 Patient is seen and evaluated this morning status post CTA of the chest and continues with a test tube on the right. Patient is being followed by CT surgery, pulmonary, and infectious disease. Patient continues on ceftriaxone and Flagyl. Patient continues with large amount of drainage From the chest tube. Review of systems: Constitutional: No reports of fatigue, fever, or chills Cardiovascular: No reports of chest pain or palpitations, reports continued right chest wall pain with inspiration and movement Respiratory: No reports of worsening shortness of breath or cough GI: No reports of nausea, vomiting, or diarrhea : No reports of dysuria or retention Neurovascular: reports generalized weakness All medications have been reviewed Active Medications Acetaminophen (Acetaminophen Tab 325 Mg Tab) 650 mg PO Q6HR PRN PRN Reason: Mild Pain or Fever > 100.5 Hydrocodone Bitart/Acetaminophen (Hydrocodone/Apap 10-325mg 1 Each Tab) 1 each PO Q6HR PRN PRN Reason: Pain Last Admin: 07/11/21 08:16 Dose: 1 each Documented by: Albuterol Sulfate (Albuterol Nebulized 2.5 Mg/3 Ml) 2.5 mg INHALATION RT-Q4H PRN PRN Reason: Shortness Of Breath Last Admin: 06/30/21 12:05 Dose: 2.5 mg Documented by: Budesonide/Formoterol Fumarate (Symbicort 160-4.5 Mcg Inhaler) 2 puff INHALATION RT-BID [facility] Last Admin: 07/11/21 09:06 Dose: 2 puff Documented by: Folic Acid (Folic Acid 1 Mg Tab) 1 mg PO DAILY [facility] Last Admin: 07/11/21 08:13 Dose: 1 mg Documented by: Hydromorphone HCl (Hydromorphone 1 Mg/Ml 1 Ml Syringe) 1 mg IVP Q3HR PRN PRN Reason: Pain Last Admin: 07/11/21 13:22 Dose: 1 mg Documented by: Ceftriaxone Sodium 2 gm/ (Sodium Chloride) 50 mls @ 100 mls/hr IVPB Q24H [facility] Last Admin: 07/09/21 16:16 Dose: 100 mls/hr Documented by: Sodium Chloride (Saline 0.9%) 1,000 mls @ 100 mls/hr IV .Q10H [facility] Last Admin: 07/10/21 19:49 Dose: 100 mls/hr Documented by: Lorazepam (Lorazepam 1 Mg Tab) 2 mg PO HS [facility] Last Admin: 07/10/21 19:47 Dose: 2 mg Documented by: Melatonin (Melatonin 3 Mg Tablet) 3 mg PO HS PRN PRN Reason: Insomnia Metoprolol Succinate (Metoprolol Succinate (Er) 100 Mg Tab.Er.24h) 100 mg PO DAILY [facility] Last Admin: 07/11/21 08:14 Dose: 100 mg Documented by: Metronidazole (Metronidazole 500 Mg Tab) 500 mg PO TID [facility] Last Admin: 07/11/21 08:13 Dose: 500 mg Documented by: Miscellaneous Information (Potassium Replacement Protocol 1 Each Misc) 1 each MISCELLANE DAILY PRN; Protocol PRN Reason: Per Protocol Naloxone HCl (Naloxone 0.4 Mg/Ml 1 Ml Vial) 0.2 mg IV Q2M PRN PRN Reason: Opioid Reversal Nicotine (Nicotine 14mg/24hr Patch) 1 patch TRANSDERM DAILY [facility] Last Admin: 07/11/21 08:14 Dose: 1 patch Documented by: Patient's Own ( Ascomp W/Codeine 1 Cap) 1 cap PO TID [facility] Last Admin: 07/11/21 07:37 Dose: Not Given Documented by: Patient's Own ( Butorphanol Tartrate [Stadol Nasal [place] ] 10 Mg/Ml Ml) 1 spray MISCELLANE DAILY PRN PRN Reason: Migraine Headache Ondansetron HCl (Ondansetron 4 Mg/2 Ml Vial) 4 mg IVP Q8HR PRN PRN Reason: Nausea And Vomiting Pantoprazole Sodium (Pantoprazole 40 Mg Tablet) 40 mg PO AC-BRKFST [facility] Last Admin: 07/11/21 08:13 Dose: 40 mg Documented by: Thiamine HCl (Thiamine 100 Mg Tab) 100 mg PO DAILY [facility] Last Admin: 07/11/21 08:13 Dose: 100 mg Documented by: Physical exam: Gen: This is a 60-year-old male is awake, alert and oriented 3, thin built, appears older than stated age, currently getting back into bed from having a rep eat CT of the chest HEENT: Head is atraumatic, normocephalic. Pupils equal, round. Sclerae is anicte tr. NECK: Supple. No JVD. No lymphadenopathy. No thyromegaly. LUNGS: Diminished breath sounds bilaterally with some scattered rhonchi noted. No intercostal retractions. Right chest wall pigtail catheter and drain HEART: Regular rate and rhythm. No murmur. ABDOMEN: Soft. Thin built. Bowel sounds are present. No masses. No tenderness. EXTREMITIES: No pedal edema. No calf tenderness. NEUROLOGICAL: Patient is awake, alert and oriented x3. No focal deficits noted. Diffusely weak Assessment: pneumonia and empyema secondary to alpha hemolytic streptococci and possible anaerobic bacteria, patient is on Rocephin and metronidazole which will be continued, infectious disease following Right chest wall abscess and fluid collection at the site of the chest tube status post incision and drainage with cardiothoracic surgery Bacterial pneumonia with the streptococci positive cultures with Pseudomonas is a colonization Empyema with right side percutaneous pigtail catheter placement at [facility] and subsequent dislodgment of the catheter, chest tube catheter replaced Chronic obstructive pulmonary disease, acute exacerbation Chronic hypoxic respiratory failure on 3 L via nasal cannula in the outpatient setting Hypertension History of anemia, macrocytic generalized weakness GI prophylaxis DVT prophylaxis: anticoagulant on hold for possible hematoma development of the right side chest wall site of pigtail catheter Full code Plan: Recommend to continue with current medications and management. Multiple medical consultations following including cardiothoracic surgery, pulmonary, and infectious disease. Patient underwent chest ct today showing continued empyema and similar in size with 9mm pneumothorax which is new in size compared to previous at 4mm, with some air in the empyema, soft tissue wound just anterior to the chest tube, trace left pleural effusion, COPD with moderate emphysema, and pulmonary arterial hypertension. Patient to continue on IV ceftriaxone and Flagyl with infectious disease following closely. Recommend continue with gentle IV hydration and will repeat labs and continue to monitor closely. Recommend and encourage the patient to continue using incentive spirometer at least 10 times every hour while awake. Encouraged increased activity as tolerated. PT/OT to follow and will discuss about possible ECF placement or home care when stabilized and discharged. Objective - Vital Signs Vital signs: Vital Signs Temp 99 F 07/11/21 07:00 Pulse 90 07/11/21 07:00 Resp 16 07/11/21 07:00 BP 114/85 07/11/21 07:00 Pulse Ox 98 07/11/21 07:00 Intake & Output 07/10/21 07/11/21 07/11/21 18:59 06:59 18:59 Intake Total 236 Output Total 2675 170 Balance -2675 -170 236 Intake: Oral 236 Output: Chest Tube Drainage 50 170 Chest Tube Right Right 50 170 Pleural/Mediastinal Urine 2625 Other: Voiding Method Urinal # Voids 5 - Labs CBC & Chem 7: 07/07/21 09:18 07/07/21 09:18 Labs: Microbiology - Last 24 Hours (Table) 07/06/21 15:58 Anaerobic Culture - Final Chest 07/06/21 02:25 Anaerobic Culture - Final Chest
[2021-07-12] MEDS: HYDROmorphone 1 MG/ML 1 ML SYRINGE IVP PRN ×2 (03:04→08:13)
[2021-07-12] MEDS: HYDROcodone/APAP 10-325MG 1 EACH TAB PO PRN ×3 (05:53→19:41)
--- NOTE | 2021-07-12 08:04 | P.PN ---
Subjective Progress Note Date: 07/12/21 Principal diagnosis: Loculated right empyema. Previous medical history of COPD with home oxygen use 3 L nasal cannula, right pleural effusion with previous right thoracentesis at [facility], anemia, hypertension, prostate cancers status post 48 radiation treatments, recent fall from standing, medical debility, remote history of paroxysmal atrial fibrillation, chronic nicotine dependence and previous EtOH abuse Status post day #12 placement of right chest pigtail catheter performed by interventional radiology POD #6 I&D abscess right chest wall The patient was seen and examined this morning at the bedside. He is sitting up in bed in no acute distress about to eat breakfast. Still complains of pain anytime anyone is in the room. Right pigtail catheter remains to continuous wall suction, alteplase/dornase instilled for an 9th dose yesterday, only 80 mL pink tinged thick drainage in the last 24 hours. Dressing changed daily to right posterior chest wall fluid pocket, looks better every day, minimal serous drainage present, cultures drawn during I&D are finalized as no growth. Currently on 3 LPM NC with oxygen saturation 96%, able to achieve 2000 mL on incentive spirometry. Remains on IV ceftriaxone per infectious disease. Objective - Vital Signs Vital signs: Vital Signs Temp 100.3 F H 07/12/21 02:40 Pulse 68 07/12/21 02:40 Resp 18 07/12/21 02:40 BP 124/83 07/12/21 02:40 Pulse Ox 96 07/12/21 02:40 Intake & Output 07/11/21 07/12/21 07/12/21 18:59 06:59 18:59 Intake Total 458 Output Total 750 20 Balance -292 -20 Intake: Oral 458 Output: Chest Tube Drainage 50 20 Chest Tube Right Right 50 20 Pleural/Mediastinal Urine 700 Other: # Voids 5 - Exam CONSTITUTIONAL: Appears comfortable, cooperative, no acute distress RESPIRATORY: Lungs sounds diminished bilaterally. Respirations even, nonlabored. Currently on 3 L nasal cannula with oxygen saturation 96%. Able to achieve 2000 mL on incentive spirometry. Strong cough. CARDIOVASCULAR: S1, S2 present. Regular rate and rhythm. Palpable peripheral pulses bilaterally. No edema present. No calf pain or tenderness noted. SCDs present. GASTROINTESTINAL: Abdomen soft, nontender, nondistended. Active bowel sounds present 4 quadrants. Tolerating diet. Positive bowel movement GENITOURINARY: Continues to void INTEGUMENTARY: Skin is warm and dry with evidence of good perfusion. Swelling to right posterior chest wall decreasing NEUROLOGIC: Cranial nerves II through XII intact MUSKULOSKELETAL: Able to move all extremities, strength equal bilaterally, gait normal PSYCHIATRIC: Alert and oriented to person place and time, appropriate affect, intact judgment and insight INVASIVE LINES AND TUBES: Right pigtail catheter present and connected to wall suction, no air leaks present, 80 mL in the last 24 hours - Allied health notes Allied health notes reviewed: nursing - Labs CBC & Chem 7: 07/07/21 09:18 07/12/21 07:11 Labs: Microbiology - Last 24 Hours (Table) 06/30/21 11:11 Acid Fast Bacilli Smear - Final Pleural Fluid Acid Fast Bacilli Culture - Preliminary - Imaging and Cardiology Chest x-ray: image reviewed Assessment and Plan Assessment: 1. Right lung empyema status post right-sided percutaneous pigtail catheter insertion by interventional radiology. Sputum culture from 06/26/2021 growing pseudomonas aeruginosa, pleural fluid growing alphahemolytic streptococcus and anaerobic culture growing gram-positive cocci and gram-negative bacilli. Chest wall I&D cultures with no growth 2. Shortness of breath, pain secondary to above 3. Chronic obstructive pulmonary disease 4. History of prostate cancer status post 48 treatments of radiation 5. Hypertension 6. Medical debility 7. Chronic anemia 8. History of EtOH abuse 9. History of nicotine dependence 10. History of recent weight loss, protein calorie malnutrition 11. Right posterior chest wall hematoma, status post I&D Plan: 1. Will discontinue pigtail catheter today as patient had little drainage in the last 24 hours, upon instillation yesterday quite a bit of it leaked out as it was being instilled 2. Dressing on right posterior chest wall incision site to be changed daily by cardiothoracic surgery 3. Continue to monitor daily chest x-rays. Will obtain CT of chest tomorrow to eval empyema 4. Encourage use of incentive spirometry 10 times every hour while awake. 5. Continue antibiotics management by infectious disease. 6. Bronchodilator management per pulmonary/critical care medicine. 7. Continue GI and DVT prophylaxis. 8. Pain management per primary care service 9. Increase activity as tolerated. Out of bed for all meals. The patient needs much encouragement to ambulate. 10. More recommendations to follow Time with Patient: Greater than 30
[2021-07-12] MEDS: SYMBICORT 160-4.5 MCG INHALER INHALATION SCH ×2 (08:09→20:11)
[2021-07-12] MEDS: NICOTINE 14MG/24HR PATCH TRANSDERM SCH (08:13)
[2021-07-12] MEDS: PANTOPRAZOLE 40 MG TABLET PO SCH (08:14)
[2021-07-12] MEDS: METOPROLOL SUCCINATE (ER) 100 MG TAB.ER.24H PO SCH (08:14)
[2021-07-12] MEDS: THIAMINE 100 MG TAB PO SCH (08:14)
[2021-07-12] MEDS: FOLIC ACID 1 MG TAB PO SCH (08:14)
--- NOTE | 2021-07-12 08:17 | XR ---
EXAMINATION TYPE: XR chest 1V portable DATE OF EXAM: 07/12/2021 COMPARISON: 07/11/2021 INDICATION: Empyema right chest drainage catheter TECHNIQUE: Single frontal view of the chest is obtained. FINDINGS: The heart size is normal. The pulmonary vasculature is normal. There is a small to moderate right pleural effusion, stable from comparison. Right sided pigtail cath eter remains present. Some mild platelike atelectasis may be at the left base. A minimal left pleural fluid collection is n ot excluded IMPRESSION: 1. Stable appearance right small to moderate pleural fluid with adjacent infiltrate. 2. Small left pleural fluid with mild atelectasis, stable
[2021-07-12 08:20] LABS: Basophils % (A) 0 %; Eosinophils % (A) 0 %; HCT 26.6 % (39.0-53.0); HGB 8.6 gm/dL (13.0-17.5); Lymphocytes # (A) 0.6 k/uL (1.0-4.8); Lymphocytes % (A) 13 %; MCHC 32.6 g/dL (31.0-37.0); MCV 104.5 fL (80.0-100.0); Macrocytosis Moderate; Mean Platelet Volume 8.5; Monocytes # (A) 0.3 k/uL (0-1.0); Monocytes % (A) 8 %; Neutrophils # (A) 3.1 k/uL (1.3-7.7); Neutrophils % (A) 76 %; Platelet Count 208 k/uL (150-450); RBC 2.54 m/uL (4.30-5.90); RDW 14.5 % (11.5-15.5); WBC 4.1 k/uL (3.8-10.6)
[2021-07-12 08:37] LABS: African American GFR (CKD) >90 (>60 ml/min/1.73 sqM); Anion Gap 6 mmol/L; Blood Urea Nitrogen 5 mg/dL (9-20); Calcium 7.7 mg/dL (8.4-10.2); Carbon Dioxide 27 mmol/L (22-30); Chloride 96 mmol/L (98-107); Glucose 84 mg/dL (74-99); Non-African American GFR(CKD) >90 (>60 ml/min/1.73 sqM); Potassium 3.8 mmol/L (3.5-5.1); Sodium 129 mmol/L (137-145)
[2021-07-12] MEDS: [UNRECOGNIZED DRUG - OTHER] PO SCH (09:37)
[2021-07-12] MEDS: CODEINE PO SCH (09:37)
--- NOTE | 2021-07-12 11:49 | P.PN ---
Subjective Progress Note Date: 07/12/21 Principal diagnosis: Loculated right-sided empyema The patient is seen today 07/08/2021 in follow-up on the regular medical floor. He is currently sitting up in bed. Awake and alert in no acute distress. Maintaining O2 saturations in the 90s on 3 L/m per nasal cannula. He's been afebrile. Hemodynamically stable. Right-sided pigtail chest tube catheter remains in place to wall suction with a small amount of cloudy pleural fluid returning. He was to receive alteplase today per CT services. Dressing is dry and intact and change daily per CT services. Chest x-ray reveals suspected loculated right pneumothorax, stable. Small bilateral effusions. Mild infiltrate of the right lung base. Catheter remains in place. Chest wound cultures pending. Pleural fluid cultures revealed upper hemolytic streptococcus, anaerobic gram-positive cocci, anaerobic gram-negative bacilli. He remains on ceftriaxone and Flagyl. Continue on Symbicort and albuterol. The patient is seen today 07/09/2021 in follow-up on the regular medical floor. He is currently sitting up in bed. Awake and alert in no acute distress. Maya a bit stronger today compared to yesterday. Less short of breath. He is maintaining good O2 saturations in the mid 90s on 3 L/m per nasal cannula. He's been afebrile. Hemodynamically stable. His x-ray continues to reveal a right- sided pigtail catheter in place. No evidence of pneumothorax. Patchy basilar density seen again on the left as well. Basilar effusions. Atelectasis. Pleural fluid cultures positive for gram-positive cocci, gram-negative bacilli, alphahemolytic streptococcus. Chest wound cultures revealing no growth thus far. No new labs today. He is continued on ceftriaxone, Flagyl. 0.9 normal saline at 100 ML's per hour. He did receive his seventh dose of alteplase into the chest tube today. The patient is seen today 07/10/2021 in follow-up on the regular medical medical floor. Currently sitting up in bed. Awake and alert in no acute distress. X- ray continues to show right-sided catheter in place with some local trapped lung, basilar densities persist. He received an 8th dose of alteplase today. Pigtail catheter connected to low continuous wall suction. Remains on ceftriaxone and Flagyl. The patient is seen today 07/12/2021 in follow-up on the regular medical floor. He is currently sitting up in bed. Awake and alert in no acute distress. Maintaining O2 saturations in the upper 90s on 3 L/m per nasal cannula. He is afebrile. White count 4.1. Hemoglobin 8.6. Sodium 129. Potassium 3.8. Cr eatinine 0.52. He is continued on Symbicort, albuterol, antibiotics in the form of ceftriaxone. NicoDerm patch in place. Chest x-ray shows stable appearance of the right small to moderate pleural effusion with adjacent infiltrate. Small left plural effusion with mild atelectasis. Pigtail catheter remains in place. Continues working well with the incentive spirometer. Objective - Vital Signs Vital signs: Vital Signs Temp 98.5 F 07/12/21 08:00 Pulse 85 07/12/21 08:00 Resp 18 07/12/21 08:00 BP 119/80 07/12/21 08:00 Pulse Ox 98 07/12/21 08:00 Intake & Output 07/11/21 07/12/21 07/12/21 18:59 06:59 18:59 Intake Total 458 Output Total 750 20 Balance -292 -20 Intake: Oral 458 Output: Chest Tube Drainage 50 20 Chest Tube Right Right 50 20 Pleural/Mediastinal Urine 700 Other: Voiding Method Urinal # Voids 5 - Exam GENERAL EXAM: Alert, 60-year-old male patient, on 3 L nasal cannula with O2 saturation 98%, comfortable in no apparent distress. HEAD: Normocephalic/atraumatic. EYES: Normal reaction of pupils, equal size. Conjunctiva pink, sclera white. NOSE: Clear with pink turbinates. THROAT: No erythema or exudates. NECK: No masses, no JVD, no thyroid enlargement, no adenopathy. CHEST: No chest wall deformity. Symmetrical expansion. Right-sided pigtail chest tube replaced 06/30/2021, to wall suction, with whitish yellowish colored pleural fluid output in the Pleur-evac. Patient had subcutaneous right posterior chest fluid collection, at the site of old right pigtail chest tube insertion site. The swelling has improved since I&D on 07/06/2021 LUNGS: Equal air entry with few scattered rhonchi, crackles in the right base CVS: Regular rate and rhythm, normal S1 and S2, no gallops, no murmurs, no rubs ABDOMEN: Soft, nontender. No hepatosplenomegaly, normal bowel sounds, no guarding or rigidity. EXTREMITIES: No clubbing, no edema, no cyanosis, 2+ pulses and upper and lower extremities. MUSCULOSKELETAL: Muscle strength and tone normal. SPINE: No scoliosis or deformity SKIN: No rashes CENTRAL NERVOUS SYSTEM: No focal deficits, tone is normal in all 4 extremities. PSYCHIATRIC: Alert and oriented -3. Appropriate affect. Intact judgment and insight. - Labs CBC & Chem 7: 07/12/21 07:11 07/12/21 07:11 Labs: Abnormal Lab Results - Last 24 Hours (Table) 07/12/21 07/12/21 Range/Units 07:11 07:11 RBC 2.54 L (4.30-5.90) m/uL Hgb 8.6 L (13.0-17.5) gm/dL Hct 26.6 L (39.0-53.0) % MCV 104.5 H (80.0-100.0) fL Sodium 129 L (137-145) mmol/L Chloride 96 L (98-107) mmol/L BUN 5 L (9-20) mg/dL Creatinine 0.52 L (0.66-1.25) mg/dL Calcium 7.7 L (8.4-10.2) mg/dL Microbiology - Last 24 Hours (Table) 06/30/21 11:11 Acid Fast Bacilli Smear - Final Pleural Fluid Acid Fast Bacilli Culture - Preliminary Assessment and Plan Assessment: 1 Right lung empyema post percutaneous pigtail catheter insertion with subsequent dislodgment of the cath and subsequent replacement here on 06/30/2021. Patient has grown pseudomonas aeruginosa and the sputum on 06/28/2021. Anaerobic infection cannot be completely excluded within the pleural space. The patient clinically improved. The patient's follow-up CAT scan showed improvement in the size of the empyema. There is still right lower lobe consolidation/infiltration. Meanwhile, the patient developed a hematoma/fluid collection along the patient states insertion site status post I&D on 07/06/2021. Current coverage is with ceftriaxone. 2 COPD 3 Shortness of breath secondary to above 4 History of alcoholism 5 History of prostate cancer 6 History of smoking 7 Chronic anemia 8 Protein calorie malnutrition, moderate 9 Right posterior chest wall hematoma, or possible abscess, status post incision and drainage on 07/06/2021, wound cultures revealing no growth thus far 10 Hyponatremia, improved Plan: The patient was seen and evaluated by Dr. Giordano Chest x-ray and cultures reviewed CT services may remove pigtail catheter today Currently on Rocephin We'll continue to follow I, the cosigning physician, performed a history & physical examination of the patient. Lungs sounds scattered rhonchi crackles in the right base. Maintaining good O2 saturations in the 90s on 3 L/m per nasal cannula. I discussed the assessment and plan of care with my nurse practitioner, Carolynn Schaffer. I attest to the above note as dictated by her.
[2021-07-12] MEDS ORDERED: HYDROmorphone 1 MG/ML 1 ML SYRINGE IVP PRN (11:53)
[2021-07-12 12:40] LABS: Poikilocytosis (M) Present
--- NOTE | 2021-07-12 14:44 | P.PN ---
Subjective Progress Note Date: 07/12/21 This is a 60-year-old male who was recently hospitalized at [facility] for pneumonia and empyema and had a chest tube placed on the right for continued drainage and ultimately sent here to [facility] for further evaluation by cardiothoracic surgery for complicated empyema that appears to be loculated. Infectious disease following over there and patient was maintained on cefepime and Vancomycin and will reorder here and consult infectious disease. Consult also placed to pulmonary along with cardiothoracic surgery. Upon arrival to the unit on 4 S. per nursing staff patient's chest tube atrium was lying flat on the patient on arrival and when hooking up to wall suction bubbli ng was noted in the atrium and was replaced. Bubbling persisted and chest x-ray was done which shows large right pleural effusion and right pulmonary consolidation without change the right side chest tube appears to be in the subcutaneous fat and malposition over the lower lateral right chest wall. No sign of pneumothorax. Cardiothoracic surgery contacted and will be replaced upon their evaluation. Patient does have a past medical history of COPD, hypertension, former smoker recently quit, EtOH use and reports to quitting a month or so ago, anemia, and most recently per family patient has been falling more often with unsteady gait. Patient states he follows with Dr. Rafita Lewis out of [place]. Daughter states patient lives by himself and is concerned and would like possible placement. 06/30/2021 patient is seen and evaluated in follow-up this morning with cardiothoracic surgery along with pulmonary following closely and evaluated the patient. Pigtail catheter on the right was dislodged and removed at the bedside by pulmonary and interventional radiology consulted to replace catheter on the right with possible drainage or evacuation of the loculated area with cultures b eing sent. patient is continued on 4 L of oxygen via nasal cannula and reports no worsening shortness of breath. Patient had some pain with inspiration and during the removal of the catheter and will order pain medications. 07/01/2021 She is seen and evaluated this morning and chest tube catheter was replaced and draining continuous amounts approval and drainage approximately 1.6 L since last night. Cardio thoracic along with pulmonary following closely along with infectious disease and patient is maintained on IV Zosyn along with vancomycin. Patient states he is having some chest wall discomfort with cough but no worsening. patient is continued on 4 L via nasal cannula. Patient is afebrile. repeat fluid analysis culture is pending. 07/02/2021 Patient is awake and alert, breathing comfortably at rest. Staying in chair or bed most of the time. Pain is controlled. Vital signs stable, he is saturating 98% on 4 L oxygen. Slightly dropped to 133 down to 129. We'll keep monitoring. Patient has pigtail tube on his right chest posteriorly with surrounding area of fluctuating swelling, possible hematoma therefore alteplase is not going to be given today. Per pulmonary team recommendation. Remains on cefepime and IV vancomycin pending final culture results with infectious disease team on the case CT of the chest showing right basilar pleural catheter with a small collection noted. Infected collection is not excluded. Basilar infiltrate may reflect pneumonia or aspiration. Hpneumothorax on the right 07/03/2021 Patient breathing is not worsening. He still has right-sided pigtail tube with surrounding swelling most likely hematoma which looks his stable. No more alt eplase yesterday. Hemodynamically stable and he is saturating 98% on 4 L. Fluid culture, and positive for alpha hemolytic streptococcus and chest x-ray showing patchy infiltrate in the right medial base, stable. His were adjusted today to IV vancomycin and ceftriaxone instead of cefepime. 07/04/2021 Patient is seen and evaluated in follow up this morning and continues on 4L via NC. Patient with continued right chest wall pigtail catheter with approx 150cc of output over the last [address] surgery and pulmonary following closely. Abdominal binder in place and alteplace on hold as concerned for possible hematoma at the catheter site. Anticoagulant on hold as well and chest xray today shows right lower lobe infiltrate with small effusion and overall stable. Patient also being followed closely by ID and maintained on IV ceftriaxone while waiting for cultures to finalize. Patient continues to be weak and will have PT/OT evaluate the patient and consult social work for possible placement. REpeat chest xray and labs in the am. Encouraged incentive spirometer at least 10 times every hour while awake. Encouraged increased activity as tolerated. Abdominal binder noted on exam for compression of the right chest tube sight. 07/05/2021 Patient is seen in follow-up this morning being followed by pulmonary and CT surgery. Patient underwent soft tissue ultrasound as patient has continued fluid collection at the chest tube site and ultrasound shows moderate subcutaneous edema in the soft tissue just below the dermal surface with 2 oval- shaped non-simple fluid collections just below this and within the deep subcutaneous tissue possibility is of hematoma versus developing abscess. Gen. surgery consulted recommending continuing with IV antibiotic therapy and conservative management with no surgical intervention at this time. Infectious disease is following and patient is maintained on IV antibiotics in the form of ceftriaxone. Patient sodium is low at 131 and will add IV fluids and repeat labs. Patient continues to be weak and needs encouragement to increase activity as tolerated. Also encouraged incentive spirometer. 07/06/2021 Patient is seen and evaluated in follow-up this morning and appears agitated. Patient states he is tired and also tired of multiple people coming in and out of his room. Patient has cardiothoracic surgery along with pulmonary following closely. Infectious disease following as well and patient is maintained on IV ceftriaxone along with Flagyl and will continue. Chest x-ray today shows a right lower lobe infiltrate and bilateral small pleural effusions larger on the right. Cardiothoracic surgery plans to take the patient to the OR for incision and drainage of the right posterior chest wall hematoma versus abscess this afternoon. Will await surgical report. Patient is on gentle IV hydration of normal saline and will continue his sodium is improved at 133. Patient is currently nothing by mouth for the procedure this afternoon. 07/07/2021 Patient is seen and evaluated in follow-up this morning status post incision and drainage of the fluid collection within the subcutaneous tissue underneath the chest tube along with drainage of the abscess and deep cultures were obtained. Patient is being followed closely by cardiothoracic surgery along with pulmonary and infectious disease. Patient continues on IV ceftriaxone and Flagyl until cultures are finalized. Patient is having some right chest wall tenderness and pain although states no worsening and continues on 3 L of oxygen via nasal cannula. Chest x-ray today shows a patchy right lower lobe infiltrate and right-sided pleural effusion thickening and/or effusion persists and are unchanged. 07/08/2021 Patient is seen this morning and follow-up sleeping but arousable continues to have pain of the right side and had been receiving IV pain medications and will add oral Farrell. Encouraged activity as patient continues to need encouragement to get out of bed. CT surgery and pulmonary following along with infectious disease and patient is maintained on IV ceftriaxone along with oral Flagyl and will continue while awaiting for cultures to finalize. Patient did have repeat cultures during I&D on the . Patient has been working with physical therapy and will evaluate closer to discharge to consider possible home care versus subacute rehab. 07/10/2021 Patient is still has significant drainage from the chest to medically after alteplase infusion 07/11/2021 Patient is seen and evaluated this morning status post CTA of the chest and continues with a test tube on the right. Patient is being followed by CT surgery, pulmonary, and infectious disease. Patient continues on ceftriaxone and Flagyl. Patient continues with large amount of drainage From the chest tube. 07/12/2021 Patient is seen in follow-up this morning and being closely followed by CT surgery along with pulmonary and infectious disease. Discussion is being had about possibly removing pigtail catheter day. Patient continues on IV ceftriaxone and will continue in the outpatient setting. Patient continues with extensive pain of the right side and will adjust the medications. Encouraged incentive spirometer use along with oral intake and activity as tolerated. Will discuss further with infectious disease along with pulmonary and cardiothoracic surgery about discharge planning. Patient states he plans on going to [facility] once stabilized and discharged. Labs: White blood count is 4.1, hemoglobin is 8.6, platelets are 208, sodium is 129, potassium is 3.8, current creatinine is 0.52 Review of systems: Constitutional: No reports of fatigue, fever, or chills Cardiovascular: No reports of chest pain or palpitations, reports continued right chest wall pain with inspiration and movement Respiratory: No reports of worsening shortness of breath or cough GI: No reports of nausea, vomiting, or diarrhea : No reports of dysuria or retention Neurovascular: reports generalized weakness All medications have been reviewed Active Medications Acetaminophen (Acetaminophen Tab 325 Mg Tab) 650 mg PO Q6HR PRN PRN Reason: Mild Pain or Fever > 100.5 Last Admin: 07/12/21 03:05 Dose: 650 mg Documented by: Hydrocodone Bitart/Acetaminophen (Hydrocodone/Apap 10-325mg 1 Each Tab) 2 each PO Q6HR PRN PRN Reason: Moderate Pain Last Admin: 07/12/21 12:45 Dose: 2 each Documented by: Albuterol Sulfate (Albuterol Nebulized 2.5 Mg/3 Ml) 2.5 mg INHALATION RT-Q4H PRN PRN Reason: Shortness Of Breath Last Admin: 06/30/21 12:05 Dose: 2.5 mg Documented by: Budesonide/Formoterol Fumarate (Symbicort 160-4.5 Mcg Inhaler) 2 puff INHALATION RT-BID [facility] Last Admin: 07/12/21 08:09 Dose: 2 puff Documented by: Folic Acid (Folic Acid 1 Mg Tab) 1 mg PO DAILY [facility] Last Admin: 07/12/21 08:14 Dose: 1 mg Documented by: Hydromorphone HCl (Hydromorphone 1 Mg/Ml 1 Ml Syringe) 1 mg IVP Q4H PRN PRN Reason: Severe Pain Ceftriaxone Sodium 2 gm/ (Sodium Chloride) 50 mls @ 100 mls/hr IVPB Q24H [facility] Last Admin: 07/11/21 17:46 Dose: 100 mls/hr Documented by: Lidocaine (Lidocaine 5% Patch) 1 patch TOPICAL DAILY [facility]; Protocol Lorazepam (Lorazepam 1 Mg Tab) 2 mg PO HS [facility] Last Admin: 07/11/21 20:04 Dose: 2 mg Documented by: Melatonin (Melatonin 3 Mg Tablet) 3 mg PO HS PRN PRN Reason: Insomnia Metoprolol Succinate (Metoprolol Succinate (Er) 100 Mg Tab.Er.24h) 100 mg PO DAILY [facility] Last Admin: 07/12/21 08:14 Dose: 100 mg Documented by: Miscellaneous Information (Potassium Replacement Protocol 1 Each Misc) 1 each MISCELLANE DAILY PRN; Protocol PRN Reason: Per Protocol Naloxone HCl (Naloxone 0.4 Mg/Ml 1 Ml Vial) 0.2 mg IV Q2M PRN PRN Reason: Opioid Reversal Nicotine (Nicotine 14mg/24hr Patch) 1 patch TRANSDERM DAILY [facility] Last Admin: 07/12/21 08:13 Dose: 1 patch Documented by: Patient's Own ( Butorphanol Tartrate [Stadol Nasal [place] ] 10 Mg/Ml Ml) 1 spray MISCELLANE DAILY PRN PRN Reason: Migraine Headache Ondansetron HCl (Ondansetron 4 Mg/2 Ml Vial) 4 mg IVP Q8HR PRN PRN Reason: Nausea And Vomiting Pantoprazole Sodium (Pantoprazole 40 Mg Tablet) 40 mg PO AC-BRKFST [facility] Last Admin: 07/12/21 08:14 Dose: 40 mg Documented by: Thiamine HCl (Thiamine 100 Mg Tab) 100 mg PO DAILY [facility] Last Admin: 07/12/21 08:14 Dose: 100 mg Documented by: Physical exam: Gen: This is a 60-year-old male is awake, alert and oriented 3, thin built, appears older than stated age HEENT: Head is atraumatic, normocephalic. Pupils equal, round. Sclerae is anicteric. NECK: Supple. No JVD. No lymphadenopathy. No thyromegaly. LUNGS: Diminished breath sounds bilaterally with some scattered rhonchi noted. No intercostal retractions. Right chest wall pigtail catheter and drain HEART: Regular rate and rhythm. No murmur. ABDOMEN: Soft. Thin built. Bowel sounds are present. No masses. No tenderness. EXTREMITIES: No pedal edema. No calf tenderness. NEUROLOGICAL: Patient is awake, alert and oriented x3. No focal deficits noted. Diffusely weak Assessment: pneumonia and empyema secondary to alpha hemolytic streptococci and possible anaerobic bacteria, patient is on Rocephin which will be continued, infectious disease following and discussion is being had about IV antibiotic therapy upon discharge Right chest wall abscess and fluid collection at the site of the chest tube status post incision and drainage with cardiothoracic surgery, possible removal of pigtail catheter Bacterial pneumonia with the streptococci positive cultures with Pseudomonas is a colonization Hyponatremia, possibly secondary to hypovolemic or possible component of SIADH, will discontinue IV fluids and repeat sodium levels, sodium today is 129 Empyema with right side percutaneous pigtail catheter placement at [facility] and subsequent dislodgment of the catheter, chest tube catheter replaced Chronic obstructive pulmonary disease, acute exacerbation Chronic hypoxic respiratory failure on 3 L via nasal cannula in the outpatient setting Hypertension History of anemia, macrocytic generalized weakness GI prophylaxis DVT prophylaxis: anticoagulant on hold for possible hematoma development of the right side chest wall site of pigtail catheter Full code Plan: Recommend to continue with current medications and management. Multiple medical consultations following including cardiothoracic surgery, pulmonary, and i nfectious disease. Discussion is being had about possible removal of pigtail catheter with cardiothoracic surgery. Pulmonary following along with infectious disease and discussion is also being had about continuing IV antibiotic therapy in the outpatient setting. Patient continues to be weak and will likely need subacute rehab and patient's preference is [facility] and social work following. R sodium on the lower side at 129 today and will discontinue IV fluids and repeat labs. Recommend and encourage the patient to continue using incentive spirometer at least 10 times every hour while awake. Encouraged increased activity as tolerated. PT/OT to follow and will discuss about possible ECF placement or home care when stabilized and discharged. Objective - Vital Signs Vital signs: Vital Signs Temp 98.5 F 07/12/21 08:00 Pulse 85 07/12/21 08:00 Resp 18 07/12/21 08:00 BP 119/80 07/12/21 08:00 Pulse Ox 98 07/12/21 08:00 Intake & Output 07/11/21 07/12/21 07/12/21 18:59 06:59 18:59 Intake Total 458 Output Total 750 20 Balance -292 -20 Intake: Oral 458 Output: Chest Tube Drainage 50 20 Chest Tube Right Right 50 20 Pleural/Mediastinal Urine 700 Other: Voiding Method Urinal # Voids 5 - Labs CBC & Chem 7: 07/12/21 07:11 07/12/21 07:11 Labs: Abnormal Lab Results - Last 24 Hours (Table) 07/12/21 07/12/21 Range/Units 07:11 07:11 RBC 2.54 L (4.30-5.90) m/uL Hgb 8.6 L (13.0-17.5) gm/dL Hct 26.6 L (39.0-53.0) % MCV 104.5 H (80.0-100.0) fL Sodium 129 L (137-145) mmol/L Chloride 96 L (98-107) mmol/L BUN 5 L (9-20) mg/dL Creatinine 0.52 L (0.66-1.25) mg/dL Calcium 7.7 L (8.4-10.2) mg/dL Microbiology - Last 24 Hours (Table) 06/30/21 11:11 Acid Fast Bacilli Smear - Final Pleural Fluid Acid Fast Bacilli Culture - Preliminary
[2021-07-12] MEDS: LIDOCAINE 5% PATCH TOPICAL SCH (15:06)
[2021-07-12] MEDS: LORazepam 1 MG TAB PO SCH (19:41)
--- NOTE | 2021-07-12 22:07 | PN ---
PROGRESS NOTE DATE OF SERVICE: 07/12/2021 REASON FOR FOLLOWUP: Empyema. INTERVAL HISTORY: The patient is afebrile. The patient is breathing comfortably. The patient's chest pain is currently controlled. No nausea, no vomiting. No abdominal pain or diarrhea. PHYSICAL EXAMINATION: Blood pressure 120/88 with a pulse of 75, temperature of 99. He is 93% on 3 L nasal cannula. General description is a middle-aged male up in the bed in no distress. RESPIRATORY SYSTEM: Unlabored breathing. Decreased intensity of breath sounds. No wheeze. HEART: S1, S2. Regular rate and rhythm. ABDOMEN: Soft. No tenderness. LABS: Hemoglobin 8.6, white count 4.1, creatinine 0.52. DIAGNOSTIC IMPRESSION AND PLAN: Patient with right-sided pneumonia and empyema, status post chest tube placement and he has had surgical drainage of the abscess. The patient is covered with Rocephin and Flagyl; that will be continued for now while monitoring his clinical course closely. Continue supportive care. MMODL / IJN: [id number] /
[2021-07-12] MEDS: metroNIDAZOLE 500 MG TAB PO SCH (22:24)
[2021-07-13] MEDS: HYDROcodone/APAP 10-325MG 1 EACH TAB PO PRN ×4 (01:42→20:16)
[2021-07-13 07:23] LABS: African American GFR (CKD) >90 (>60 ml/min/1.73 sqM); Anion Gap 4 mmol/L; Blood Urea Nitrogen 4 mg/dL (9-20); Calcium 7.9 mg/dL (8.4-10.2); Carbon Dioxide 29 mmol/L (22-30); Chloride 97 mmol/L (98-107); Glucose 95 mg/dL (74-99); Non-African American GFR(CKD) >90 (>60 ml/min/1.73 sqM); Potassium 3.9 mmol/L (3.5-5.1); Sodium 130 mmol/L (137-145)
[2021-07-13] MEDS: SYMBICORT 160-4.5 MCG INHALER INHALATION SCH ×2 (07:31→20:27)
--- NOTE | 2021-07-13 07:35 | XR ---
EXAMINATION TYPE: XR chest 1V portable DATE OF EXAM: 07/13/2021 Comparison: 07/12/2021 Clinical History: 60-year-old male effusion Findings: Heart borderline enlarged. Moderate right and trace left pleural effusions with bibasilar opacities, right greater than left relatively unchanged. Impression: Continued moderate right and trace left pleural effusions with adjacent atelectasis and/or consolidat ion.
[2021-07-13] MEDS: THIAMINE 100 MG TAB PO SCH (08:15)
[2021-07-13] MEDS: PANTOPRAZOLE 40 MG TABLET PO SCH (08:15)
[2021-07-13] MEDS: FOLIC ACID 1 MG TAB PO SCH (08:15)
[2021-07-13] MEDS: LIDOCAINE 5% PATCH TOPICAL SCH (08:16)
[2021-07-13] MEDS: METOPROLOL SUCCINATE (ER) 100 MG TAB.ER.24H PO SCH (08:16)
[2021-07-13] MEDS: NICOTINE 14MG/24HR PATCH TRANSDERM SCH (08:16)
[2021-07-13] MEDS: metroNIDAZOLE 500 MG TAB PO SCH ×3 (08:16→21:28)
--- NOTE | 2021-07-13 12:20 | P.PN ---
Subjective Progress Note Date: 07/13/21 Principal diagnosis: Loculated right empyema. Past medical history significant for COPD with home oxygen use 3 L nasal cannula, right pleural effusion with previous right thoracentesis at [facility] around the year ago, anemia, hypertension, prostate cancers status post 48 radiation treatments, recent fall from standing, medical debility, remote history of paroxysmal atrial fibrillation, chronic nicotine dependence and EtOH abuse which he reports he quit about 3 months ago. Status post day #13 placement of right chest pigtail catheter performed by interventional radiology, the pigtail catheter was removed yesterday 07/12/2021. POD #7 I and D abscess right chest wall. The patient is seen in follow-up today 07/13/2021 at his bedside on the fourth floor medical surgical unit. Currently the patient is laying in bed, is awake, alert and oriented 3 and is in no acute distress. He denies any complaints of pain or shortness of breath at this time. His right chest pigtail catheter was removed yesterday without incident. Right chest wall wound with scant s erosanguineous drainage. Dressing changed this morning by Dr. Prasanth Alcazar. He remains to have some erythema to his right flank area, nontender to palpate. He remains on 3 L nasal cannula with oxygen saturation 94% and he is achieving 1500 mL on his incentive spirometry with much encouragement. He is currently on Rocephin and Flagyl for antibiotic coverage managed by infectious disease. Objective - Vital Signs Vital signs: Vital Signs Temp 98.2 F 07/13/21 07:48 Pulse 90 07/13/21 07:48 Resp 19 07/13/21 07:48 BP 112/86 07/13/21 07:48 Pulse Ox 94 L 07/13/21 07:48 Intake & Output 07/12/21 07/13/21 07/13/21 18:59 06:59 18:59 Intake Total 1050 450 Output Total 1650 Balance 1050 -1650 450 Intake: Intake, IV Titration 600 Amount Sodium Chloride 0.9% 1, 550 000 ml @ 100 mls/hr IV . Q10H [facility]ADA Rx#:[id number] cefTRIAXone 2 gm In 50 Sodium Chloride 0.9% 50 ml @ 100 mls/hr IVPB Q24H [facility]ADA Rx#:[id number] Oral 450 450 Output: Urine 1650 Other: Voiding Method Urinal # Voids 4 - Exam CONSTITUTIONAL: Laying in bed on the fourth floor medical surgical unit, appears comfortable, cooperative, no apparent acute distress. HEENT: Neck is supple, no JVD, no lymphadenopathy. No scleral icterus. Mucous membranes are moist. No JVD. No bruit. RESPIRATORY: Lungs sounds essentially clear throughout, diminished to his bilateral bases. Respirations are symmetrical and nonlabored. Currently on 3 L nasal cannula with oxygen saturations 94%. Able to achieve 1500 mL on his incentive spirometry. Strong cough with green tenacious sputum. CARDIOVASCULAR: Regular rhythm and rate. S1 and S2 present, negative for S3, gallop or murmur. Palpable peripheral pulses bilaterally, no edema present. No calf pain or tenderness noted. GASTROINTESTINAL: Abdomen soft, nontender, nondistended. Active bowel sounds present 4 quadrants. No guarding or rigidity. No organomegaly appreciated. INTEGUMENTARY: Skin is warm and dry with no evidence of clubbing or cyanosis. No rash or abnormal pigmentation. Swelling and erythema to his right chest wall. Soft and nontender to palpate. Dressing is clean, dry and intact to his right chest wall wound. NEUROLOGIC: Cranial nerves II through XII intact. No focal deficits. MUSKULOSKELETAL: Able to move all extremities, strength equal bilaterally, generalized weakness. PSYCHIATRIC: Alert and oriented to person place and time, appropriate affect, intact judgment and insight. - Allied health notes Allied health notes reviewed: nursing - Labs CBC & Chem 7: 07/12/21 07:11 07/13/21 06:37 Labs: Abnormal Lab Results - Last 24 Hours (Table) 07/12/21 07/13/21 Range/Units 07:11 06:37 Lymphocytes # 0.6 L (1.0-4.8) k/uL Sodium 130 L (137-145) mmol/L Chloride 97 L (98-107) mmol/L BUN 4 L (9-20) mg/dL Creatinine 0.59 L (0.66-1.25) mg/dL Calcium 7.9 L (8.4-10.2) mg/dL - Imaging and Cardiology Chest x-ray: report reviewed, image reviewed Assessment and Plan Assessment: 1. Right lung empyema status post right-sided percutaneous pigtail catheter insertion by interventional radiology and subsequent dislodgment of the pigtail catheter. Sputum culture from 06/26/2021 showing pseudomonas aeruginosa, pleural fluid showing alphahemolytic streptococcus and anaerobic culture showing gram-positive cocci 2. Shortness of breath secondary to above 3. Chronic obstructive pulmonary disease 4. History of prostate cancer status post 48 treatments of radiation 5. Hypertension 6. Medical debility 7. Chronic anemia 8. History of EtOH abuse 9. History of nicotine dependence 10. History of recent weight loss, protein calorie malnutrition 11. Right posterior chest wall hematoma, status post right chest I&D Plan: 1. Nursing to change dressing daily to his right chest wall. Wet to dry dressing, cover with 4 x 4 gauze and secured with tape. 2. Encourage use of his incentive spirometry 10 times every hour while awake. 3. Continue to monitor daily chest x-rays. 4. Continue antibiotics managed by infectious disease. 5. Bronchodilator management per pulmonary/critical care medicine. 6. Continue GI and DVT prophylaxis. 7. Pain management per current when necessary orders. 8. Increase activity as tolerated. Out of bed for all meals. The patient needs much encouragement to ambulate. 9. More recommendations to follow based on patient's clinical course. Time with Patient: Greater than 30
--- NOTE | 2021-07-13 12:36 | P.PN ---
Subjective Progress Note Date: 07/13/21 Principal diagnosis: Loculated right-sided empyema The patient is seen today 07/08/2021 in follow-up on the regular medical floor. He is currently sitting up in bed. Awake and alert in no acute distress. Maintaining O2 saturations in the 90s on 3 L/m per nasal cannula. He's been afebrile. Hemodynamically stable. Right-sided pigtail chest tube catheter remains in place to wall suction with a small amount of cloudy pleural fluid returning. He was to receive alteplase today per CT services. Dressing is dry and intact and change daily per CT services. Chest x-ray reveals suspected loculated right pneumothorax, stable. Small bilateral effusions. Mild infiltrate of the right lung base. Catheter remains in place. Chest wound cultures pending. Pleural fluid cultures revealed upper hemolytic streptococcus, anaerobic gram-positive cocci, anaerobic gram-negative bacilli. He remains on ceftriaxone and Flagyl. Continue on Symbicort and albuterol. The patient is seen today 07/09/2021 in follow-up on the regular medical floor. He is currently sitting up in bed. Awake and alert in no acute distress. Maya a bit stronger today compared to yesterday. Less short of breath. He is maintaining good O2 saturations in the mid 90s on 3 L/m per nasal cannula. He's been afebrile. Hemodynamically stable. His x-ray continues to reveal a right- sided pigtail catheter in place. No evidence of pneumothorax. Patchy basilar density seen again on the left as well. Basilar effusions. Atelectasis. Pleural fluid cultures positive for gram-positive cocci, gram-negative bacilli, alphahemolytic streptococcus. Chest wound cultures revealing no growth thus far. No new labs today. He is continued on ceftriaxone, Flagyl. 0.9 normal saline at 100 ML's per hour. He did receive his seventh dose of alteplase into the chest tube today. The patient is seen today 07/10/2021 in follow-up on the regular medical medical floor. Currently sitting up in bed. Awake and alert in no acute distress. X- ray continues to show right-sided catheter in place with some local trapped lung, basilar densities persist. He received an 8th dose of alteplase today. Pigtail catheter connected to low continuous wall suction. Remains on ceftriaxone and Flagyl. The patient is seen today 07/12/2021 in follow-up on the regular medical floor. He is currently sitting up in bed. Awake and alert in no acute distress. Maintaining O2 saturations in the upper 90s on 3 L/m per nasal cannula. He is afebrile. White count 4.1. Hemoglobin 8.6. Sodium 129. Potassium 3.8. Cr eatinine 0.52. He is continued on Symbicort, albuterol, antibiotics in the form of ceftriaxone. NicoDerm patch in place. Chest x-ray shows stable appearance of the right small to moderate pleural effusion with adjacent infiltrate. Small left plural effusion with mild atelectasis. Pigtail catheter remains in place. Continues working well with the incentive spirometer. The patient is seen today 07/13/2021 in follow-up on the regular medical floor. Sitting up in bed. Awake and alert in no acute distress. 18 O2 saturations up to 99% on 3 L/m per nasal cannula. He is afebrile. Hemodynamically stable. His x-ray continues to show moderate right and trace left pleural effusions with adjacent atelectasis. No change compared to previous. Chest tube has been removed yesterday. Dressing remains dry and intact. Pulling up to 1500 ML's on the incentive spirometer. Today's need increased encouragement to IS and to be up and about in his room. Objective - Vital Signs Vital signs: Vital Signs Temp 98.2 F 07/13/21 07:48 Pulse 90 07/13/21 07:48 Resp 19 07/13/21 07:48 BP 112/86 07/13/21 07:48 Pulse Ox 94 L 07/13/21 07:48 Intake & Output 07/12/21 07/13/21 07/13/21 18:59 06:59 18:59 Intake Total 1050 450 Output Total 1650 Balance 1050 -1650 450 Intake: Intake, IV Titration 600 Amount Sodium Chloride 0.9% 1, 550 000 ml @ 100 mls/hr IV . Q10H [facility]ADA Rx#:[id number] cefTRIAXone 2 gm In 50 Sodium Chloride 0.9% 50 ml @ 100 mls/hr IVPB Q24H [facility]ADA Rx#:[id number] Oral 450 450 Output: Urine 1650 Other: Voiding Method Urinal # Voids 4 - Exam GENERAL EXAM: Alert, 60-year-old male patient, on 3 L nasal cannula with O2 saturation 94%, comfortable in no apparent distress. HEAD: Normocephalic/atraumatic. EYES: Normal reaction of pupils, equal size. Conjunctiva pink, sclera white. NOSE: Clear with pink turbinates. THROAT: No erythema or exudates. NECK: No masses, no JVD, no thyroid enlargement, no adenopathy. CHEST: No chest wall deformity. Symmetrical expansion. Right-sided pigtail chest tube removed yesterday. Dressing dry and intact LUNGS: Equal air entry with few scattered rhonchi, crackles in the right base CVS: Regular rate and rhythm, normal S1 and S2, no gallops, no murmurs, no rubs ABDOMEN: Soft, nontender. No hepatosplenomegaly, normal bowel sounds, no guarding or rigidity. EXTREMITIES: No clubbing, no edema, no cyanosis, 2+ pulses and upper and lower extremities. MUSCULOSKELETAL: Muscle strength and tone normal. SPINE: No scoliosis or deformity SKIN: No rashes CENTRAL NERVOUS SYSTEM: No focal deficits, tone is normal in all 4 extremities. PSYCHIATRIC: Alert and oriented -3. Appropriate affect. Intact judgment and i nsight. - Labs CBC & Chem 7: 07/12/21 07:11 07/13/21 06:37 Labs: Abnormal Lab Results - Last 24 Hours (Table) 07/12/21 07/13/21 Range/Units 07:11 06:37 Lymphocytes # 0.6 L (1.0-4.8) k/uL Sodium 130 L (137-145) mmol/L Chloride 97 L (98-107) mmol/L BUN 4 L (9-20) mg/dL Creatinine 0.59 L (0.66-1.25) mg/dL Calcium 7.9 L (8.4-10.2) mg/dL Assessment and Plan Assessment: 1 Right lung empyema post percutaneous pigtail catheter insertion with [place] bsequent dislodgment of the cath and subsequent replacement here on 06/30/2021. Patient has grown pseudomonas aeruginosa and the sputum on 06/28/2021. Anaerobic infection cannot be completely excluded within the pleural space. The patient clinically improved. The patient's follow-up CAT scan showed improvement in the size of the empyema. There is still right lower lobe consolidation/infiltration. Meanwhile, the patient developed a hematoma/fluid collection along the patient states insertion site status post I&D on 07/06/2021. Current coverage is with ceftriaxone and Flagyl. Pigtail catheter removed 07/12/2021 without incident. Dressing dry and intact. 2 COPD 3 Shortness of breath secondary to above 4 History of alcoholism 5 History of prostate cancer 6 History of smoking 7 Chronic anemia 8 Protein calorie malnutrition, moderate 9 Right posterior chest wall hematoma, or possible abscess, status post incision and drainage on 07/06/2021, wound cultures revealing no growth thus far 10 Hyponatremia, improved Plan: The patient was seen and evaluated by Dr. Giordano Chest x-ray and cultures reviewed Titrate down the FiO2 as tolerated Pigtail catheter removed yesterday 07/12/2021 Currently on Rocephin and Flagyl. ID is on the case Plan is for subacute rehab post discharge We will see the patient on an as-needed basis I, the cosigning physician, performed a history & physical examination of the patient. Lungs sounds scattered rhonchi crackles in the right base. Maintaining good O2 saturations in the 90s on 3 L/m per nasal cannula. I discussed the assessment and plan of care with my nurse practitioner, Carolynn Schaffer. I attest to the above note as dictated by her.
--- NOTE | 2021-07-13 15:09 | P.PN ---
Subjective Progress Note Date: 07/13/21 This is a 60-year-old male who was recently hospitalized at [facility] for pneumonia and empyema and had a chest tube placed on the right for continued drainage and ultimately sent here to [facility] for further evaluation by cardiothoracic surgery for complicated empyema that appears to be loculated. Infectious disease following over there and patient was maintained on cefepime and Vancomycin and will reorder here and consult infectious disease. Consult also placed to pulmonary along with cardiothoracic surgery. Upon arrival to the unit on 4 S. per nursing staff patient's chest tube atrium was lying flat on the patient on arrival and when hooking up to wall suction bubbli ng was noted in the atrium and was replaced. Bubbling persisted and chest x-ray was done which shows large right pleural effusion and right pulmonary consolidation without change the right side chest tube appears to be in the subcutaneous fat and malposition over the lower lateral right chest wall. No sign of pneumothorax. Cardiothoracic surgery contacted and will be replaced upon their evaluation. Patient does have a past medical history of COPD, hypertension, former smoker recently quit, EtOH use and reports to quitting a month or so ago, anemia, and most recently per family patient has been falling more often with unsteady gait. Patient states he follows with Dr. Rafita Lewis out of [place]. Daughter states patient lives by himself and is concerned and would like possible placement. 06/30/2021 patient is seen and evaluated in follow-up this morning with cardiothoracic surgery along with pulmonary following closely and evaluated the patient. Pigtail catheter on the right was dislodged and removed at the bedside by pulmonary and interventional radiology consulted to replace catheter on the right with possible drainage or evacuation of the loculated area with cultures b eing sent. patient is continued on 4 L of oxygen via nasal cannula and reports no worsening shortness of breath. Patient had some pain with inspiration and during the removal of the catheter and will order pain medications. 07/01/2021 She is seen and evaluated this morning and chest tube catheter was replaced and draining continuous amounts approval and drainage approximately 1.6 L since last night. Cardio thoracic along with pulmonary following closely along with infectious disease and patient is maintained on IV Zosyn along with vancomycin. Patient states he is having some chest wall discomfort with cough but no worsening. patient is continued on 4 L via nasal cannula. Patient is afebrile. repeat fluid analysis culture is pending. 07/02/2021 Patient is awake and alert, breathing comfortably at rest. Staying in chair or bed most of the time. Pain is controlled. Vital signs stable, he is saturating 98% on 4 L oxygen. Slightly dropped to 133 down to 129. We'll keep monitoring. Patient has pigtail tube on his right chest posteriorly with surrounding area of fluctuating swelling, possible hematoma therefore alteplase is not going to be given today. Per pulmonary team recommendation. Remains on cefepime and IV vancomycin pending final culture results with infectious disease team on the case CT of the chest showing right basilar pleural catheter with a small collection noted. Infected collection is not excluded. Basilar infiltrate may reflect pneumonia or aspiration. Hpneumothorax on the right 07/03/2021 Patient breathing is not worsening. He still has right-sided pigtail tube with surrounding swelling most likely hematoma which looks his stable. No more alt eplase yesterday. Hemodynamically stable and he is saturating 98% on 4 L. Fluid culture, and positive for alpha hemolytic streptococcus and chest x-ray showing patchy infiltrate in the right medial base, stable. His were adjusted today to IV vancomycin and ceftriaxone instead of cefepime. 07/04/2021 Patient is seen and evaluated in follow up this morning and continues on 4L via NC. Patient with continued right chest wall pigtail catheter with approx 150cc of output over the last [address] surgery and pulmonary following closely. Abdominal binder in place and alteplace on hold as concerned for possible hematoma at the catheter site. Anticoagulant on hold as well and chest xray today shows right lower lobe infiltrate with small effusion and overall stable. Patient also being followed closely by ID and maintained on IV ceftriaxone while waiting for cultures to finalize. Patient continues to be weak and will have PT/OT evaluate the patient and consult social work for possible placement. REpeat chest xray and labs in the am. Encouraged incentive spirometer at least 10 times every hour while awake. Encouraged increased activity as tolerated. Abdominal binder noted on exam for compression of the right chest tube sight. 07/05/2021 Patient is seen in follow-up this morning being followed by pulmonary and CT surgery. Patient underwent soft tissue ultrasound as patient has continued fluid collection at the chest tube site and ultrasound shows moderate subcutaneous edema in the soft tissue just below the dermal surface with 2 oval- shaped non-simple fluid collections just below this and within the deep subcutaneous tissue possibility is of hematoma versus developing abscess. Gen. surgery consulted recommending continuing with IV antibiotic therapy and conservative management with no surgical intervention at this time. Infectious disease is following and patient is maintained on IV antibiotics in the form of ceftriaxone. Patient sodium is low at 131 and will add IV fluids and repeat labs. Patient continues to be weak and needs encouragement to increase activity as tolerated. Also encouraged incentive spirometer. 07/06/2021 Patient is seen and evaluated in follow-up this morning and appears agitated. Patient states he is tired and also tired of multiple people coming in and out of his room. Patient has cardiothoracic surgery along with pulmonary following closely. Infectious disease following as well and patient is maintained on IV ceftriaxone along with Flagyl and will continue. Chest x-ray today shows a right lower lobe infiltrate and bilateral small pleural effusions larger on the right. Cardiothoracic surgery plans to take the patient to the OR for incision and drainage of the right posterior chest wall hematoma versus abscess this afternoon. Will await surgical report. Patient is on gentle IV hydration of normal saline and will continue his sodium is improved at 133. Patient is currently nothing by mouth for the procedure this afternoon. 07/07/2021 Patient is seen and evaluated in follow-up this morning status post incision and drainage of the fluid collection within the subcutaneous tissue underneath the chest tube along with drainage of the abscess and deep cultures were obtained. Patient is being followed closely by cardiothoracic surgery along with pulmonary and infectious disease. Patient continues on IV ceftriaxone and Flagyl until cultures are finalized. Patient is having some right chest wall tenderness and pain although states no worsening and continues on 3 L of oxygen via nasal cannula. Chest x-ray today shows a patchy right lower lobe infiltrate and right-sided pleural effusion thickening and/or effusion persists and are unchanged. 07/08/2021 Patient is seen this morning and follow-up sleeping but arousable continues to have pain of the right side and had been receiving IV pain medications and will add oral [place]. Encouraged activity as patient continues to need encouragement to get out of bed. CT surgery and pulmonary following along with infectious disease and patient is maintained on IV ceftriaxone along with oral Flagyl and will continue while awaiting for cultures to finalize. Patient did have repeat cultures during I&D on the . Patient has been working with physical therapy and will evaluate closer to discharge to consider possible home care versus subacute rehab. 07/10/2021 Patient is still has significant drainage from the chest to medically after alteplase infusion 07/11/2021 Patient is seen and evaluated this morning status post CTA of the chest and continues with a test tube on the right. Patient is being followed by CT surgery, pulmonary, and infectious disease. Patient continues on ceftriaxone and Flagyl. Patient continues with large amount of drainage From the chest tube. 07/12/2021 Patient is seen in follow-up this morning and being closely followed by CT surgery along with pulmonary and infectious disease. Discussion is being had about possibly removing pigtail catheter day. Patient continues on IV ceftriaxone and will continue in the outpatient setting. Patient continues with extensive pain of the right side and will adjust the medications. Encouraged incentive spirometer use along with oral intake and activity as tolerated. Will discuss further with infectious disease along with pulmonary and cardiothoracic surgery about discharge planning. Patient states he plans on going to [facility] once stabilized and discharged. 07/13/2021 Patient seen and evaluated in follow-up status post pigtail catheter removal with cardiothoracic surgery and pulmonary following. Patient is continued on IV antibiotics with infectious disease following closely and will likely require IV antibiotic therapy in the outpatient setting. Will discuss further with infectious disease about discharge planning and IV antibiotics in the outpatient setting. Patient plans to go to [facility] once stabilized and discharged. Possible discharge planning in 24 hours. Encouraged increase activity as tolerated and continued incentive spirometer use. Chest x-ray today shows continued moderate right and trace left pleural effusion with adjacent atelectasis and/or consolidation noted relatively unchanged from previous. Will discontinue IV fluids and fluid restrict of 1500 mL's per day as sodium remains low at 130. Repeat labs. Labs: Sodium is 1:30, potassium is 3.9, BUN is 4, creatinine is 0.59 Review of systems: Constitutional: No reports of fatigue, fever, or chills Cardiovascular: No reports of chest pain or palpitations, reports continued righ t chest wall pain Respiratory: No reports of worsening shortness of breath or cough GI: No reports of nausea, vomiting, or diarrhea : No reports of dysuria or retention Neurovascular: reports generalized weakness All medications have been reviewed Active Medications Acetaminophen (Acetaminophen Tab 325 Mg Tab) 650 mg PO Q6HR PRN PRN Reason: Mild Pain or Fever > 100.5 Last Admin: 07/12/21 03:05 Dose: 650 mg Documented by: Hydrocodone Bitart/Acetaminophen (Hydrocodone/Apap 10-325mg 1 Each Tab) 2 each PO Q6HR PRN PRN Reason: Moderate Pain Last Admin: 07/13/21 14:18 Dose: 2 each Documented by: Albuterol Sulfate (Albuterol Nebulized 2.5 Mg/3 Ml) 2.5 mg INHALATION RT-Q4H PRN PRN Reason: Shortness Of Breath Last Admin: 06/30/21 12:05 Dose: 2.5 mg Documented by: Budesonide/Formoterol Fumarate (Symbicort 160-4.5 Mcg Inhaler) 2 puff INHALATION RT-BID [facility] Last Admin: 07/13/21 07:31 Dose: 2 puff Documented by: Folic Acid (Folic Acid 1 Mg Tab) 1 mg PO DAILY [facility] Last Admin: 07/13/21 08:15 Dose: 1 mg Documented by: Hydromorphone HCl (Hydromorphone 1 Mg/Ml 1 Ml Syringe) 1 mg IVP Q4H PRN PRN Reason: Severe Pain Ceftriaxone Sodium 2 gm/ (Sodium Chloride) 50 mls @ 100 mls/hr IVPB Q24H [facility] Last Admin: 07/12/21 17:04 Dose: 100 mls/hr Documented by: Lidocaine (Lidocaine 5% Patch) 1 patch TOPICAL DAILY [facility]; Protocol Last Admin: 07/13/21 08:16 Dose: Not Given Documented by: Lorazepam (Lorazepam 1 Mg Tab) 2 mg PO HS [facility] Last Admin: 07/12/21 19:41 Dose: 2 mg Documented by: Melatonin (Melatonin 3 Mg Tablet) 3 mg PO HS PRN PRN Reason: Insomnia Metoprolol Succinate (Metoprolol Succinate (Er) 100 Mg Tab.Er.24h) 100 mg PO D AILY [facility] Last Admin: 07/13/21 08:16 Dose: 100 mg Documented by: Metronidazole (Metronidazole 500 Mg Tab) 500 mg PO TID [facility] Last Admin: 07/13/21 08:16 Dose: 500 mg Documented by: Miscellaneous Information (Potassium Replacement Protocol 1 Each Misc) 1 each MISCELLANE DAILY PRN; Protocol PRN Reason: Per Protocol Naloxone HCl (Naloxone 0.4 Mg/Ml 1 Ml Vial) 0.2 mg IV Q2M PRN PRN Reason: Opioid Reversal Nicotine (Nicotine 14mg/24hr Patch) 1 patch TRANSDERM DAILY [facility] Last Admin: 07/13/21 08:16 Dose: 1 patch Documented by: Patient's Own ( Butorphanol Tartrate [Stadol Nasal [place] ] 10 Mg/Ml Ml) 1 spray MISCELLANE DAILY PRN PRN Reason: Migraine Headache Ondansetron HCl (Ondansetron 4 Mg/2 Ml Vial) 4 mg IVP Q8HR PRN PRN Reason: Nausea And Vomiting Pantoprazole Sodium (Pantoprazole 40 Mg Tablet) 40 mg PO AC-BRKFST [facility] Last Admin: 07/13/21 08:15 Dose: 40 mg Documented by: Thiamine HCl (Thiamine 100 Mg Tab) 100 mg PO DAILY [facility] Last Admin: 07/13/21 08:15 Dose: 100 mg Documented by: Physical exam: Gen: This is a 60-year-old male is awake, alert and oriented 3, thin built, appears older than stated age HEENT: Head is atraumatic, normocephalic. Pupils equal, round. Sclerae is anicteric. NECK: Supple. No JVD. No lymphadenopathy. No thyromegaly. LUNGS: Diminished breath sounds bilaterally with some scattered rhonchi noted. No intercostal retractions. HEART: Regular rate and rhythm. No murmur. ABDOMEN: Soft. Thin built. Bowel sounds are present. No masses. No tenderness. EXTREMITIES: No pedal edema. No calf tenderness. NEUROLOGICAL: Patient is awake, alert and oriented x3. No focal deficits noted. Diffusely weak Assessment: pneumonia and empyema secondary to alpha hemolytic streptococci and possible anaerobic bacteria, patient is on Rocephin which will be continued, infectious disease following and discussion is being had about IV antibiotic therapy upon discharge Right chest wall abscess and fluid collection at the site of the chest tube status post incision and drainage with cardiothoracic surgery, pigtail catheter removed Bacterial pneumonia with the streptococci positive cultures with Pseudomonas is a colonization Hyponatremia, possibly secondary to hypovolemic or possible component of SIADH, repeat sodium levels today is 130, will fluid restrict to 1500 mL daily and repeat labs in the morning Empyema with right side percutaneous pigtail catheter placement at [facility] and subsequent dislodgment of the catheter, chest tube catheter replaced and pigtail catheter was removed yesterday Chronic obstructive pulmonary disease, acute exacerbation Chronic hypoxic respiratory failure on 3 L via nasal cannula in the outpatient setting Hypertension History of anemia, macrocytic generalized weakness GI prophylaxis DVT prophylaxis: scds Full code Plan: Recommend to continue with current medications and management. Multiple medical consultations following including cardiothoracic surgery, pulmonary, and infectious disease. Pig tail catheter was removed from the right chest wall with continued dressing changes and discharge planning in process for possible [place] on the fatima for continued PT/OT therapy. Social work following for discharge planning needs. Will discuss with infectious disease about IV antibiotic therapy in the outpatient setting and if midline or PICC line is required. Pulmonary also following as needed and cardiothoracic's continue to follow. Patient will need close outpatient follow-up for repeat testing and close monitoring. Sodium 130 today and will fluid restrict to 1500 mL's and repeat labs in the morning. Recommend and encourage the patient to continue using incentive spirometer at least 10 times every hour while awake. Encouraged increased activity as tolerated. Possible discharge in 24-48 hours. Objective - Vital Signs Vital signs: Vital Signs Temp 98.2 F 07/13/21 07:48 Pulse 90 07/13/21 07:48 Resp 19 07/13/21 07:48 BP 112/86 07/13/21 07:48 Pulse Ox 94 L 07/13/21 07:48 Intake & Output 07/12/21 07/13/21 07/13/21 18:59 06:59 18:59 Intake Total 1050 Output Total 1650 Balance 1050 -1650 Intake: Intake, IV Titration 600 Amount Sodium Chloride 0.9% 1, 550 000 ml @ 100 mls/hr IV . Q10H [facility] Rx#:[id number] cefTRIAXone 2 gm In 50 Sodium Chloride 0.9% 50 ml @ 100 mls/hr IVPB Q24H [facility] Rx#:[id number] Oral 450 Output: Urine 1650 Other: Voiding Method Urinal # Voids 4 - Labs CBC & Chem 7: 07/12/21 07:11 07/13/21 06:37 Labs: Abnormal Lab Results - Last 24 Hours (Table) 07/12/21 07/13/21 Range/Units 07:11 06:37 Lymphocytes # 0.6 L (1.0-4.8) k/uL Sodium 130 L (137-145) mmol/L Chloride 97 L (98-107) mmol/L BUN 4 L (9-20) mg/dL Creatinine 0.59 L (0.66-1.25) mg/dL Calcium 7.9 L (8.4-10.2) mg/dL
[2021-07-13] MEDS: LORazepam 1 MG TAB PO SCH (20:16)
--- NOTE | 2021-07-13 23:45 | PN ---
PROGRESS NOTE DATE OF SERVICE: 07/13/2021 REASON FOR FOLLOWUP: Right-sided empyema. INTERVAL HISTORY: Patient is afebrile. The patient has been breathing comfortably. Chest tube was discontinued yesterday. Denies any worsening shortness of breath. Did have significant cough and sputum production. No vomiting. No abdominal pain. No diarrhea. PHYSICAL EXAMINATION: Blood pressure 127/87, pulse of 77, temperature 98.1. He is 92% on 3 L nasal cannula. General description is a middle-aged male lying in bed in no distress. Respiratory system: Unlabored breathing, decreased intensity of breath sounds. No wheeze. Heart S1, S2. Regular rate and rhythm. Abdomen soft, no tenderness. LABS: Hemoglobin is 8.3, white count 4.1, creatinine 0.59. DIAGNOSTIC IMPRESSION AND PLAN: Patient with right-sided empyema in this patient status post chest tube and did have a drainage of the abscess. Culture has been positive for Strep anaerobes. Patient is covered with Rocephin and Flagyl to continue for another 2 weeks. PICC line will be placed and close outpatient followup. MMODL / IJN: [id number] /
[2021-07-14] MEDS: SYMBICORT 160-4.5 MCG INHALER INHALATION SCH ×2 (07:27→20:41)
--- NOTE | 2021-07-14 07:46 | XR ---
EXAMINATION TYPE: XR chest 1V portable DATE OF EXAM: 07/14/2021 Comparison: 07/13/2021 Clinical History: 60-year-old male right empyema Findings: Heart upper limits of normal in size. Small to moderate right and trace left pleural effusions persis t with patchy bibasilar opacities, right greater than left. Mild hyperinflation. Upper lungs are rela tively clear. Impression: Continued small to moderate right and trace left pleural effusions with prominent bibasilar atelectas is and/or consolidation.
[2021-07-14] MEDS: LIDOCAINE 5% PATCH TOPICAL SCH (08:36)
[2021-07-14] MEDS: PANTOPRAZOLE 40 MG TABLET PO SCH (08:43)
[2021-07-14] MEDS: metroNIDAZOLE 500 MG TAB PO SCH ×3 (08:43→21:16)
[2021-07-14] MEDS: FOLIC ACID 1 MG TAB PO SCH (08:43)
[2021-07-14] MEDS: THIAMINE 100 MG TAB PO SCH (08:43)
[2021-07-14] MEDS: METOPROLOL SUCCINATE (ER) 100 MG TAB.ER.24H PO SCH (08:44)
[2021-07-14] MEDS: NICOTINE 14MG/24HR PATCH TRANSDERM SCH (08:44)
[2021-07-14] MEDS: HYDROcodone/APAP 10-325MG 1 EACH TAB PO PRN ×2 (09:08→16:38)
--- NOTE | 2021-07-14 10:41 | P.PN ---
Subjective Progress Note Date: 07/14/21 Principal diagnosis: Loculated right empyema. Previous medical history of COPD with home oxygen use 3 L nasal cannula, right pleural effusion with previous right thoracentesis at [facility], anemia, hypertension, prostate cancers status post 48 radiation treatments, recent fall from standing, medical debility, remote history of paroxysmal atrial fibrillation, chronic nicotine dependence and previous EtOH abuse Status post day #14 placement of right chest pigtail catheter performed by interventional radiology POD #8 I&D abscess right chest wall The patient was seen and examined this morning at the bedside. He is sitting up in bed in no acute distress. No complaints of worsening pain. Dressing changed daily to right posterior chest wall fluid pocket. Currently on 3 LPM NC with oxygen saturation 98%. Remains on IV ceftriaxone, oral Flagyl per infectious disease. Objective - Vital Signs Vital signs: Vital Signs Temp 98.7 F 07/14/21 08:35 Pulse 79 07/14/21 08:35 Resp 22 07/14/21 08:35 BP 124/84 07/14/21 08:35 Pulse Ox 95 07/14/21 08:35 Intake & Output 07/13/21 07/14/21 07/14/21 18:59 06:59 18:59 Intake Total 1136 Output Total 600 Balance 1136 -600 Weight 83 kg Intake: Oral 1136 Output: Urine 600 - Exam CONSTITUTIONAL: Appears comfortable, cooperative, no acute distress RESPIRATORY: Lungs sounds diminished bilaterally. Respirations even, nonlabored. Currently on 3 L nasal cannula with oxygen saturation 98% CARDIOVASCULAR: S1, S2 present. Regular rate and rhythm. Palpable peripheral pulses bilaterally. No edema present. No calf pain or tenderness noted GASTROINTESTINAL: Abdomen soft, nontender, nondistended. Active bowel sounds present 4 quadrants. Tolerating diet. Positive bowel movement GENITOURINARY: Continues to void INTEGUMENTARY: Skin is warm and dry with evidence of good perfusion. Swelling to right posterior chest wall decreasing NEUROLOGIC: Cranial nerves II through XII intact MUSKULOSKELETAL: Able to move all extremities, strength equal bilaterally PSYCHIATRIC: Alert and oriented to person place and time, appropriate affect, intact judgment and insight - Allied health notes Allied health notes reviewed: nursing - Labs CBC & Chem 7: 07/12/21 07:11 07/13/21 06:37 - Imaging and Cardiology Chest x-ray: report reviewed, image reviewed Assessment and Plan Assessment: 1. Right lung empyema status post right-sided percutaneous pigtail catheter insertion by interventional radiology. Sputum culture from 06/26/2021 growing pseudomonas aeruginosa, pleural fluid growing alphahemolytic streptococcus and anaerobic culture growing gram-positive cocci and gram-negative bacilli. Chest wall I&D cultures with no growth 2. Shortness of breath, pain secondary to above 3. Chronic obstructive pulmonary disease 4. History of prostate cancer status post 48 treatments of radiation 5. Hypertension 6. Medical debility 7. Chronic anemia 8. History of EtOH abuse 9. History of nicotine dependence 10. History of recent weight loss, protein calorie malnutrition 11. Right posterior chest wall hematoma, status post I&D Plan: 1. Nursing to change dressing daily to his right chest wall. Wet to dry dressing, cover with 4 x 4 gauze and secured with tape. 2. Encourage use of incentive spirometry 10 times every hour while awake. 3. Continue antibiotics management by infectious disease. 4. Bronchodilator management per pulmonary/critical care medicine. 5. Continue GI and DVT prophylaxis. 6. Pain management per primary care service 7. Increase activity as tolerated. Out of bed for all meals. The patient needs much encouragement to ambulate. 8. Okay to be discharged to SNF from our standpoint, dressing change recommendations placed on discharge plan. Will sign off the case, please call us with any questions Time with Patient: Greater than 30
[2021-07-14 12:49] LABS: African American GFR (CKD) >90 (>60 ml/min/1.73 sqM); Anion Gap 6 mmol/L; Blood Urea Nitrogen 5 mg/dL (9-20); Carbon Dioxide 26 mmol/L (22-30); Chloride 94 mmol/L (98-107); Glucose 118 mg/dL (74-99); Non-African American GFR(CKD) >90 (>60 ml/min/1.73 sqM); Potassium 3.8 mmol/L (3.5-5.1); Sodium 126 mmol/L (137-145)
--- NOTE | 2021-07-14 14:15 | P.PN ---
Subjective Progress Note Date: 07/14/21 This is a 60-year-old male who was recently hospitalized at [facility] for pneumonia and empyema and had a chest tube placed on the right for continued drainage and ultimately sent here to [facility] for further evaluation by cardiothoracic surgery for complicated empyema that appears to be loculated. Infectious disease following over there and patient was maintained on cefepime and Vancomycin and will reorder here and consult infectious disease. Consult also placed to pulmonary along with cardiothoracic surgery. Upon arrival to the unit on 4 S. per nursing staff patient's chest tube atrium was lying flat on the patient on arrival and when hooking up to wall suction bubbli ng was noted in the atrium and was replaced. Bubbling persisted and chest x-ray was done which shows large right pleural effusion and right pulmonary consolidation without change the right side chest tube appears to be in the subcutaneous fat and malposition over the lower lateral right chest wall. No sign of pneumothorax. Cardiothoracic surgery contacted and will be replaced upon their evaluation. Patient does have a past medical history of COPD, hypertension, former smoker recently quit, EtOH use and reports to quitting a month or so ago, anemia, and most recently per family patient has been falling more often with unsteady gait. Patient states he follows with Dr. Rafita Lewis out of [place]. Daughter states patient lives by himself and is concerned and would like possible placement. 06/30/2021 patient is seen and evaluated in follow-up this morning with cardiothoracic surgery along with pulmonary following closely and evaluated the patient. Pigtail catheter on the right was dislodged and removed at the bedside by pulmonary and interventional radiology consulted to replace catheter on the right with possible drainage or evacuation of the loculated area with cultures b eing sent. patient is continued on 4 L of oxygen via nasal cannula and reports no worsening shortness of breath. Patient had some pain with inspiration and during the removal of the catheter and will order pain medications. 07/01/2021 She is seen and evaluated this morning and chest tube catheter was replaced and draining continuous amounts approval and drainage approximately 1.6 L since last night. Cardio thoracic along with pulmonary following closely along with infectious disease and patient is maintained on IV Zosyn along with vancomycin. Patient states he is having some chest wall discomfort with cough but no worsening. patient is continued on 4 L via nasal cannula. Patient is afebrile. repeat fluid analysis culture is pending. 07/02/2021 Patient is awake and alert, breathing comfortably at rest. Staying in chair or bed most of the time. Pain is controlled. Vital signs stable, he is saturating 98% on 4 L oxygen. Slightly dropped to 133 down to 129. We'll keep monitoring. Patient has pigtail tube on his right chest posteriorly with surrounding area of fluctuating swelling, possible hematoma therefore alteplase is not going to be given today. Per pulmonary team recommendation. Remains on cefepime and IV vancomycin pending final culture results with infectious disease team on the case CT of the chest showing right basilar pleural catheter with a small collection noted. Infected collection is not excluded. Basilar infiltrate may reflect pneumonia or aspiration. Hpneumothorax on the right 07/03/2021 Patient breathing is not worsening. He still has right-sided pigtail tube with surrounding swelling most likely hematoma which looks his stable. No more alt eplase yesterday. Hemodynamically stable and he is saturating 98% on 4 L. Fluid culture, and positive for alpha hemolytic streptococcus and chest x-ray showing patchy infiltrate in the right medial base, stable. His were adjusted today to IV vancomycin and ceftriaxone instead of cefepime. 07/04/2021 Patient is seen and evaluated in follow up this morning and continues on 4L via NC. Patient with continued right chest wall pigtail catheter with approx 150cc of output over the last [address] surgery and pulmonary following closely. Abdominal binder in place and alteplace on hold as concerned for possible hematoma at the catheter site. Anticoagulant on hold as well and chest xray today shows right lower lobe infiltrate with small effusion and overall stable. Patient also being followed closely by ID and maintained on IV ceftriaxone while waiting for cultures to finalize. Patient continues to be weak and will have PT/OT evaluate the patient and consult social work for possible placement. REpeat chest xray and labs in the am. Encouraged incentive spirometer at least 10 times every hour while awake. Encouraged increased activity as tolerated. Abdominal binder noted on exam for compression of the right chest tube sight. 07/05/2021 Patient is seen in follow-up this morning being followed by pulmonary and CT surgery. Patient underwent soft tissue ultrasound as patient has continued fluid collection at the chest tube site and ultrasound shows moderate subcutaneous edema in the soft tissue just below the dermal surface with 2 oval- shaped non-simple fluid collections just below this and within the deep subcutaneous tissue possibility is of hematoma versus developing abscess. Gen. surgery consulted recommending continuing with IV antibiotic therapy and conservative management with no surgical intervention at this time. Infectious disease is following and patient is maintained on IV antibiotics in the form of ceftriaxone. Patient sodium is low at 131 and will add IV fluids and repeat labs. Patient continues to be weak and needs encouragement to increase activity as tolerated. Also encouraged incentive spirometer. 07/06/2021 Patient is seen and evaluated in follow-up this morning and appears agitated. Patient states he is tired and also tired of multiple people coming in and out of his room. Patient has cardiothoracic surgery along with pulmonary following closely. Infectious disease following as well and patient is maintained on IV ceftriaxone along with Flagyl and will continue. Chest x-ray today shows a right lower lobe infiltrate and bilateral small pleural effusions larger on the right. Cardiothoracic surgery plans to take the patient to the OR for incision and drainage of the right posterior chest wall hematoma versus abscess this afternoon. Will await surgical report. Patient is on gentle IV hydration of normal saline and will continue his sodium is improved at 133. Patient is currently nothing by mouth for the procedure this afternoon. 07/07/2021 Patient is seen and evaluated in follow-up this morning status post incision and drainage of the fluid collection within the subcutaneous tissue underneath the chest tube along with drainage of the abscess and deep cultures were obtained. Patient is being followed closely by cardiothoracic surgery along with pulmonary and infectious disease. Patient continues on IV ceftriaxone and Flagyl until cultures are finalized. Patient is having some right chest wall tenderness and pain although states no worsening and continues on 3 L of oxygen via nasal cannula. Chest x-ray today shows a patchy right lower lobe infiltrate and right-sided pleural effusion thickening and/or effusion persists and are unchanged. 07/08/2021 Patient is seen this morning and follow-up sleeping but arousable continues to have pain of the right side and had been receiving IV pain medications and will add oral Ottertail. Encouraged activity as patient continues to need encouragement to get out of bed. CT surgery and pulmonary following along with infectious disease and patient is maintained on IV ceftriaxone along with oral Flagyl and will continue while awaiting for cultures to finalize. Patient did have repeat cultures during I&D on the . Patient has been working with physical therapy and will evaluate closer to discharge to consider possible home care versus subacute rehab. 07/10/2021 Patient is still has significant drainage from the chest to medically after alteplase infusion 07/11/2021 Patient is seen and evaluated this morning status post CTA of the chest and continues with a test tube on the right. Patient is being followed by CT surgery, pulmonary, and infectious disease. Patient continues on ceftriaxone and Flagyl. Patient continues with large amount of drainage From the chest tube. 07/12/2021 Patient is seen in follow-up this morning and being closely followed by CT surgery along with pulmonary and infectious disease. Discussion is being had about possibly removing pigtail catheter day. Patient continues on IV ceftriaxone and will continue in the outpatient setting. Patient continues with extensive pain of the right side and will adjust the medications. Encouraged incentive spirometer use along with oral intake and activity as tolerated. Will discuss further with infectious disease along with pulmonary and cardiothoracic surgery about discharge planning. Patient states he plans on going to [facility] once stabilized and discharged. 07/13/2021 Patient seen and evaluated in follow-up status post pigtail catheter removal with cardiothoracic surgery and pulmonary following. Patient is continued on IV antibiotics with infectious disease following closely and will likely require IV antibiotic therapy in the outpatient setting. Will discuss further with infectious disease about discharge planning and IV antibiotics in the outpatient setting. Patient plans to go to [facility] once stabilized and discharged. Possible discharge planning in 24 hours. Encouraged increase activity as tolerated and continued incentive spirometer use. Chest x-ray today shows continued moderate right and trace left pleural effusion with adjacent atelectasis and/or consolidation noted relatively unchanged from previous. Will discontinue IV fluids and fluid restrict of 1500 mL's per day as sodium remains low at 130. Repeat labs. 07/14/2021 Patient is seen and evaluated in follow-up currently sitting up in the chair requesting to return back to bed and states he is awaiting his bandages to be replaced by nursing staff. Patient continues to be weak requiring assistance and has an unsteady gait with some dizziness upon getting up. Repeat labs done today shows a sodium of 126 and will add sodium chloride tabs and repeat labs. Patient is also scheduled to receive a PICC line today as he will require outpatient IV antibiotic therapy. Infectious disease is following. Labs: Sodium is 126, potassium is 3.8, BUN is 5, creatinine is 0.74 Review of systems: Constitutional: No reports of fatigue, fever, or chills Cardiovascular: No reports of chest pain or palpitations, reports continued right chest wall pain Respiratory: No reports of worsening shortness of breath or cough GI: No reports of nausea, vomiting, or diarrhea : No reports of dysuria or retention Neurovascular: reports generalized weakness, reports of dizziness when getting up and continued right-sided pain All medications have been reviewed Active Medications Acetaminophen (Acetaminophen Tab 325 Mg Tab) 650 mg PO Q6HR PRN PRN Reason: Mild Pain or Fever > 100.5 Last Admin: 07/12/21 03:05 Dose: 650 mg Documented by: Hydrocodone Bitart/Acetaminophen (Hydrocodone/Apap 10-325mg 1 Each Tab) 2 each PO Q6HR PRN PRN Reason: Moderate Pain Last Admin: 07/14/21 09:08 Dose: 2 each Documented by: Albuterol Sulfate (Albuterol Nebulized 2.5 Mg/3 Ml) 2.5 mg INHALATION RT-Q4H PRN PRN Reason: Shortness Of Breath Last Admin: 06/30/21 12:05 Dose: 2.5 mg Documented by: Budesonide/Formoterol Fumarate (Symbicort 160-4.5 Mcg Inhaler) 2 puff INHALATION RT-BID [facility] Last Admin: 07/14/21 07:27 Dose: 2 puff Documented by: Folic Acid (Folic Acid 1 Mg Tab) 1 mg PO DAILY [facility] Last Admin: 07/14/21 08:43 Dose: 1 mg Documented by: Hydromorphone HCl (Hydromorphone 1 Mg/Ml 1 Ml Syringe) 1 mg IVP Q4H PRN PRN Reason: Severe Pain Ceftriaxone Sodium 2 gm/ (Sodium Chloride) 50 mls @ 100 mls/hr IVPB Q24H [facility] Last Admin: 07/13/21 16:03 Dose: 100 mls/hr Documented by: Lidocaine (Lidocaine 5% Patch) 1 patch TOPICAL DAILY [facility]; Protocol Last Admin: 07/14/21 08:36 Dose: 1 patch Documented by: Lorazepam (Lorazepam 1 Mg Tab) 2 mg PO HS [facility] Last Admin: 07/13/21 20:16 Dose: 2 mg Documented by: Melatonin (Melatonin 3 Mg Tablet) 3 mg PO HS PRN PRN Reason: Insomnia Metoprolol Succinate (Metoprolol Succinate (Er) 100 Mg Tab.Er.24h) 100 mg PO DAILY [facility] Last Admin: 07/14/21 08:44 Dose: 100 mg Documented by: Metronidazole (Metronidazole 500 Mg Tab) 500 mg PO TID [facility] Last Admin: 07/14/21 08:43 Dose: 500 mg Documented by: Miscellaneous Information (Potassium Replacement Protocol 1 Each Misc) 1 each MISCELLANE DAILY PRN; Protocol PRN Reason: Per Protocol Naloxone HCl (Naloxone 0.4 Mg/Ml 1 Ml Vial) 0.2 mg IV Q2M PRN PRN Reason: Opioid Reversal Nicotine (Nicotine 14mg/24hr Patch) 1 patch TRANSDERM DAILY [facility] Last Admin: 07/14/21 08:44 Dose: 1 patch Documented by: Patient's Own ( Butorphanol Tartrate [Stadol Nasal Ethel ] 10 Mg/Ml Ml) 1 spray MISCELLANE DAILY PRN PRN Reason: Migraine Headache Ondansetron HCl (Ondansetron 4 Mg/2 Ml Vial) 4 mg IVP Q8HR PRN PRN Reason: Nausea And Vomiting Pantoprazole Sodium (Pantoprazole 40 Mg Tablet) 40 mg PO AC-BRKFST [facility] Last Admin: 07/14/21 08:43 Dose: 40 mg Documented by: Sodium Chloride (Sodium Chloride Tab 1 Gm Tab) 1 gm PO BID [facility] Thiamine HCl (Thiamine 100 Mg Tab) 100 mg PO DAILY [facility] Last Admin: 07/14/21 08:43 Dose: 100 mg Documented by: Physical exam: Gen: This is a 60-year-old male is awake, alert and oriented 3, thin built, appears older than stated age HEENT: Head is atraumatic, normocephalic. Pupils equal, round. Sclerae is anicteric. NECK: Supple. No JVD. No lymphadenopathy. No thyromegaly. LUNGS: Diminished breath sounds bilaterally with some scattered rhonchi noted. No intercostal retractions. HEART: Regular rate and rhythm. No murmur. ABDOMEN: Soft. Thin built. Bowel sounds are present. No masses. No tenderness. EXTREMITIES: No pedal edema. No calf tenderness. NEUROLOGICAL: Patient is awake, alert and oriented x3. No focal deficits noted. Diffusely weak Assessment: pneumonia and empyema secondary to alpha hemolytic streptococci and possible anaerobic bacteria, patient is on Rocephin which will be continued, infectious disease following and patient is to receive a PICC line today Right chest wall abscess and fluid collection at the site of the chest tube status post incision and drainage, pigtail catheter removed Bacterial pneumonia with the streptococci positive cultures with Pseudomonas is a colonization Hyponatremia, possibly secondary to hypovolemic or possible component of SIADH, repeat sodium levels today is 126 tab sodium chloride tab and repeat labs Chronic obstructive pulmonary disease, acute exacerbation Chronic hypoxic respiratory failure on 3 L via nasal cannula in the outpatient s etting Hypertension History of anemia, macrocytic generalized weakness GI prophylaxis DVT prophylaxis: scds Full code Plan: Recommend to continue with current medications and management. Multiple medical consultations following including cardiothoracic surgery, pulmonary, and infectious disease. Pig tail catheter was removed from the right chest wall with continued daily dressing changes and discharge planning in process for possible [facility] on the fatima for continued PT/OT therapy. Social work following for discharge planning needs. Patient will receive a PICC line and continue on IV antibiotic therapy with close outpatient monitoring with infectious disease following closely. Sodium is low at 126 today and will add sodium chloride tabs and repeat labs. Recommend and encourage the patient to continue using incentive spirometer at least 10 times every hour while awake. Encouraged increased activity as tolerated. Possible discharge in 24-48 hours. Objective - Vital Signs Vital signs: Vital Signs Temp 98.7 F 07/14/21 08:35 Pulse 79 07/14/21 08:35 Resp 22 07/14/21 08:35 BP 124/84 07/14/21 08:35 Pulse Ox 95 07/14/21 08:35 Intake & Output 07/13/21 07/14/21 07/14/21 18:59 06:59 18:59 Intake Total 1136 Output Total 600 Balance 1136 -600 Weight 83 kg Intake: Oral 1136 Output: Urine 600 - Labs CBC & Chem 7: 07/12/21 07:11 07/14/21 12:13 Labs: Abnormal Lab Results - Last 24 Hours (Table) 07/14/21 Range/Units 12:13 Sodium 126 L (137-145) mmol/L Chloride 94 L (98-107) mmol/L BUN 5 L (9-20) mg/dL Glucose 118 H (74-99) mg/dL Calcium 8.0 L (8.4-10.2) mg/dL
[2021-07-14] MEDS ORDERED: LIDOCAINE 1% INJ 10MG/ML (20 ML MDV) SQ ONE (14:20)
--- NOTE | 2021-07-14 15:03 | IR ---
PICC LINE PLACEMENT: HISTORY: Infection requiring long-term antibiotic therapy PROCEDURE: Ultrasound and fluoroscopic guidance of PICC line placement. COMPLICATIONS: None ANESTHESIA: 1. 1% Lidocaine locally. FINDINGS/TECHNIQUE: The procedure was explained to the patient. The risks, complications, benefits and alternatives were discussed and any questions were answered. Informed consent was obtained. The patient was placed supine on the fluoroscopic table and prepped and draped in the usual sterile fash ion. Utilizing a 21 gauge needle and sonographic and fluoroscopic guidance, access in the left basi lic vein was achieved and there is placement of a 0.018 guidewire. The vein is patent. A 4-F sheath was placed over the guidewire. The guidewire and dilator were removed and a 4-F. PICC line was plac ed through the sheath with the tip at the level of the SVC. The sheath was removed, the catheter was flushed and sutured into position. The patient was stable throughout the procedure and remained sta ble upon discharge from the Department of Radiology. The vein puncture was patent under ultrasound. A darby scale image was obtained to document patency of the vein punctured. All elements of the maximal barrier technique were utilized. FLUOROSCOPY TIME: 0.1 minutes and one image submitted. IMPRESSION: Successful PICC line placement under ultrasound and fluoroscopic guidance.
[2021-07-14] MEDS: LORazepam 1 MG TAB PO SCH (21:16)
[2021-07-14] MEDS: SODIUM CHLORIDE TAB 1 GM TAB PO SCH (21:16)
--- NOTE | 2021-07-14 22:24 | PN ---
PROGRESS NOTE DATE OF SERVICE: 07/14/2021 REASON FOR FOLLOWUP: Right-sided pneumonia and empyema. INTERVAL HISTORY: The patient is afebrile, has been complaining of pain to the right side of the chest, inadequacy of his pain medication. Denies any shortness of breath. Continues to have a cough and bringing up some sputum. No hemoptysis. No abdominal pain. No diarrhea. PHYSICAL EXAMINATION: Blood pressure is 109/70, pulse of 82, temperature of 98.8. He is 94% on room air. General description is a middle-aged male lying in bed in no distress. RESPIRATORY SYSTEM: Unlabored breathing. Decreased breath sounds at the bases. No wheeze. HEART: S1, S2. Regular rate and rhythm. ABDOMEN: Soft. No tenderness. LABS: BUN of 5, creatinine 0.74. DIAGNOSTIC IMPRESSION AND PLAN: Patient with right-sided empyema and abscess, status post chest tube placement. Culture has been positive for strep and anaerobes. Patient is covered with Rocephin and Flagyl. Plan is for 4 weeks of antibiotics, depending on clinical response, and close outpatient followup. MMODL / IJN: [id number] /
[2021-07-15] MEDS: HYDROcodone/APAP 10-325MG 1 EACH TAB PO PRN ×2 (03:02→08:53)
[2021-07-15] MEDS: SYMBICORT 160-4.5 MCG INHALER INHALATION SCH (07:28)
[2021-07-15 07:29] LABS: African American GFR (CKD) >90 (>60 ml/min/1.73 sqM); Anion Gap 5 mmol/L; Blood Urea Nitrogen 5 mg/dL (9-20); Calcium 7.8 mg/dL (8.4-10.2); Carbon Dioxide 27 mmol/L (22-30); Chloride 96 mmol/L (98-107); Glucose 98 mg/dL (74-99); Non-African American GFR(CKD) >90 (>60 ml/min/1.73 sqM); Potassium 3.7 mmol/L (3.5-5.1); Sodium 128 mmol/L (137-145)
[2021-07-15 08:46] VITALS: BP 106/67; PULSE 87; RESP 18; TEMP 98.4
[2021-07-15] MEDS: NICOTINE 14MG/24HR PATCH TRANSDERM SCH (08:47)
[2021-07-15] MEDS: LIDOCAINE 5% PATCH TOPICAL SCH (08:48)
[2021-07-15] MEDS: metroNIDAZOLE 500 MG TAB PO SCH (08:48)
[2021-07-15] MEDS: FOLIC ACID 1 MG TAB PO SCH (08:48)
[2021-07-15] MEDS: PANTOPRAZOLE 40 MG TABLET PO SCH (08:48)
[2021-07-15] MEDS: THIAMINE 100 MG TAB PO SCH (08:48)
[2021-07-15] MEDS: METOPROLOL SUCCINATE (ER) 100 MG TAB.ER.24H PO SCH (08:48)
[2021-07-15] MEDS: SODIUM CHLORIDE TAB 1 GM TAB PO SCH (08:48)
[2021-07-15 08:59] LABS: HCT 27.6 % (39.0-53.0); HGB 8.9 gm/dL (13.0-17.5); MCH 33.2 pg (25.0-35.0); MCHC 32.4 g/dL (31.0-37.0); MCV 102.6 fL (80.0-100.0); Macrocytosis Slight; Mean Platelet Volume 9.4; Platelet Count 156 k/uL (150-450); RBC 2.69 m/uL (4.30-5.90); RDW 14.7 % (11.5-15.5)
--- NOTE | 2021-07-15 13:25 | P.DS ---
Providers Date of admission: 06/29/21 16:01 Expected date of discharge: 07/15/21 Attending physician: Steve Romeo MD Consults: 06/29/21 16:13 Consult Physician Routine Consulting Provider: Amna Colbert Consult Reason/Comments: PNA, loculated empyema Do you want consulting provider notified?: Yes Consult Physician Urgent Consulting Provider: Mohan Prabhakar Consult Reason/Comments: PNA/ Loculated empyema Do you want consulting provider notified?: Yes 06/29/21 16:14 Consult Physician Urgent Consulting Provider: London Abrams Consult Reason/Comments: loculated empyema/ PNA Do you want consulting provider notified?: Yes Primary care physician: Rafita Estrada [facility] Course: Final diagnosis pneumonia and empyema secondary to alpha hemolytic streptococci and possible anaerobic bacteria Right chest wall abscess and fluid collection at the site of the chest tube status post incision and drainage, pigtail catheter removed Bacterial pneumonia with the streptococci positive cultures with Pseudomonas is a colonization Hyponatremia, possibly secondary to hypovolemia and 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 Patient will follow-up with Dr. Turcios in the outpatient setting upon discharge. Patient is to continue with hemodialysis as scheduled. Total time taken is greater than 35 minutes. Hospital course This is a 60-year-old male who was recently hospitalized at [facility] for pneumonia and empyema and had a chest tube placed on the right for continued drainage and ultimately sent here to [facility] for further evaluation by cardiothoracic surgery for complicated empyema that appears to be loculated. Infectious disease following over there and patient was maintained on cefepime and Vancomycin and will reorder here and consult infectious disease. Consult also placed to pulmonary along with cardiothoracic surgery. Upon arrival to the unit on 4 S. per nursing staff patient's chest tube atrium was lying flat on the patient on arrival and when hooking up to wall suction bubbling was noted in the atrium and was replaced. Bubbling persisted and chest x-ray was done which shows large right pleural effusion and right pulmonary consolidation without change the right side chest tube appears to be in the subcutaneous fat and malposition over the lower lateral right chest wall. No sign of pneumothorax. Cardiothoracic surgery contacted and will be replaced upon their evaluation. Patient does have a past medical history of COPD, hypertension, former smoker recently quit, EtOH use and reports to quitting a month or so ago, anemia, and most recently per family patient has been falling more often with unsteady gait. Patient states he follows with Dr. Rafita Lewis out of [place]. Daughter states patient lives by himself and is concerned and would like possible placement. 06/30/2021 patient is seen and evaluated in follow-up this morning with cardiothoracic surgery along with pulmonary following closely and evaluated the patient. Pigtail catheter on the right was dislodged and removed at the bedside by pulmonary and interventional radiology consulted to replace catheter on the right with possible drainage or evacuation of the loculated area with cultures being sent. patient is continued on 4 L of oxygen via nasal cannula and reports no worsening shortness of breath. Patient had some pain with inspiration and during the removal of the catheter and will order pain medications. 07/01/2021 She is seen and evaluated this morning and chest tube catheter was replaced and draining continuous amounts approval and drainage approximately 1.6 L since last night. Cardio thoracic along with pulmonary following closely along with infectious disease and patient is maintained on IV Zosyn along with vancomycin. Patient states he is having some chest wall discomfort with cough but no worsening. patient is continued on 4 L via nasal cannula. Patient is afebrile. repeat fluid analysis culture is pending. 07/02/2021 Patient is awake and alert, breathing comfortably at rest. Staying in chair or bed most of the time. Pain is controlled. Vital signs stable, he is saturating 98% on 4 L oxygen. Slightly dropped to 133 down to 129. We'll keep monitoring. Patient has pigtail tube on his right chest posteriorly with surrounding area of fluctuating swelling, possible hematoma therefore alteplase is not going to be given today. Per pulmonary team recommendation. Remains on cefepime and IV vancomycin pending final culture results with infectious disease team on the case CT of the chest showing right basilar pleural catheter with a small collection noted. Infected collection is not excluded. Basilar infiltrate may reflect pneumonia or aspiration. Hpneumothorax on the right 07/14/2021 Patient is seen and evaluated in follow-up currently sitting up in the chair requesting to return back to bed and states he is awaiting his bandages to be replaced by nursing staff. Patient continues to be weak requiring assistance and has an unsteady gait with some dizziness upon getting up. Repeat labs done today shows a sodium of 126 and will add sodium chloride tabs and repeat labs. Patient is also scheduled to receive a PICC line today as he will require outpatient IV antibiotic therapy. Infectious disease is following. 07/15/2021 Patient is seen in follow-up today with no acute overnight issues. Patient was started on sodium chloride tabs and continued on fluid restriction to 1500 mL per day and sodium proves slightly at 128 and recommend continuing with fluid restrictions and sodium chloride tabs for 1 week and follow-up labs to monitor CBC, BMP, mag and nephrology follow-up outpatient for hyponatremia. Patient also follow-up with pulmonary along with infectious disease in the outpatient setting. Patient will continue on IV antibiotics in the form of ceftriaxone and oral Flagyl for the next 4 weeks and will be determined if further antibiotics course is needed with follow-up with Dr. Colbert. Patient did receive a PICC line. Continue with local wound care to the right chest wall as directed. Currently no reports of chest pain, shortness of breath, or palpitations. Patient is afebrile. No reports of nausea or vomiting and patient is tolerating diet. Patient will be going to [facility] on the [place] today. Guarded prognosis. Gen: This is a 60-year-old male is awake, alert and oriented 3, thin built, appears older than stated age HEENT: Head is atraumatic, normocephalic. Pupils equal, round. Sclerae is anicteric. NECK: Supple. No JVD. No lymphadenopathy. No thyromegaly. LUNGS: Diminished breath sounds bilaterally with some scattered rhonchi noted. No intercostal retractions. HEART: Regular rate and rhythm. No murmur. ABDOMEN: Soft. Thin built. Bowel sounds are present. No masses. No tenderness. EXTREMITIES: No pedal edema. No calf tenderness. NEUROLOGICAL: Patient is awake, alert and oriented x3. No focal deficits noted. Diffusely weak Please refer to medication reconciliation sheet for a list of medications. Patient Condition at Discharge: Stable Plan - Discharge Summary Discharge Rx Participant: Yes New Discharge Prescriptions: New Lidocaine 5% Patch [Lidoderm 5% Patch] 1 patch TOPICAL DAILY patch Melatonin 3 mg PO HS PRN tablet PRN Reason: Insomnia HYDROcodone/APAP 10-325MG [[place] 10-325] 2 each PO Q6HR PRN #10 tab PRN Reason: Moderate Pain cefTRIAXone [Rocephin] 2 gm IVPB Q24H 30 Days #30 each Sodium Chloride Tab 1 gm PO BID 7 Days #14 tab metroNIDAZOLE [Flagyl] 500 mg PO TID 30 Days #90 tab Folic Acid 1 mg PO DAILY #30 tab Nicotine 14Mg/24Hr Patch [Habitrol] 1 patch TRANSDERM DAILY patch Pantoprazole [Protonix] 40 mg PO AC-BRKFST tab Acetaminophen Tab [Tylenol] 650 mg PO Q6HR PRN tab PRN Reason: Mild Pain Or Fever > 100.5 Thiamine [Vitamin B-1] 100 mg PO DAILY #30 tab Continue Metoprolol Succinate [Toprol XL] 100 mg PO DAILY Umeclidinium [place] [Incruse Ellipta] 1 mcg INHALATION RT-DAILY Mometasone/Formoterol [Dulera 200 Mcg-5 Mcg Inhaler] 2 puff PO RT-BID Albuterol Nebulized [Ventolin Nebulized] 2.5 mg INHALATION RT-QID PRN PRN Reason: Shortness Of Breath Albuterol Inhaler [Ventolin Hfa Inhaler] 1 puff INHALATION RT-Q4H PRN PRN Reason: Shortness Of Breath LORazepam [Ativan] 2 mg PO HS #3 tab Discontinued Butorphanol Tartrate [Stadol Nasal [place]] 1 spray NASAL DAILY PRN PRN Reason: Migraine Headache Ascomp W/Codeine 1 cap PO TID Discharge Medication List Albuterol Inhaler [Ventolin Hfa Inhaler] 1 puff INHALATION RT-Q4H PRN 06/29/21 [History] Albuterol Nebulized [Ventolin Nebulized] 2.5 mg INHALATION RT-QID PRN 06/29/21 [History] Metoprolol Succinate [Toprol XL] 100 mg PO DAILY 06/29/21 [History] Mometasone/Formoterol [Dulera 200 Mcg-5 Mcg Inhaler] 2 puff PO RT-BID 06/29/21 [History] Umeclidinium [place] [Incruse Ellipta] 1 mcg INHALATION RT-DAILY 06/29/21 [History] Acetaminophen Tab [Tylenol] 650 mg PO Q6HR PRN tab 07/15/21 [Rx] Folic Acid 1 mg PO DAILY #30 tab 07/15/21 [Rx] HYDROcodone/APAP 10-325MG [[place] 10-325] 2 each PO Q6HR PRN #10 tab 07/15/21 [Rx] LORazepam [Ativan] 2 mg PO HS #3 tab 07/15/21 [Rx] Lidocaine 5% Patch [Lidoderm 5% Patch] 1 patch TOPICAL DAILY patch 07/15/21 [Rx] Melatonin 3 mg PO HS PRN tablet 07/15/21 [Rx] Nicotine 14Mg/24Hr Patch [Habitrol] 1 patch TRANSDERM DAILY patch 07/15/21 [Rx] Pantoprazole [Protonix] 40 mg PO AC-BRKFST tab 07/15/21 [Rx] Sodium Chloride Tab 1 gm PO BID 7 Days #14 tab 07/15/21 [Rx] Thiamine [Vitamin B-1] 100 mg PO DAILY #30 tab 07/15/21 [Rx] cefTRIAXone [Rocephin] 2 gm IVPB Q24H 30 Days #30 each 07/15/21 [Rx] metroNIDAZOLE [Flagyl] 500 mg PO TID 30 Days #90 tab 07/15/21 [Rx] Follow up Appointment(s)/Referral(s): María Elena Rae MD [STAFF PHYSICIAN] - [address] [facility] on the [place], [NON-STAFF] - As Needed Dixon Maldonado DO [STAFF PHYSICIAN] - 1 Week Amna Colbert MD [STAFF PHYSICIAN] - 1 Week Ambulatory/Diagnostic Orders: Complete Blood Count w/diff [LAB.AMB] Time Frame: 3 Days, Location: None Selected Activity/Diet/Wound Care/Special Instructions: Patient is going to [facility] on the [place] Activity as tolerated Follow-up with pulmonary outpatient Follow-up primary care provider outpatient Recommend repeat labs of CBC and BMP and magnesium in 2-3 days Continue with fluid restrictions of 1500 mL per day and sodium chloride tabs and need outpatient follow-up with nephrology for hyponatremia Continue antibiotic therapy per infectious disease with close outpatient follow- up at the wound center for 4 weeks Continue regular diet continue with wound care as directed Dressing change instructions for right posterior back I&D site: Wet-to-dry dressing change daily Discharge Disposition: TRANSFER TO SNF/ECF
[2021-07-15 14:06] LABS: Eosinophils # (M) 0.04 k/uL (0-0.7); Lymphocytes # (M) 0.48 k/uL (1.0-4.8); Monocytes # (M) 0.48 k/uL (0-1.0); Neutrophils % (M) 75 %; Nucleated Red Blood Cells 0 /100 WBC (0-0); Total Cells Counted 100
--- NOTE | 2021-07-15 17:32 | PN ---
PROGRESS NOTE DATE OF SERVICE: 07/15/2021 REASON FOR FOLLOWUP: Right-sided empyema. INTERVAL HISTORY: Patient is afebrile. The patient is breathing comfortably. The right-sided chest pain has decreased intensity. No nausea, no vomiting. No abdominal pain or diarrhea. PHYSICAL EXAMINATION: Blood pressure 106/67, pulse of 80, temperature 98.4. He is 97% on 3 L nasal cannula. General description is a middle-aged male up in the bed in no distress. Respiratory system: Unlabored breathing, decreased intensity of breath sounds. No wheeze. Heart S1, S2. Regular rate and rhythm. Abdomen soft, no tenderness. LABS: Hemoglobin 8.1, white count 4.0. Creatinine 0.60. DIAGNOSTIC IMPRESSION AND PLAN: Patient with right-sided empyema status post chest tube in this patient with culture positive for strep and anaerobes. The patient is currently on Rocephin and Flagyl. Plan is for a total of 4 weeks of therapy and close outpatient followup. Continue supportive care. MMODL / IJN: [id number] /
== END 2021-07-15 15:39 | DRG 177 ==
LOC: 4SSUR 16:01
PROVIDERS: ADMIT Internal Medicine; ATTEND Internal Medicine
PROC: 0W9930Z Drainage of Right Pleural Cavity with Drainage Device, Percutaneous Approach (ICD-10-PCS; principal; 2021-06-30)
PROC: 0W9930Z Drainage of Right Pleural Cavity with Drainage Device, Percutaneous Approach (ICD-10-PCS; 2021-07-06)
PROC: B548ZZA Ultrasonography of Superior Vena Cava, Guidance (ICD-10-PCS; 2021-07-14)
PROC: 02HV33Z Insertion of Infusion Device into Superior Vena Cava, Percutaneous Approach (ICD-10-PCS; 2021-07-14)
DX: J86.9 Pyothorax without fistula (principal); J15.4 Pneumonia due to other streptococci; J96.21 Acute and chronic respiratory failure with hypoxia; J91.8 Pleural effusion in other conditions classified elsewhere; E22.2 Syndrome of inappropriate secretion of antidiuretic hormone; E44.0 Moderate protein-calorie malnutrition; J44.0 Chronic obstructive pulmonary disease with (acute) lower respiratory infection; J44.1 Chronic obstructive pulmonary disease with (acute) exacerbation; J84.9 Interstitial pulmonary disease, unspecified; J98.11 Atelectasis; L02.213 Cutaneous abscess of chest wall; B95.4 Other streptococcus as the cause of diseases classified elsewhere; Z87.891 Personal history of nicotine dependence; D53.9 Nutritional anemia, unspecified; R26.81 Unsteadiness on feet; E86.1 Hypovolemia; I10 Essential (primary) hypertension; F10.21 Alcohol dependence, in remission; Z99.81 Dependence on supplemental oxygen; I48.0 Paroxysmal atrial fibrillation; R29.6 Repeated falls; Z85.46 Personal history of malignant neoplasm of prostate; Z20.822 Contact with and (suspected) exposure to COVID-19; Z79.51 Long term (current) use of inhaled steroids; Z79.899 Other long term (current) drug therapy; Z68.22 Body mass index [BMI] 22.0-22.9, adult; Z92.3 Personal history of irradiation; Z90.49 Acquired absence of other specified parts of digestive tract; Z91.81 History of falling; Z60.2 Problems related to living alone; Z90.89 Acquired absence of other organs
CPT/HCPCS: 32551; 36573; 71045; 71250; 76942; 80048; 80053; 80202; 82565; 82664; 82945; 83615; 83735; 84157; 85025; 85610; 86769; 87070; 87075; 87077; 87102; 87116; 87186; 87205; 87206; 88108; 88305; 89050; 94640; 94760

== ENCOUNTER 2021-07-25 23:13 | Emergency (ER) | payer MEDICARE, OTHER ==
--- NOTE | 2021-07-25 23:39 | ED ---
General Adult HPI - General Chief complaint: Recheck/Abnormal Lab/Rx Stated complaint: Abnormal Labs Time Seen by Provider: 07/25/21 23:30 Source: EMS Mode of arrival: EMS Limitations: no limitations - History of Present Illness Initial comments: This patient is 60-year-old man who was transferred here from senior living for low hemoglobin. A search of the record does reveal patient has chronic anemia. I questioned the patient regarding symptoms and he has not manifesting severe anemia. The patient denies chest pain, dyspnea, diaphoresis, lightheadedness or syncope. No bloody or tarry stools noted Onset/Timin -: days(s) Severity scale (1-10): 0 Consistency: constant Improves with: none Worsens with: none Associated Symptoms: denies other symptoms - Related Data Home Medications Medication Instructions Recorded Confirmed Albuterol Inhaler [Ventolin Hfa 1 puff INHALATION RT-Q4H PRN 06/29/21 07/28/21 Inhaler] Albuterol Nebulized [Ventolin 2.5 mg INHALATION RT-QID PRN 06/29/21 07/28/21 Nebulized] Metoprolol Succinate [Toprol XL] 100 mg PO DAILY@0900 06/29/21 07/28/21 Mometasone/Formoterol [Dulera 200 2 puff PO RT-BID@09,209906/29/21 07/28/21 Mcg-5 Mcg Inhaler] Umeclidinium [place] [Incruse 1 mcg INHALATION RT-DAILY@0900 06/29/21 07/28/21 Ellipta] Clotrimazole/Betamethasone Dip 1 applic TOPICAL Q12H 07/28/21 07/28/21 [Lotrisone Cream] Fluconazole [Diflucan] 100 mg PO DAILY@0900 07/28/21 07/28/21 Folic Acid 1 mg PO HS@209907/28/21 07/28/21 HYDROcodone/APAP 10-325MG [[place] 2 tab PO Q6HR PRN 07/28/21 07/28/21 10-325] LORazepam [Ativan] 2 mg PO HS@2100 07/28/21 07/28/21 Lactulose [Constulose] 20 gm PO DAILY@0900 07/28/21 07/28/21 Magnesium Hydroxide [Milk of 2,400 mg PO DAILY PRN 07/28/21 07/28/21 Magnesia] Na Phos,M-B/Na Phos,Di-Ba [Fleet 133 ml RECTAL DAILY PRN 07/28/21 07/28/21 Adult] Nicotine 14Mg/24Hr Patch [Habitrol] 1 patch TRANSDERM DAILY@0600 07/28/21 07/28/21 Pantoprazole [Protonix] 40 mg PO DAILY@0600 07/28/21 07/28/21 Thiamine [Vitamin B-1] 100 mg PO DAILY@0900 07/28/21 07/28/21 bisacodyL [Dulcolax] 10 mg RECTAL DAILY PRN 07/28/21 07/28/21 cefTRIAXone [Rocephin] 2 gm IVPB DAILY@0600 07/28/21 07/28/21 metroNIDAZOLE [Flagyl] 500 mg PO TID@0600,1400,2200 07/28/21 07/28/21 Previous Rx's Medication Instructions Recorded Acetaminophen Tab [Tylenol] 650 mg PO Q6HR PRN tab 07/15/21 Melatonin 3 mg PO HS PRN tablet 07/15/21 Allergies Allergy/AdvReac Type Severity Reaction Status Date / Time No Known Allergies Allergy Verified 07/28/21 11:50 Review of Systems ROS Statement: Those systems with pertinent positive or pertinent negative responses have been documented in the HPI. ROS Other: All systems not noted in ROS Statement are negative. Constitutional: Denies: fever Respiratory: Denies: cough, dyspnea Cardiovascular: Denies: chest pain, palpitations, syncope Gastrointestinal: Denies: abdominal pain, vomiting, diarrhea, melena, hematochezia Genitourinary: Denies: dysuria, hematuria Musculoskeletal: Denies: back pain Skin: Denies: rash Neurological: Denies: headache, weakness, numbness Past Medical History Past Medical History: Atrial Fibrillation, Cancer, COPD, Hypertension, Prostate Disorder, Respiratory Disorder History of Any Multi-Drug Resistant Organisms: None Reported Past Surgical History: Appendectomy, Hernia Repair, Orthopedic Surgery, Tonsillectomy Additional Past Surgical History / Comment(s): History of esophageal dilation Past Anesthesia/Blood Transfusion Reactions: No Reported Reaction Past Psychological History: No Psychological Hx Reported Smoking Status: Former smoker Past Alcohol Use History: Daily Past Drug Use History: None Reported General Exam Limitations: no limitations General appearance: alert, in no apparent distress Head exam: Present: atraumatic, normocephalic Eye exam: Present: normal appearance Neck exam: Present: normal inspection Respiratory exam: Present: normal lung sounds bilaterally. Absent: respiratory distress, wheezes, rales, rhonchi, stridor Cardiovascular Exam: Present: regular rate, normal rhythm, normal heart sounds. Absent: systolic murmur, diastolic murmur, rubs, gallop GI/Abdominal exam: Present: soft. Absent: distended, tenderness, guarding, lianne ound, rigid, mass Rectal exam: Present: normal inspection. Absent: black stool, bloody stool, tenderness Extremities exam: Present: normal inspection, normal capillary refill. Absent: pedal edema, calf tenderness Back exam: Present: normal inspection Neurological exam: Present: alert Skin exam: Present: warm, dry, intact, pallor Course Vital Signs 07/25/21 07/26/21 07/26/21 23:23 00:00 01:00 Temperature 97.7 F Pulse Rate 98 87 89 Respiratory 18 18 18 Rate Blood Pressure 85/67 100/73 105/77 O2 Sat by Pulse 99 95 96 Oximetry 07/26/21 07/26/21 07/26/21 03:14 03:46 03:56 Temperature 98.5 F 98.1 F 98.5 F Pulse Rate 86 84 87 Respiratory 18 185 H 18 Rate Blood Pressure 112/83 110/86 120/89 O2 Sat by Pulse 96 96 97 Oximetry 07/26/21 07/26/21 07/26/21 04:26 05:35 05:38 Temperature 98.5 F 98.5 F 98.5 F Pulse Rate 86 86 Respiratory 18 18 18 Rate Blood Pressure 110/84 121/89 121/89 O2 Sat by Pulse 98 99 Oximetry 07/26/21 07:18 Temperature 97.9 F Pulse Rate 89 Respiratory 18 Rate Blood Pressure 117/86 O2 Sat by Pulse 99 Oximetry EKG Findings - EKG Results: EKG: interpreted by ERMD, sinus rhythm (Rate 93 bpm), normal axis, normal QRS - Blocks, [place], Hypertrophy, ST Abn: Repolarization changes or abnormalities: nonspecific abnormality, ST segment, and/or T wave Medical Decision Making - Medical Decision Making Patient is 60-year-old man here with history of chronic anemia, who is hemoglobin was found to be low. His hemoglobin is 6.8 today. The patient is transfused packed red cells here. He is Hemoccult negative. The patient at this point does feel like he would like to go home. I will have patient continue as outpatient workup. - Lab Data Result diagrams: 07/25/21 23:37 07/25/21 23:37 Lab Results 07/25/21 07/25/21 07/25/21 Range/Units 00:55 23:37 23:37 WBC 18.0 H (3.8-10.6) k/uL RBC 2.16 L (4.30-5.90) m/uL Hgb 6.8 L* D (13.0-17.5) gm/dL Hct 20.8 L (39.0-53.0) % MCV 96.3 D (80.0-100.0) fL MCH 31.3 (25.0-35.0) pg MCHC 32.5 (31.0-37.0) g/dL RDW 17.1 H (11.5-15.5) % Plt Count 595 H D (150-450) k/uL MPV 10.0 Neutrophils % 92 % Lymphocytes % 4 % Monocytes % 3 % Eosinophils % 0 % Basophils % 0 % Neutrophils # 16.4 H (1.3-7.7) k/uL Lymphocytes # 0.7 L (1.0-4.8) k/uL Monocytes # 0.5 (0-1.0) k/uL Eosinophils # 0.1 (0-0.7) k/uL Basophils # 0.0 (0-0.2) k/uL Poikilocytosis Moderate Anisocytosis Slight Macrocytosis Slight Sodium 129 L (137-145) mmol/L Potassium 4.6 (3.5-5.1) mmol/L Chloride 99 (98-107) mmol/L Carbon Dioxide 22 (22-30) mmol/L Anion Gap 8 mmol/L BUN 10 (9-20) mg/dL Creatinine 0.52 L (0.66-1.25) mg/dL Est GFR (CKD-EPI)AfAm >90 (>60 ml/min/1.73 sqM) Est GFR (CKD-EPI)NonAf >90 (>60 ml/min/1.73 sqM) Glucose 135 H (74-99) mg/dL Calcium 8.9 (8.4-10.2) mg/dL Total Bilirubin 1.6 H (0.2-1.3) mg/dL AST 15 L (17-59) U/L ALT 10 (4-49) U/L Alkaline Phosphatase 98 (38-126) U/L Total Protein 6.6 (6.3-8.2) g/dL Albumin 2.8 L (3.5-5.0) g/dL Stool Occult Blood (Negative) Blood Type A Positive Blood Type Confirm Blood Type Recheck No Previous Record Bld Type Recheck Status CABO Indicated Antibody Screen NEGATIVE Crossmatch See Detail Spec Expiration Date 07/28/2021 - 235407/26/21 07/26/21 Range/Units 01:05 06:00 WBC (3.8-10.6) k/uL RBC (4.30-5.90) m/uL Hgb (13.0-17.5) gm/dL Hct (39.0-53.0) % MCV (80.0-100.0) fL MCH (25.0-35.0) pg MCHC (31.0-37.0) g/dL RDW (11.5-15.5) % Plt Count (150-450) k/uL MPV Neutrophils % % Lymphocytes % % Monocytes % % Eosinophils % % Basophils % % Neutrophils # (1.3-7.7) k/uL Lymphocytes # (1.0-4.8) k/uL Monocytes # (0-1.0) k/uL Eosinophils # (0-0.7) k/uL Basophils # (0-0.2) k/uL Poikilocytosis Anisocytosis Macrocytosis Sodium (137-145) mmol/L Potassium (3.5-5.1) mmol/L Chloride (98-107) mmol/L Carbon Dioxide (22-30) mmol/L Anion Gap mmol/L BUN (9-20) mg/dL Creatinine (0.66-1.25) mg/dL Est GFR (CKD-EPI)AfAm (>60 ml/min/1.73 sqM) Est GFR (CKD-EPI)NonAf (>60 ml/min/1.73 sqM) Glucose (74-99) mg/dL Calcium (8.4-10.2) mg/dL Total Bilirubin (0.2-1.3) mg/dL AST (17-59) U/L ALT (4-49) U/L Alkaline Phosphatase (38-126) U/L Total Protein (6.3-8.2) g/dL Albumin (3.5-5.0) g/dL Stool Occult Blood Negative (Negative) Blood Type Blood Type Confirm A Positive Blood Type Recheck Bld Type Recheck Status Antibody Screen Crossmatch Spec Expiration Date Disposition Clinical Impression: Anemia Disposition: HOME SELF-CARE Condition: Good Instructions (If sedation given, give patient instructions): Anemia (ED) Is patient prescribed a controlled substance at d/c from ED?: No Referrals: Rafita Lewis MD [Primary Care Provider] - 1-2 days
[2021-07-26 00:04] LABS: Albumin 2.8 g/dL (3.5-5.0)
[2021-07-26 00:06] LABS: ALT 10 U/L (4-49); AST 15 U/L (17-59); African American GFR (CKD) >90 (>60 ml/min/1.73 sqM); Alkaline Phosphatase 98 U/L (38-126); Anion Gap 8 mmol/L; Blood Urea Nitrogen 10 mg/dL (9-20); Calcium 8.9 mg/dL (8.4-10.2); Carbon Dioxide 22 mmol/L (22-30); Chloride 99 mmol/L (98-107); Glucose 135 mg/dL (74-99); Non-African American GFR(CKD) >90 (>60 ml/min/1.73 sqM); Potassium 4.6 mmol/L (3.5-5.1); Sodium 129 mmol/L (137-145); Total Bilirubin 1.6 mg/dL (0.2-1.3); Total Protein 6.6 g/dL (6.3-8.2)
[2021-07-26 01:02] LABS: Anisocytosis Slight; Basophils % (A) 0 %; Eosinophils # (A) 0.1 k/uL (0-0.7); Eosinophils % (A) 0 %; HCT 20.8 % (39.0-53.0); Lymphocytes # (A) 0.7 k/uL (1.0-4.8); Lymphocytes % (A) 4 %; MCH 31.3 pg (25.0-35.0); MCHC 32.5 g/dL (31.0-37.0); Macrocytosis Slight; Monocytes # (A) 0.5 k/uL (0-1.0); Monocytes % (A) 3 %; Neutrophils # (A) 16.4 k/uL (1.3-7.7); Neutrophils % (A) 92 %; Poikilocytosis Moderate; RBC 2.16 m/uL (4.30-5.90); RDW 17.1 % (11.5-15.5)
[2021-07-26 01:08] LABS: MCV 96.3 fL (80.0-100.0); Platelet Count 595 k/uL (150-450)
[2021-07-26 01:09] LABS: HGB 6.8 gm/dL (13.0-17.5)
[2021-07-26] MEDS ORDERED: HYDROcodone/APAP 10-325MG 1 EACH TAB PO ONE (03:01)
[2021-07-26 03:58] VITALS: RESP 18
[2021-07-26 07:18] VITALS: BP 117/86; PULSE 89; TEMP 97.9
== END 2021-07-26 08:24 | disposition home or self-care (01) ==
LOC: EC 23:13
DX: D64.9 Anemia, unspecified (principal); I10 Essential (primary) hypertension; I48.91 Unspecified atrial fibrillation; J44.9 Chronic obstructive pulmonary disease, unspecified; Z87.891 Personal history of nicotine dependence; Z79.51 Long term (current) use of inhaled steroids; Z79.899 Other long term (current) drug therapy
CPT/HCPCS: 36415 ×2; 93005; 86900; 86901; 80053; 85652; 82550; 85025; 86850; 86920; 86140; 82272; 99284; P9016

== ENCOUNTER 2021-07-28 10:30 | Emergency (ER) | payer MEDICARE, OTHER ==
--- NOTE | 2021-07-28 11:11 | ED ---
General Adult HPI - General Chief complaint: Recheck/Abnormal Lab/Rx Stated complaint: Low hemoglobin Source: patient, EMS Mode of arrival: EMS Limitations: no limitations - History of Present Illness Initial comments: 60-year-old male with past history of A. fib, COPD, hypertension presents with anemia. He does come from [facility]. Patient has had 2 blood transfusions in the recent past for anemia. He is occult negative. Patient was seen 3 days ago for similar complaints transfused 1 unit of blood. He presents today with a continued low hemoglobin. He currently has a PICC line for antibiotics for pneumonia. Patient admits to generalized weakness without shortness of breath. No other alleviating, or modifying factors - Related Data Home Medications Medication Instructions Recorded Confirmed Albuterol Inhaler [Ventolin Hfa 1 puff INHALATION RT-Q4H PRN 06/29/21 07/28/21 Inhaler] Albuterol Nebulized [Ventolin 2.5 mg INHALATION RT-QID PRN 06/29/21 07/28/21 Nebulized] Metoprolol Succinate [Toprol XL] 100 mg PO DAILY@0900 06/29/21 07/28/21 Mometasone/Formoterol [Dulera 200 2 puff PO RT-BID@0900,209906/29/21 07/28/21 Mcg-5 Mcg Inhaler] Umeclidinium [place] [Incruse 1 mcg INHALATION RT-DAILY@0900 06/29/21 07/28/21 Ellipta] Clotrimazole/Betamethasone Dip 1 applic TOPICAL Q12H 07/28/21 07/28/21 [Lotrisone Cream] Fluconazole [Diflucan] 100 mg PO DAILY@0900 07/28/21 07/28/21 Folic Acid 1 mg PO HS@209907/28/21 07/28/21 HYDROcodone/APAP 10-325MG [[place] 2 tab PO Q6HR PRN 07/28/21 07/28/21 10-325] LORazepam [Ativan] 2 mg PO HS@2100 07/28/21 07/28/21 Lactulose [Constulose] 20 gm PO DAILY@0900 07/28/21 07/28/21 Magnesium Hydroxide [Milk of 2,400 mg PO DAILY PRN 07/28/21 07/28/21 Magnesia] Na Phos,M-B/Na Phos,Di-Ba [Fleet 133 ml RECTAL DAILY PRN 07/28/21 07/28/21 Adult] Nicotine 14Mg/24Hr Patch [Habitrol] 1 patch TRANSDERM DAILY@0600 07/28/21 07/28/21 Pantoprazole [Protonix] 40 mg PO DAILY@0600 07/28/21 07/28/21 Thiamine [Vitamin B-1] 100 mg PO DAILY@0900 07/28/21 07/28/21 bisacodyL [Dulcolax] 10 mg RECTAL DAILY PRN 07/28/21 07/28/21 cefTRIAXone [Rocephin] 2 gm IVPB DAILY@0600 07/28/21 07/28/21 metroNIDAZOLE [Flagyl] 500 mg PO TID@0600,1400,2200 07/28/21 07/28/21 Previous Rx's Medication Instructions Recorded Acetaminophen Tab [Tylenol] 650 mg PO Q6HR PRN tab 07/15/21 Melatonin 3 mg PO HS PRN tablet 07/15/21 Allergies Allergy/AdvReac Type Severity Reaction Status Date / Time No Known Allergies Allergy Verified 07/28/21 11:50 Review of Systems ROS Statement: Those systems with pertinent positive or pertinent negative responses have been documented in the HPI. ROS Other: All systems not noted in ROS Statement are negative. Past Medical History Past Medical History: Atrial Fibrillation, Cancer, COPD, Hypertension, Prostate Disorder, Respiratory Disorder History of Any Multi-Drug Resistant Organisms: None Reported Past Surgical History: Appendectomy, Hernia Repair, Orthopedic Surgery, To nsillectomy Additional Past Surgical History / Comment(s): History of esophageal dilation Past Anesthesia/Blood Transfusion Reactions: No Reported Reaction Past Psychological History: No Psychological Hx Reported Smoking Status: Former smoker Past Alcohol Use History: Daily Past Drug Use History: None Reported General Exam Limitations: no limitations Course Vital Signs 07/28/21 07/28/21 07/28/21 10:36 11:26 12:45 Temperature 97.3 F L Pulse Rate 93 91 92 Respiratory 18 16 18 Rate Blood Pressure 122/84 118/90 115/90 O2 Sat by Pulse 98 100 100 Oximetry 07/28/21 07/28/21 07/28/21 13:54 14:00 14:10 Temperature 98.3 F 98.3 F 98.2 F Pulse Rate 94 88 87 Respiratory 18 18 18 Rate Blood Pressure 117/96 114/90 118/94 O2 Sat by Pulse 97 100 100 Oximetry 07/28/21 07/28/21 14:40 15:55 Temperature 98.3 F Pulse Rate 83 82 Respiratory 18 18 Rate Blood Pressure 129/95 129/97 O2 Sat by Pulse 100 100 Oximetry EKG Findings - EKG Comments: EKG Findings:: EKG demonstrates sinus rhythm with rate of 93. [place] interval 166. QRS 86. QTC of 455. No acute ST segment elevations or depressions Medical Decision Making - Medical Decision Making Upon arrival patient is placed into room 2. Reviewed the patient's chart. Hemoglobin today is 6.9. He is typed and screened and will be given 1 unit. He will then be discharged back to his [facility] - Lab Data Result diagrams: 07/28/21 11:12 07/28/21 11:12 Lab Results 07/28/21 07/28/21 07/28/21 Range/Units 11:12 11:12 11:12 WBC 11.0 H (3.8-10.6) k/uL RBC 2.09 L (4.30-5.90) m/uL Hgb 6.9 L* (13.0-17.5) gm/dL Hct 19.8 L* (39.0-53.0) % MCV 95.0 (80.0-100.0) fL MCH 33.0 (25.0-35.0) pg MCHC 34.7 (31.0-37.0) g/dL RDW 21.0 H (11.5-15.5) % Plt Count 483 H (150-450) k/uL MPV 8.3 Neutrophils % 80 % Lymphocytes % 11 % Monocytes % 6 % Eosinophils % 1 % Basophils % 0 % Neutrophils # 8.9 H (1.3-7.7) k/uL Lymphocytes # 1.2 (1.0-4.8) k/uL Monocytes # 0.6 (0-1.0) k/uL Eosinophils # 0.1 (0-0.7) k/uL Basophils # 0.0 (0-0.2) k/uL Hyperchromasia Slight Poikilocytosis Moderate Anisocytosis Moderate Macrocytosis Slight PT 10.7 (9.0-12.0) sec INR 1.0 (<1.2) APTT 20.2 L (22.0-30.0) sec Sodium 131 L (137-145) mmol/L Potassium 4.1 (3.5-5.1) mmol/L Chloride 100 (98-107) mmol/L Carbon Dioxide 24 (22-30) mmol/L Anion Gap 7 mmol/L BUN 9 (9-20) mg/dL Creatinine 0.46 L (0.66-1.25) mg/dL Est GFR (CKD-EPI)AfAm >90 (>60 ml/min/1.73 sqM) Est GFR (CKD-EPI)NonAf >90 (>60 ml/min/1.73 sqM) Glucose 103 H (74-99) mg/dL Calcium 9.0 (8.4-10.2) mg/dL Total Bilirubin 0.6 (0.2-1.3) mg/dL AST 18 (17-59) U/L ALT 8 (4-49) U/L Alkaline Phosphatase 85 (38-126) U/L Troponin I (0.000-0.034) ng/mL Total Protein 6.5 (6.3-8.2) g/dL Albumin 2.8 L (3.5-5.0) g/dL Blood Type Blood Type Recheck Bld Type Recheck Status Antibody Screen Crossmatch Spec Expiration Date 07/28/21 07/28/21 Range/Units 11:12 11:28 WBC (3.8-10.6) k/uL RBC (4.30-5.90) m/uL Hgb (13.0-17.5) gm/dL Hct (39.0-53.0) % MCV (80.0-100.0) fL MCH (25.0-35.0) pg MCHC (31.0-37.0) g/dL RDW (11.5-15.5) % Plt Count (150-450) k/uL MPV Neutrophils % % Lymphocytes % % Monocytes % % Eosinophils % % Basophils % % Neutrophils # (1.3-7.7) k/uL Lymphocytes # (1.0-4.8) k/uL Monocytes # (0-1.0) k/uL Eosinophils # (0-0.7) k/uL Basophils # (0-0.2) k/uL Hyperchromasia Poikilocytosis Anisocytosis Macrocytosis PT (9.0-12.0) sec INR (<1.2) APTT (22.0-30.0) sec Sodium (137-145) mmol/L Potassium (3.5-5.1) mmol/L Chloride (98-107) mmol/L Carbon Dioxide (22-30) mmol/L Anion Gap mmol/L BUN (9-20) mg/dL Creatinine (0.66-1.25) mg/dL Est GFR (CKD-EPI)AfAm (>60 ml/min/1.73 sqM) Est GFR (CKD-EPI)NonAf (>60 ml/min/1.73 sqM) Glucose (74-99) mg/dL Calcium (8.4-10.2) mg/dL Total Bilirubin (0.2-1.3) mg/dL AST (17-59) U/L ALT (4-49) U/L Alkaline Phosphatase (38-126) U/L Troponin I <0.012 (0.000-0.034) ng/mL Total Protein (6.3-8.2) g/dL Albumin (3.5-5.0) g/dL Blood Type A Positive Blood Type Recheck A Pos Bld Type Recheck Status No Antibody Screen NEGATIVE Crossmatch See Detail Spec Expiration Date 07/31/20212327 Disposition Clinical Impression: Anemia Disposition: HOME SELF-CARE Condition: Stable Instructions (If sedation given, give patient instructions): Anemia (ED) Additional Instructions: Please follow up with your primary care doctor in 2-4 days. Return to the emergency room for any new or worsening symptoms Is patient prescribed a controlled substance at d/c from ED?: No Referrals: Rafita Lewis MD [Primary Care Provider] - 1-2 days Time of Disposition: 13:08
[2021-07-28 11:42] LABS: Anisocytosis Moderate; Basophils % (A) 0 %; Eosinophils # (A) 0.1 k/uL (0-0.7); Eosinophils % (A) 1 %; Hyperchromasia Slight; Lymphocytes # (A) 1.2 k/uL (1.0-4.8); Lymphocytes % (A) 11 %; MCHC 34.7 g/dL (31.0-37.0); Macrocytosis Slight; Mean Platelet Volume 8.3; Monocytes # (A) 0.6 k/uL (0-1.0); Monocytes % (A) 6 %; Neutrophils # (A) 8.9 k/uL (1.3-7.7); Neutrophils % (A) 80 %; Platelet Count 483 k/uL (150-450); Poikilocytosis Moderate; RBC 2.09 m/uL (4.30-5.90)
[2021-07-28 11:46] LABS: HCT 19.8 % (39.0-53.0); HGB 6.9 gm/dL (13.0-17.5)
[2021-07-28] MEDS ORDERED: MORPHINE SULFATE 4 MG/ML SYRINGE IVP STA (11:51)
[2021-07-28 12:00] LABS: ALT 8 U/L (4-49); AST 18 U/L (17-59); African American GFR (CKD) >90 (>60 ml/min/1.73 sqM); Albumin 2.8 g/dL (3.5-5.0); Alkaline Phosphatase 85 U/L (38-126); Anion Gap 7 mmol/L; Blood Urea Nitrogen 9 mg/dL (9-20); Carbon Dioxide 24 mmol/L (22-30); Chloride 100 mmol/L (98-107); Glucose 103 mg/dL (74-99); Non-African American GFR(CKD) >90 (>60 ml/min/1.73 sqM); Potassium 4.1 mmol/L (3.5-5.1); Sodium 131 mmol/L (137-145); Total Bilirubin 0.6 mg/dL (0.2-1.3); Total Protein 6.5 g/dL (6.3-8.2)
[2021-07-28 12:13] LABS: Partial Thromboplastin Time 20.2 sec (22.0-30.0); Prothrombin Time 10.7 sec (9.0-12.0)
[2021-07-28 12:46] VITALS: RESP 18
[2021-07-28 17:56] LABS: Anisocytosis Moderate; Basophils % (A) 0 %; Eosinophils # (A) 0.1 k/uL (0-0.7); Eosinophils % (A) 1 %; HGB 7.3 gm/dL (13.0-17.5); Lymphocytes # (A) 1.2 k/uL (1.0-4.8); Lymphocytes % (A) 10 %; MCH 31.8 pg (25.0-35.0); MCHC 33.3 g/dL (31.0-37.0); MCV 95.6 fL (80.0-100.0); Macrocytosis Slight; Mean Platelet Volume 8.4; Monocytes # (A) 0.7 k/uL (0-1.0); Monocytes % (A) 6 %; Neutrophils # (A) 9.5 k/uL (1.3-7.7); Neutrophils % (A) 81 %; Platelet Count 418 k/uL (150-450); Poikilocytosis Moderate; RBC 2.31 m/uL (4.30-5.90); WBC 11.7 k/uL (3.8-10.6)
[2021-07-28 19:36] VITALS: BP 148/88; PULSE 83; TEMP 98.2
== END 2021-07-28 19:36 | disposition home or self-care (01) ==
LOC: EC 10:30
DX: D64.9 Anemia, unspecified (principal); I48.91 Unspecified atrial fibrillation; J44.9 Chronic obstructive pulmonary disease, unspecified; I10 Essential (primary) hypertension; Z90.49 Acquired absence of other specified parts of digestive tract; Z90.89 Acquired absence of other organs; Z87.891 Personal history of nicotine dependence
CPT/HCPCS: 99285; 96374; 36430; 36415; 93005; 86900; 86901; 80053; 84484; 85025; 85610; 85730; 86850; 86920; P9016; J2270